=== PATIENT | female | born 1970 | race African-American/Black ===

== ENCOUNTER 2017-09-17 08:21 | Day surgery (SDC) | payer OTHER ==
[2017-09-15 09:29] LABS: HEMATOCRIT 40.9 % (36.0-47.0); HEMOGLOBIN 14.2 g/dL (12.0-15.5); MEAN CORPUSCULAR HEMOGLOBIN 31.7 pg (27.0-33.4); MEAN CORPUSCULAR HGB CONC 34.6 g/dL (32.0-36.0); MEAN CORPUSCULAR VOLUME 92 fl (80-97); PLATELET COUNT 384 10^3/uL (150-450); RED BLOOD COUNT 4.47 10^6/uL (3.72-5.28); RED CELL DISTRIBUTION WIDTH 13.3 % (11.5-14.0); WHITE BLOOD COUNT 5.7 10^3/uL (4.0-10.5)
[~2017-09-17 08:21] MED LIST: ACETAMINOPHEN 325 MG TABLET PO PRN; CEFAZOLIN 1 GM/D5W RTU 1 GM/50 ML RTUPB IV PRN; LACTATED RINGERS 1000 ML IV PRN; LIDOCAINE 0.5% INJ-PF (5 MG/ML) 50 ML SDV SUBCUT PRN
[2017-09-17] MEDS ORDERED: METOPROLOL TARTRATE 50 MG TABLET PO ONE (09:30)
[2017-09-17] MEDS ORDERED: LIDOCAINE 1%/EPINEPHRINE INJ 20 ML VIAL ONE (09:44)
[2017-09-17] MEDS ORDERED: ONDANSETRON HCL INJ/PF 4 MG/2 ML SDV ONE (10:12)
[2017-09-17] MEDS ORDERED: FENTANYL CITRATE INJ/PF 100 MCG/2 ML AMPUL ONE ×2 (10:12→11:41)
[2017-09-17] MEDS ORDERED: PROPOFOL INJ 200 MG/20 ML VIAL IV ONE (10:12)
[2017-09-17] MEDS ORDERED: LIDOCAINE 2% INJ-PF (20 MG/ML) 10 ML AMPUL ONE (10:12)
[2017-09-17] MEDS ORDERED: DEXMEDETOMIDINE INJ 80 MCG/20 ML VIAL IV ONE (10:12)
[2017-09-17] MEDS ORDERED: MIDAZOLAM 2 MG/2 ML INJ ONE (10:12)
[2017-09-17] MEDS ORDERED: ONDANSETRON HCL INJ/PF 4 MG/2 ML SDV IV PRN (10:43)
[2017-09-17] MEDS ORDERED: OXYCODONE-ACETAMINOPHEN 5-325 MG TABLET PO PRN ×3 (10:43→11:27)
[2017-09-17] MEDS ORDERED: PROMETHAZINE HCL INJ 25 MG/1 ML VIAL IV PRN ×2 (10:43)
[2017-09-17] MEDS ORDERED: FENTANYL CITRATE INJ/PF 100 MCG/2 ML AMPUL IV PRN ×3 (10:43)
[2017-09-17] MEDS ORDERED: MORPHINE SULFATE 10 MG/ML INJ IV PRN (10:43)
[2017-09-17] MEDS ORDERED: DIPHENHYDRAMINE HCL 50 MG/ML VIAL IV PRN (10:43)
[2017-09-17] MEDS ORDERED: MEPERIDINE HCL/PF INJ 25 MG/1 ML DISP.SYRIN IV PRN (10:43)
--- NOTE | 2017-09-17 11:25 | Operative Report ---
Operative Report DATE OF SURGERY: 09/17/17 PREOPERATIVE DIAGNOSIS: Metastatic triple negative left breast cancer POSTOPERATIVE DIAGNOSIS: same OPERATION: 1. Focused ultrasound of the left neck. 2. Ultrasound directed insertion venous access left internal jugular vein with subclavian portacatheter placement. 3. Interpretation of intraoperative fluoroscopy. SURGEON: KT LARRY 1ST ASSISTANT TERMINAL MANAGER: JACK MURPHY ANESTHESIA: LMAC TISSUE REMOVED OR ALTERED: See below COMPLICATIONS: None ESTIMATED BLOOD LOSS: Scant INTRAOPERATIVE FINDINGS: See below PROCEDURE: The patient was in the preop holding area then taken the main operating room where LMAC anesthesia was induced. Arms were tucked to the sides. The neck chest wall prepped and draped sterile fashion on both right and left sides. Surgical plan surgical timeout were conducted. Skin was any status with 1/4% Marcaine. Using ultrasound real-time as a guide, a micro needle and wire were threaded into the left internal jugular vein. Suitable site for placement of the port catheter was chosen. Skin was anesthetized with quarter percent Marcaine. A 3 cm incision was made several centimeters below the left clavicle. A port pocket was developed large enough to accommodate a single-chamber port using a combination of blunt and electrocautery dissection. The catheter was then trimmed the appropriate length , tunneled between the 2 incisions, attached to the port with the plastic ring and the port tucked into the subclavian pocket. The micro needle and wire were switched over to a fentanyl 0.030 guidewire using the introducer sheath. We then threaded a 9 Lithuanian introducer sheath over the guidewire, guidewire removed, as well as the dilator, then the catheter was threaded into the strip away sheath. All under fluoroscopic guidance, the strip away sheath was removed leaving the catheter in good position. There is no kinking of the catheter. Photos were taken of the final position of the catheter with the tip in the superior vena cava. Catheter aspirated and flushed satisfactorily. There was no evidence of ectopy. Closed with 3-0 Vicryl benzoin and Steri-Strip. Patient tolerated procedure well, taken recovery in stable condition.
--- NOTE | 2017-09-17 11:27 | Discharge Summary ---
Discharge Summary (SDC) - Discharge Final Diagnosis: Breast cancer Date of Surgery: 09/17/17 Discharge Date: 09/17/17 Condition: Stable Treatment or Instructions: WOUND CARE: 1) Do not get area wet for 48 hours. At that time you may wash area with warm water/soap, pat dry. Do not scurb. Leave paper band aids (steri strips) intact until follow up appointment. You may cover area with gauze and tape if it makes you more comfortable. PAIN MANAGEMENT: 1) Toradol 10 mg one pill by mouth every six hours as needed for pain. FOLLOW UP: 1) Follow up at [facility] in 7-10 days. Call clinic sooner if area becomes red, swollen, drainage occurs or difficulty breathing. Prescriptions: Ketorolac Tromethamine [Toradol 10 mg Tablet] 10 mg PO Q6HP PRN #20 tablet PRN Reason: Referrals: MANJINDER RODRIGUEZ MD [Primary Care Provider] - Discharge Diet: As Tolerated Discharge Activity: Activity As Tolerated Report the Following to Your Physician Immediately: Shortness of Breath, Fever over 101 Degrees, Unusual Bleeding, Redness, Drainage-Foul Smelling
[2017-09-17] MEDS ORDERED: OXYCODONE-ACETAMINOPHEN 5-325 MG TABLET ONE (12:28)
[2017-09-17 13:30] VITALS: BP 130/90
--- NOTE | 2017-09-17 14:19 | RADIOLOGY REPORT (SQ) ---
EXAM DESCRIPTION: FLUORO/CV PLACEMENT COMPLETED DATE/TIME: 09/17/2017 11:38 am REASON FOR STUDY: [id number] INSERTION W/FLUORO IN OR C50.411 MALIG NEOPLM OF UPPER-OUTER QUAD RANT OF RIGHT FEMALE C34.32 MALIGNANT NEOPLASM OF LOWER LOBE, LEFT BRONCHUS OR ARLYN COMPARISON: None. FLUOROSCOPY TIME: 0.2 minutes. 2 images saved to PACS. TECHNIQUE: Intra-operative images acquired during surgical procedure to evaluate progress. NUMBER OF IMAGES: 2 images. LIMITATIONS: None. FINDINGS: Images of the chest acquired during catheter placement. IMPRESSION: IMAGE(S) OBTAINED DURING PROCEDURE. COMMENT: Quality ID [id number]: Final reports for procedures using fluoroscopy that document radiation exp osure indices, or exposure time and number of fluorographic images (if radiation exposure indices are not available) Please consult full operative report of the attending physician for description of the procedure. TECHNICAL DOCUMENTATION: JOB ID: [id number] [employer]- All Rights Reserved Reading location - IP/workstation name: [email or web address]
== END 2017-09-17 13:45 | disposition home or self-care (01) ==
LOC: OROUT 08:21
PROVIDERS: ATTEND Surgery
DX: C50.411 Malignant neoplasm of upper-outer quadrant of right female breast (principal); C34.32 Malignant neoplasm of lower lobe, left bronchus or lung; G89.29 Other chronic pain; Z87.442 Personal history of urinary calculi; Z79.899 Other long term (current) drug therapy; Z79.82 Long term (current) use of aspirin
CPT/HCPCS: 36415; 85027; 77001; 36561; C1752; C1788; J2250; J0690; J3010; J3490 ×3; J2405; J2704; J1642; 532

== ENCOUNTER → 2018-02-08 | Outpatient (CLI) | payer OTHER ==
--- NOTE | 2018-02-09 09:11 | RADIOLOGY REPORT (SQ) ---
EXAM DESCRIPTION: PET CT SKULL/THIGH COMPLETED DATE/TIME: 02/08/2018 9:50 pm REASON FOR STUDY: HX OF BREAST/LUNG CANCER new right breast cancer diagnosis August 2017 COMPARISON: None. RADIONUCLIDE AND DOSE: 8.2 mCi F18 FDG The route of agent administration: Intravenous FASTING BLOOD SUGAR: 78 mg/dl CONTRAST TYPE AND DOSE: No CT contrast given. TECHNIQUE: Blood glucose level was verified. Above dose of FDG was injected intravenously. 2-D seg mented attenuation correction images were obtained from the base of the skull to the midthighs. Nonc ontrast CT images were obtained for attenuation correction and fusion with emission images. CT image s were performed without oral or intravenous contrast and are not sensitive for parenchymal lesions. A series of overlapping emission PET images were obtained. [facility] and [email or web address] by the radiologist. Images stored on PACS. LIMITATIONS: None. FINDINGS: HEAD AND NECK: No areas of abnormal metabolic activity in the soft tissues of the head and neck. CHEST: In the right upper outer quadrant of the breast, a 4 x 3 cm dominant mass is present on axial image 80 with SUV of 11. Immediately adjacent to the dominant mass, a 1.2 base 0.9 cm malignant nodule is present in the upper outer quadrant right breast on axial image 75, with SUV of 6.0. No right axillary or internal mammary region metabolic lymph nodes. No hypermetabolic sternal lesion s. ABDOMEN AND PELVIS: No areas of abnormal metabolic activity in the abdomen or pelvis. Expected physi ologic activity is present in the genitourinary system and bowel. PROXIMAL LOWER EXTREMITIES: No areas of abnormal metabolic activity in the soft tissues of the lower extremities. BONES: No abnormal metabolic activity in the visualized skeleton. ADDITIONAL CT FINDINGS: Old left lower lobectomy, left permanent central line with the tip in the sup erior vena cava. 1 cm left lower pole thyroid nodule. Small hiatal hernia. Tiny less than 3 mm tolu ateral upper pole renal stones. Colonic diverticuli. 5 x 3 cm left adnexal cyst, non metabolic OTHER: Liver background activity 2.8 SUV. Blood pool background activity 2.0 SUV. IMPRESSION: Malignant lesions in the right upper outer quadrant breast. No right axillary malignant adenopathy. No distant metastatic disease. TECHNICAL DOCUMENTATION: JOB ID: [id number] [employer]- All Rights Reserved Reading location - IP/workstation name: [email or web address]
== END ==
LOC: RAD 18:42
PROVIDERS: ATTEND Surgery
DX: C50.911 Malignant neoplasm of unspecified site of right female breast (principal); Z85.3 Personal history of malignant neoplasm of breast; Z85.118 Personal history of other malignant neoplasm of bronchus and lung
CPT/HCPCS: 78815; A9552

== ENCOUNTER 2018-12-02 15:01 | Inpatient (IN) | payer OTHER ==
[2018-12-02] MEDS ORDERED: NORMAL SALINE 1000 ML 1,000 ML IV ONE (15:17)
[2018-12-02] MEDS ORDERED: MORPHINE SULFATE 10 MG/ML INJ IV ONE (15:17)
[2018-12-02] MEDS ORDERED: ONDANSETRON HCL INJ/PF 4 MG/2 ML SDV IV ONE (15:17)
[2018-12-02] MEDS ORDERED: RINGERS SOLUTION,LACTATED 1,000 ML IV ONE (15:18)
--- NOTE | 2018-12-02 15:20 | ER Document Report ---
ED Medical Screen (RME) - General Stated Complaint: ABNORMAL LABS Time Seen by Provider: 12/02/18 15:09 Primary Care Provider: ALE PARKER MD [Primary Care Provider] - Follow up as needed Mode of Arrival: Wheelchair Information source: Patient Notes: 48-year-old female presented to ED for complaint of uncontrolled pain. She is being sent over here by Dr.Jayaram Bishop for pain control and IV fluids. She is a stage IV breast cancer with mets to lung and liver and possible brings. She states that Dr. Fischer said that she needed to get IV fluids due to her nausea dehydration severe chest pain. Patient is alert oriented respirations regular and unlabored speaking in full sentences. I have greeted and performed a rapid initial assessment of this patient. A comprehensive ED assessment and evaluation of the patient, analysis of test results and completion of medical decision making process will be conducted by an additional ED providers. TRAVEL OUTSIDE OF THE [place] IN LAST 30 DAYS: No - Related Data Allergies/Adverse Reactions: No Known Allergies Allergy (Verified 12/02/18 15:11) Past Medical History - Past Medical History Cardiac Medical History: Reports: Hx Hypertension Denies: Hx Coronary Artery Disease, Hx Heart Attack Pulmonary Medical History: Denies: Hx Asthma, Hx Bronchitis, Hx COPD, Hx Pneumonia Neurological Medical History: Denies: Hx Cerebrovascular Accident, Hx Seizures Musculoskeltal Medical History: Denies Hx Arthritis Past Surgical History: Reports: Hx Hysterectomy, Hx Urinary Tract Surgery - Immunizations Hx Diphtheria, Pertussis, Tetanus Vaccination: Yes Physical Exam - Vital signs Vitals: Temp Pulse Resp BP Pulse Ox 98.4 F 109 H 20 155/99 H 95 12/02/18 15:04 12/02/18 15:04 12/02/18 15:04 12/02/18 15:04 12/02/18 15:04 Course - Vital Signs Vital signs: Temp Pulse Resp BP Pulse Ox 98.4 F 109 H 20 155/99 H 95 12/02/18 15:04 12/02/18 15:04 12/02/18 15:04 12/02/18 15:04 12/02/18 15:04 Doctor's Discharge - Discharge Referrals: ALE PARKER MD [Primary Care Provider] - Follow up as needed
[2018-12-02 16:06] LABS: ABSOLUTE MONOCYTES (AUTO) 0.4 10^3/uL (0.1-1.4); ABSOLUTE NEUT (AUTO) 3.3 10^3/uL (1.7-8.2); BASOPHILS % (AUTO) 0.7 % (0-2); HEMATOCRIT 39.6 % (36.0-47.0); HEMOGLOBIN 13.2 g/dL (12.0-15.5); LYMPHOCYTES % (AUTO) 21.5 % (13-45); MEAN CORPUSCULAR HEMOGLOBIN 28.4 pg (27.0-33.4); MEAN CORPUSCULAR HGB CONC 33.4 g/dL (32.0-36.0); MEAN CORPUSCULAR VOLUME 85 fl (80-97); MONOCYTES % (AUTO) 8.7 % (3-13); PLATELET COUNT 378 10^3/uL (150-450); RED BLOOD COUNT 4.66 10^6/uL (3.72-5.28); SEGMENTED NEUTROPHILS % (AUTO) 69.1 % (42-78); TOTAL CELLS COUNTED % (AUTO) 100 %; WHITE BLOOD COUNT 4.8 10^3/uL (4.0-10.5)
[2018-12-02 16:25] LABS: ALBUMIN 4.4 g/dL (3.5-5.0); ALKALINE PHOSPHATASE 109 U/L (38-126); ANION GAP 12 (5-19); ASPARTATE AMINO TRANSFERASE 22 U/L (14-36); BILIRUBIN,DIRECT 0.2 mg/dL (0.0-0.4); BILIRUBIN,TOTAL 0.5 mg/dL (0.2-1.3); BLOOD UREA NITROGEN 5 mg/dL (7-20); CALCIUM 9.7 mg/dL (8.4-10.2); CARBON DIOXIDE 26 mmol/L (22-30); CHLORIDE 101 mmol/L (98-107); GLUCOSE 105 mg/dL (75-110); TOTAL PROTEIN 8.1 g/dL (6.3-8.2)
--- NOTE | 2018-12-02 16:51 | RADIOLOGY REPORT (SQ) ---
EXAM DESCRIPTION: CHEST SINGLE VIEW COMPLETED DATE/TIME: 12/02/2018 4:41 pm REASON FOR STUDY: cancer/cough COMPARISON: None. NUMBER OF VIEWS: One view. TECHNIQUE: Single frontal radiographic image of the chest acquired. LIMITATIONS: None. FINDINGS: LUNGS AND PLEURA: No acute findings in the chest. MEDIASTINUM AND HILAR STRUCTURES: No mediastinal abnormalities. There is right hilar fullness. PET- CT in January reveal no pathologic adenopathy on the right. HEART AND VASCULAR STRUCTURES: Heart size is normal. No failure. SUPPORT DEVICES: None. BONES: No acute findings. OTHER: Opacities overlying the lower chest wall are consistent with tissue expanders. IMPRESSION: No acute findings in the chest. Right hilar fullness of uncertain etiology. TECHNICAL DOCUMENTATION: JOB ID: [id number] [employer]- All Rights Reserved Reading location - IP/workstation name: [email or web address]
[2018-12-02] MEDS ORDERED: BENZONATATE 100 MG CAPSULE PO ONE (17:32)
--- NOTE | 2018-12-02 17:40 | ER Document Report ---
ED General - General Chief Complaint: Chest Pain Stated Complaint: ABNORMAL LABS Time Seen by Provider: 12/02/18 15:09 Primary Care Provider: ALE PARKER MD [NO LOCAL MD] - Follow up as needed Mode of Arrival: Wheelchair Information source: Patient TRAVEL OUTSIDE OF THE [place] IN LAST 30 DAYS: No - HPI Notes: Patient has stage IV metastatic breast cancer. She is sent over from Dr. Valencia's office. He states he would like the patient admitted for pain control and hydration. Patient states she has diffuse body pain. States it is severe. States it is worse with any movement. Better with rest. It radiates throughout her body. It is constant. She states she is also had a dry cough. Patient has no diarrhea. Some nausea but no vomiting. She has had no fevers. Some mild shortness of breath. - Related Data Allergies/Adverse Reactions: No Known Allergies Allergy (Verified 12/02/18 15:11) Past Medical History - General Information source: Patient - Social History Smoking Status: Never Smoker Frequency of alcohol use: None Drug Abuse: None Family History: Reviewed & Not Pertinent Patient has suicidal ideation: No Patient has homicidal ideation: No - Past Medical History Cardiac Medical History: Reports: Hx Hypertension Denies: Hx Coronary Artery Disease, Hx Heart Attack Pulmonary Medical History: Denies: Hx Asthma, Hx Bronchitis, Hx COPD, Hx Pneumonia Neurological Medical History: Denies: Hx Cerebrovascular Accident, Hx Seizures Musculoskeletal Medical History: Denies Hx Arthritis Past Surgical History: Reports: Hx Hysterectomy, Hx Urinary Tract Surgery - Immunizations Hx Diphtheria, Pertussis, Tetanus Vaccination: Yes Review of Systems - Review of Systems Constitutional: Malaise, Weakness. denies: Chills, Fever Cardiovascular: Chest pain. denies: Palpitations Respiratory: Cough, Short of breath Gastrointestinal: Abdominal pain, Nausea -: Yes All other systems reviewed and negative Physical Exam - Vital signs Vitals: Temp Pulse Resp BP Pulse Ox 98.4 F 109 H 20 155/99 H 95 12/02/18 15:04 12/02/18 15:04 12/02/18 15:04 12/02/18 15:04 12/02/18 15:04 Interpretation: Tachycardic - General General appearance: Alert, Anxious In distress: None - HEENT Head: Normocephalic, Atraumatic Eyes: Normal Pupils: PERRL - Respiratory Respiratory status: No respiratory distress Chest status: Nontender Breath sounds: Normal Chest palpation: Normal - Cardiovascular Rhythm: Regular Heart sounds: Normal auscultation Murmur: No - Abdominal Inspection: Normal Distension: No distension Bowel sounds: Normal Tenderness: Nontender Organomegaly: No organomegaly - Back Back: Normal, Nontender - Extremities General upper extremity: Normal inspection, Nontender, Normal color, Normal ROM, Normal temperature General lower extremity: Normal inspection, Nontender, Normal color, Normal ROM, Normal temperature, Normal weight bearing. No: Marina's sign - Neurological Neuro grossly intact: Yes Cognition: Normal Orientation: AAOx4 [place] Coma Scale Eye Opening: Spontaneous [place] Coma Scale Verbal: Oriented [place] Coma Scale Motor: Obeys Commands [place] Coma Scale Total: 15 Speech: Normal Motor strength normal: LUE, RUE, LLE, RLE Sensory: Normal - Psychological Associated symptoms: Normal affect, Normal mood - Skin Skin Temperature: Warm Skin Moisture: Dry Skin Color: Normal Course - Re-evaluation Re-evalutation: 12/02/18 17:38 Patient is sent from Dr. Valencia's office. Patient has stage IV metastatic breast c ancer. Patient has uncontrolled pain from this. Patient will require admission for control of pain as well as hydration. - Vital Signs Vital signs: Temp Pulse Resp BP Pulse Ox 98.4 F 109 H 20 155/99 H 95 12/02/18 15:04 12/02/18 15:04 12/02/18 15:04 12/02/18 15:04 12/02/18 15:04 - Laboratory Result Diagrams: 12/02/18 15:44 12/02/18 15:44 Laboratory results interpreted by me: 12/02/18 15:44 BUN 5 L Creatinine 0.47 L - Diagnostic Test Radiology reviewed: Image reviewed, Reports reviewed Discharge - Discharge Clinical Impression: Metastatic breast cancer, Uncontrolled pain Condition: Serious Disposition: ADMITTED INPATIENT Admitting Provider: Juan Luis (Hospitalist) - Jayme maldonado will do admission Unit Admitted: Medical Floor Referrals: ALE PARKER MD [NO LOCAL MD] - Follow up as needed
[2018-12-02] MEDS ORDERED: MAG HYDROX/AL HYDROX/SIMETH SUSP 30 ML UDCUP PO PRN (17:54)
[2018-12-02] MEDS ORDERED: TEMAZEPAM 15 MG CAPSULE PO PRN (17:54)
--- NOTE | 2018-12-02 18:09 | PDOC H&P ---
History of Present Illness Admission Date/PCP: 12/02/2018 SEJAL DIAZ DO Patient complains of: Intractable pain throughout her body and cough History of Present Illness: LINDSAY MELTON is a 48 year old female with known history of metastatic breast cancer stage IV who was sent over from Dr. Annie sanon's office with intractable pain and dehydration. She states a diffuse body pain states it is severe in nature and is worse with any movement. She states it radiates throughout her whole body it is constant in nature. Patient was given morphine in the ER with poor results. Patient also has had a dry cough no other associated symptoms no fevers no chills no other complaints at this time. She has had no other treatment prior to arrival all active is having factor. Past Medical History Cardiac Medical History: Reports: Hypertension Denies: Coronary Artery Disease, Myocardial Infarction Pulmonary Medical History: Denies: Asthma, Bronchitis, Chronic Obstructive Pulmonary Disease (COPD), Pneumonia Neurological Medical History: Denies: Seizures Musculoskeltal Medical History: Denies: Arthritis Hematology: Denies: Anemia Past Surgical History Past Surgical History: Reports: Hysterectomy, Other - Bilateral mastectomy Social History Information Source: Patient Lives with: Family Smoking Status: Never Smoker Frequency of Alcohol Use: None Hx Recreational Drug Use: No Drugs: None Hx Prescription Drug Abuse: No - Advance Directive Resuscitation Status: Full Code Family History Family History: Hypertension Parental Family History Reviewed: Yes Children Family History Reviewed: Yes Sibling(s) Family History Reviewed.: Yes Medication/Allergy Home Medications: Multivitamin [Multi-Day Vitamins] 1 each PO DAILY 05/24/11 Tens Unit Electrodes [Neurostimulation Electrodes] 1 each MC 05/24/11 Vitamin E [Aquavit-E] 50 unit PO 05/24/11 Aspirin [Adult Aspirin] 81 mg PO 09/12/17 Atorvastatin Calcium [Lipitor 10 mg Tablet] 09/12/17 Calcium Carb, Citrate/Vit D3 [Calcium + D3 ER Tablet] 09/12/17 Propranolol HCl [Inderal 20 mg Tablet] 09/12/17 Ketorolac Tromethamine [Toradol 10 mg Tablet] 10 mg PO Q6HP PRN #20 tablet 09/17/17 Allergies/Adverse Reactions: No Known Allergies Allergy (Verified 12/02/18 15:11) Review of Systems Constitutional: PRESENT: other - Global pain. ABSENT: chills, fever(s), headache(s), weight gain, weight loss Eyes: ABSENT: visual disturbances Ears: ABSENT: hearing changes Cardiovascular: ABSENT: chest pain, dyspnea on exertion, edema, orthropnea, palpitations Respiratory: ABSENT: cough, hemoptysis Gastrointestinal: ABSENT: abdominal pain, constipation, diarrhea, hematemesis, hematochezia, nausea, vomiting Genitourinary: ABSENT: dysuria, hematuria Musculoskeletal: ABSENT: joint swelling Integumentary: ABSENT: rash, wounds Neurological: ABSENT: abnormal gait, abnormal speech, confusion, dizziness, focal weakness, syncope Psychiatric: ABSENT: anxiety, depression, homidical ideation, suicidal ideation Endocrine: ABSENT: cold intolerance, heat intolerance, polydipsia, polyuria Hematologic/Lymphatic: ABSENT: easy bleeding, easy bruising Physical Exam Vital Signs: Temp Pulse Resp BP Pulse Ox 98.4 F 109 H 20 155/99 H 95 12/02/18 15:04 12/02/18 15:04 12/02/18 15:04 12/02/18 15:04 12/02/18 15:04 Intake & Output 12/01/18 12/02/18 12/03/18 06:59 06:59 06:59 Weight 94 kg General appearance: PRESENT: no acute distress, well-developed, well-nourished Head exam: PRESENT: atraumatic, normocephalic Eye exam: PRESENT: conjunctiva pink, EOMI, PERRLA. ABSENT: scleral icterus Ear exam: PRESENT: normal external ear exam Mouth exam: PRESENT: moist, tongue midline Neck exam: ABSENT: carotid bruit, JVD, lymphadenopathy, thyromegaly Respiratory exam: PRESENT: clear to auscultation tolu. ABSENT: rales, rhonchi, wheezes Cardiovascular exam: PRESENT: RRR. ABSENT: diastolic murmur, rubs, systolic murmur Pulses: PRESENT: normal dorsalis pedis pul Vascular exam: PRESENT: normal capillary refill GI/Abdominal exam: PRESENT: normal bowel sounds, soft. ABSENT: distended, guarding, mass, organolmegaly, rebound, tenderness Torso Front/Back Image: 1 - Bilateral mastectomy Rectal exam: PRESENT: deferred Extremities exam: PRESENT: full ROM. ABSENT: calf tenderness, clubbing, pedal edema Neurological exam: PRESENT: alert, awake, oriented to person, oriented to place, oriented to time, oriented to situation, CN II-XII grossly intact. ABSENT: motor sensory deficit Psychiatric exam: PRESENT: appropriate affect, normal mood. ABSENT: homicidal ideation, suicidal ideation Skin exam: PRESENT: dry, intact, warm. ABSENT: cyanosis, rash Results Laboratory Results: 12/02/18 15:44 12/02/18 15:44 12/02/18 12/02/18 15:44 15:44 WBC 4.8 RBC 4.66 Hgb 13.2 Hct 39.6 MCV 85 MCH 28.4 MCHC 33.4 RDW 13.0 Plt Count 378 Seg Neutrophils % 69.1 Sodium 139.2 Potassium 4.0 Chloride 101 Carbon Dioxide 26 Anion Gap 12 BUN 5 L Creatinine 0.47 L Est GFR ( Amer) > 60 Glucose 105 Calcium 9.7 Total Bilirubin 0.5 AST 22 Alkaline Phosphatase 109 Total Protein 8.1 Albumin 4.4 Impressions: Chest X-Ray 12/02/18 16:22 IMPRESSION: No acute findings in the chest. Right hilar fullness of uncertain etiology. Assessment and Plan - Plan Summary Summary: 12/02/2018- Intractable pain secondary to metastatic breast cancer-fentanyl patch 25 mcg every 72 hours topical at this time and will give Dilaudid 1 mg IV every 3 hours PRN for breakthrough pain. I did give patient a 1 time dose of 2 mg of IV Dilaudid in the ER. Dr. Annie sanon will follow up with patient in a.m. and make changes plan of care as appropriate Dehydration-hydrate with normal saline at 125 mL an hour repeat BMP in a.m. Hypertension-Norvasc 5 mg p.o. daily continue to follow and make change plan of care as appropriate Tachycardia-I suspect this will resolve with fluids and pain control will follow Idzeu-Dchovdhdct-AQ 5 mL's every 4 hours as needed - Time Time Spent with patient: 35 or more minutes
[2018-12-02] MEDS: NORMAL SALINE 1000 ML 1,000 ML IV PRN ×2 (18:48→22:07)
[2018-12-02] MEDS: HYDROMORPHONE HCL INJ/PF 2 MG/ML AMPULE IV PRN ×2 (18:49→22:02)
[2018-12-02] MEDS: AMLODIPINE BESYLATE 5 MG TABLET PO SCH (18:49)
[2018-12-02 18:51] LABS: APPEARANCE,URINE CLEAR; BILIRUBIN,URINE NEGATIVE (NEGATIVE); COLOR,URINE YELLOW; GLUCOSE, URINE NEGATIVE (NEGATIVE); KETONES,URINE TRACE mg/dL (NEGATIVE); LEUKOCYTE ESTERASE,URINE NEGATIVE (NEGATIVE); NITRITE,URINE NEGATIVE (NEGATIVE); PROTEIN,URINE 30 mg/dL (NEGATIVE); URINE SPECIFIC GRAVITY 1.009; UROBILINOGEN,URINE NEGATIVE mg/dL (<2.0)
[2018-12-02] MEDS ORDERED: FENTANYL 25 MCG/HR PATCH.TD72 TD ONE (19:00)
[2018-12-02] MEDS: GUAIFENESIN/CODEINE PHOS 100-10 MG/ 5 ML UDC PO PRN ×2 (19:19→23:36)
[2018-12-02] MEDS: ACETAMINOPHEN 325 MG TABLET PO PRN (22:01)
[2018-12-03] MEDS: LEVALBUTEROL HCL NEB 0.63 MG/3 ML AMPUL NEB PRN (00:44)
[2018-12-03] MEDS: HYDROMORPHONE HCL INJ/PF 2 MG/ML AMPULE IV PRN ×5 (02:13→22:46)
[2018-12-03] MEDS: NORMAL SALINE 1000 ML 1,000 ML IV PRN (02:59)
[2018-12-03] MEDS: ONDANSETRON HCL INJ/PF 4 MG/2 ML SDV IV PRN (05:27)
[2018-12-03] MEDS: GUAIFENESIN/CODEINE PHOS 100-10 MG/ 5 ML UDC PO PRN ×2 (05:35→21:36)
[2018-12-03 05:42] LABS: HEMATOCRIT 37.5 % (36.0-47.0); HEMOGLOBIN 12.3 g/dL (12.0-15.5); MEAN CORPUSCULAR HEMOGLOBIN 28.1 pg (27.0-33.4); MEAN CORPUSCULAR HGB CONC 32.8 g/dL (32.0-36.0); MEAN CORPUSCULAR VOLUME 86 fl (80-97); PLATELET COUNT 304 10^3/uL (150-450); RED BLOOD COUNT 4.37 10^6/uL (3.72-5.28); WHITE BLOOD COUNT 5.1 10^3/uL (4.0-10.5)
[2018-12-03 05:58] LABS: ANION GAP 9 (5-19); BLOOD UREA NITROGEN 4 mg/dL (7-20); CALCIUM 8.9 mg/dL (8.4-10.2); CARBON DIOXIDE 26 mmol/L (22-30); CHLORIDE 104 mmol/L (98-107); GLUCOSE 96 mg/dL (75-110); POTASSIUM 3.5 mmol/L (3.6-5.0)
[2018-12-03] MEDS: ACETAMINOPHEN 325 MG TABLET PO PRN (06:24)
[2018-12-03 06:37] LABS: ABSOLUTE LYMPHOCYTES# (MANUAL) 1.4 10^3/uL (0.5-4.7); ABSOLUTE MONOCYTES # (MANUAL) 0.7 10^3/uL (0.1-1.4); BASOPHILS % (MANUAL) 0 % (0-2); EOSINOPHILS % (MANUAL) 0 % (0-6); LYMPHOCYTES % (MANUAL) 28 % (13-45); MONOCYTES % (MANUAL) 14 % (3-13); SEGMENTED NEUTROPHILS % (MAN) 58 % (42-78); TOTAL CELLS COUNTED 100
[2018-12-03 06:38] LABS: HYPOCHROMASIA SLIGHT; PLATELET COMMENT ADEQUATE
[2018-12-03] MEDS ORDERED: DEXAMETHASONE SOD PHOS INJ 10 MG/1 ML VIAL IV ONE (08:15)
[2018-12-03] MEDS ORDERED: PROMETHAZINE HCL INJ 25 MG/1 ML VIAL ONE (08:16)
--- NOTE | 2018-12-03 08:32 | PDOC CONSULTATION ---
Consultation Consult Date: 12/03/18 Attending physician:: KIKR MIR Provider Consulted: TODD KELLEY Consult reason:: Severe chest pain, nausea and vomiting, weakness in the setting of stage IV breast cancer History of Present Illness Admission Date/PCP: 12/02/18 18:17 SEJAL DIAZ DO Patient complains of: Pain, weakness, nausea History of Present Illness: LINDSAY MELTON is a 48 year old female with known history of stage III breast cancer previously, unfortunately now with stage IV breast cancer. She was originally diagnosed last year with stage III breast cancer and we attempted to give her adjuvant chemotherapy unfortunately she stopped after just 1 cycle, surgery ultimately was delayed, and finally got surgery earlier this year with bilateral mastectomy and reconstructive surgery. About 1 month ago she began experiencing cough and congestion, initially was seen at [facility] and treated for pneumonia, thereafter she went back and they did a CTA of the chest which indicated multiple bilateral enlarging pulmo nary nodules and she was hypoxic at that time and ultimately she was transferred to [place], there she had full staging which indicated bilateral pulmonary nodules, liver metastasis and 2 small brain metastases. She also had a right supraclavicular node, this was biopsied and indicated triple negative breast cancer. She came to our office yesterday and she was unable to really get up from sleeping position, she was very weak nauseated and in a lot of pain. We had her come to the ED for admission for pain control and IV hydration and nausea control. Past Medical History Cardiac Medical History: Reports: Hypertension Denies: Coronary Artery Disease, Myocardial Infarction Pulmonary Medical History: Denies: Asthma, Bronchitis, Chronic Obstructive Pulmonary Disease (COPD), Pneumonia Neurological Medical History: Denies: Seizures Malignancy Medical History: Reports: Breast Cancer, Lung Cancer Musculoskeltal Medical History: Denies: Arthritis Hematology: Denies: Anemia Past Surgical History Past Surgical History: Reports: Hysterectomy, Other - Bilateral mastectomy Social History Information Source: Patient Lives with: Family Smoking Status: Never Smoker Frequency of Alcohol Use: None Hx Recreational Drug Use: No Drugs: None Hx Prescription Drug Abuse: No - Advance Directive Resuscitation Status: Full Code Family History Family History: Hypertension Parental Family History Reviewed: Yes Children Family History Reviewed: Yes Sibling(s) Family History Reviewed.: Yes Medication/Allergy Home Medications: Multivitamin [Multi-Day Vitamins] 1 each PO DAILY 05/24/11 Oxycodone HCl/Acetaminophen [Oxycodone-Acetaminophen 10-325] 10 - 325 mg PO Q6HP PRN 12/02/18 Allergies/Adverse Reactions: No Known Allergies Allergy (Verified 12/02/18 15:11) Review of Systems Constitutional: ABSENT: chills, fever(s), headache(s), weight gain, weight loss Eyes: ABSENT: visual disturbances Ears: ABSENT: hearing changes Cardiovascular: ABSENT: chest pain, dyspnea on exertion, edema, orthropnea, palpitations Respiratory: ABSENT: cough, hemoptysis Gastrointestinal: ABSENT: abdominal pain, constipation, diarrhea, hematemesis, hematochezia, nausea, vomiting Genitourinary: ABSENT: dysuria, hematuria Musculoskeletal: ABSENT: joint swelling Integumentary: ABSENT: rash, wounds Neurological: ABSENT: abnormal gait, abnormal speech, confusion, dizziness, focal weakness, syncope Psychiatric: ABSENT: anxiety, depression, homidical ideation, suicidal ideation Endocrine: ABSENT: cold intolerance, heat intolerance, polydipsia, polyuria Hematologic/Lymphatic: ABSENT: easy bleeding, easy bruising Physical Exam Vital Signs: Temp Pulse Resp BP Pulse Ox 97.8 F 72 18 127/78 H 95 12/03/18 03:26 12/03/18 07:00 12/03/18 03:26 12/03/18 03:26 12/03/18 07:38 Intake & Output 12/02/18 12/03/18 12/04/18 06:59 06:59 06:59 Intake Total 2573 Balance 2573 Weight 94.7 kg General appearance: PRESENT: no acute distress, well-developed, well-nourished Head exam: PRESENT: atraumatic, normocephalic Eye exam: PRESENT: conjunctiva pink, EOMI, PERRLA. ABSENT: scleral icterus Ear exam: PRESENT: normal external ear exam Mouth exam: PRESENT: moist, tongue midline Neck exam: ABSENT: carotid bruit, JVD, lymphadenopathy, thyromegaly Respiratory exam: PRESENT: clear to auscultation tolu. ABSENT: rales, rhonchi, wheezes Cardiovascular exam: PRESENT: RRR. ABSENT: diastolic murmur, rubs, systolic murmur Pulses: PRESENT: normal dorsalis pedis pul Vascular exam: PRESENT: normal capillary refill GI/Abdominal exam: PRESENT: normal bowel sounds, soft. ABSENT: distended, guarding, mass, organolmegaly, rebound, tenderness Rectal exam: PRESENT: deferred Extremities exam: PRESENT: full ROM. ABSENT: calf tenderness, clubbing, pedal edema Neurological exam: PRESENT: alert, awake, oriented to person, oriented to place, oriented to time, oriented to situation, CN II-XII grossly intact. ABSENT: motor sensory deficit Psychiatric exam: PRESENT: appropriate affect, normal mood. ABSENT: homicidal ideation, suicidal ideation Skin exam: PRESENT: dry, intact, warm. ABSENT: cyanosis, rash Results Laboratory Results: 12/03/18 05:25 12/03/18 05:25 12/02/18 12/02/18 12/02/18 14:30 15:44 15:44 WBC 4.8 RBC 4.66 Hgb 13.2 Hct 39.6 MCV 85 MCH 28.4 MCHC 33.4 RDW 13.0 Plt Count 378 Seg Neutrophils % 69.1 Sodium 139.2 Potassium 4.0 Chloride 101 Carbon Dioxide 26 Anion Gap 12 BUN 5 L Creatinine 0.47 L Est GFR ( Amer) > 60 Glucose 105 Calcium 9.7 Total Bilirubin 0.5 AST 22 Alkaline Phosphatase 109 Total Protein 8.1 Albumin 4.4 Urine Color YELLOW Urine Appearance CLEAR Urine pH 7.0 Ur Specific [place] 1.009 Urine Protein 30 H Urine Glucose (UA) NEGATIVE Urine Ketones TRACE H Urine Blood NEGATIVE Urine Nitrite NEGATIVE Ur Leukocyte Esterase NEGATIVE Urine WBC (Auto) 3 Urine RBC (Auto) 1 12/03/18 12/03/18 05:25 05:25 WBC 5.1 RBC 4.37 Hgb 12.3 Hct 37.5 MCV 86 MCH 28.1 MCHC 32.8 RDW 13.0 Plt Count 304 Seg Neutrophils % Not Reportable Sodium 138.8 Potassium 3.5 L Chloride 104 Carbon Dioxide 26 Anion Gap 9 BUN 4 L Creatinine 0.45 L Est GFR ( Amer) > 60 Glucose 96 Calcium 8.9 Total Bilirubin AST Alkaline Phosphatase Total Protein Albumin Urine Color Urine Appearance Urine pH Ur Specific [place] Urine Protein Urine Glucose (UA) Urine Ketones Urine Blood Urine Nitrite Ur Leukocyte Esterase Urine WBC (Auto) Urine RBC (Auto) Impressions: Chest X-Ray 12/02/18 16:22 IMPRESSION: No acute findings in the chest. Right hilar fullness of uncertain etiology. Assessment & Plan - Diagnosis (1) Uncontrolled pain Is this a current diagnosis for this admission?: Yes Plan: Related to the breast cancer, probably the pulmonary nodules, some part related to the tissue expanders, patient currently on Dilaudid IV plus fentanyl, continue with this and increase as needed. (2) Metastatic breast cancer Is this a current diagnosis for this admission?: Yes Plan: Metastatic triple negative breast cancer, I had a long discussion with the patient about this today, I do not feel like she wants treatment, she wants to be comfortable, to that extent I have consulted [facility] and Merlyn will come speak with her today 10 AM. However I believe she will need several more days for pain control to obtain the correct dosage of pain medication for her and hydrate her. Her ultimate goal is to see her sons [employer] graduation in 2 weeks. (3) Nausea & vomiting Qualifiers: Vomiting type: unspecified Vomiting Intractability: intractable Qualified Code(s): R11.2 - Nausea with vomiting, unspecified Is this a current diagnosis for this admission?: Yes Plan: Secondary to the cancer, added Phenergan today (4) Dehydration Is this a current diagnosis for this admission?: Yes Plan: Secondary to nausea and pain, continue with IV hydration - Time Time Spent: Greater than 70 Minutes - Inpatient Certification Based on my medical assessment, after consideration of the patient's comorbidities, presenting symptoms, or acuity I expect that the services needed warrant INPATIENT care.: Yes I certify that my determination is in accordance with my understanding of Medicare's requirements for reasonable and necessary INPATIENT services [42 CFR 412.3e].: Yes Medical Necessity: Need For IV Fluids, Need for Pain Control, Risk of Complication if Not Cared For in Hospital
--- NOTE | 2018-12-03 08:50 | PDOC PROGRESS REPORT ---
Subjective Progress Note for:: 12/03/18 Subjective:: 12/03/2018-improved pain but pain persists Reason For Visit: INTRACTABLE PAIN SECONDARY TO METASTATIC BREAST Physical Exam Vital Signs: Temp Pulse Resp BP Pulse Ox 97.8 F 72 18 127/78 H 95 12/03/18 03:26 12/03/18 07:00 12/03/18 03:26 12/03/18 03:26 12/03/18 07:38 Intake & Output 12/02/18 12/03/18 12/04/18 06:59 06:59 06:59 Intake Total 2573 Balance 2573 Weight 94.7 kg General appearance: PRESENT: no acute distress, well-developed, well-nourished Head exam: PRESENT: atraumatic, normocephalic Eye exam: PRESENT: conjunctiva pink, EOMI, PERRLA. ABSENT: scleral icterus Ear exam: PRESENT: normal external ear exam Mouth exam: PRESENT: moist, tongue midline Neck exam: ABSENT: carotid bruit, JVD, lymphadenopathy, thyromegaly Respiratory exam: PRESENT: clear to auscultation tolu. ABSENT: rales, rhonchi, wheezes Cardiovascular exam: PRESENT: RRR. ABSENT: diastolic murmur, rubs, systolic murmur Pulses: PRESENT: normal dorsalis pedis pul Vascular exam: PRESENT: normal capillary refill GI/Abdominal exam: PRESENT: normal bowel sounds, soft. ABSENT: distended, guarding, mass, organolmegaly, rebound, tenderness Rectal exam: PRESENT: deferred Extremities exam: PRESENT: full ROM. ABSENT: calf tenderness, clubbing, pedal edema Neurological exam: PRESENT: alert, awake, oriented to person, oriented to place, oriented to time, oriented to situation, CN II-XII grossly intact. ABSENT: motor sensory deficit Psychiatric exam: PRESENT: appropriate affect, normal mood. ABSENT: homicidal ideation, suicidal ideation Skin exam: PRESENT: dry, intact, warm. ABSENT: cyanosis, rash Adult Front & Back Image: 1 - Bilateral mastectomy Results Laboratory Results: 12/03/18 05:25 12/03/18 05:25 12/02/18 12/02/18 12/02/18 14:30 15:44 15:44 WBC 4.8 RBC 4.66 Hgb 13.2 Hct 39.6 MCV 85 MCH 28.4 MCHC 33.4 RDW 13.0 Plt Count 378 Seg Neutrophils % 69.1 Sodium 139.2 Potassium 4.0 Chloride 101 Carbon Dioxide 26 Anion Gap 12 BUN 5 L Creatinine 0.47 L Est GFR ( Amer) > 60 Glucose 105 Calcium 9.7 Total Bilirubin 0.5 AST 22 Alkaline Phosphatase 109 Total Protein 8.1 Albumin 4.4 Urine Color YELLOW Urine Appearance CLEAR Urine pH 7.0 Ur Specific [place] 1.009 Urine Protein 30 H Urine Glucose (UA) NEGATIVE Urine Ketones TRACE H Urine Blood NEGATIVE Urine Nitrite NEGATIVE Ur Leukocyte Esterase NEGATIVE Urine WBC (Auto) 3 Urine RBC (Auto) 1 12/03/18 12/03/18 05:25 05:25 WBC 5.1 RBC 4.37 Hgb 12.3 Hct 37.5 MCV 86 MCH 28.1 MCHC 32.8 RDW 13.0 Plt Count 304 Seg Neutrophils % Not Reportable Sodium 138.8 Potassium 3.5 L Chloride 104 Carbon Dioxide 26 Anion Gap 9 BUN 4 L Creatinine 0.45 L Est GFR ( Amer) > 60 Glucose 96 Calcium 8.9 Total Bilirubin AST Alkaline Phosphatase Total Protein Albumin Urine Color Urine Appearance Urine pH Ur Specific [place] Urine Protein Urine Glucose (UA) Urine Ketones Urine Blood Urine Nitrite Ur Leukocyte Esterase Urine WBC (Auto) Urine RBC (Auto) Impressions: Chest X-Ray 12/02/18 16:22 IMPRESSION: No acute findings in the chest. Right hilar fullness of uncertain etiology. Assessment and Plan - Plan Summary Summary: 12/02/2018- Intractable pain secondary to metastatic breast cancer-fentanyl patch 25 mcg every 72 hours topical at this time and will give Dilaudid 1 mg IV every 3 hours PRN for breakthrough pain. I did give patient a 1 time dose of 2 mg of IV Dilaudid in the ER. Dr. Annie sanon will follow up with patient in a.m. and make changes plan of care as appropriate Dehydration-hydrate with normal saline at 125 mL an hour repeat BMP in a.m. Hypertension-Norvasc 5 mg p.o. daily continue to follow and make change plan of care as appropriate Tachycardia-I suspect this will resolve with fluids and pain control will follow Yiqhy-Apsijbsnug-FT 5 mL's every 4 hours as needed 12/03/2018- Intractable pain. Patient continues on fentanyl patch 25 mcg every 72 hours at this time. Dilaudid 1 mg IV every 3 hours as needed. I did discuss this with Dr. Annie sanon this morning as patient is having slight headache and does have brain mets. We will give her dexamethasone 10 mg IV x1 and placed on dexamethasone 4 mg p.o. every 12 hours. We will continue to follow Dehydration. Patient able to take orals at this time I will stop the IV fluids at this time but will reinitiate as needed. Hypertension-stable continue Norvasc. Tachycardia-stable heart rate in the 70s at this time. Most likely was secondary to dehydration and pain level. Cough-continue Robitussin-AC - Time Time Spent with patient: 15-24 minutes
[2018-12-03] MEDS: PROMETHAZINE HCL INJ 25 MG/1 ML VIAL IV PRN ×3 (08:52→21:37)
[2018-12-03] MEDS ORDERED: POTASSIUM CHLORIDE 10 MEQ CAPSULE.ER PO ONE (09:00)
[2018-12-03] MEDS: DEXAMETHASONE 4 MG TABLET PO SCH ×2 (10:08→21:36)
[2018-12-03] MEDS: DOCUSATE SODIUM 100 MG CAPSULE PO SCH (10:08)
[2018-12-03] MEDS: AMLODIPINE BESYLATE 5 MG TABLET PO SCH (10:09)
--- NOTE | 2018-12-03 16:28 | RADIOLOGY REPORT (SQ) ---
EXAM DESCRIPTION: PICC INSERTION; FLUORO/CV PLACEMENT; U/S GUIDE FOR VASCULAR ACCESS COMPLETED DATE/TIME: 12/03/2018 3:07 pm REASON FOR STUDY: See Comments ; PICC COMPARISON: AP chest 12/02/2018 FLUOROSCOPY TIME: 25 seconds AP chest fluoroscopic image, left arm ultrasound image saved to PACS. TECHNIQUE: Fluoroscopic and ultrasound guided PICC placement. LIMITATIONS: None. PROCEDURE: After written consent and assessment were obtained, the patient was brought into the fluo roscopy room and placed supine on the table. Ultrasound evaluation of potential access sites were per formed. After successfully identifying a patent left basilic vein, the left arm was prepped and drape d in a sterile fashion along with the ultrasound probe. The entry site was anesthetized with 1% lidoc corby. A 21 gauge 7 cm needle was advanced through the skin and into the basilic vein under live ultra sound guidance. An ultrasound image was saved to PACS confirming access site. A .018 guide wire was then inserted through the needle and into the venous system. The needle was then removed and an 11 b lade scalpel was used to make a 1cm skin incision. A 5 fr peel-away sheath was advanced over the wir e and into the venous system. A measurement was then made using the existing wire and live fluoroscop ic guidance. The wire was then removed and trimmed. The PICC was advanced through the peel-away sheat h and into the venous system. The peel-away sheath was removed and the catheter was adhered to the pa tients arm with a stat lock. The catheter was then aspirated and flushed and a sterile bandage was pl aced over the access site. A fluoroscopic spot image was saved to PACS confirming the catheter tip w ithin the superior vena cava. IMPRESSION: SUCCESSFUL PLACEMENT OF A 5 FR DUAL LUMEN 37 CM PICC IN THE LEFT BASILIC VEIN. COMMENT: Patient medication list reviewed: Yes- Quality ID# 130:Eligible professional attests to doc umenting in the medical record they obtained, updated, or reviewed the patient's current medications. . Quality ID 145: Final reports for procedures using fluoroscopy that document radiation exposure elsy hiram, or exposure time and number of fluorographic images (if radiation exposure indices are not avail able) Quality ID #76: The patient was prepped and draped using maximum sterile barrier technique including cap, mask, sterile gown, sterile gloves, a large sterile sheet, hand hygiene, and 2% Chlorhexidine fo r cutaneous antisepsis. When ultrasound is used, sterile ultrasound techniques are followed requiring sterile gel and sterile probes. TECHNICAL DOCUMENTATION: JOB ID: [id number] [employer]- All Rights Reserved rev-07/18 Reading location - IP/workstation name: [facility]
[2018-12-03] MEDS: DIPHENHYDRAMINE HCL 50 MG/ML VIAL IV PRN (20:06)
[2018-12-04] MEDS: HYDROMORPHONE HCL INJ/PF 2 MG/ML AMPULE IV PRN ×7 (01:46→22:31)
[2018-12-04] MEDS: GUAIFENESIN/CODEINE PHOS 100-10 MG/ 5 ML UDC PO PRN ×2 (04:16→19:48)
[2018-12-04] MEDS: PROMETHAZINE HCL INJ 25 MG/1 ML VIAL IV PRN ×3 (04:16→22:31)
--- NOTE | 2018-12-04 08:41 | PDOC PROGRESS REPORT ---
Subjective Progress Note for:: 12/04/18 Subjective:: 12/03/2018-improved pain but pain persists 12/04/2018-pain continues. Patient having to take Dilaudid every 3 hours Reason For Visit: INTRACTABLE PAIN SECONDARY TO METASTATIC BREAST Physical Exam Vital Signs: Temp Pulse Resp BP Pulse Ox 97.6 F 93 16 154/93 H 99 12/04/18 07:27 12/04/18 07:27 12/04/18 07:27 12/04/18 07:27 12/04/18 07:27 Intake & Output 12/03/18 12/04/18 12/05/18 06:59 06:59 06:59 Intake Total 2573 1342 Balance 2573 1342 Weight 94.7 kg 92.2 kg General appearance: PRESENT: no acute distress, well-developed, well-nourished Head exam: PRESENT: atraumatic, normocephalic Eye exam: PRESENT: conjunctiva pink, EOMI, PERRLA. ABSENT: scleral icterus Ear exam: PRESENT: normal external ear exam Mouth exam: PRESENT: moist, tongue midline Neck exam: ABSENT: carotid bruit, JVD, lymphadenopathy, thyromegaly Respiratory exam: PRESENT: clear to auscultation tolu. ABSENT: rales, rhonchi, wheezes Cardiovascular exam: PRESENT: RRR. ABSENT: diastolic murmur, rubs, systolic murmur Pulses: PRESENT: normal dorsalis pedis pul Vascular exam: PRESENT: normal capillary refill GI/Abdominal exam: PRESENT: normal bowel sounds, soft. ABSENT: distended, guarding, mass, organolmegaly, rebound, tenderness Rectal exam: PRESENT: deferred Extremities exam: PRESENT: full ROM. ABSENT: calf tenderness, clubbing, pedal edema Neurological exam: PRESENT: alert, awake, oriented to person, oriented to place, oriented to time, oriented to situation, CN II-XII grossly intact. ABSENT: m otor sensory deficit Psychiatric exam: PRESENT: appropriate affect, normal mood. ABSENT: homicidal ideation, suicidal ideation Skin exam: PRESENT: dry, intact, warm. ABSENT: cyanosis, rash Adult Front & Back Image: 1 - Bilateral mastectomy Results Laboratory Results: 12/03/18 05:25 12/03/18 05:25 Impressions: Chest X-Ray 12/02/18 16:22 IMPRESSION: No acute findings in the chest. Right hilar fullness of uncertain etiology. Guidance Fluoroscopy 12/03/18 00:00 IMPRESSION: SUCCESSFUL PLACEMENT OF A 5 FR DUAL LUMEN 37 CM PICC IN THE LEFT BASILIC VEIN. Interventional Vascular Procedure 12/03/18 00:00 IMPRESSION: SUCCESSFUL PLACEMENT OF A 5 FR DUAL LUMEN 37 CM PICC IN THE LEFT BASILIC VEIN. PICC Line Insertion 12/03/18 00:00 IMPRESSION: SUCCESSFUL PLACEMENT OF A 5 FR DUAL LUMEN 37 CM PICC IN THE LEFT BASILIC VEIN. Assessment and Plan - Plan Summary Summary: 12/02/2018- Intractable pain secondary to metastatic breast cancer-fentanyl patch 25 mcg every 72 hours topical at this time and will give Dilaudid 1 mg IV every 3 hours PRN for breakthrough pain. I did give patient a 1 time dose of 2 mg of IV Dilaudid in the ER. Dr. Annie sanon will follow up with patient in a.m. and make changes plan of care as appropriate Dehydration-hydrate with normal saline at 125 mL an hour repeat BMP in a.m. Hypertension-Norvasc 5 mg p.o. daily continue to follow and make change plan of care as appropriate Tachycardia-I suspect this will resolve with fluids and pain control will follow Bwnfq-Fxrortnbzn-SD 5 mL's every 4 hours as needed 12/03/2018- Intractable pain. Patient continues on fentanyl patch 25 mcg every 72 hours at this time. Dilaudid 1 mg IV every 3 hours as needed. I did discuss this with Dr. Annie sanon this morning as patient is having slight headache and does have brain mets. We will give her dexamethasone 10 mg IV x1 and placed on dexamethasone 4 mg p.o. every 12 hours. We will continue to follow Dehydration. Patient able to take orals at this time I will stop the IV fluids at this time but will reinitiate as needed. Hypertension-stable continue Norvasc. Tachycardia-stable heart rate in the 70s at this time. Most likely was secondary to dehydration and pain level. Cough-continue Robitussin-AC 12/04/2018- Pain persist at this time. Patient having to take Dilaudid every 3 hours. We will increase fentanyl patch to 50 mcg every 72 hours at this time. Await further recommendations per Dr. Annie sanon. Patient continues on dexamethasone 4 mg p.o. every 12 hours. Dehydration. Stable continue to follow Hypertension-stable Tachycardia stable Cough-continue Robitussin-AC - Time Time Spent with patient: 15-24 minutes - Inpatient Certification Based on my medical assessment, after consideration of the patient's comorbidities, presenting symptoms, or acuity I expect that the services needed warrant INPATIENT care.: Yes I certify that my determination is in accordance with my understanding of Medicare's requirements for reasonable and necessary INPATIENT services [42 CFR 412.3e].: Yes Medical Necessity: Other - IV pain control
--- NOTE | 2018-12-04 08:56 | PDOC PROGRESS REPORT ---
Subjective Progress Note for:: 12/04/18 Subjective:: Had long discussion with patient, she is doing much better today in terms of pain, looking better today. She is considering treatment now, but also is amenable to speaking with hospice and I encouraged her to set up a meeting with them tomorrow. She has their phone number. I discussed treatment also at length, spent about 45 minutes in discussion. Reason For Visit: INTRACTABLE PAIN SECONDARY TO METASTATIC BREAST Physical Exam Vital Signs: Temp Pulse Resp BP Pulse Ox 97.6 F 93 16 154/93 H 99 12/04/18 07:27 12/04/18 07:27 12/04/18 07:27 12/04/18 07:27 12/04/18 07:27 Intake & Output 12/03/18 12/04/18 12/05/18 06:59 06:59 06:59 Intake Total 2573 1342 Balance 2573 1342 Weight 94.7 kg 92.2 kg General appearance: PRESENT: no acute distress, well-developed, well-nourished Head exam: PRESENT: atraumatic, normocephalic Eye exam: PRESENT: conjunctiva pink, EOMI, PERRLA. ABSENT: scleral icterus Ear exam: PRESENT: normal external ear exam Mouth exam: PRESENT: moist, tongue midline Neck exam: ABSENT: carotid bruit, JVD, lymphadenopathy, thyromegaly Respiratory exam: PRESENT: clear to auscultation tolu. ABSENT: rales, rhonchi, wheezes Cardiovascular exam: PRESENT: RRR. ABSENT: diastolic murmur, rubs, systolic murmur Pulses: PRESENT: normal dorsalis pedis pul Vascular exam: PRESENT: normal capillary refill GI/Abdominal exam: PRESENT: normal bowel sounds, soft. ABSENT: distended, guarding, mass, organolmegaly, rebound, tenderness Rectal exam: PRESENT: deferred Extremities exam: PRESENT: full ROM. ABSENT: calf tenderness, clubbing, pedal edema Neurological exam: PRESENT: alert, awake, oriented to person, oriented to place, oriented to time, oriented to situation, CN II-XII grossly intact. ABSENT: motor sensory deficit Psychiatric exam: PRESENT: appropriate affect, normal mood. ABSENT: homicidal ideation, suicidal ideation Skin exam: PRESENT: dry, intact, warm. ABSENT: cyanosis, rash Results Laboratory Results: 12/03/18 05:25 12/03/18 05:25 Impressions: Chest X-Ray 12/02/18 16:22 IMPRESSION: No acute findings in the chest. Right hilar fullness of uncertain etiology. Guidance Fluoroscopy 12/03/18 00:00 IMPRESSION: SUCCESSFUL PLACEMENT OF A 5 FR DUAL LUMEN 37 CM PICC IN THE LEFT BASILIC VEIN. Interventional Vascular Procedure 12/03/18 00:00 IMPRESSION: SUCCESSFUL PLACEMENT OF A 5 FR DUAL LUMEN 37 CM PICC IN THE LEFT BASILIC VEIN. PICC Line Insertion 12/03/18 00:00 IMPRESSION: SUCCESSFUL PLACEMENT OF A 5 FR DUAL LUMEN 37 CM PICC IN THE LEFT BASILIC VEIN. Assessment & Plan - Diagnosis (1) Uncontrolled pain Is this a current diagnosis for this admission?: Yes Plan: Improved, but will increase fentanyl to 50 (2) Metastatic breast cancer Is this a current diagnosis for this admission?: Yes Plan: Patient now considering treatment, will further discuss tomorrow with family (3) Nausea & vomiting Qualifiers: Vomiting type: unspecified Vomiting Intractability: intractable Qualified Code(s): R11.2 - Nausea with vomiting, unspecified Is this a current diagnosis for this admission?: Yes Plan: Continue with hydration and antiemetics, patient does have recurrent nausea (4) Dehydration Is this a current diagnosis for this admission?: Yes Plan: Continue with IV fluids
[2018-12-04] MEDS: DOCUSATE SODIUM 100 MG CAPSULE PO SCH (09:12)
[2018-12-04] MEDS: DEXAMETHASONE 4 MG TABLET PO SCH ×2 (09:16→22:31)
[2018-12-04] MEDS: AMLODIPINE BESYLATE 5 MG TABLET PO SCH (09:16)
[2018-12-04] MEDS ORDERED: PROMETHAZINE HCL INJ 25 MG/1 ML VIAL IV ONE (09:30)
[2018-12-04] MEDS ORDERED: FENTANYL 50 MCG/HR PATCH.TD72 TD SCH (10:00)
[2018-12-04] MEDS: LORAZEPAM INJ 2 MG/1 ML VIAL IV PRN (18:31)
[2018-12-04] MEDS: DIPHENHYDRAMINE HCL 50 MG/ML VIAL IV PRN (19:47)
[2018-12-05] MEDS: GUAIFENESIN/CODEINE PHOS 100-10 MG/ 5 ML UDC PO PRN ×3 (01:05→20:57)
[2018-12-05] MEDS: HYDROMORPHONE HCL INJ/PF 2 MG/ML AMPULE IV PRN ×6 (01:05→20:57)
[2018-12-05] MEDS: LORAZEPAM INJ 2 MG/1 ML VIAL IV PRN ×2 (01:39→21:19)
[2018-12-05] MEDS: PROMETHAZINE HCL INJ 25 MG/1 ML VIAL IV PRN ×3 (06:42→18:03)
--- NOTE | 2018-12-05 08:52 | PDOC PROGRESS REPORT ---
Subjective Progress Note for:: 12/05/18 Subjective:: 12/03/2018-improved pain but pain persists 12/04/2018-pain continues. Patient having to take Dilaudid every 3 hours 12/05/2018-improved pain control. Patient discussed with Dr. Annie sanon today about treatment for her neoplasm Reason For Visit: INTRACTABLE PAIN SECONDARY TO METASTATIC BREAST Physical Exam Vital Signs: Temp Pulse Resp BP Pulse Ox 98.4 F 76 18 117/80 98 12/05/18 07:40 12/05/18 07:40 12/05/18 07:40 12/05/18 07:40 12/05/18 07:40 Intake & Output 12/04/18 12/05/18 12/06/18 06:59 06:59 06:59 Intake Total 1342 805 Balance 1342 805 Weight 92.2 kg 94.8 kg General appearance: PRESENT: no acute distress, well-developed, well-nourished Neck exam: ABSENT: carotid bruit, JVD, lymphadenopathy, thyromegaly Respiratory exam: PRESENT: clear to auscultation tolu. ABSENT: rales, rhonchi, wheezes Cardiovascular exam: PRESENT: RRR. ABSENT: diastolic murmur, rubs, systolic murmur Pulses: PRESENT: normal dorsalis pedis pul Vascular exam: PRESENT: normal capillary refill GI/Abdominal exam: PRESENT: normal bowel sounds, soft. ABSENT: distended, guard ing, mass, organolmegaly, rebound, tenderness Extremities exam: PRESENT: full ROM. ABSENT: calf tenderness, clubbing, pedal edema Neurological exam: PRESENT: alert, awake, oriented to person, oriented to place, oriented to time, oriented to situation, CN II-XII grossly intact. ABSENT: motor sensory deficit Psychiatric exam: PRESENT: appropriate affect, normal mood. ABSENT: homicidal ideation, suicidal ideation Skin exam: PRESENT: other - Bilateral mastectomy Results Laboratory Results: 12/03/18 05:25 12/03/18 05:25 Impressions: Chest X-Ray 12/02/18 16:22 IMPRESSION: No acute findings in the chest. Right hilar fullness of uncertain etiology. Guidance Fluoroscopy 12/03/18 00:00 IMPRESSION: SUCCESSFUL PLACEMENT OF A 5 FR DUAL LUMEN 37 CM PICC IN THE LEFT BASILIC VEIN. Interventional Vascular Procedure 12/03/18 00:00 IMPRESSION: SUCCESSFUL PLACEMENT OF A 5 FR DUAL LUMEN 37 CM PICC IN THE LEFT BASILIC VEIN. PICC Line Insertion 12/03/18 00:00 IMPRESSION: SUCCESSFUL PLACEMENT OF A 5 FR DUAL LUMEN 37 CM PICC IN THE LEFT BASILIC VEIN. Assessment and Plan - Plan Summary Summary: 12/02/2018- Intractable pain secondary to metastatic breast cancer-fentanyl patch 25 mcg every 72 hours topical at this time and will give Dilaudid 1 mg IV every 3 hours PRN for breakthrough pain. I did give patient a 1 time dose of 2 mg of IV Dilaudid in the ER. Dr. Annie sanon will follow up with patient in a.m. and make changes plan of care as appropriate Dehydration-hydrate with normal saline at 125 mL an hour repeat BMP in a.m. Hypertension-Norvasc 5 mg p.o. daily continue to follow and make change plan of care as appropriate Tachycardia-I suspect this will resolve with fluids and pain control will follow Vhjrg-Arvnyfpexy-PG 5 mL's every 4 hours as needed 12/03/2018- Intractable pain. Patient continues on fentanyl patch 25 mcg every 72 hours at this time. Dilaudid 1 mg IV every 3 hours as needed. I did discuss this with Dr. Annie sanon this morning as patient is having slight headache and does have brain mets. We will give her dexamethasone 10 mg IV x1 and placed on dexamethasone 4 mg p.o. every 12 hours. We will continue to follow Dehydration. Patient able to take orals at this time I will stop the IV fluids at this time but will reinitiate as needed. Hypertension-stable continue Norvasc. Tachycardia-stable heart rate in the 70s at this time. Most likely was secondary to dehydration and pain level. Cough-continue Robitussin-AC 12/04/2018- Pain persist at this time. Patient having to take Dilaudid every 3 hours. We will increase fentanyl patch to 50 mcg every 72 hours at this time. Await further recommendations per Dr. Annie sanon. Patient continues on dexamethasone 4 mg p.o. every 12 hours. Dehydration. Stable continue to follow Hypertension-stable Tachycardia stable Cough-continue Robitussin-AC 12/05/2018- Pain improved at this time. Patient requiring Dilaudid up to every 4 hours. Fentanyl patch was increased yesterday to 50 mcg every [address] Annie sanon will see patient today and we will discuss further change plan of care as needed. Dehydration-stable Tachycardia-stable continue to follow Cough-continue Robitussin-AC as needed Anxiety-continue Ativan as needed - Time Time Spent with patient: 15-24 minutes - Inpatient Certification Based on my medical assessment, after consideration of the patient's comorbidities, presenting symptoms, or acuity I expect that the services needed warrant INPATIENT care.: Yes I certify that my determination is in accordance with my understanding of Medicare's requirements for reasonable and necessary INPATIENT services [42 CFR 412.3e].: Yes Medical Necessity: Other - IV pain control
[2018-12-05] MEDS: DOCUSATE SODIUM 100 MG CAPSULE PO SCH (11:28)
[2018-12-05] MEDS: DEXAMETHASONE 4 MG TABLET PO SCH ×2 (11:28→21:19)
[2018-12-05] MEDS: AMLODIPINE BESYLATE 5 MG TABLET PO SCH (11:28)
[2018-12-05] MEDS: NORMAL SALINE 10 ML SDV (SCHEDULED) IV SCH ×2 (11:29→22:47)
[2018-12-05] MEDS: LEVALBUTEROL HCL NEB 0.63 MG/3 ML AMPUL NEB PRN (14:08)
--- NOTE | 2018-12-05 14:15 | PDOC PROGRESS REPORT ---
Subjective Progress Note for:: 12/05/18 Subjective:: No acute events overnight, patient seems to be doing better this morning, pain is better controlled but still requiring frequent IV pain medication, eating lunch when I saw her Reason For Visit: INTRACTABLE PAIN SECONDARY TO METASTATIC BREAST Physical Exam Vital Signs: Temp Pulse Resp BP Pulse Ox 98.5 F 88 18 117/80 98 12/05/18 11:22 12/05/18 11:22 12/05/18 07:40 12/05/18 07:40 12/05/18 11:22 Intake & Output 12/04/18 12/05/18 12/06/18 06:59 06:59 06:59 Intake Total 1342 805 400 Balance 1342 805 400 Weight 92.2 kg 94.8 kg General appearance: PRESENT: no acute distress, well-developed, well-nourished Head exam: PRESENT: atraumatic, normocephalic Eye exam: PRESENT: conjunctiva pink, EOMI, PERRLA. ABSENT: scleral icterus Ear exam: PRESENT: normal external ear exam Mouth exam: PRESENT: moist, tongue midline Neck exam: ABSENT: carotid bruit, JVD, lymphadenopathy, thyromegaly Respiratory exam: PRESENT: clear to auscultation tolu. ABSENT: rales, rhonchi, wheezes Cardiovascular exam: PRESENT: RRR. ABSENT: diastolic murmur, rubs, systolic murmur Pulses: PRESENT: normal dorsalis pedis pul Vascular exam: PRESENT: normal capillary refill GI/Abdominal exam: PRESENT: normal bowel sounds, soft. ABSENT: distended, guarding, mass, organolmegaly, rebound, tenderness Rectal exam: PRESENT: deferred Extremities exam: PRESENT: full ROM. ABSENT: calf tenderness, clubbing, pedal edema Neurological exam: PRESENT: alert, awake, oriented to person, oriented to place, oriented to time, oriented to situation, CN II-XII grossly intact. ABSENT: motor sensory deficit Psychiatric exam: PRESENT: appropriate affect, normal mood. ABSENT: homicidal ideation, suicidal ideation Skin exam: PRESENT: dry, intact, warm. ABSENT: cyanosis, rash Results Laboratory Results: 12/03/18 05:25 12/03/18 05:25 Impressions: Chest X-Ray 12/02/18 16:22 IMPRESSION: No acute findings in the chest. Right hilar fullness of uncertain etiology. Guidance Fluoroscopy 12/03/18 00:00 IMPRESSION: SUCCESSFUL PLACEMENT OF A 5 FR DUAL LUMEN 37 CM PICC IN THE LEFT B ASILIC VEIN. Interventional Vascular Procedure 12/03/18 00:00 IMPRESSION: SUCCESSFUL PLACEMENT OF A 5 FR DUAL LUMEN 37 CM PICC IN THE LEFT BASILIC VEIN. PICC Line Insertion 12/03/18 00:00 IMPRESSION: SUCCESSFUL PLACEMENT OF A 5 FR DUAL LUMEN 37 CM PICC IN THE LEFT BASILIC VEIN. Assessment & Plan - Diagnosis (1) Uncontrolled pain Is this a current diagnosis for this admission?: Yes Plan: Getting better, increased fentanyl patch yesterday and we should have full effect of that by this afternoon and hopefully by tomorrow she will need less IV pain medication. Ultimately would like her get her home with oral Dilaudid plus fentanyl patch. (2) Metastatic breast cancer Is this a current diagnosis for this admission?: Yes Plan: Patient is thinking about treatment now, but still undecided. I do not believe she will be talking with hospice right now. We will just need to follow this up as an outpatient and help her make a decision (3) Nausea & vomiting Qualifiers: Vomiting type: unspecified Vomiting Intractability: intractable Qualified Code(s): R11.2 - Nausea with vomiting, unspecified Is this a current diagnosis for this admission?: Yes Plan: imProved, continue with current antiemetics (4) Dehydration Is this a current diagnosis for this admission?: Yes Plan: Continue with IV hydration, getting better - Time Time Spent with patient: 35 or more minutes Anticipated discharge: Home Within: within 48 hours - Inpatient Certification Based on my medical assessment, after consideration of the patient's comorbidities, presenting symptoms, or acuity I expect that the services needed warrant INPATIENT care.: Yes I certify that my determination is in accordance with my understanding of Medicare's requirements for reasonable and necessary INPATIENT services [42 CFR 412.3e].: Yes Medical Necessity: Need For IV Fluids, Need for Pain Control, Risk of Complication if Not Cared For in Hospital
[2018-12-05] MEDS: NORMAL SALINE 10 ML SDV (AFTER EACH USE) IV PRN (14:41)
[2018-12-05] MEDS: DIPHENHYDRAMINE HCL 50 MG/ML VIAL IV PRN (18:02)
[2018-12-06] MEDS: HYDROMORPHONE HCL INJ/PF 2 MG/ML AMPULE IV PRN ×8 (00:10→21:49)
[2018-12-06] MEDS: PROMETHAZINE HCL INJ 25 MG/1 ML VIAL IV PRN ×4 (00:11→19:52)
[2018-12-06] MEDS: GUAIFENESIN/CODEINE PHOS 100-10 MG/ 5 ML UDC PO PRN ×2 (03:13→19:52)
[2018-12-06] MEDS: LORAZEPAM INJ 2 MG/1 ML VIAL IV PRN ×2 (03:26→17:26)
[2018-12-06] MEDS ORDERED: HYDROMORPHONE HCL INJ/PF 2 MG/ML AMPULE IV PRN (08:16)
--- NOTE | 2018-12-06 08:20 | PDOC PROGRESS REPORT ---
Subjective Progress Note for:: 12/06/18 Subjective:: 12/03/2018-improved pain but pain persists 12/04/2018-pain continues. Patient having to take Dilaudid every 3 hours 12/05/2018-improved pain control. Patient discussed with Dr. Annie sanon today about treatment for her neoplasm 12/06/2018-continue pain. Requiring Dilaudid regularly. Reason For Visit: INTRACTABLE PAIN SECONDARY TO METASTATIC BREAST Physical Exam Vital Signs: Temp Pulse Resp BP Pulse Ox 97.5 F 81 16 152/94 H 99 12/06/18 03:16 12/06/18 03:16 12/06/18 03:16 12/06/18 03:16 12/06/18 03:16 Intake & Output 12/05/18 12/06/18 12/07/18 06:59 06:59 06:59 Intake Total 805 1847 Balance 805 1847 Weight 94.8 kg 96.5 kg General appearance: PRESENT: no acute distress, well-developed, well-nourished Neck exam: ABSENT: carotid bruit, JVD, lymphadenopathy, thyromegaly Respiratory exam: PRESENT: clear to auscultation tolu. ABSENT: rales, rhonchi, wheezes Cardiovascular exam: PRESENT: RRR. ABSENT: diastolic murmur, rubs, systolic murmur Pulses: PRESENT: normal dorsalis pedis pul Vascular exam: PRESENT: normal capillary refill Extremities exam: PRESENT: full ROM. ABSENT: calf tenderness, clubbing, pedal edema Neurological exam: PRESENT: alert, awake, oriented to person, oriented to place, oriented to time, oriented to situation, CN II-XII grossly intact. ABSENT: motor sensory deficit Psychiatric exam: PRESENT: appropriate affect, normal mood. ABSENT: homicidal ideation, suicidal ideation Skin exam: PRESENT: dry, intact, warm. ABSENT: cyanosis, rash Adult Front & Back Image: 1 - Bilateral mastectomy Results Laboratory Results: 12/03/18 05:25 12/03/18 05:25 Impressions: Chest X-Ray 12/02/18 16:22 IMPRESSION: No acute findings in the chest. Right hilar fullness of uncertain etiology. Guidance Fluoroscopy 12/03/18 00:00 IMPRESSION: SUCCESSFUL PLACEMENT OF A 5 FR DUAL LUMEN 37 CM PICC IN THE LEFT BASILIC VEIN. Interventional Vascular Procedure 12/03/18 00:00 IMPRESSION: SUCCESSFUL PLACEMENT OF A 5 FR DUAL LUMEN 37 CM PICC IN THE LEFT BASILIC VEIN. PICC Line Insertion 12/03/18 00:00 IMPRESSION: SUCCESSFUL PLACEMENT OF A 5 FR DUAL LUMEN 37 CM PICC IN THE LEFT BASILIC VEIN. Assessment and Plan - Plan Summary Summary: 12/02/2018- Intractable pain secondary to metastatic breast cancer-fentanyl patch 25 mcg every 72 hours topical at this time and will give Dilaudid 1 mg IV every 3 hours PRN for breakthrough pain. I did give patient a 1 time dose of 2 mg of IV Dilaudid in the ER. Dr. Annie sanon will follow up with patient in a.m. and make changes plan of care as appropriate Dehydration-hydrate with normal saline at 125 mL an hour repeat BMP in a.m. Hypertension-Norvasc 5 mg p.o. daily continue to follow and make change plan of care as appropriate Tachycardia-I suspect this will resolve with fluids and pain control will follow Ziawa-Zyqhforbrw-DW 5 mL's every 4 hours as needed 12/03/2018- Intractable pain. Patient continues on fentanyl patch 25 mcg every 72 hours at this time. Dilaudid 1 mg IV every 3 hours as needed. I did discuss this with Dr. Annie sanon this morning as patient is having slight headache and does have brain mets. We will give her dexamethasone 10 mg IV x1 and placed on dexamethasone 4 mg p.o. every 12 hours. We will continue to follow Dehydration. Patient able to take orals at this time I will stop the IV fluids at this time but will reinitiate as needed. Hypertension-stable continue Norvasc. Tachycardia-stable heart rate in the 70s at this time. Most likely was seco ndary to dehydration and pain level. Cough-continue Robitussin-AC 12/04/2018- Pain persist at this time. Patient having to take Dilaudid every 3 hours. We will increase fentanyl patch to 50 mcg every 72 hours at this time. Await further recommendations per Dr. Annie sanon. Patient continues on dexamethasone 4 mg p.o. every 12 hours. Dehydration. Stable continue to follow Hypertension-stable Tachycardia stable Cough-continue Robitussin-AC 12/05/2018- Pain improved at this time. Patient requiring Dilaudid up to every 4 hours. Fentanyl patch was increased yesterday to 50 mcg every [address] Annie sanon will see patient today and we will discuss further change plan of care as needed. Dehydration-stable Tachycardia-stable continue to follow Cough-continue Robitussin-AC as needed Anxiety-continue Ativan as needed 12/06/2018- Pain-patient requiring Dilaudid regularly still. Will increase Dilaudid to 1 mg IV every 2 hours as needed patch remains at 50 mcg every [address] Annie sanon recommendations. Dehydration-stable Tachycardia-stable Cough-continue Robitussin-AC Anxiety-continue Ativan as needed Insomnia-continue IV Benadryl at bedtime as needed - Time Time Spent with patient: 15-24 minutes - Inpatient Certification Based on my medical assessment, after consideration of the patient's comorbid ities, presenting symptoms, or acuity I expect that the services needed warrant INPATIENT care.: Yes I certify that my determination is in accordance with my understanding of Medicare's requirements for reasonable and necessary INPATIENT services [42 CFR 412.3e].: Yes Medical Necessity: Other - IV pain control
[2018-12-06] MEDS ORDERED: DIPHENHYDRAMINE HCL 50 MG/ML VIAL ONE ×2 (09:04→18:46)
[2018-12-06] MEDS ORDERED: DIPHENHYDRAMINE HCL 50 MG/ML VIAL IV ONE (09:15)
[2018-12-06] MEDS: NORMAL SALINE 10 ML SDV (SCHEDULED) IV SCH ×2 (09:27→21:54)
[2018-12-06] MEDS: AMLODIPINE BESYLATE 5 MG TABLET PO SCH (09:27)
[2018-12-06] MEDS: DOCUSATE SODIUM 100 MG CAPSULE PO SCH (09:28)
[2018-12-06] MEDS: DEXAMETHASONE 4 MG TABLET PO SCH ×2 (09:28→21:49)
[2018-12-06] MEDS ORDERED: DIPHENHYDRAMINE HCL 50 MG/ML VIAL IV SCH (10:00)
[2018-12-06] MEDS: NORMAL SALINE 10 ML SDV (AFTER EACH USE) IV PRN ×2 (13:02→17:26)
[2018-12-06] MEDS: DIPHENHYDRAMINE HCL 50 MG/ML VIAL IV SCH (21:41)
[2018-12-06] MEDS: ONDANSETRON HCL INJ/PF 4 MG/2 ML SDV IV PRN (21:49)
[2018-12-07] MEDS: HYDROMORPHONE HCL INJ/PF 2 MG/ML AMPULE IV PRN ×6 (00:57→19:01)
[2018-12-07] MEDS: GUAIFENESIN/CODEINE PHOS 100-10 MG/ 5 ML UDC PO PRN ×3 (00:57→19:07)
[2018-12-07] MEDS: PROMETHAZINE HCL INJ 25 MG/1 ML VIAL IV PRN ×4 (02:09→19:00)
[2018-12-07] MEDS: LORAZEPAM INJ 2 MG/1 ML VIAL IV PRN ×3 (06:26→13:34)
--- NOTE | 2018-12-07 08:24 | PDOC PROGRESS REPORT ---
Subjective Progress Note for:: 12/07/18 Subjective:: 12/03/2018-improved pain but pain persists 12/04/2018-pain continues. Patient having to take Dilaudid every 3 hours 12/05/2018-improved pain control. Patient discussed with Dr. Annie sanon today about treatment for her neoplasm 12/06/2018-continue pain. Requiring Dilaudid regularly. 12/07/2018-continued pain Reason For Visit: INTRACTABLE PAIN SECONDARY TO METASTATIC BREAST Physical Exam Vital Signs: Temp Pulse Resp BP Pulse Ox 97.3 F 69 20 121/86 H 95 12/07/18 03:42 12/07/18 07:00 12/07/18 03:42 12/07/18 03:42 12/07/18 03:42 Intake & Output 12/06/18 12/07/18 12/08/18 06:59 06:59 06:59 Intake Total 1847 1967 Output Total 1 Balance 1847 1966 Weight 96.5 kg 97.9 kg General appearance: PRESENT: no acute distress, well-developed, well-nourished Head exam: PRESENT: atraumatic, normocephalic Eye exam: PRESENT: conjunctiva pink, EOMI, PERRLA. ABSENT: scleral icterus Ear exam: PRESENT: normal external ear exam Mouth exam: PRESENT: moist, tongue midline Neck exam: ABSENT: carotid bruit, JVD, lymphadenopathy, thyromegaly Respiratory exam: PRESENT: clear to auscultation tolu. ABSENT: rales, rhonchi, wheezes Cardiovascular exam: PRESENT: RRR. ABSENT: diastolic murmur, rubs, systolic murmur Pulses: PRESENT: normal dorsalis pedis pul Vascular exam: PRESENT: normal capillary refill GI/Abdominal exam: PRESENT: normal bowel sounds, soft. ABSENT: distended, guarding, mass, organolmegaly, rebound, tenderness Rectal exam: PRESENT: deferred Extremities exam: PRESENT: full ROM. ABSENT: calf tenderness, clubbing, pedal edema Neurological exam: PRESENT: alert, awake, oriented to person, oriented to place, oriented to time, oriented to situation, CN II-XII grossly intact. ABSENT: motor sensory deficit Psychiatric exam: PRESENT: appropriate affect, normal mood. ABSENT: homicidal ideation, suicidal ideation Skin exam: PRESENT: dry, intact, warm. ABSENT: cyanosis, rash Adult Front & Back Image: 1 - Bilateral mastectomy Results Laboratory Results: 12/03/18 05:25 12/03/18 05:25 Impressions: Chest X-Ray 12/02/18 16:22 IMPRESSION: No acute findings in the chest. Right hilar fullness of uncertain etiology. Guidance Fluoroscopy 12/03/18 00:00 IMPRESSION: SUCCESSFUL PLACEMENT OF A 5 FR DUAL LUMEN 37 CM PICC IN THE LEFT BASILIC VEIN. Interventional Vascular Procedure 12/03/18 00:00 IMPRESSION: SUCCESSFUL PLACEMENT OF A 5 FR DUAL LUMEN 37 CM PICC IN THE LEFT BASILIC VEIN. PICC Line Insertion 12/03/18 00:00 IMPRESSION: SUCCESSFUL PLACEMENT OF A 5 FR DUAL LUMEN 37 CM PICC IN THE LEFT BASILIC VEIN. Assessment and Plan - Plan Summary Summary: 12/02/2018- Intractable pain secondary to metastatic breast cancer-fentanyl patch 25 mcg every 72 hours topical at this time and will give Dilaudid 1 mg IV every 3 hours PRN for breakthrough pain. I did give patient a 1 time dose of 2 mg of IV Dilaudid in the ER. Dr. Annie sanon will follow up with patient in a.m. and make changes plan of care as appropriate Dehydration-hydrate with normal saline at 125 mL an hour repeat BMP in a.m. Hypertension-Norvasc 5 mg p.o. daily continue to follow and make change plan of care as appropriate Tachycardia-I suspect this will resolve with fluids and pain control will follow Clvrt-Opupvduhnf-YP 5 mL's every 4 hours as needed 12/03/2018- Intractable pain. Patient continues on fentanyl patch 25 mcg every 72 hours at this time. Dilaudid 1 mg IV every 3 hours as needed. I did discuss this with Dr. Annie sanon this morning as patient is having slight headache and does have brain mets. We will give her dexamethasone 10 mg IV x1 and placed on dexamethasone 4 mg p.o. every 12 hours. We will continue to follow Dehydration. Patient able to take orals at this time I will stop the IV fluids at this time but will reinitiate as needed. Hypertension-stable continue Norvasc. Tachycardia-stable heart rate in the 70s at this time. Most likely was secondary to dehydration and pain level. Cough-continue Robitussin-AC 12/04/2018- Pain persist at this time. Patient having to take Dilaudid every 3 hours. We will increase fentanyl patch to 50 mcg every 72 hours at this time. Await furt her recommendations per Dr. Annie sanon. Patient continues on dexamethasone 4 mg p.o. every 12 hours. Dehydration. Stable continue to follow Hypertension-stable Tachycardia stable Cough-continue Robitussin-AC 12/05/2018- Pain improved at this time. Patient requiring Dilaudid up to every 4 hours. F entanyl patch was increased yesterday to 50 mcg every [address] Annie sanon will see patient today and we will discuss further change plan of care as needed. Dehydration-stable Tachycardia-stable continue to follow Cough-continue Robitussin-AC as needed Anxiety-continue Ativan as needed 12/06/2018- Pain-patient requiring Dilaudid regularly still. Will increase Dilaudid to 1 mg IV every 2 hours as needed patch remains at 50 mcg every [address] Annie sanon recommendations. Dehydration-stable Tachycardia-stable Cough-continue Robitussin-AC Anxiety-continue Ativan as needed Insomnia-continue IV Benadryl at bedtime as needed 12/07/2018- Pain-still requiring Dilaudid on a regular basis. Patient's fentanyl patches at 50 mcg every 72 hours. I will increase her fentanyl patch to 75 mics at this time continue PRN Dilaudid. Dehydration-stable repeat BMP in a.m. Tachycardia-stable Cough Robitussin-AC Anxiety continue Ativan Insomnia continue IV Benadryl at bedtime - Time Time Spent with patient: 15-24 minutes - Inpatient Certification Based on my medical assessment, after consideration of the patient's comorbidities, presenting symptoms, or acuity I expect that the services needed warrant INPATIENT care.: Yes I certify that my determination is in accordance with my understanding of Medicare's requirements for reasonable and necessary INPATIENT services [42 CFR 412.3e].: Yes Medical Necessity: Other - IV pain control
[2018-12-07] MEDS: DOCUSATE SODIUM 100 MG CAPSULE PO SCH (09:13)
[2018-12-07] MEDS: AMLODIPINE BESYLATE 5 MG TABLET PO SCH (09:13)
[2018-12-07] MEDS: OXYCODONE-ACETAMINOPHEN 5-325 MG TABLET PO PRN ×4 (09:13→22:22)
[2018-12-07] MEDS: DEXAMETHASONE 4 MG TABLET PO SCH ×2 (09:13→22:22)
[2018-12-07] MEDS: OXYCODONE HCL IR 5 MG TABLET PO PRN ×4 (09:14→22:22)
--- NOTE | 2018-12-07 09:16 | PDOC PROGRESS REPORT ---
Subjective Progress Note for:: 12/07/18 Subjective:: Patient doing better overall from a pain standpoint but feels a little bit more pain today and a little bit more nausea with a long discussion about next steps of care, I put her on oral pain regimen alternating with IV regimen based on pain scale, hospitalist team is increased fentanyl patch. Reason For Visit: INTRACTABLE PAIN SECONDARY TO METASTATIC BREAST Physical Exam Vital Signs: Temp Pulse Resp BP Pulse Ox 97.4 F 109 H 16 121/94 H 90 L 12/07/18 08:20 12/07/18 08:20 12/07/18 08:20 12/07/18 08:20 12/07/18 08:20 Intake & Output 12/06/18 12/07/18 12/08/18 06:59 06:59 06:59 Intake Total 1847 1967 Output Total 1 Balance 184 1966 Weight 96.5 kg 97.9 kg General appearance: PRESENT: no acute distress, well-developed, well-nourished Head exam: PRESENT: atraumatic, normocephalic Eye exam: PRESENT: conjunctiva pink, EOMI, PERRLA. ABSENT: scleral icterus Ear exam: PRESENT: normal external ear exam Mouth exam: PRESENT: moist, tongue midline Neck exam: ABSENT: carotid bruit, JVD, lymphadenopathy, thyromegaly Respiratory exam: PRESENT: clear to auscultation tolu. ABSENT: rales, rhonchi, wheezes Cardiovascular exam: PRESENT: RRR. ABSENT: diastolic murmur, rubs, systolic murmur Pulses: PRESENT: normal dorsalis pedis pul Vascular exam: PRESENT: normal capillary refill GI/Abdominal exam: PRESENT: normal bowel sounds, soft. ABSENT: distended, guarding, mass, organolmegaly, rebound, tenderness Rectal exam: PRESENT: deferred Extremities exam: PRESENT: full ROM. ABSENT: calf tenderness, clubbing, pedal edema Neurological exam: PRESENT: alert, awake, oriented to person, oriented to place, oriented to time, oriented to situation, CN II-XII grossly intact. ABSENT: motor sensory deficit Psychiatric exam: PRESENT: appropriate affect, normal mood. ABSENT: homicidal ideation, suicidal ideation Skin exam: PRESENT: dry, intact, warm. ABSENT: cyanosis, rash Results Laboratory Results: 12/03/18 05:25 12/03/18 05:25 Impressions: Chest X-Ray 12/02/18 16:22 IMPRESSION: No acute findings in the chest. Right hilar fullness of uncertain etiology. Guidance Fluoroscopy 12/03/18 00:00 IMPRESSION: SUCCESSFUL PLACEMENT OF A 5 FR DUAL LUMEN 37 CM PICC IN THE LEFT BASILIC VEIN. Interventional Vascular Procedure 12/03/18 00:00 IMPRESSION: SUCCESSFUL PLACEMENT OF A 5 FR DUAL LUMEN 37 CM PICC IN THE LEFT BASILIC VEIN. PICC Line Insertion 12/03/18 00:00 IMPRESSION: SUCCESSFUL PLACEMENT OF A 5 FR DUAL LUMEN 37 CM PICC IN THE LEFT BASILIC VEIN. Assessment & Plan - Diagnosis (1) Uncontrolled pain Is this a current diagnosis for this admission?: Yes Plan: Improved, secondary to malignancy, trying to transition to an oral regimen will take another 24 hours to 48 hours to do this. (2) Metastatic breast cancer Is this a current diagnosis for this admission?: Yes Plan: Hopeful plan for outpatient treatment if patient agrees (3) Nausea & vomiting Qualifiers: Vomiting type: unspecified Vomiting Intractability: intractable Qualified Code(s): R11.2 - Nausea with vomiting, unspecified Is this a current diagnosis for this admission?: Yes Plan: Continue with current IV pain regimen (4) Dehydration Is this a current diagnosis for this admission?: Yes Plan: Continue with IV fluids - Time Time Spent with patient: 35 or more minutes - Long discussion about pain control today
[2018-12-07] MEDS: NORMAL SALINE 10 ML SDV (SCHEDULED) IV SCH (09:24)
[2018-12-07] MEDS ORDERED: FENTANYL 75 MCG/HR PATCH.TD72 TD SCH (10:00)
[2018-12-07] MEDS: DIPHENHYDRAMINE HCL 50 MG/ML VIAL IV SCH ×2 (10:43→22:24)
[2018-12-07] MEDS: PROMETHAZINE HCL 25 MG TABLET PO PRN ×2 (15:02→22:23)
[2018-12-07] MEDS: LEVALBUTEROL HCL NEB 0.63 MG/3 ML AMPUL NEB PRN (16:01)
[2018-12-08] MEDS: LORAZEPAM INJ 2 MG/1 ML VIAL IV PRN ×3 (00:01→18:54)
[2018-12-08] MEDS: HYDROMORPHONE HCL INJ/PF 2 MG/ML AMPULE IV PRN ×6 (00:01→21:47)
[2018-12-08] MEDS: NORMAL SALINE 10 ML SDV (SCHEDULED) IV SCH ×3 (00:02→21:48)
[2018-12-08] MEDS: GUAIFENESIN/CODEINE PHOS 100-10 MG/ 5 ML UDC PO PRN ×3 (00:04→18:54)
[2018-12-08] MEDS: OXYCODONE-ACETAMINOPHEN 5-325 MG TABLET PO PRN ×4 (04:12→20:30)
[2018-12-08] MEDS: OXYCODONE HCL IR 5 MG TABLET PO PRN ×4 (04:12→20:30)
[2018-12-08] MEDS: LEVALBUTEROL HCL NEB 0.63 MG/3 ML AMPUL NEB PRN (04:13)
[2018-12-08] MEDS: PROMETHAZINE HCL INJ 25 MG/1 ML VIAL IV PRN ×6 (04:14→20:35)
[2018-12-08 04:55] LABS: HEMATOCRIT 38.3 % (36.0-47.0); HEMOGLOBIN 12.8 g/dL (12.0-15.5); MEAN CORPUSCULAR HEMOGLOBIN 28.7 pg (27.0-33.4); MEAN CORPUSCULAR HGB CONC 33.6 g/dL (32.0-36.0); MEAN CORPUSCULAR VOLUME 85 fl (80-97); PLATELET COUNT 313 10^3/uL (150-450); RED BLOOD COUNT 4.48 10^6/uL (3.72-5.28); RED CELL DISTRIBUTION WIDTH 12.9 % (11.5-14.0)
[2018-12-08 05:20] LABS: ANION GAP 11 (5-19); BLOOD UREA NITROGEN 12 mg/dL (7-20); CALCIUM 9.8 mg/dL (8.4-10.2); CARBON DIOXIDE 30 mmol/L (22-30); CHLORIDE 96 mmol/L (98-107); GLUCOSE 132 mg/dL (75-110); POTASSIUM 4.4 mmol/L (3.6-5.0)
--- NOTE | 2018-12-08 08:37 | PDOC PROGRESS REPORT ---
Subjective Progress Note for:: 12/08/18 Subjective:: Patient is doing a little bit better, yesterday we increased her oxycodone and she was able to extend out the time intervals between the IV Dilaudid, but still was requiring around every 4-5 hours [id number]. Yesterday the fentanyl patch was increased, today I will increase her oxycodone Reason For Visit: INTRACTABLE PAIN SECONDARY TO METASTATIC BREAST Physical Exam Vital Signs: Temp Pulse Resp BP Pulse Ox 98.5 F 90 20 148/80 H 93 12/08/18 07:12 12/08/18 07:12 12/08/18 07:12 12/08/18 07:12 12/08/18 07:12 Intake & Output 12/07/18 12/08/18 12/09/18 06:59 06:59 06:59 Intake Total 1967 578 Output Total 1 Balance 1966 578 Weight 97.9 kg 98.7 kg General appearance: PRESENT: no acute distress, well-developed, well-nourished Head exam: PRESENT: atraumatic, normocephalic Eye exam: PRESENT: conjunctiva pink, EOMI, PERRLA. ABSENT: scleral icterus Ear exam: PRESENT: normal external ear exam Mouth exam: PRESENT: moist, tongue midline Neck exam: ABSENT: carotid bruit, JVD, lymphadenopathy, thyromegaly Respiratory exam: PRESENT: clear to auscultation tolu. ABSENT: rales, rhonchi, wheezes Cardiovascular exam: PRESENT: RRR. ABSENT: diastolic murmur, rubs, systolic murmur Pulses: PRESENT: normal dorsalis pedis pul Vascular exam: PRESENT: normal capillary refill GI/Abdominal exam: PRESENT: normal bowel sounds, soft. ABSENT: distended, guar ding, mass, organolmegaly, rebound, tenderness Rectal exam: PRESENT: deferred Extremities exam: PRESENT: full ROM. ABSENT: calf tenderness, clubbing, pedal edema Neurological exam: PRESENT: alert, awake, oriented to person, oriented to place, oriented to time, oriented to situation, CN II-XII grossly intact. ABSENT: motor sensory deficit Psychiatric exam: PRESENT: appropriate affect, normal mood. ABSENT: homicidal ideation, suicidal ideation Skin exam: PRESENT: dry, intact, warm. ABSENT: cyanosis, rash Results Laboratory Results: 12/08/18 04:28 12/08/18 04:28 12/08/18 12/08/18 04:28 04:28 WBC 8.0 RBC 4.48 Hgb 12.8 Hct 38.3 MCV 85 MCH 28.7 MCHC 33.6 RDW 12.9 Plt Count 313 Sodium 136.5 L Potassium 4.4 Chloride 96 L Carbon Dioxide 30 Anion Gap 11 BUN 12 Creatinine 0.53 Est GFR ( Amer) > 60 Glucose 132 H Calcium 9.8 Impressions: Chest X-Ray 12/02/18 16:22 IMPRESSION: No acute findings in the chest. Right hilar fullness of uncertain etiology. Guidance Fluoroscopy 12/03/18 00:00 IMPRESSION: SUCCESSFUL PLACEMENT OF A 5 FR DUAL LUMEN 37 CM PICC IN THE LEFT BASILIC VEIN. Interventional Vascular Procedure 12/03/18 00:00 IMPRESSION: SUCCESSFUL PLACEMENT OF A 5 FR DUAL LUMEN 37 CM PICC IN THE LEFT BASILIC VEIN. PICC Line Insertion 12/03/18 00:00 IMPRESSION: SUCCESSFUL PLACEMENT OF A 5 FR DUAL LUMEN 37 CM PICC IN THE LEFT BASILIC VEIN. Assessment & Plan - Diagnosis (1) Uncontrolled pain Is this a current diagnosis for this admission?: Yes Plan: Continue with current pain control but I will increase the oxycodone to 20 mg. If with the 20 mg over the next 24 hours we still require Dilaudid every 4-5 hours [id number], then we will need to probably switch from oral oxycodone to oral Dilaudid. We will make that decision tomorrow, the increased dose of fentanyl should be at steady state by this evening (2) Metastatic breast cancer Is this a current diagnosis for this admission?: Yes Plan: She is considering further therapy, but wants to talk to family is good to be coming in tomorrow evening. Therefore we will hold on initiating hospice discussion, she is not ready for that yet. (3) Nausea & vomiting Qualifiers: Vomiting type: unspecified Vomiting Intractability: intractable Qualified Code(s): R11.2 - Nausea with vomiting, unspecified Is this a current diagnosis for this admission?: Yes Plan: Improved but requiring Phenergan regularly (4) Dehydration Is this a current diagnosis for this admission?: Yes Plan: Was on hydration but over the last 24 hours was doing more p.o. continue with encouraging p.o. intake - Time Time Spent with patient: 35 or more minutes
[2018-12-08] MEDS ORDERED: POLYETHYLENE GLYCOL 3350 POWDER 17 GM/1 PACKET PO PRN (08:49)
[2018-12-08] MEDS ORDERED: LEVOFLOXACIN 500 MG/D5W RTU 500 MG/100 ML RTUPB IV ONE (10:00)
[2018-12-08] MEDS: DOCUSATE SODIUM 100 MG CAPSULE PO SCH (10:22)
[2018-12-08] MEDS: DEXAMETHASONE 4 MG TABLET PO SCH ×2 (10:33→21:47)
[2018-12-08] MEDS: AMLODIPINE BESYLATE 5 MG TABLET PO SCH (10:33)
[2018-12-08] MEDS: DIPHENHYDRAMINE HCL 50 MG/ML VIAL IV SCH ×2 (11:06→21:47)
[2018-12-08] MEDS: PROMETHAZINE HCL 25 MG TABLET PO PRN (16:09)
--- NOTE | 2018-12-08 18:40 | PDOC PROGRESS REPORT ---
Subjective Progress Note for:: 12/08/18 Subjective:: 12/08/2018. Patient in no apparent distress, stating that her pain is better controlled than yesterday, nausea has also improved, Dr. Fischer oncologist has been titrating up her pain medications in the hope of controlling her pain and discharging home. Denies any fever, chills, nausea, vomiting, diarrhea, constipation or any urinary symptoms. Reason For Visit: INTRACTABLE PAIN SECONDARY TO METASTATIC BREAST Physical Exam Vital Signs: Temp Pulse Resp BP Pulse Ox 98.5 F 63 16 148/80 H 97 12/08/18 07:12 12/08/18 14:19 12/08/18 14:19 12/08/18 07:12 12/08/18 14:19 Intake & Output 12/07/18 12/08/18 12/09/18 06:59 06:59 06:59 Intake Total 1967 578 100 Output Total 1 Balance 1966 578 100 Weight 97.9 kg 98.7 kg General appearance: PRESENT: obese Head exam: PRESENT: atraumatic, normocephalic Respiratory exam: PRESENT: clear to auscultation tolu. ABSENT: rales, rhonchi, wheezes Cardiovascular exam: PRESENT: RRR. ABSENT: diastolic murmur, rubs, systolic murmur GI/Abdominal exam: PRESENT: normal bowel sounds, soft. ABSENT: distended, guarding, mass, organolmegaly, rebound, tenderness Neurological exam: PRESENT: alert, awake, oriented to person, oriented to place, oriented to time, oriented to situation, CN II-XII grossly intact. ABSENT: motor sensory deficit Psychiatric exam: PRESENT: depressed Results Laboratory Results: 12/08/18 04:28 12/08/18 04:28 12/08/18 12/08/18 04:28 04:28 WBC 8.0 RBC 4.48 Hgb 12.8 Hct 38.3 MCV 85 MCH 28.7 MCHC 33.6 RDW 12.9 Plt Count 313 Sodium 136.5 L Potassium 4.4 Chloride 96 L Carbon Dioxide 30 Anion Gap 11 BUN 12 Creatinine 0.53 Est GFR ( Amer) > 60 Glucose 132 H Calcium 9.8 Impressions: Chest X-Ray 12/02/18 16:22 IMPRESSION: No acute findings in the chest. Right hilar fullness of uncertain etiology. Guidance Fluoroscopy 12/03/18 00:00 IMPRESSION: SUCCESSFUL PLACEMENT OF A 5 FR DUAL LUMEN 37 CM PICC IN THE LEFT BASILIC VEIN. Interventional Vascular Procedure 12/03/18 00:00 IMPRESSION: SUCCESSFUL PLACEMENT OF A 5 FR DUAL LUMEN 37 CM PICC IN THE LEFT BASILIC VEIN. PICC Line Insertion 12/03/18 00:00 IMPRESSION: SUCCESSFUL PLACEMENT OF A 5 FR DUAL LUMEN 37 CM PICC IN THE LEFT BASILIC VEIN. Assessment and Plan - Diagnosis (1) Uncontrolled pain Is this a current diagnosis for this admission?: Yes Plan: Most likely due to underlying metastatic breast cancer. Oncology is on board, Dr. De Oliveira has been titrating up her opiate analgesics in the hope of discharging her home once pain is under control. (2) Metastatic breast cancer Is this a current diagnosis for this admission?: Yes Plan: Still considering her options about further therapy. Stating that she wants to have chemotherapy and had very bad experience with it. Patient also discussed with family. Oncologist on board. Recommendations noted. (3) Dehydration Is this a current diagnosis for this admission?: Yes Plan: Noted to be dehydrated on admission. Euvolemic at this point. Patient is tolerating p.o. intake. Encourage deep intake. (4) Nausea & vomiting Qualifiers: Vomiting type: unspecified Vomiting Intractability: intractable Qualified Code(s): R11.2 - Nausea with vomiting, unspecified Is this a current diagnosis for this admission?: Yes Plan: Mostly due to underlying metastatic disease. He is on multiple medications for malignancy associated nausea such as Decadron, Ativan, Zofran and Phenergan. Patient stating that Phenergan works better for her. (5) Right maxillary sinusitis, chronic Is this a current diagnosis for this admission?: Yes Plan: History of chronic sinusitis. Recently exacerbated. Right maxillary sinus tenderness. Denies any purulent discharge. Started on levofloxacin by oncology. Agree with plan. (6) Hypertension Is this a current diagnosis for this admission?: Yes Plan: Not optimized. Currently on 5 mg Norvasc p.o. daily. Switch Norvasc to lisinopril 10 mg daily. Uptitrate as tolerated. DC amlodipine as patient is on high-dose opioids and calcium channel blockers are known to cause constipation. - Plan Summary Summary: 12/02/2018- Intractable pain secondary to metastatic breast cancer-fentanyl patch 25 mcg every 72 hours topical at this time and will give Dilaudid 1 mg IV every 3 hours PRN for breakthrough pain. I did give patient a 1 time dose of 2 mg of IV Dilaudid in the ER. Dr. Annie sanon will follow up with patient in a.m. and make changes plan of care as appropriate Dehydration-hydrate with normal saline at 125 mL an hour repeat BMP in a.m. Hypertension-Norvasc 5 mg p.o. daily continue to follow and make change plan of care as appropriate Tachycardia-I suspect this will resolve with fluids and pain control will follow [id number] 5 mL's every 4 hours as needed 12/03/2018- Intractable pain. Patient continues on fentanyl patch 25 mcg every 72 hours at this time. Dilaudid 1 mg IV every 3 hours as needed. I did discuss this with Dr. Annie sanon this morning as patient is having slight headache and does have brain mets. We will give her dexamethasone 10 mg IV x1 and placed on dexamethasone 4 mg p.o. every 12 hours. We will continue to follow Dehydration. Patient able to take orals at this time I will stop the IV fluids at this time but will reinitiate as needed. Hypertension-stable continue Norvasc. Tachycardia-stable heart rate in the 70s at this time. Most likely was seco ndary to dehydration and pain level. Cough-continue Robitussin-AC 12/04/2018- Pain persist at this time. Patient having to take Dilaudid every 3 hours. We will increase fentanyl patch to 50 mcg every 72 hours at this time. Await further recommendations per Dr. Annie sanon. Patient continues on dexamethasone 4 mg p.o. every 12 hours. Dehydration. Stable continue to follow Hypertension-stable Tachycardia stable Cough-continue Robitussin-AC 12/05/2018- Pain improved at this time. Patient requiring Dilaudid up to every 4 hours. Fentanyl patch was increased yesterday to 50 mcg every [address] Annie sanon will see patient today and we will discuss further change plan of care as needed. Dehydration-stable Tachycardia-stable continue to follow Cough-continue Robitussin-AC as needed Anxiety-continue Ativan as needed 12/06/2018- Pain-patient requiring Dilaudid regularly still. Will increase Dilaudid to 1 mg IV every 2 hours as needed patch remains at 50 mcg every [address] Annie sanon recommendations. Dehydration-stable Tachycardia-stable Cough-continue Robitussin-AC Anxiety-continue Ativan as needed Insomnia-continue IV Benadryl at bedtime as needed 12/07/2018- Pain-still requiring Dilaudid on a regular basis. Patient's fentanyl patches at 50 mcg every 72 hours. I will increase her fentanyl patch to 75 mics at this time continue PRN Dilaudid. Dehydration-stable repeat BMP in a.m. Tachycardia-stable Cough Robitussin-AC Anxiety continue Ativan Insomnia continue IV Benadryl at bedtime
[2018-12-09] MEDS: OXYCODONE-ACETAMINOPHEN 5-325 MG TABLET PO PRN (00:03)
[2018-12-09] MEDS: OXYCODONE HCL IR 5 MG TABLET PO PRN (00:03)
[2018-12-09] MEDS: GUAIFENESIN/CODEINE PHOS 100-10 MG/ 5 ML UDC PO PRN ×4 (00:03→22:15)
[2018-12-09] MEDS: PROMETHAZINE HCL INJ 25 MG/1 ML VIAL IV PRN ×6 (00:04→20:52)
[2018-12-09] MEDS: NORMAL SALINE 10 ML SDV (AFTER EACH USE) IV PRN ×3 (00:05→22:16)
[2018-12-09] MEDS: HYDROMORPHONE HCL INJ/PF 2 MG/ML AMPULE IV PRN ×5 (03:31→20:51)
--- NOTE | 2018-12-09 08:04 | PDOC PROGRESS REPORT ---
Subjective Progress Note for:: 12/09/18 Subjective:: Patient still with considerable pain, still required IV Dilaudid every 4-5 hours. Today I discussed that we are going to switch from oral oxycodone to oral Dilaudid for pain scale of 1-3 and IV Dilaudid from a pain scale of 4-5, increase fentanyl patch to 100 mcg. Unfortunately patient will need another 24 to 48 hours to see if this works for her. Reason For Visit: INTRACTABLE PAIN SECONDARY TO METASTATIC BREAST Physical Exam Vital Signs: Temp Pulse Resp BP Pulse Ox 98.2 F 118 H 18 159/98 H 98 12/09/18 07:01 12/09/18 07:01 12/09/18 07:01 12/09/18 07:01 12/09/18 07:01 Intake & Output 12/08/18 12/09/18 12/10/18 06:59 06:59 06:59 Intake Total 578 580 Balance 578 580 Weight 98.7 kg 97.3 kg General appearance: PRESENT: no acute distress, well-developed, well-nourished Head exam: PRESENT: atraumatic, normocephalic Eye exam: PRESENT: conjunctiva pink, EOMI, PERRLA. ABSENT: scleral icterus Ear exam: PRESENT: normal external ear exam Mouth exam: PRESENT: moist, tongue midline Neck exam: ABSENT: carotid bruit, JVD, lymphadenopathy, thyromegaly Respiratory exam: PRESENT: clear to auscultation tolu. ABSENT: rales, rhonchi, wheezes Cardiovascular exam: PRESENT: RRR. ABSENT: diastolic murmur, rubs, systolic murmur Pulses: PRESENT: normal dorsalis pedis pul Vascular exam: PRESENT: normal capillary refill GI/Abdominal exam: PRESENT: normal bowel sounds, soft. ABSENT: distended, guarding, mass, organolmegaly, rebound, tenderness Rectal exam: PRESENT: deferred Extremities exam: PRESENT: full ROM. ABSENT: calf tenderness, clubbing, pedal edema Neurological exam: PRESENT: alert, awake, oriented to person, oriented to place, oriented to time, oriented to situation, CN II-XII grossly intact. ABSENT: motor sensory deficit Psychiatric exam: PRESENT: appropriate affect, normal mood. ABSENT: homicidal ideation, suicidal ideation Skin exam: PRESENT: dry, intact, warm. ABSENT: cyanosis, rash Results Laboratory Results: 12/08/18 04:28 12/08/18 04:28 Impressions: Chest X-Ray 12/02/18 16:22 IMPRESSION: No acute findings in the chest. Right hilar fullness of uncertain etiology. Guidance Fluoroscopy 12/03/18 00:00 IMPRESSION: SUCCESSFUL PLACEMENT OF A 5 FR DUAL LUMEN 37 CM PICC IN THE LEFT BASILIC VEIN. Interventional Vascular Procedure 12/03/18 00:00 IMPRESSION: SUCCESSFUL PLACEMENT OF A 5 FR DUAL LUMEN 37 CM PICC IN THE LEFT BASILIC VEIN. PICC Line Insertion 12/03/18 00:00 IMPRESSION: SUCCESSFUL PLACEMENT OF A 5 FR DUAL LUMEN 37 CM PICC IN THE LEFT BA SILIC VEIN. Assessment & Plan - Diagnosis (1) Uncontrolled pain Is this a current diagnosis for this admission?: Yes Plan: Improving but still requiring considerable doses of IV iron, working on transitioning her (2) Metastatic breast cancer Is this a current diagnosis for this admission?: Yes Plan: Planned for possible therapy as an outpatient but she still deciding (3) Nausea & vomiting Qualifiers: Vomiting type: unspecified Vomiting Intractability: intractable Qualified Code(s): R11.2 - Nausea with vomiting, unspecified Is this a current diagnosis for this admission?: Yes Plan: Improved but still requiring Phenergan regularly (4) Dehydration Is this a current diagnosis for this admission?: Yes Plan: Taking in more p.o. now - Time Time Spent with patient: 35 or more minutes
[2018-12-09] MEDS ORDERED: HYDROMORPHONE HCL 2 MG TABLET PO PRN (08:33)
[2018-12-09] MEDS: LORAZEPAM INJ 2 MG/1 ML VIAL IV PRN ×3 (09:37→22:16)
[2018-12-09] MEDS: DOCUSATE SODIUM 100 MG CAPSULE PO SCH (09:37)
[2018-12-09] MEDS: DEXAMETHASONE 4 MG TABLET PO SCH ×2 (09:37→20:57)
[2018-12-09] MEDS: LEVOFLOXACIN 500 MG TABLET PO SCH (09:38)
[2018-12-09] MEDS: MULTIVITAMIN TABLET PO SCH (09:38)
[2018-12-09] MEDS: FENTANYL 100 MCG/HR PATCH.TD72 TD SCH (09:38)
[2018-12-09] MEDS: NORMAL SALINE 10 ML SDV (SCHEDULED) IV SCH ×2 (09:39→21:12)
[2018-12-09] MEDS ORDERED: LISINOPRIL 10 MG TABLET PO SCH (10:00)
--- NOTE | 2018-12-09 10:44 | PDOC PROGRESS REPORT ---
Subjective Progress Note for:: 12/09/18 Subjective:: 48 year old female with known history of metastatic breast cancer stage IV who was sent over from Dr. Annie sanon's office with intractable pain and dehydration. She states a diffuse body pain states it is severe in nature and is worse with any movement. She states it radiates throughout her whole body it is constant in nature. Patient was given morphine in the ER with poor results. Patient also has had a dry cough no other associated symptoms no fevers no chills no other complaints at this time. She has had no other treatment prior to arrival all active is having factor. 12/08/18 Patient in no apparent distress, stating that her pain is better controlled than yesterday, nausea has also improved, Dr. Fischer oncologist has been titrating up her pain medications in the hope of controlling her pain and discharging home. Denies any fever, chills, nausea, vomiting, diarrhea, constipation or any urinary symptoms. 12/09/[id number]-zmhe-old female with history of metastatic breast cancer stage IV admitted for intractable pain and dehydration. Patient's main concern is the pain management. She wants to take p.o. Percocets and IV Dilaudid. She is also on fentanyl patch. No other complaints. Reason For Visit: INTRACTABLE PAIN SECONDARY TO METASTATIC BREAST Physical Exam Vital Signs: Temp Pulse Resp BP Pulse Ox 98.2 F 115 H 16 159/98 H 98 12/09/18 07:01 12/09/18 10:13 12/09/18 10:13 12/09/18 07:01 12/09/18 10:13 Intake & Output 12/08/18 12/09/18 12/10/18 06:59 06:59 06:59 Intake Total 578 580 Balance 578 580 Weight 98.7 kg 97.3 kg General appearance: PRESENT: no acute distress, obese Head exam: PRESENT: atraumatic Eye exam: PRESENT: PERRLA Ear exam: PRESENT: normal external ear exam Mouth exam: PRESENT: neck supple Teeth exam: PRESENT: poor dentation Neck exam: ABSENT: carotid bruit, JVD, lymphadenopathy, thyromegaly Respiratory exam: PRESENT: decreased breath sounds Cardiovascular exam: PRESENT: tachycardia GI/Abdominal exam: PRESENT: normal bowel sounds, soft. ABSENT: distended, guarding, mass, organolmegaly, rebound, tenderness Rectal exam: PRESENT: deferred Neurological exam: PRESENT: alert, awake, oriented to person, oriented to place, oriented to time, oriented to situation, CN II-XII grossly intact. ABSENT: motor sensory deficit Psychiatric exam: PRESENT: appropriate affect, normal mood. ABSENT: homicidal ideation, suicidal ideation Results Laboratory Results: 12/08/18 04:28 12/08/18 04:28 Impressions: Chest X-Ray 12/02/18 16:22 IMPRESSION: No acute findings in the chest. Right hilar fullness of uncertain etiology. Guidance Fluoroscopy 12/03/18 00:00 IMPRESSION: SUCCESSFUL PLACEMENT OF A 5 FR DUAL LUMEN 37 CM PICC IN THE LEFT BASILIC VEIN. Interventional Vascular Procedure 12/03/18 00:00 IMPRESSION: SUCCESSFUL PLACEMENT OF A 5 FR DUAL LUMEN 37 CM PICC IN THE LEFT BASILIC VEIN. PICC Line Insertion 12/03/18 00:00 IMPRESSION: SUCCESSFUL PLACEMENT OF A 5 FR DUAL LUMEN 37 CM PICC IN THE LEFT BASILIC VEIN. Assessment and Plan - Diagnosis (1) Dehydration Is this a current diagnosis for this admission?: Yes Plan: Noted to be dehydrated on admission. Euvolemic at this point. Patient is tolerating p.o. intake. Encourage deep intake. (2) Hypertension Is this a current diagnosis for this admission?: Yes Plan: Not optimized. Currently on 5 mg Norvasc p.o. daily. Switch Norvasc to lisinopril 10 mg daily. Uptitrate as tolerated. DC amlodipine as patient is on high-dose opioids and calcium channel blockers are known to cause constipation. 12/09/2018-patient blood pressure today is 159/98. Currently on lisinopril 10 mg p.o. daily plan is to increase the dose to 20 mg p.o. daily. (3) Metastatic breast cancer Is this a current diagnosis for this admission?: Yes Plan: Still considering her options about further therapy. Stating that she wants to have chemotherapy and had very bad experience with it. Patient also discussed with family. Oncologist on board. Recommendations noted. 12/09/2018-patient is complaining of significant pain 10 x 10 requesting to continue IV Dilaudid and wants to continue p.o. Percocets. She is also on f entanyl patch. (4) Nausea & vomiting Qualifiers: Vomiting type: unspecified Vomiting Intractability: intractable Qualified Code(s): R11.2 - Nausea with vomiting, unspecified Is this a current diagnosis for this admission?: Yes Plan: Mostly due to underlying metastatic disease. He is on multiple medications for malignancy associated nausea such as Decadron, Ativan, Zofran and Phenergan. Patient stating that Phenergan works better for her. 12/09/2018-patient has history of nausea and vomiting most likely secondary to malignancy. No complaints of nausea and vomiting this morning. Receiving Phenergan. (5) Uncontrolled pain Is this a current diagnosis for this admission?: Yes Plan: Most likely due to underlying metastatic breast cancer. Oncology is on board, Dr. De Oliveira has been titrating up her opiate analgesics in the hope of discharging her home once pain is under control. 12/09/2018-as per Dr. Fischer's plan she needs to be on oral Dilaudid and IV Dilaudid associated with fentanyl patch patient prefers to have p.o. Percocets. - Plan Summary Summary: 12/02/2018- Intractable pain secondary to metastatic breast cancer-fentanyl patch 25 mcg every 72 hours topical at this time and will give Dilaudid 1 mg IV every 3 hours PRN for breakthrough pain. I did give patient a 1 time dose of 2 mg of IV Dilaudid in the ER. Dr. Annie sanon will follow up with patient in a.m. and make changes plan of care as appropriate Dehydration-hydrate with normal saline at 125 mL an hour repeat BMP in a.m. Hypertension-Norvasc 5 mg p.o. daily continue to follow and make change plan of care as appropriate Tachycardia-I suspect this will resolve with fluids and pain control will follow [id number] 5 mL's every 4 hours as needed 12/03/2018- Intractable pain. Patient continues on fentanyl patch 25 mcg every 72 hours at this time. Dilaudid 1 mg IV every 3 hours as needed. I did discuss this with Dr. Annie sanon this morning as patient is having slight headache and does have brain mets. We will give her dexamethasone 10 mg IV x1 and placed on dexamethasone 4 mg p.o. every 12 hours. We will continue to follow Dehydration. Patient able to take orals at this time I will stop the IV fluids at this time but will reinitiate as needed. Hypertension-stable continue Norvasc. Tachycardia-stable heart rate in the 70s at this time. Most likely was secondary to dehydration and pain level. Cough-continue Robitussin-AC 12/04/2018- Pain persist at this time. Patient having to take Dilaudid every 3 hours. We will increase fentanyl patch to 50 mcg every 72 hours at this time. Await further recommendations per Dr. Annie sanon. Patient continues on dexamethasone 4 mg p.o. every 12 hours. Dehydration. Stable continue to follow Hypertension-stable Tachycardia stable Cough-continue Robitussin-AC 12/05/2018- Pain improved at this time. Patient requiring Dilaudid up to every 4 hours. Fentanyl patch was increased yesterday to 50 mcg every [address] Annie sanon will see patient today and we will discuss further change plan of care as needed. Dehydration-stable Tachycardia-stable continue to follow Cough-continue Robitussin-AC as needed Anxiety-continue Ativan as needed 12/06/2018- Pain-patient requiring Dilaudid regularly still. Will increase Dilaudid to 1 mg IV every 2 hours as needed patch remains at 50 mcg every [address] Annie sanon recommendations. Dehydration-stable Tachycardia-stable Cough-continue Robitussin-AC Anxiety-continue Ativan as needed Insomnia-continue IV Benadryl at bedtime as needed 12/07/2018- Pain-still requiring Dilaudid on a regular basis. Patient's fentanyl patches at 50 mcg every 72 hours. I will increase her fentanyl patch to 75 mics at this time continue PRN Dilaudid. Dehydration-stable repeat BMP in a.m. Tachycardia-stable Cough Robitussin-AC Anxiety continue Ativan Insomnia continue IV Benadryl at bedtime
[2018-12-09] MEDS ORDERED: OXYCODONE-ACETAMINOPHEN 5-325 MG TABLET PO PRN (10:45)
[2018-12-09] MEDS: DIPHENHYDRAMINE HCL 50 MG/ML VIAL IV SCH ×2 (12:29→21:12)
[2018-12-09] MEDS: LEVALBUTEROL HCL NEB 0.63 MG/3 ML AMPUL NEB PRN (22:25)
[2018-12-10] MEDS: HYDROMORPHONE HCL INJ/PF 2 MG/ML AMPULE IV PRN ×5 (00:36→21:27)
[2018-12-10] MEDS: NORMAL SALINE 10 ML SDV (AFTER EACH USE) IV PRN ×2 (00:37→05:01)
[2018-12-10] MEDS: PROMETHAZINE HCL INJ 25 MG/1 ML VIAL IV PRN ×6 (00:37→21:28)
[2018-12-10] MEDS: GUAIFENESIN/CODEINE PHOS 100-10 MG/ 5 ML UDC PO PRN ×5 (05:01→21:28)
[2018-12-10 06:15] LABS: ABSOLUTE LYMPHOCYTES (AUTO) 1.4 10^3/uL (0.5-4.7); ABSOLUTE MONOCYTES (AUTO) 0.6 10^3/uL (0.1-1.4); ABSOLUTE NEUT (AUTO) 8.5 10^3/uL (1.7-8.2); BASOPHILS % (AUTO) 0.1 % (0-2); HEMATOCRIT 39.5 % (36.0-47.0); HEMOGLOBIN 13.1 g/dL (12.0-15.5); LYMPHOCYTES % (AUTO) 13.1 % (13-45); MEAN CORPUSCULAR HEMOGLOBIN 28.6 pg (27.0-33.4); MEAN CORPUSCULAR HGB CONC 33.1 g/dL (32.0-36.0); MEAN CORPUSCULAR VOLUME 86 fl (80-97); MONOCYTES % (AUTO) 5.8 % (3-13); PLATELET COUNT 314 10^3/uL (150-450); RED BLOOD COUNT 4.58 10^6/uL (3.72-5.28); RED CELL DISTRIBUTION WIDTH 13.3 % (11.5-14.0); TOTAL CELLS COUNTED % (AUTO) 100 %; WHITE BLOOD COUNT 10.5 10^3/uL (4.0-10.5)
[2018-12-10 06:37] LABS: ALBUMIN 3.8 g/dL (3.5-5.0); ALKALINE PHOSPHATASE 77 U/L (38-126); ANION GAP 8 (5-19); ASPARTATE AMINO TRANSFERASE 20 U/L (14-36); BILIRUBIN,DIRECT 0.2 mg/dL (0.0-0.4); BILIRUBIN,TOTAL 0.4 mg/dL (0.2-1.3); BLOOD UREA NITROGEN 16 mg/dL (7-20); CALCIUM 9.8 mg/dL (8.4-10.2); CARBON DIOXIDE 33 mmol/L (22-30); CHLORIDE 96 mmol/L (98-107); GLUCOSE 120 mg/dL (75-110); POTASSIUM 4.5 mmol/L (3.6-5.0); TOTAL PROTEIN 6.9 g/dL (6.3-8.2)
[2018-12-10] MEDS: DOCUSATE SODIUM 100 MG CAPSULE PO SCH (09:02)
[2018-12-10] MEDS: DEXAMETHASONE 4 MG TABLET PO SCH ×2 (09:02→21:28)
[2018-12-10] MEDS: DIPHENHYDRAMINE HCL 50 MG/ML VIAL IV PRN ×3 (09:02→17:15)
[2018-12-10] MEDS: OXYCODONE-ACETAMINOPHEN 5-325 MG TABLET PO PRN ×3 (09:03→21:28)
[2018-12-10] MEDS: LEVOFLOXACIN 500 MG TABLET PO SCH (09:03)
[2018-12-10] MEDS: MULTIVITAMIN TABLET PO SCH (09:03)
[2018-12-10] MEDS: NORMAL SALINE 10 ML SDV (SCHEDULED) IV SCH ×2 (09:04→21:29)
--- NOTE | 2018-12-10 09:12 | PDOC PROGRESS REPORT ---
Subjective Progress Note for:: 12/10/18 Subjective:: 48 year old female with known history of metastatic breast cancer stage IV who was sent over from Dr. Annie sanon's office with intractable pain and dehydration. She states a diffuse body pain states it is severe in nature and is worse with any movement. She states it radiates throughout her whole body it is constant in nature. Patient was given morphine in the ER with poor results. Patient also has had a dry cough no other associated symptoms no fevers no chills no other complaints at this time. She has had no other treatment prior to arrival all active is having factor. 12/08/18 Patient in no apparent distress, stating that her pain is better controlled than yesterday, nausea has also improved, Dr. Fischer oncologist has been titrating up her pain medications in the hope of controlling her pain and discharging home. Denies any fever, chills, nausea, vomiting, diarrhea, constipation or any urinary symptoms. 12/09/[id number]-eqdj-old female with history of metastatic breast cancer stage IV admitted for intractable pain and dehydration. Patient's main concern is the pain management. She wants to take p.o. Percocets and IV Dilaudid. She is also on fentanyl patch. No other complaints. 12/10/2018-no acute events in the last 24 hours. Patient is afebrile. Denies any nausea and vomiting's. Able to tolerate the diet. Pain management as per oncology team. Reason For Visit: INTRACTABLE PAIN SECONDARY TO METASTATIC BREAST Physical Exam Vital Signs: Temp Pulse Resp BP Pulse Ox 97.9 F 96 17 140/88 H 95 12/10/18 07:03 12/10/18 07:03 12/10/18 05:51 12/10/18 07:03 12/10/18 07:03 Intake & Output 12/09/18 12/10/18 12/11/18 06:59 06:59 06:59 Intake Total 580 785 Balance 580 785 Weight 97.3 kg 95.7 kg General appearance: PRESENT: no acute distress, obese Head exam: PRESENT: atraumatic Eye exam: PRESENT: PERRLA Teeth exam: PRESENT: poor dentation Neck exam: ABSENT: carotid bruit, JVD, lymphadenopathy, thyromegaly Respiratory exam: PRESENT: decreased breath sounds Cardiovascular exam: PRESENT: tachycardia GI/Abdominal exam: PRESENT: normal bowel sounds, soft. ABSENT: distended, guarding, mass, organolmegaly, rebound, tenderness Rectal exam: PRESENT: deferred Extremities exam: PRESENT: full ROM. ABSENT: calf tenderness, clubbing, pedal edema Neurological exam: PRESENT: alert, awake, oriented to person, oriented to place, oriented to time, oriented to situation, CN II-XII grossly intact. ABSENT: motor sensory deficit Psychiatric exam: PRESENT: appropriate affect, normal mood. ABSENT: homicidal ideation, suicidal ideation Results Laboratory Results: 12/10/18 05:32 12/10/18 05:32 12/10/18 12/10/18 05:32 05:32 WBC 10.5 RBC 4.58 Hgb 13.1 Hct 39.5 MCV 86 MCH 28.6 MCHC 33.1 RDW 13.3 Plt Count 314 Seg Neutrophils % 81.0 H Sodium 136.8 L Potassium 4.5 Chloride 96 L Carbon Dioxide 33 H Anion Gap 8 BUN 16 Creatinine 0.50 L Est GFR ( Amer) > 60 Glucose 120 H Calcium 9.8 Magnesium 2.1 Total Bilirubin 0.4 AST 20 Alkaline Phosphatase 77 Total Protein 6.9 Albumin 3.8 Impressions: Chest X-Ray 12/02/18 16:22 IMPRESSION: No acute findings in the chest. Right hilar fullness of uncertain etiology. Guidance Fluoroscopy 12/03/18 00:00 IMPRESSION: SUCCESSFUL PLACEMENT OF A 5 FR DUAL LUMEN 37 CM PICC IN THE LEFT BASILIC VEIN. Interventional Vascular Procedure 12/03/18 00:00 IMPRESSION: SUCCESSFUL PLACEMENT OF A 5 FR DUAL LUMEN 37 CM PICC IN THE LEFT BASILIC VEIN. PICC Line Insertion 12/03/18 00:00 IMPRESSION: SUCCESSFUL PLACEMENT OF A 5 FR DUAL LUMEN 37 CM PICC IN THE LEFT BASILIC VEIN. Assessment and Plan - Diagnosis (1) Dehydration Is this a current diagnosis for this admission?: Yes Plan: Noted to be dehydrated on admission. Euvolemic at this point. Patient is tolerating p.o. intake. Encourage deep intake. 12/10/18-Patient serum creatinine 0.5 today. Dehydration due to prerenal causes resolved. (2) Hypertension Is this a current diagnosis for this admission?: Yes Plan: Not optimized. Currently on 5 mg Norvasc p.o. daily. Switch Norvasc to lisinopril 10 mg daily. Uptitrate as tolerated. DC amlodipine as patient is on high-dose opioids and calcium channel blockers are known to cause constipation. 12/09/2018-patient blood pressure today is 159/98. Currently on lisinopril 10 mg p.o. daily plan is to increase the dose to 20 mg p.o. daily. 12/10/2018-patient blood pressure today is 129/97. Improved compared to yesterday. Presently on lisinopril 40 mg p.o. daily. (3) Metastatic breast cancer Is this a current diagnosis for this admission?: Yes Plan: Still considering her options about further therapy. Stating that she wants to have chemotherapy and had very bad experience with it. Patient also discussed with family. Oncologist on board. Recommendations noted. 12/09/2018-patient is complaining of significant pain 10 x 10 requesting to continue IV Dilaudid and wants to continue p.o. Percocets. She is also on fentanyl patch. 12/10/2018-pain management as per oncology team. (4) Nausea & vomiting Qualifiers: Vomiting type: unspecified Vomiting Intractability: intractable Qualified Code(s): R11.2 - Nausea with vomiting, unspecified Is this a current diagnosis for this admission?: Yes Plan: Mostly due to underlying metastatic disease. He is on multiple medications for malignancy associated nausea such as Decadron, Ativan, Zofran and Phenergan. Patient stating that Phenergan works better for her. 12/09/2018-patient has history of nausea and vomiting most likely secondary to malignancy. No complaints of nausea and vomiting this morning. Receiving Phenergan. 12/10/2018-patient denies any complaints of nausea or vomiting's able to tolerat e the break fast this morning. (5) Uncontrolled pain Is this a current diagnosis for this admission?: Yes Plan: Most likely due to underlying metastatic breast cancer. Oncology is on board, Dr. De Oliveira has been titrating up her opiate analgesics in the hope of discharging her home once pain is under control. 12/09/2018-as per Dr. Fischer's plan she needs to be on oral Dilaudid and IV Dilaudid associated with fentanyl patch patient prefers to have p.o. Percocets. 12/10/2018-pain management as per Dr. garay. - Plan Summary Summary: 12/02/2018- Intractable pain secondary to metastatic breast cancer-fentanyl patch 25 mcg every 72 hours topical at this time and will give Dilaudid 1 mg IV every 3 hours PRN for breakthrough pain. I did give patient a 1 time dose of 2 mg of IV Dilaudid in the ER. Dr. Annie sanon will follow up with patient in a.m. and make changes plan of care as appropriate Dehydration-hydrate with normal saline at 125 mL an hour repeat BMP in a.m. Hypertension-Norvasc 5 mg p.o. daily continue to follow and make change plan of care as appropriate Tachycardia-I suspect this will resolve with fluids and pain control will follow [id number] 5 mL's every 4 hours as needed 12/03/2018- Intractable pain. Patient continues on fentanyl patch 25 mcg every 72 hours at this time. Dilaudid 1 mg IV every 3 hours as needed. I did discuss this with Dr. Annie sanon this morning as patient is having slight headache and does have brain mets. We will give her dexamethasone 10 mg IV x1 and placed on dexamethasone 4 mg p.o. every 12 hours. We will continue to follow Dehydration. Patient able to take orals at this time I will stop the IV fluids at this time but will reinitiate as needed. Hypertension-stable continue Norvasc. Tachycardia-stable heart rate in the 70s at this time. Most likely was secondary to dehydration and pain level. Cough-continue Robitussin-AC 12/04/2018- Pain persist at this time. Patient having to take Dilaudid every 3 hours. We w ill increase fentanyl patch to 50 mcg every 72 hours at this time. Await further recommendations per Dr. Annie sanon. Patient continues on dexamethasone 4 mg p.o. every 12 hours. Dehydration. Stable continue to follow Hypertension-stable Tachycardia stable Cough-continue Robitussin-AC 12/05/2018- Pain improved at this time. Patient requiring Dilaudid up to every 4 hours. Fentanyl patch was increased yesterday to 50 mcg every [address] Annei sanon will see patient today and we will discuss further change plan of care as needed. Dehydration-stable Tachycardia-stable continue to follow Cough-continue Robitussin-AC as needed Anxiety-continue Ativan as needed 12/06/2018- Pain-patient requiring Dilaudid regularly still. Will increase Dilaudid to 1 mg IV every 2 hours as needed patch remains at 50 mcg every [address] Annie sanon recommendations. Dehydration-stable Tachycardia-stable Cough-continue Robitussin-AC Anxiety-continue Ativan as needed Insomnia-continue IV Benadryl at bedtime as needed 12/07/2018- Pain-still requiring Dilaudid on a regular basis. Patient's fentanyl patches at 50 mcg every 72 hours. I will increase her fentanyl patch to 75 mics at this time continue PRN Dilaudid. Dehydration-stable repeat BMP in a.m. Tachycardia-stable Cough Robitussin-AC Anxiety continue Ativan Insomnia continue IV Benadryl at bedtime
[2018-12-10] MEDS: LISINOPRIL 10 MG TABLET PO SCH (09:16)
[2018-12-10] MEDS: LORAZEPAM INJ 2 MG/1 ML VIAL IV PRN ×3 (11:04→23:39)
--- NOTE | 2018-12-10 15:26 | PDOC PROGRESS REPORT ---
Subjective Progress Note for:: 12/10/18 Subjective:: She is seen on emblem fuser tender rounds. No family at bedside. Patient states that pain is improving. She has not taken any PO meds, only the IV as she states she prefers this while in the hospital, but she knows that at home, she will be fine with PO pain meds. She has used dilaudid in the past PO and does not like this. She prefers percocet. She also asks to increase her benadryl frequency. Nurses report that they have encouraged her to use PO meds but she refuses. Reason For Visit: INTRACTABLE PAIN SECONDARY TO METASTATIC BREAST Physical Exam Vital Signs: Temp Pulse Resp BP Pulse Ox 97.6 F 92 17 141/90 H 94 12/10/18 11:41 12/10/18 11:41 12/10/18 11:41 12/10/18 11:41 12/10/18 11:41 Intake & Output 12/09/18 12/10/18 12/11/18 06:59 06:59 06:59 Intake Total 580 785 220 Balance 580 785 220 Weight 97.3 kg 95.7 kg General appearance: PRESENT: well-developed, well-nourished Head exam: PRESENT: normocephalic Respiratory exam: PRESENT: clear to auscultation tolu, unlabored Cardiovascular exam: PRESENT: RRR Extremities exam: ABSENT: pedal edema Neurological exam: PRESENT: alert, awake Psychiatric exam: PRESENT: appropriate affect Skin exam: PRESENT: normal color Results Laboratory Results: 12/10/18 05:32 12/10/18 05:32 12/10/18 12/10/18 05:32 05:32 WBC 10.5 RBC 4.58 Hgb 13.1 Hct 39.5 MCV 86 MCH 28.6 MCHC 33.1 RDW 13.3 Plt Count 314 Seg Neutrophils % 81.0 H Sodium 136.8 L Potassium 4.5 Chloride 96 L Carbon Dioxide 33 H Anion Gap 8 BUN 16 Creatinine 0.50 L Est GFR ( Amer) > 60 Glucose 120 H Calcium 9.8 Magnesium 2.1 Total Bilirubin 0.4 AST 20 Alkaline Phosphatase 77 Total Protein 6.9 Albumin 3.8 Impressions: Chest X-Ray 12/02/18 16:22 IMPRESSION: No acute findings in the chest. Right hilar fullness of uncertain etiology. Guidance Fluoroscopy 12/03/18 00:00 IMPRESSION: SUCCESSFUL PLACEMENT OF A 5 FR DUAL LUMEN 37 CM PICC IN THE LEFT BASILIC VEIN. Interventional Vascular Procedure 12/03/18 00:00 IMPRESSION: SUCCESSFUL PLACEMENT OF A 5 FR DUAL LUMEN 37 CM PICC IN THE LEFT BASILIC VEIN. PICC Line Insertion 12/03/18 00:00 IMPRESSION: SUCCESSFUL PLACEMENT OF A 5 FR DUAL LUMEN 37 CM PICC IN THE LEFT BASILIC VEIN. Assessment & Plan - Diagnosis (1) Metastatic breast cancer Is this a current diagnosis for this admission?: Yes Plan: No active treatment during this hospitalization. (2) Uncontrolled pain Is this a current diagnosis for this admission?: Yes Plan: I discussed goals of care with patient. I am not comfortable discharging her if she has ONLY been using IV meds. I have explained that she will need to change to PO meds for at least a few hours without IVs prior to discharge. Goal Discharge is in 1-2 days. Also discussed with nurses. They will offer PO percocet FIRST and only use IV dilaudid if breakthrough pain after percocet. If this happens, then again, I will be reluctant to OK her discharge. Continue Duragesic 100 mcg. - Time Time Spent with patient: 15-24 minutes
[2018-12-10] MEDS: DIPHENHYDRAMINE HCL 50 MG/ML VIAL IV SCH (21:27)
[2018-12-11] MEDS: HYDROMORPHONE HCL INJ/PF 2 MG/ML AMPULE IV PRN ×6 (01:33→21:40)
[2018-12-11] MEDS: DIPHENHYDRAMINE HCL 50 MG/ML VIAL IV PRN ×5 (01:33→17:40)
[2018-12-11] MEDS: GUAIFENESIN/CODEINE PHOS 100-10 MG/ 5 ML UDC PO PRN ×6 (01:33→23:28)
[2018-12-11] MEDS: PROMETHAZINE HCL INJ 25 MG/1 ML VIAL IV PRN ×6 (01:34→21:42)
[2018-12-11] MEDS: OXYCODONE-ACETAMINOPHEN 5-325 MG TABLET PO PRN ×4 (03:37→23:27)
[2018-12-11] MEDS: LORAZEPAM INJ 2 MG/1 ML VIAL IV PRN ×3 (05:45→19:36)
--- NOTE | 2018-12-11 08:57 | PDOC PROGRESS REPORT ---
Subjective Progress Note for:: 12/11/18 Subjective:: Patient states pain is improving but she would like to stay in hospital one more day. She wants to be out by next week as her son is graduating boot camp. No new complaints. ROS: No chest pain. No nausea. Reason For Visit: INTRACTABLE PAIN SECONDARY TO METASTATIC BREAST Physical Exam Vital Signs: Temp Pulse Resp BP Pulse Ox 98.1 F 74 18 137/86 H 96 12/10/18 22:41 12/11/18 07:00 12/10/18 22:41 12/10/18 22:41 12/10/18 22:41 Intake & Output 12/10/18 12/11/18 12/12/18 06:59 06:59 06:59 Intake Total 785 840 Balance 785 840 Weight 95.7 kg General appearance: PRESENT: well-developed, well-nourished Exam: 48 year old female sitting up in bed eating breakfast. Head exam: PRESENT: normocephalic Respiratory exam: PRESENT: clear to auscultation tolu, unlabored Cardiovascular exam: PRESENT: RRR Extremities exam: ABSENT: pedal edema Neurological exam: PRESENT: alert, awake Psychiatric exam: PRESENT: appropriate affect Skin exam: PRESENT: normal color Results Laboratory Results: 12/10/18 05:32 12/10/18 05:32 Impressions: Chest X-Ray 12/02/18 16:22 IMPRESSION: No acute findings in the chest. Right hilar fullness of uncertain etiology. Guidance Fluoroscopy 12/03/18 00:00 IMPRESSION: SUCCESSFUL PLACEMENT OF A 5 FR DUAL LUMEN 37 CM PICC IN THE LEFT BASILIC VEIN. Interventional Vascular Procedure 12/03/18 00:00 IMPRESSION: SUCCESSFUL PLACEMENT OF A 5 FR DUAL LUMEN 37 CM PICC IN THE LEFT BASILIC VEIN. PICC Line Insertion 12/03/18 00:00 IMPRESSION: SUCCESSFUL PLACEMENT OF A 5 FR DUAL LUMEN 37 CM PICC IN THE LEFT BASILIC VEIN. Assessment & Plan - Diagnosis (1) Metastatic breast cancer Is this a current diagnosis for this admission?: Yes Plan: Will discuss further treatment as outpatient. (2) Uncontrolled pain Is this a current diagnosis for this admission?: Yes Plan: Continue current regimen without any changes today. We again discuss the fact that I would like to see her without IV dilaudid prior to discharge. However, she insists that she will be fine at home with percocet and will continue IV dilaudid as long as she is here. - Time Time Spent with patient: 15-24 minutes - Plan Summary Plan Summary: No further changes planned. Will go home with duragesic 100 mcg and percocet 10 mg q 4 hours PRN MAX dose. Please call me if needed. She will follow-up in the office as scheduled.
--- NOTE | 2018-12-11 09:06 | PDOC PROGRESS REPORT ---
Subjective Progress Note for:: 12/11/18 Subjective:: 48 year old female with known history of metastatic breast cancer stage IV who was sent over from Dr. Annie sanon's office with intractable pain and dehydration. She states a diffuse body pain states it is severe in nature and is worse with any movement. She states it radiates throughout her whole body it is constant in nature. Patient was given morphine in the ER with poor results. Patient also has had a dry cough no other associated symptoms no fevers no chills no other complaints at this time. She has had no other treatment prior to arrival all active is having factor. 12/08/18 Patient in no apparent distress, stating that her pain is better controlled than yesterday, nausea has also improved, Dr. Fischer oncologist has been titrating up her pain medications in the hope of controlling her pain and discharging home. Denies any fever, chills, nausea, vomiting, diarrhea, constipation or any urinary symptoms. 12/09/[id number]-oawd-old female with history of metastatic breast cancer stage IV admitted for intractable pain and dehydration. Patient's main concern is the pain management. She wants to take p.o. Percocets and IV Dilaudid. She is also on fentanyl patch. No other complaints. 12/10/2018-no acute events in the last 24 hours. Patient is afebrile. Denies any nausea and vomiting's. Able to tolerate the diet. Pain management as per oncology team. 12/11/2018-no acute events in the last 24 hours. Afebrile. Patient is still complaining of pain,, she says she is not ready to go home yet. Reason For Visit: INTRACTABLE PAIN SECONDARY TO METASTATIC BREAST Physical Exam Vital Signs: Temp Pulse Resp BP Pulse Ox 98.1 F 74 18 137/86 H 96 12/10/18 22:41 12/11/18 07:00 12/10/18 22:41 12/10/18 22:41 12/10/18 22:41 Intake & Output 12/10/18 12/11/18 12/12/18 06:59 06:59 06:59 Intake Total 785 840 Balance 785 840 Weight 95.7 kg General appearance: PRESENT: no acute distress, obese Head exam: PRESENT: atraumatic Eye exam: PRESENT: PERRLA Mouth exam: PRESENT: moist, tongue midline Teeth exam: PRESENT: poor dentation Neck exam: PRESENT: lymphadenopathy Respiratory exam: PRESENT: decreased breath sounds Cardiovascular exam: PRESENT: RRR. ABSENT: diastolic murmur, rubs, systolic murmur GI/Abdominal exam: PRESENT: normal bowel sounds, soft. ABSENT: distended, guarding, mass, organolmegaly, rebound, tenderness Rectal exam: PRESENT: deferred Extremities exam: PRESENT: full ROM. ABSENT: calf tenderness, clubbing, pedal edema Neurological exam: PRESENT: alert, awake, oriented to person, oriented to place, oriented to time, oriented to situation, CN II-XII grossly intact. ABSENT: motor sensory deficit Psychiatric exam: PRESENT: appropriate affect, normal mood. ABSENT: homicidal ideation, suicidal ideation Results Laboratory Results: 12/10/18 05:32 12/10/18 05:32 Impressions: Chest X-Ray 12/02/18 16:22 IMPRESSION: No acute findings in the chest. Right hilar fullness of uncertain etiology. Guidance Fluoroscopy 12/03/18 00:00 IMPRESSION: SUCCESSFUL PLACEMENT OF A 5 FR DUAL LUMEN 37 CM PICC IN THE LEFT BASILIC VEIN. Interventional Vascular Procedure 12/03/18 00:00 IMPRESSION: SUCCESSFUL PLACEMENT OF A 5 FR DUAL LUMEN 37 CM PICC IN THE LEFT BASILIC VEIN. PICC Line Insertion 12/03/18 00:00 IMPRESSION: SUCCESSFUL PLACEMENT OF A 5 FR DUAL LUMEN 37 CM PICC IN THE LEFT BASILIC VEIN. Assessment and Plan - Diagnosis (1) Metastatic breast cancer Is this a current diagnosis for this admission?: Yes Plan: Still considering her options about further therapy. Stating that she wants to have chemotherapy and had very bad experience with it. Patient also discussed with family. Oncologist on board. Recommendations noted. 12/09/2018-patient is complaining of significant pain 10 x 10 requesting to continue IV Dilaudid and wants to continue p.o. Percocets. She is also on fentanyl patch. 12/10/2018-pain management as per oncology team. 12/11/2018-patient has history of metastatic breast cancer plan is to discharge her home on Duragesic patch 100 mcg and Percocet every 4 hours as needed. pt says she is not ready to go home yet. (2) Dehydration Is this a current diagnosis for this admission?: Yes Plan: Noted to be dehydrated on admission. Euvolemic at this point. Patient is tolerating p.o. intake. Encourage deep intake. 12/10/18-Patient serum creatinine 0.5 today. Dehydration due to prerenal causes resolved. 12/11/2018-patient came in with a dehydration which was resolved. (3) Hypertension Is this a current diagnosis for this admission?: Yes Plan: Not optimized. Currently on 5 mg Norvasc p.o. daily. Switch Norvasc to lisinopril 10 mg daily. Uptitrate as tolerated. DC amlodipine as patient is on high-dose opioids and calcium channel blockers are known to cause constipation. 12/09/2018-patient blood pressure today is 159/98. Currently on lisinopril 10 mg p.o. daily plan is to increase the dose to 20 mg p.o. daily. 12/10/2018-patient blood pressure today is 129/97. Improved compared to yesterday. Presently on lisinopril 40 mg p.o. daily. 12/11/2018-blood pressure today is 137/86. Stable. (4) Nausea & vomiting Qualifiers: Vomiting type: unspecified Vomiting Intractability: intractable Qualified Code(s): R11.2 - Nausea with vomiting, unspecified Is this a current diagnosis for this admission?: Yes Plan: Mostly due to underlying metastatic disease. He is on multiple medications for malignancy associated nausea such as Decadron, Ativan, Zofran and Phenergan. Patient stating that Phenergan works better for her. 12/09/2018-patient has history of nausea and vomiting most likely secondary to malignancy. No complaints of nausea and vomiting this morning. Receiving Phenergan. 12/10/2018-patient denies any complaints of nausea or vomiting's able to tolera te the break fast this morning. 12/11/2018-patient able to tolerate the feeds with no complaints of nausea and vomitings for the last 72 hours. (5) Uncontrolled pain Is this a current diagnosis for this admission?: Yes Plan: Most likely due to underlying metastatic breast cancer. Oncology is on board, Dr. De Oliveira has been titrating up her opiate analgesics in the hope of discharging her home once pain is under control. 12/09/2018-as per Dr. Fischer's plan she needs to be on oral Dilaudid and IV Dilaudid associated with fentanyl patch patient prefers to have p.o. Percocets. 12/10/2018-pain management as per Dr. garay. 12/11/2018-patient admitted with uncontrollable pain pain is managed by the oncology team the plan is to discharge her home when ready with the duragecic patch 100 mcg and Percocet 12/03/2024 every 4 as needed for pain. - Plan Summary Summary: 12/02/2018- Intractable pain secondary to metastatic breast cancer-fentanyl patch 25 mcg every 72 hours topical at this time and will give Dilaudid 1 mg IV every 3 hours PRN for breakthrough pain. I did give patient a 1 time dose of 2 mg of IV Dilaudid in the ER. Dr. Annie sanon will follow up with patient in a.m. and make changes plan of care as appropriate Dehydration-hydrate with normal saline at 125 mL an hour repeat BMP in a.m. Hypertension-Norvasc 5 mg p.o. daily continue to follow and make change plan of care as appropriate Tachycardia-I suspect this will resolve with fluids and pain control will follow [id number] 5 mL's every 4 hours as needed 12/03/2018- Intractable pain. Patient continues on fentanyl patch 25 mcg every 72 hours at this time. Dilaudid 1 mg IV every 3 hours as needed. I did discuss this with Dr. Annie sanon this morning as patient is having slight headache and does have brain mets. We will give her dexamethasone 10 mg IV x1 and placed on dexamethasone 4 mg p.o. every 12 hours. We will continue to follow Dehydration. Patient able to take orals at this time I will stop the IV fluids at this time but will reinitiate as needed. Hypertension-stable continue Norvasc. Tachycardia-stable heart rate in the 70s at this time. Most likely was secondary to dehydration and pain level. Cough-continue Robitussin-AC 12/04/2018- Pain persist at this time. Patient having to take Dilaudid every 3 hours. We will increase fentanyl patch to 50 mcg every 72 hours at this time. Await further recommendations per Dr. Annie sanon. Patient continues on dexamethasone 4 mg p.o. every 12 hours. Dehydration. Stable continue to follow Hypertension-stable Tachycardia stable Cough-continue Robitussin-AC 12/05/2018- Pain improved at this time. Patient requiring Dilaudid up to every 4 hours. Fentanyl patch was increased yesterday to 50 mcg every [address] Annie sanon will see patient today and we will discuss further change plan of care as needed. Dehydration-stable Tachycardia-stable continue to follow Cough-continue Robitussin-AC as needed Anxiety-continue Ativan as needed 12/06/2018- Pain-patient requiring Dilaudid regularly still. Will increase Dilaudid to 1 mg IV every 2 hours as needed patch remains at 50 mcg every [address] Annie sanon recommendations. Dehydration-stable Tachycardia-stable Cough-continue Robitussin-AC Anxiety-continue Ativan as needed Insomnia-continue IV Benadryl at bedtime as needed 12/07/2018- Pain-still requiring Dilaudid on a regular basis. Patient's fentanyl patches at 50 mcg every 72 hours. I will increase her fentanyl patch to 75 mics at this time continue PRN Dilaudid. Dehydration-stable repeat BMP in a.m. Tachycardia-stable Cough Robitussin-AC Anxiety continue Ativan Insomnia continue IV Benadryl at bedtime
[2018-12-11] MEDS: MULTIVITAMIN TABLET PO SCH (10:43)
[2018-12-11] MEDS: DEXAMETHASONE 4 MG TABLET PO SCH ×2 (10:43→21:33)
[2018-12-11] MEDS: LEVOFLOXACIN 500 MG TABLET PO SCH (10:43)
[2018-12-11] MEDS: DOCUSATE SODIUM 100 MG CAPSULE PO SCH (10:43)
[2018-12-11] MEDS: NORMAL SALINE 10 ML SDV (SCHEDULED) IV SCH ×2 (10:44→21:34)
[2018-12-11] MEDS: LISINOPRIL 10 MG TABLET PO SCH (10:51)
[2018-12-11] MEDS: DIPHENHYDRAMINE HCL 50 MG/ML VIAL IV SCH (21:34)
[2018-12-12] MEDS: DIPHENHYDRAMINE HCL 50 MG/ML VIAL IV PRN ×6 (02:00→23:48)
[2018-12-12] MEDS: HYDROMORPHONE HCL INJ/PF 2 MG/ML AMPULE IV PRN ×6 (02:00→23:48)
[2018-12-12] MEDS: PROMETHAZINE HCL INJ 25 MG/1 ML VIAL IV PRN ×6 (02:01→23:47)
[2018-12-12] MEDS: GUAIFENESIN/CODEINE PHOS 100-10 MG/ 5 ML UDC PO PRN ×3 (04:07→23:49)
[2018-12-12] MEDS: LORAZEPAM INJ 2 MG/1 ML VIAL IV PRN ×3 (04:12→21:38)
[2018-12-12] MEDS: OXYCODONE-ACETAMINOPHEN 5-325 MG TABLET PO PRN ×2 (08:26→17:44)
--- NOTE | 2018-12-12 08:52 | PDOC PROGRESS REPORT ---
Subjective Progress Note for:: 12/12/18 Subjective:: 48 year old female with known history of metastatic breast cancer stage IV who was sent over from Dr. Annie sanon's office with intractable pain and dehydration. She states a diffuse body pain states it is severe in nature and is worse with any movement. She states it radiates throughout her whole body it is constant in nature. Patient was given morphine in the ER with poor results. Patient also has had a dry cough no other associated symptoms no fevers no chills no other complaints at this time. She has had no other treatment prior to arrival all active is having factor. 12/08/18 Patient in no apparent distress, stating that her pain is better controlled than yesterday, nausea has also improved, Dr. Fischer oncologist has been titrating up her pain medications in the hope of controlling her pain and discharging home. Denies any fever, chills, nausea, vomiting, diarrhea, constipation or any urinary symptoms. 12/09/[id number]-cedu-old female with history of metastatic breast cancer stage IV admitted for intractable pain and dehydration. Patient's main concern is the pain management. She wants to take p.o. Percocets and IV Dilaudid. She is also on fentanyl patch. No other complaints. 12/10/2018-no acute events in the last 24 hours. Patient is afebrile. Denies any nausea and vomiting's. Able to tolerate the diet. Pain management as per oncology team. 12/11/2018-no acute events in the last 24 hours. Afebrile. Patient is still complaining of pain,, she says she is not ready to go home yet. 12/12/2018-no acute events in the last 24 hours. Patient afebrile. Still complaining of pains despite getting IV Dilaudid and p.o. Percocets pain management as per Dr. garay Reason For Visit: INTRACTABLE PAIN SECONDARY TO METASTATIC BREAST Physical Exam Vital Signs: Temp Pulse Resp BP Pulse Ox 98.4 F 100 16 159/99 H 97 12/12/18 08:14 12/12/18 08:14 12/12/18 08:14 12/12/18 08:14 12/12/18 08:14 Intake & Output 12/11/18 12/12/18 12/13/18 06:59 06:59 06:59 Intake Total 840 560 Balance 840 560 Weight 96.8 kg General appearance: PRESENT: no acute distress, obese Head exam: PRESENT: atraumatic Eye exam: PRESENT: PERRLA Mouth exam: PRESENT: moist, tongue midline Teeth exam: PRESENT: poor dentation Respiratory exam: PRESENT: clear to auscultation tolu. ABSENT: rales, rhonchi, wheezes GI/Abdominal exam: PRESENT: normal bowel sounds, soft. ABSENT: distended, guarding, mass, organolmegaly, rebound, tenderness Rectal exam: PRESENT: deferred Extremities exam: PRESENT: full ROM. ABSENT: calf tenderness, clubbing, pedal edema Neurological exam: PRESENT: alert, awake, oriented to person, oriented to place, oriented to time, oriented to situation, CN II-XII grossly intact. ABSENT: motor sensory deficit Psychiatric exam: PRESENT: appropriate affect, normal mood. ABSENT: homicidal ideation, suicidal ideation Results Laboratory Results: 12/10/18 05:32 12/10/18 05:32 Impressions: Chest X-Ray 12/02/18 16:22 IMPRESSION: No acute findings in the chest. Right hilar fullness of uncertain etiology. Guidance Fluoroscopy 12/03/18 00:00 IMPRESSION: SUCCESSFUL PLACEMENT OF A 5 FR DUAL LUMEN 37 CM PICC IN THE LEFT BASILIC VEIN. Interventional Vascular Procedure 12/03/18 00:00 IMPRESSION: SUCCESSFUL PLACEMENT OF A 5 FR DUAL LUMEN 37 CM PICC IN THE LEFT BASILIC VEIN. PICC Line Insertion 12/03/18 00:00 IMPRESSION: SUCCESSFUL PLACEMENT OF A 5 FR DUAL LUMEN 37 CM PICC IN THE LEFT BASILIC VEIN. Assessment and Plan - Diagnosis (1) Metastatic breast cancer Is this a current diagnosis for this admission?: Yes Plan: Still considering her options about further therapy. Stating that she wants to have chemotherapy and had very bad experience with it. Patient also discussed with family. Oncologist on board. Recommendations noted. 12/09/2018-patient is complaining of significant pain 10 x 10 requesting to continue IV Dilaudid and wants to continue p.o. Percocets. She is also on fentanyl patch. 12/10/2018-pain management as per oncology team. 12/11/2018-patient has history of metastatic breast cancer plan is to discharge her home on Duragesic patch 100 mcg and Percocet every 4 hours as needed. pt says she is not ready to go home yet. 12/12/[id number]-cbji-old female admitted with intractable nausea and vomiting's and intractable pains secondary to metastatic breast cancer. Pain management as per oncology team. (2) Dehydration Is this a current diagnosis for this admission?: Yes (3) Hypertension Is this a current diagnosis for this admission?: Yes Plan: Not optimized. Currently on 5 mg Norvasc p.o. daily. Switch Norvasc to lisinopril 10 mg daily. Uptitrate as tolerated. DC amlodipine as patient is on high-dose opioids and calcium channel blockers are known to cause constipation. 12/09/2018-patient blood pressure today is 159/98. Currently on lisinopril 10 mg p.o. daily plan is to increase the dose to 20 mg p.o. daily. 12/10/2018-patient blood pressure today is 129/97. Improved compared to yesterday. Presently on lisinopril 40 mg p.o. daily. 12/11/2018-blood pressure today is 137/86. Stable. (4) Nausea & vomiting Qualifiers: Vomiting type: unspecified Vomiting Intractability: intractable Qualified Code(s): R11.2 - Nausea with vomiting, unspecified Is this a current diagnosis for this admission?: Yes (5) Uncontrolled pain Is this a current diagnosis for this admission?: Yes Plan: Most likely due to underlying metastatic breast cancer. Oncology is on board, Dr. De Oliveira has been titrating up her opiate analgesics in the hope of discharging her home once pain is under control. 12/09/2018-as per Dr. Fischer's plan she needs to be on oral Dilaudid and IV Dilaudid associated with fentanyl patch patient prefers to have p.o. Percocets. 12/10/2018-pain management as per Dr. garay. 12/11/2018-patient admitted with uncontrollable pain pain is managed by the oncology team the plan is to discharge her home when ready with the duragecic patch 100 mcg and Percocet 12/03/2024 every 4 as needed for pain. 12/12/2018-patient is still complaining of pain 10/10. Pain management as per oncology team. - Plan Summary Summary: 12/02/2018- Intractable pain secondary to metastatic breast cancer-fentanyl patch 25 mcg every 72 hours topical at this time and will give Dilaudid 1 mg IV every 3 hours PRN for breakthrough pain. I did give patient a 1 time dose of 2 mg of IV Dilau did in the ER. Dr. Annie sanon will follow up with patient in a.m. and make changes plan of care as appropriate Dehydration-hydrate with normal saline at 125 mL an hour repeat BMP in a.m. Hypertension-Norvasc 5 mg p.o. daily continue to follow and make change plan of care as appropriate Tachycardia-I suspect this will resolve with fluids and pain control will follow Nuwnz-Qwwxanrbif-ZZ 5 mL's every 4 hours as needed 12/03/2018- Intractable pain. Patient continues on fentanyl patch 25 mcg every 72 hours at this time. Dilaudid 1 mg IV every 3 hours as needed. I did discuss this with Dr. Annie sanon this morning as patient is having slight headache and does have brain mets. We will give her dexamethasone 10 mg IV x1 and placed on dexamethasone 4 mg p.o. every 12 hours. We will continue to follow Dehydration. Patient able to take orals at this time I will stop the IV fluids at this time but will reinitiate as needed. Hypertension-stable continue Norvasc. Tachycardia-stable heart rate in the 70s at this time. Most likely was secondary to dehydration and pain level. Cough-continue Robitussin-AC 12/04/2018- Pain persist at this time. Patient having to take Dilaudid every 3 hours. We will increase fentanyl patch to 50 mcg every 72 hours at this time. Await further recommendations per Dr. Annie sanon. Patient continues on dexamethasone 4 mg p.o. every 12 hours. Dehydration. Stable continue to follow Hypertension-stable Tachycardia stable Cough-continue Robitussin-AC 12/05/2018- Pain improved at this time. Patient requiring Dilaudid up to every 4 hours. Fentanyl patch was increased yesterday to 50 mcg every [address] Annie sanon will see patient today and we will discuss further change plan of care as needed. Dehydration-stable Tachycardia-stable continue to follow Cough-continue Robitussin-AC as needed Anxiety-continue Ativan as needed 12/06/2018- Pain-patient requiring Dilaudid regularly still. Will increase Dilaudid to 1 mg IV every 2 hours as needed patch remains at 50 mcg every [address] Annie sanon recommendations. Dehydration-stable Tachycardia-stable Cough-continue Robitussin-AC Anxiety-continue Ativan as needed Insomnia-continue IV Benadryl at bedtime as needed 12/07/2018- Pain-still requiring Dilaudid on a regular basis. Patient's fentanyl patches at 50 mcg every 72 hours. I will increase her fentanyl patch to 75 mics at this time continue PRN Dilaudid. Dehydration-stable repeat BMP in a.m. Tachycardia-stable Cough Robitussin-AC Anxiety continue Ativan Insomnia continue IV Benadryl at bedtime
[2018-12-12] MEDS ORDERED: AMLODIPINE BESYLATE 5 MG TABLET PO SCH (10:00)
[2018-12-12] MEDS: LEVOFLOXACIN 500 MG TABLET PO SCH (10:28)
[2018-12-12] MEDS: DEXAMETHASONE 4 MG TABLET PO SCH ×2 (10:28→21:38)
[2018-12-12] MEDS: DOCUSATE SODIUM 100 MG CAPSULE PO SCH (10:28)
[2018-12-12] MEDS: MULTIVITAMIN TABLET PO SCH (10:28)
[2018-12-12] MEDS: FENTANYL 100 MCG/HR PATCH.TD72 TD SCH (10:28)
[2018-12-12] MEDS: NORMAL SALINE 10 ML SDV (SCHEDULED) IV SCH ×2 (10:30→21:39)
[2018-12-12] MEDS: BENZONATATE 100 MG CAPSULE PO SCH ×2 (13:13→21:38)
[2018-12-12] MEDS: DIPHENHYDRAMINE HCL 50 MG/ML VIAL IV SCH (21:38)
[2018-12-13] MEDS: OXYCODONE-ACETAMINOPHEN 5-325 MG TABLET PO PRN ×4 (01:02→23:51)
[2018-12-13] MEDS: PROMETHAZINE HCL INJ 25 MG/1 ML VIAL IV PRN ×5 (03:48→20:47)
[2018-12-13] MEDS: HYDROMORPHONE HCL INJ/PF 2 MG/ML AMPULE IV PRN ×5 (03:48→20:47)
[2018-12-13] MEDS: DIPHENHYDRAMINE HCL 50 MG/ML VIAL IV PRN ×5 (03:48→20:48)
[2018-12-13] MEDS: LORAZEPAM INJ 2 MG/1 ML VIAL IV PRN ×2 (04:58→13:51)
[2018-12-13] MEDS: BENZONATATE 100 MG CAPSULE PO SCH ×3 (05:02→22:00)
[2018-12-13] MEDS: GUAIFENESIN/CODEINE PHOS 100-10 MG/ 5 ML UDC PO PRN ×3 (07:38→22:06)
--- NOTE | 2018-12-13 08:00 | PDOC PROGRESS REPORT ---
Subjective Progress Note for:: 12/13/18 Subjective:: 48 year old female with known history of metastatic breast cancer stage IV who was sent over from Dr. Annie sanon's office with intractable pain and dehydration. She states a diffuse body pain states it is severe in nature and is worse with any movement. She states it radiates throughout her whole body it is constant in nature. Patient was given morphine in the ER with poor results. Patient also has had a dry cough no other associated symptoms no fevers no chills no other complaints at this time. She has had no other treatment prior to arrival all active is having factor. 12/08/18 Patient in no apparent distress, stating that her pain is better controlled than yesterday, nausea has also improved, Dr. Fischer oncologist has been titrating up her pain medications in the hope of controlling her pain and discharging home. Denies any fever, chills, nausea, vomiting, diarrhea, constipation or any urinary symptoms. 12/09/[id number]-ayqp-old female with history of metastatic breast cancer stage IV admitted for intractable pain and dehydration. Patient's main concern is the pain management. She wants to take p.o. Percocets and IV Dilaudid. She is also on fentanyl patch. No other complaints. 12/10/2018-no acute events in the last 24 hours. Patient is afebrile. Denies any nausea and vomiting's. Able to tolerate the diet. Pain management as per oncology team. 12/11/2018-no acute events in the last 24 hours. Afebrile. Patient is still complaining of pain,, she says she is not ready to go home yet. 12/12/2018-no acute events in the last 24 hours. Patient afebrile. Still complaining of pains despite getting IV Dilaudid and p.o. Percocets pain management as per Dr. garay 12/13/2018-no acute events in the last 24 hours. Afebrile. Patient is continued to have hacking cough. Lisinopril was discontinued 3 days ago started on Robitussin and started on Tessalon Perles yesterday. Nothing is helping her cough. Most likely secondary to metastatic breast cancer with mets Reason For Visit: INTRACTABLE PAIN SECONDARY TO METASTATIC BREAST Physical Exam Vital Signs: Temp Pulse Resp BP Pulse Ox 97.9 F 86 20 155/108 H 96 12/13/18 03:57 12/13/18 03:57 12/13/18 03:57 12/13/18 03:57 12/13/18 03:57 Intake & Output 12/12/18 12/13/18 12/14/18 06:59 06:59 06:59 Intake Total 560 1254 Balance 560 1254 Weight 96.8 kg 95.8 kg General appearance: PRESENT: no acute distress, obese Head exam: PRESENT: atraumatic Eye exam: PRESENT: PERRLA Mouth exam: PRESENT: neck supple Teeth exam: PRESENT: poor dentation Neck exam: ABSENT: carotid bruit, JVD, lymphadenopathy, thyromegaly Respiratory exam: PRESENT: decreased breath sounds Cardiovascular exam: PRESENT: tachycardia GI/Abdominal exam: PRESENT: normal bowel sounds, soft. ABSENT: distended, guarding, mass, organolmegaly, rebound, tenderness Rectal exam: PRESENT: deferred Neurological exam: PRESENT: alert Psychiatric exam: PRESENT: appropriate affect, normal mood. ABSENT: homicidal ideation, suicidal ideation Results Laboratory Results: 12/10/18 05:32 12/10/18 05:32 Impressions: Chest X-Ray 12/02/18 16:22 IMPRESSION: No acute findings in the chest. Right hilar fullness of uncertain etiology. Guidance Fluoroscopy 12/03/18 00:00 IMPRESSION: SUCCESSFUL PLACEMENT OF A 5 FR DUAL LUMEN 37 CM PICC IN THE LEFT BASILIC VEIN. Interventional Vascular Procedure 12/03/18 00:00 IMPRESSION: SUCCESSFUL PLACEMENT OF A 5 FR DUAL LUMEN 37 CM PICC IN THE LEFT BASILIC VEIN. PICC Line Insertion 12/03/18 00:00 IMPRESSION: SUCCESSFUL PLACEMENT OF A 5 FR DUAL LUMEN 37 CM PICC IN THE LEFT BASILIC VEIN. Assessment and Plan - Diagnosis (1) Metastatic breast cancer Is this a current diagnosis for this admission?: Yes Plan: Still considering her options about further therapy. Stating that she wants to have chemotherapy and had very bad experience with it. Patient also discussed with family. Oncologist on board. Recommendations noted. 12/09/2018-patient is complaining of significant pain 10 x 10 requesting to continue IV Dilaudid and wants to continue p.o. Percocets. She is also on fentanyl patch. 12/10/2018-pain management as per oncology team. 12/11/2018-patient has history of metastatic breast cancer plan is to discharge her home on Duragesic patch 100 mcg and Percocet every 4 hours as needed. pt says she is not ready to go home yet. 12/12/[id number]-gabi-old female admitted with intractable nausea and vomiting's and intractable pains secondary to metastatic breast cancer. Pain management as per oncology team. 12/13/2018-patient has history of metastatic breast cancer admitted with intractable nausea and vomitings though symptoms are resolved. (2) Dehydration Is this a current diagnosis for this admission?: Yes (3) Hypertension Is this a current diagnosis for this admission?: Yes Plan: Not optimized. Currently on 5 mg Norvasc p.o. daily. Switch Norvasc to lisinopril 10 mg daily. Uptitrate as tolerated. DC amlodipine as patient is on high-dose opioids and calcium channel blockers are known to cause constipation. 12/09/2018-patient blood pressure today is 159/98. Currently on lisinopril 10 mg p.o. daily plan is to increase the dose to 20 mg p.o. daily. 12/10/2018-patient blood pressure today is 129/97. Improved compared to yesterday. Presently on lisinopril 40 mg p.o. daily. 12/11/2018-blood pressure today is 137/86. Stable. 12/13/2018-patient blood pressure today's 155/108. On amlodipine 5 mg p.o. daily plan to increase the dose to 10 mg daily. Weighted blood pressure may be secondary to chronic pain. (4) Nausea & vomiting Qualifiers: Vomiting type: unspecified Vomiting Intractability: intractable Qualified Code(s): R11.2 - Nausea with vomiting, unspecified Is this a current diagnosis for this admission?: Yes Plan: Mostly due to underlying metastatic disease. He is on multiple medications for malignancy associated nausea such as Decadron, Ativan, Zofran and Phenergan. Patient stating that Phenergan works better for her. 12/09/2018-patient has history of nausea and vomiting most likely secondary to malignancy. No complaints of nausea and vomiting this morning. Receiving Phenergan. 12/10/2018-patient denies any complaints of nausea or vomiting's able to tolera te the break fast this morning. 12/11/2018-patient able to tolerate the feeds with no complaints of nausea and vomitings for the last 72 hours. 12/13/2018-no complaints of nausea and vomitings. Able to tolerate regular diet well. (5) Uncontrolled pain Is this a current diagnosis for this admission?: Yes Plan: Most likely due to underlying metastatic breast cancer. Oncology is on board, Dr. De Oliveira has been titrating up her opiate analgesics in the hope of discharging her home once pain is under control. 12/09/2018-as per Dr. Fischer's plan she needs to be on oral Dilaudid and IV Dilaudid associated with fentanyl patch patient prefers to have p.o. Percocets. 12/10/2018-pain management as per Dr. garay. 12/11/2018-patient admitted with uncontrollable pain pain is managed by the oncology team the plan is to discharge her home when ready with the duragecic patch 100 mcg and Percocet 12/03/2024 every 4 as needed for pain. 12/12/2018-patient is still complaining of pain 10/10. Pain management as per oncology team. 12/13/2018-patient is receiving IV Dilaudid and p.o. Percocet as per oncology recommendations. Plan is to continue the present management. - Plan Summary Summary: 12/02/2018- Intractable pain secondary to metastatic breast cancer-fentanyl patch 25 mcg every 72 hours topical at this time and will give Dilaudid 1 mg IV every 3 hours PRN for breakthrough pain. I did give patient a 1 time dose of 2 mg of IV Dilaudid in the ER. Dr. Annie sanon will follow up with patient in a.m. and make changes plan of care as appropriate Dehydration-hydrate with normal saline at 125 mL an hour repeat BMP in a.m. Hypertension-Norvasc 5 mg p.o. daily continue to follow and make change plan of care as appropriate Tachycardia-I suspect this will resolve with fluids and pain control will follow Gixbo-Vzxswibicr-QD 5 mL's every 4 hours as needed 12/03/2018- Intractable pain. Patient continues on fentanyl patch 25 mcg every 72 hours at this time. Dilaudid 1 mg IV every 3 hours as needed. I did discuss this with Dr. Annie sanon this morning as patient is having slight headache and does have brain mets. We will give her dexamethasone 10 mg IV x1 and placed on dexamethasone 4 mg p.o. every 12 hours. We will continue to follow Dehydration. Patient able to take orals at this time I will stop the IV fluids at this time but will reinitiate as needed. Hypertension-stable continue Norvasc. Tachycardia-stable heart rate in the 70s at this time. Most likely was secon king to dehydration and pain level. Cough-continue Robitussin-AC 12/04/2018- Pain persist at this time. Patient having to take Dilaudid every 3 hours. We will increase fentanyl patch to 50 mcg every 72 hours at this time. Await further recommendations per Dr. Annie sanon. Patient continues on dexamethasone 4 mg p.o. every 12 hours. Dehydration. Stable continue to follow Hypertension-stable Tachycardia stable Cough-continue Robitussin-AC 12/05/2018- Pain improved at this time. Patient requiring Dilaudid up to every 4 hours. Fentanyl patch was increased yesterday to 50 mcg every [address] Annie sanon will see patient today and we will discuss further change plan of care as needed. Dehydration-stable Tachycardia-stable continue to follow Cough-continue Robitussin-AC as needed Anxiety-continue Ativan as needed 12/06/2018- Pain-patient requiring Dilaudid regularly still. Will increase Dilaudid to 1 mg IV every 2 hours as needed patch remains at 50 mcg every [address] Annie sanon recommendations. Dehydration-stable Tachycardia-stable Cough-continue Robitussin-AC Anxiety-continue Ativan as needed Insomnia-continue IV Benadryl at bedtime as needed 12/07/2018- Pain-still requiring Dilaudid on a regular basis. Patient's fentanyl patches at 50 mcg every 72 hours. I will increase her fentanyl patch to 75 mics at this time continue PRN Dilaudid. Dehydration-stable repeat BMP in a.m. Tachycardia-stable Cough Robitussin-AC Anxiety continue Ativan Insomnia continue IV Benadryl at bedtime
[2018-12-13] MEDS: DOCUSATE SODIUM 100 MG CAPSULE PO SCH (09:25)
[2018-12-13] MEDS: DEXAMETHASONE 4 MG TABLET PO SCH ×2 (09:25→22:00)
[2018-12-13] MEDS: LEVOFLOXACIN 500 MG TABLET PO SCH (09:25)
[2018-12-13] MEDS: NORMAL SALINE 10 ML SDV (SCHEDULED) IV SCH ×2 (09:26→22:01)
[2018-12-13] MEDS: MULTIVITAMIN TABLET PO SCH (09:26)
[2018-12-13] MEDS ORDERED: AMLODIPINE BESYLATE 5 MG TABLET PO SCH (10:00)
--- NOTE | 2018-12-13 13:48 | PDOC PROGRESS REPORT ---
Subjective Progress Note for:: 12/13/18 Subjective:: Patient states that everything is about the same. No change to pain. She is pleased with current pain regimen. She is not willing to change anything today. She is still not willing to wean off the Dilaudid and be discharged. Nurses state that she is still planning to go home before Fri. She is still not willing to discuss Hospice with them. ROS: Cough, no constipation. Decreased appetite. Reason For Visit: INTRACTABLE PAIN SECONDARY TO METASTATIC BREAST Physical Exam Vital Signs: Temp Pulse Resp BP Pulse Ox 98.4 F 118 H 16 175/118 H 96 12/13/18 11:54 12/13/18 11:54 12/13/18 11:54 12/13/18 11:54 12/13/18 11:54 Intake & Output 12/12/18 12/13/18 12/14/18 06:59 06:59 06:59 Intake Total 560 1254 518 Balance 560 1254 518 Weight 96.8 kg 95.8 kg General appearance: PRESENT: well-developed, well-nourished Head exam: PRESENT: normocephalic Respiratory exam: PRESENT: clear to auscultation tolu, unlabored Cardiovascular exam: PRESENT: RRR Extremities exam: ABSENT: pedal edema Neurological exam: PRESENT: alert, awake Psychiatric exam: PRESENT: appropriate affect Skin exam: PRESENT: normal color Results Laboratory Results: 12/10/18 05:32 12/10/18 05:32 Impressions: Chest X-Ray 12/02/18 16:22 IMPRESSION: No acute findings in the chest. Right hilar fullness of uncertain etiology. Guidance Fluoroscopy 12/03/18 00:00 IMPRESSION: SUCCESSFUL PLACEMENT OF A 5 FR DUAL LUMEN 37 CM PICC IN THE LEFT BASILIC VEIN. Interventional Vascular Procedure 12/03/18 00:00 IMPRESSION: SUCCESSFUL PLACEMENT OF A 5 FR DUAL LUMEN 37 CM PICC IN THE LEFT BASILIC VEIN. PICC Line Insertion 12/03/18 00:00 IMPRESSION: SUCCESSFUL PLACEMENT OF A 5 FR DUAL LUMEN 37 CM PICC IN THE LEFT BASILIC VEIN. Assessment & Plan - Diagnosis (1) Metastatic breast cancer Is this a current diagnosis for this admission?: Yes Plan: Further treatment to be discussed as outpatient. She is a good candidate for Hospice, but is not willing to accept these services yet. (2) Uncontrolled pain Is this a current diagnosis for this admission?: Yes Plan: Now controlled with current regimen. Anticipate discharge within 24-48 hours. - Time Time Spent with patient: 15-24 minutes - Plan Summary Plan Summary: I will continue to follow with you. Please call with any concerns.
[2018-12-13] MEDS: ALBUTEROL SULFATE HFA (90 MCG/PUFF) 200 PUFF/8.5 GM MDI IH PRN ×2 (17:37→22:00)
[2018-12-13] MEDS: DIPHENHYDRAMINE HCL 50 MG/ML VIAL IV SCH (22:01)
[2018-12-14] MEDS: PROMETHAZINE HCL INJ 25 MG/1 ML VIAL IV PRN ×3 (00:49→08:29)
[2018-12-14] MEDS: DIPHENHYDRAMINE HCL 50 MG/ML VIAL IV PRN ×3 (00:49→08:27)
[2018-12-14] MEDS: HYDROMORPHONE HCL INJ/PF 2 MG/ML AMPULE IV PRN ×3 (00:50→08:28)
[2018-12-14] MEDS: BENZONATATE 100 MG CAPSULE PO SCH (05:00)
--- NOTE | 2018-12-14 08:08 | PDOC PROGRESS REPORT ---
Subjective Progress Note for:: 12/14/18 Subjective:: 48 year old female with known history of metastatic breast cancer stage IV who was sent over from Dr. Annie sanon's office with intractable pain and dehydration. She states a diffuse body pain states it is severe in nature and is worse with any movement. She states it radiates throughout her whole body it is constant in nature. Patient was given morphine in the ER with poor results. Patient also has had a dry cough no other associated symptoms no fevers no chills no other complaints at this time. She has had no other treatment prior to arrival all active is having factor. 12/08/18 Patient in no apparent distress, stating that her pain is better controlled than yesterday, nausea has also improved, Dr. Fischer oncologist has been titrating up her pain medications in the hope of controlling her pain and discharging home. Denies any fever, chills, nausea, vomiting, diarrhea, constipation or any urinary symptoms. 12/09/[id number]-old female with history of metastatic breast cancer stage IV admitted for intractable pain and dehydration. Patient's main concern is the pain management. She wants to take p.o. Percocets and IV Dilaudid. She is also on fentanyl patch. No other complaints. 12/10/2018-no acute events in the last 24 hours. Patient is afebrile. Denies any nausea and vomiting's. Able to tolerate the diet. Pain management as per oncology team. 12/11/2018-no acute events in the last 24 hours. Afebrile. Patient is still complaining of pain,, she says she is not ready to go home yet. 12/12/2018-no acute events in the last 24 hours. Patient afebrile. Still complaining of pains despite getting IV Dilaudid and p.o. Percocets pain management as per Dr. garay 12/13/2018-no acute events in the last 24 hours. Afebrile. Patient is continued to have hacking cough. Lisinopril was discontinued 3 days ago started on Robitussin and started on Tessalon Perles yesterday. Nothing is helping her cough. Most likely secondary to metastatic breast cancer with mets 12/14/2018-no acute events in the last 24 hours. Afebrile. Pain is well controlled now. Nausea and vomiting is resolved. If it is okay with oncology team patient can go home tomorrow. Reason For Visit: INTRACTABLE PAIN SECONDARY TO METASTATIC BREAST Physical Exam Vital Signs: Temp Pulse Resp BP Pulse Ox 98.1 F 102 H 14 148/95 H 94 12/14/18 03:35 12/14/18 03:35 12/14/18 03:35 12/14/18 03:35 12/14/18 03:35 Intake & Output 12/13/18 12/14/18 12/15/18 06:59 06:59 06:59 Intake Total 1254 1350 Balance 1254 1350 Weight 95.8 kg 96 kg General appearance: PRESENT: no acute distress Head exam: PRESENT: atraumatic Eye exam: PRESENT: PERRLA Mouth exam: PRESENT: moist, tongue midline Teeth exam: PRESENT: poor dentation Neck exam: ABSENT: carotid bruit, JVD, lymphadenopathy, thyromegaly Respiratory exam: PRESENT: decreased breath sounds Cardiovascular exam: PRESENT: RRR. ABSENT: diastolic murmur, rubs, systolic murmur GI/Abdominal exam: PRESENT: normal bowel sounds, soft. ABSENT: distended, guarding, mass, organolmegaly, rebound, tenderness Rectal exam: PRESENT: deferred Extremities exam: PRESENT: full ROM. ABSENT: calf tenderness, clubbing, pedal edema Neurological exam: PRESENT: alert, awake, oriented to person, oriented to place, oriented to time, oriented to situation, CN II-XII grossly intact. ABSENT: motor sensory deficit Psychiatric exam: PRESENT: appropriate affect, normal mood. ABSENT: homicidal ideation, suicidal ideation Results Laboratory Results: 12/10/18 05:32 12/10/18 05:32 Impressions: Chest X-Ray 12/02/18 16:22 IMPRESSION: No acute findings in the chest. Right hilar fullness of uncertain etiology. Guidance Fluoroscopy 12/03/18 00:00 IMPRESSION: SUCCESSFUL PLACEMENT OF A 5 FR DUAL LUMEN 37 CM PICC IN THE LEFT BASILIC VEIN. Interventional Vascular Procedure 12/03/18 00:00 IMPRESSION: SUCCESSFUL PLACEMENT OF A 5 FR DUAL LUMEN 37 CM PICC IN THE LEFT BASILIC VEIN. PICC Line Insertion 12/03/18 00:00 IMPRESSION: SUCCESSFUL PLACEMENT OF A 5 FR DUAL LUMEN 37 CM PICC IN THE LEFT BASILIC VEIN. Assessment and Plan - Diagnosis (1) Metastatic breast cancer Is this a current diagnosis for this admission?: Yes Plan: Still considering her options about further therapy. Stating that she wants to have chemotherapy and had very bad experience with it. Patient also discussed with family. Oncologist on board. Recommendations noted. 12/09/2018-patient is complaining of significant pain 10 x 10 requesting to continue IV Dilaudid and wants to continue p.o. Percocets. She is also on fentanyl patch. 12/10/2018-pain management as per oncology team. 12/11/2018-patient has history of metastatic breast cancer plan is to discharge her home on Duragesic patch 100 mcg and Percocet every 4 hours as needed. pt says she is not ready to go home yet. 12/12/[id number]-uzus-old female admitted with intractable nausea and vomiting's and intractable pains secondary to metastatic breast cancer. Pain management as per oncology team. 12/13/2018-patient has history of metastatic breast cancer admitted with in tractable nausea and vomitings though symptoms are resolved. 12/14/2018-patient admitted with intractable nausea and vomitings symptoms are resolved patient able to take the regular diet without any problems. (2) Dehydration Is this a current diagnosis for this admission?: Yes (3) Hypertension Is this a current diagnosis for this admission?: Yes Plan: Not optimized. Currently on 5 mg Norvasc p.o. daily. Switch Norvasc to lisinopril 10 mg daily. Uptitrate as tolerated. DC amlodipine as patient is on high-dose opioids and calcium channel blockers are known to cause constipation. 12/09/2018-patient blood pressure today is 159/98. Currently on lisinopril 10 mg p.o. daily plan is to increase the dose to 20 mg p.o. daily. 12/10/2018-patient blood pressure today is 129/97. Improved compared to yesterday. Presently on lisinopril 40 mg p.o. daily. 12/11/2018-blood pressure today is 137/86. Stable. 12/13/2018-patient blood pressure today's 155/108. On amlodipine 5 mg p.o. daily plan to increase the dose to 10 mg daily. Weighted blood pressure may be secondary to chronic pain. 12/14/2018-blood pressure is significantly improved compared to yesterday. BP is 148/95 this morning presently on amlodipine 10 mg p.o. daily. (4) Nausea & vomiting Qualifiers: Vomiting type: unspecified Vomiting Intractability: intractable Qualified Code(s): R11.2 - Nausea with vomiting, unspecified Is this a current diagnosis for this admission?: Yes Plan: Mostly due to underlying metastatic disease. He is on multiple medications for malignancy associated nausea such as Decadron, Ativan, Zofran and Phenergan. Patient stating that Phenergan works better for her. 12/09/2018-patient has history of nausea and vomiting most likely secondary to malignancy. No complaints of nausea and vomiting this morning. Receiving Phenergan. 12/10/2018-patient denies any complaints of nausea or vomiting's able to tolerate the break fast this morning. 12/11/2018-patient able to tolerate the feeds with no complaints of nausea and vomitings for the last 72 hours. 12/13/2018-no complaints of nausea and vomitings. Able to tolerate regular diet well. 12/14/2018-nausea and vomiting's are resolved. (5) Uncontrolled pain Is this a current diagnosis for this admission?: Yes Plan: Most likely due to underlying metastatic breast cancer. Oncology is on board, Dr. De Oliveira has been titrating up her opiate analgesics in the hope of discharging her home once pain is under control. 12/09/2018-as per Dr. Fischer's plan she needs to be on oral Dilaudid and IV Dilaudid associated with fentanyl patch patient prefers to have p.o. Percocets. 12/10/2018-pain management as per Dr. garay. 12/11/2018-patient admitted with uncontrollable pain pain is managed by the oncology team the plan is to discharge her home when ready with the duragecic patch 100 mcg and Percocet 12/03/2024 every 4 as needed for pain. 12/12/2018-patient is still complaining of pain 10/10. Pain management as per oncology team. 12/13/2018-patient is receiving IV Dilaudid and p.o. Percocet as per oncology recommendations. Plan is to continue the present management. 12/14/2018-patient denies any complaints of pains this morning presently on fentanyl patch, IV Dilaudid, p.o. Percocets. - Plan Summary Summary: 12/02/2018- Intractable pain secondary to metastatic breast cancer-fentanyl patch 25 mcg every 72 hours topical at this time and will give Dilaudid 1 mg IV every 3 hours PRN for breakthrough pain. I did give patient a 1 time dose of 2 mg of IV Dilaudid in the ER. Dr. Annie sanon will follow up with patient in a.m. and make changes plan of care as appropriate Dehydration-hydrate with normal saline at 125 mL an hour repeat BMP in a.m. Hypertension-Norvasc 5 mg p.o. daily continue to follow and make change plan of care as appropriate Tachycardia-I suspect this will resolve with fluids and pain control will follow Ceyvl-Vrauhunlen-LI 5 mL's every 4 hours as needed 12/03/2018- Intractable pain. Patient continues on fentanyl patch 25 mcg every 72 hours at this time. Dilaudid 1 mg IV every 3 hours as needed. I did discuss this with Dr. Annie sanon this morning as patient is having slight headache and does have brain mets. We will give her dexamethasone 10 mg IV x1 and placed on dexamethasone 4 mg p.o. every 12 hours. We will continue to follow Dehydration. Patient able to take orals at this time I will stop the IV fluids at this time but will reinitiate as needed. Hypertension-stable continue Norvasc. Tachycardia-stable heart rate in the 70s at this time. Most likely was secondary to dehydration and pain level. Cough-continue Robitussin-AC 12/04/2018- Pain persist at this time. Patient having to take Dilaudid every 3 hours. We will increase fentanyl patch to 50 mcg every 72 hours at this time. Await further recommendations per Dr. Annie sanon. Patient continues on dexamethasone 4 mg p.o. every 12 hours. Dehydration. Stable continue to follow Hypertension-stable Tachycardia stable Cough-continue Robitussin-AC 12/05/2018- Pain improved at this time. Patient requiring Dilaudid up to every 4 hours. Fentanyl patch was increased yesterday to 50 mcg every [address] Annie sanon will see patient today and we will discuss further change plan of care as needed. Dehydration-stable Tachycardia-stable continue to follow Cough-continue Robitussin-AC as needed Anxiety-continue Ativan as needed 12/06/2018- Pain-patient requiring Dilaudid regularly still. Will increase Dilaudid to 1 mg IV every 2 hours as needed patch remains at 50 mcg every [address] Annie sanon recommendations. Dehydration-stable Tachycardia-stable Cough-continue Robitussin-AC Anxiety-continue Ativan as needed Insomnia-continue IV Benadryl at bedtime as needed 12/07/2018- Pain-still requiring Dilaudid on a regular basis. Patient's fentanyl patches at 50 mcg every 72 hours. I will increase her fentanyl patch to 75 mics at this time continue PRN Dilaudid. Dehydration-stable repeat BMP in a.m. Tachycardia-stable Cough Robitussin-AC Anxiety continue Ativan Insomnia continue IV Benadryl at bedtime - Time Time Spent with patient: 25-34 minutes Medications reviewed and adjusted accordingly: Yes Anticipated discharge: Home
--- NOTE | 2018-12-14 08:15 | PDOC PROGRESS REPORT ---
Subjective Progress Note for:: 12/14/18 Subjective:: Patient is without complaints today. Her cough remains. No change in pain. She is again requesting to stay one more day. Reason For Visit: INTRACTABLE PAIN SECONDARY TO METASTATIC BREAST Physical Exam Vital Signs: Temp Pulse Resp BP Pulse Ox 98.1 F 102 H 14 148/95 H 94 12/14/18 03:35 12/14/18 03:35 12/14/18 03:35 12/14/18 03:35 12/14/18 03:35 Intake & Output 12/13/18 12/14/18 12/15/18 06:59 06:59 06:59 Intake Total 1254 1350 Balance 1254 1350 Weight 95.8 kg 96 kg General appearance: PRESENT: well-developed, well-nourished Head exam: PRESENT: normocephalic Respiratory exam: PRESENT: clear to auscultation tolu Cardiovascular exam: PRESENT: RRR Extremities exam: ABSENT: pedal edema Neurological exam: PRESENT: alert, awake, oriented to person, oriented to place, oriented to time Psychiatric exam: PRESENT: appropriate affect Skin exam: PRESENT: normal color Results Laboratory Results: 12/10/18 05:32 12/10/18 05:32 Impressions: Chest X-Ray 12/02/18 16:22 IMPRESSION: No acute findings in the chest. Right hilar fullness of uncertain etiology. Guidance Fluoroscopy 12/03/18 00:00 IMPRESSION: SUCCESSFUL PLACEMENT OF A 5 FR DUAL LUMEN 37 CM PICC IN THE LEFT BASILIC VEIN. Interventional Vascular Procedure 12/03/18 00:00 IMPRESSION: SUCCESSFUL PLACEMENT OF A 5 FR DUAL LUMEN 37 CM PICC IN THE LEFT BASILIC VEIN. PICC Line Insertion 12/03/18 00:00 IMPRESSION: SUCCESSFUL PLACEMENT OF A 5 FR DUAL LUMEN 37 CM PICC IN THE LEFT BASILIC VEIN. Assessment & Plan - Diagnosis (1) Metastatic breast cancer Is this a current diagnosis for this admission?: Yes Plan: Further treatment as outpatient. Patient has been offered Hospice services, but has declined. I will make sure she has follow-up appointment in our office. (2) Uncontrolled pain Is this a current diagnosis for this admission?: Yes Plan: Now controlled with current regimen. She will continue Duragesic 100 mcg at home as well as Percocet 10/325 q 4 hours PRN for breakthrough pain. - Time Time Spent with patient: 15-24 minutes - Plan Summary Plan Summary: OK for discharge today. I discussed with Dr. Acosta.
--- NOTE | 2018-12-14 08:44 | PDOC DISCHARGE SUMMARY ---
Impression - Admit/DC Date/PCP Admission Date/Primary Care Provider: 12/02/18 18:17 SEJAL DIAZ, Discharge Date: 12/14/18 - Discharge Diagnosis (1) Metastatic breast cancer Is this a current diagnosis for this admission?: Yes (2) Dehydration Is this a current diagnosis for this admission?: Yes (3) Hypertension Is this a current diagnosis for this admission?: Yes (4) Nausea & vomiting Is this a current diagnosis for this admission?: Yes (5) Uncontrolled pain Is this a current diagnosis for this admission?: Yes - Assessment Summary: 12/02/2018- Intractable pain secondary to metastatic breast cancer-fentanyl patch 25 mcg every 72 hours topical at this time and will give Dilaudid 1 mg IV every 3 hours PRN for breakthrough pain. I did give patient a 1 time dose of 2 mg of IV Dilaudid in the ER. Dr. Annie sanon will follow up with patient in a.m. and make changes plan of care as appropriate Dehydration-hydrate with normal saline at 125 mL an hour repeat BMP in a.m. Hypertension-Norvasc 5 mg p.o. daily continue to follow and make change plan of care as appropriate Tachycardia-I suspect this will resolve with fluids and pain control will follow Hdyjy-Pjwrasrjbe-TK 5 mL's every 4 hours as needed 12/03/2018- Intractable pain. Patient continues on fentanyl patch 25 mcg every 72 hours at this time. Dilaudid 1 mg IV every 3 hours as needed. I did discuss this with Dr. Annie sanon this morning as patient is having slight headache and does have brain mets. We will give her dexamethasone 10 mg IV x1 and placed on dexamethasone 4 mg p.o. every 12 hours. We will continue to follow Dehydration. Patient able to take orals at this time I will stop the IV fluids at this time but will reinitiate as needed. Hypertension-stable continue Norvasc. Tachycardia-stable heart rate in the 70s at this time. Most likely was secondary to dehydration and pain level. Cough-continue Robitussin-AC 12/04/2018- Pain persist at this time. Patient having to take Dilaudid every 3 hours. We will increase fentanyl patch to 50 mcg every 72 hours at this time. Await further recommendations per Dr. Annie sanon. Patient continues on dexamethasone 4 mg p.o. every 12 hours. Dehydration. Stable continue to follow Hypertension-stable Tachycardia stable Cough-continue Robitussin-AC 12/05/2018- Pain improved at this time. Patient requiring Dilaudid up to every 4 hours. Fentanyl patch was increased yesterday to 50 mcg every [address] Annie sanon will see patient today and we will discuss further change plan of care as needed. Dehydration-stable Tachycardia-stable continue to follow Cough-continue Robitussin-AC as needed Anxiety-continue Ativan as needed 12/06/2018- Pain-patient requiring Dilaudid regularly still. Will increase Dilaudid to 1 mg IV every 2 hours as needed patch remains at 50 mcg every [address] Annie sanon recommendations. Dehydration-stable Tachycardia-stable Cough-continue Robitussin-AC Anxiety-continue Ativan as needed Insomnia-continue IV Benadryl at bedtime as needed 12/07/2018- Pain-still requiring Dilaudid on a regular basis. Patient's fentanyl patches at 50 mcg every 72 hours. I will increase her fentanyl patch to 75 mics at this time continue PRN Dilaudid. Dehydration-stable repeat BMP in a.m. Tachycardia-stable Cough Robitussin-AC Anxiety continue Ativan Insomnia continue IV Benadryl at bedtime - Additional Information Resuscitation Status: Full Code Discharge Activity: Activity As Tolerated Referrals: TODD FISCHER MD [ACTIVE STAFF] - 12/29/18 2:30 pm () ALE PARKER MD [NO LOCAL MD] - Follow up as needed Prescriptions: Fentanyl [Duragesic 100 Mcg/Hr Transdermal Patch] 1 each TD Q3DAYS #3 patch.td72 Amlodipine Besylate [Norvasc 5 mg Tablet] 10 mg PO DAILY #30 tablet Oxycodone HCl/Acetaminophen [Percocet 5-325 mg Tablet] 1 tab PO Q4 #10 tablet Promethazine HCl [Phenergan 25 mg Tablet] 25 mg PO Q4HP PRN #20 tablet PRN Reason: Home Medications: Multivitamin [Multi-Day Vitamins] 1 each PO DAILY 05/24/11 Amlodipine Besylate [Norvasc 5 mg Tablet] 10 mg PO DAILY #30 tablet 12/14/18 Fentanyl [Duragesic 100 Mcg/Hr Transdermal Patch] 1 each TD Q3DAYS #3 patch.td72 12/14/18 Oxycodone HCl/Acetaminophen [Percocet 5-325 mg Tablet] 1 tab PO Q4 #10 tablet 12/14/18 Promethazine HCl [Phenergan 25 mg Tablet] 25 mg PO Q4HP PRN #20 tablet 12/14/18 History of Present Illiness History of Present Illness: LINDSAY MELTON is a 48 year old female 48 year old female with known history of metastatic breast cancer stage IV who was sent over from Dr. Annie sanon's office with intractable pain and dehydration. She states a diffuse body pain states it is severe in nature and is worse with any movement. She states it radiates throughout her whole body it is constant in nature. Patient was given morphine in the ER with poor results. Patient also has had a dry cough no other associated symptoms no fevers no chills no other complaints at this time. She has had no other treatment prior to arrival all active is having factor. Hospital Course Hospital Course: 48 year old female with known history of metastatic breast cancer stage IV who was sent over from Dr. Annie sanon's office with intractable pain and dehydration. She states a diffuse body pain states it is severe in nature and is worse with any movement. She states it radiates throughout her whole body it is constant in nature. Patient was given morphine in the ER with poor results. Patient also has had a dry cough no other associated symptoms no fevers no chills no other complaints at this time. She has had no other treatment prior to arrival all active is having factor. 12/08/18 Patient in no apparent distress, stating that her pain is better controlled than yesterday, nausea has also improved, Dr. Fischer oncologist has been titrating up her pain medications in the hope of controlling her pain and discharging home. Denies any fever, chills, nausea, vomiting, diarrhea, constipation or any urinary symptoms. 12/09/[id number]-phla-old female with history of metastatic breast cancer stage IV admitted for intractable pain and dehydration. Patient's main concern is the pain management. She wants to take p.o. Percocets and IV Dilaudid. She is also on fentanyl patch. No other complaints. 12/10/2018-no acute events in the last 24 hours. Patient is afebrile. Denies any nausea and vomiting's. Able to tolerate the diet. Pain management as per oncology team. 12/11/2018-no acute events in the last 24 hours. Afebrile. Patient is still complaining of pain,, she says she is not ready to go home yet. 12/12/2018-no acute events in the last 24 hours. Patient afebrile. Still complaining of pains despite getting IV Dilaudid and p.o. Percocets pain management as per Dr. garay 12/13/2018-no acute events in the last 24 hours. Afebrile. Patient is continued to have hacking cough. Lisinopril was discontinued 3 days ago started on Robitussin and started on Tessalon Perles yesterday. Nothing is helping her cough. Most likely secondary to metastatic breast cancer with mets 12/14/2018-no acute events in the last 24 hours. Afebrile. Pain is well controlled now. Nausea and vomiting is resolved. If it is okay with oncology team patient can go home tomorrow. Patient is going home today on p.o. Percocet, p.o. Phenergan and thoracic patch as per oncology recommendations. Physical Exam Vital Signs: Temp Pulse Resp BP Pulse Ox 98.1 F 99 14 148/95 H 94 12/14/18 03:35 12/14/18 07:00 12/14/18 03:35 12/14/18 03:35 12/14/18 03:35 Intake & Output 12/13/18 12/14/18 12/15/18 06:59 06:59 06:59 Intake Total 1254 1350 Balance 1254 1350 Weight 95.8 kg 96 kg General appearance: PRESENT: no acute distress, obese Head exam: PRESENT: atraumatic Eye exam: PRESENT: PERRLA Mouth exam: PRESENT: moist, tongue midline Teeth exam: PRESENT: poor dentation Neck exam: ABSENT: carotid bruit, JVD, lymphadenopathy, thyromegaly Respiratory exam: PRESENT: decreased breath sounds Cardiovascular exam: PRESENT: RRR. ABSENT: diastolic murmur, rubs, systolic murmur GI/Abdominal exam: PRESENT: normal bowel sounds, soft. ABSENT: distended, guarding, mass, organolmegaly, rebound, tenderness Rectal exam: PRESENT: deferred Extremities exam: PRESENT: full ROM. ABSENT: calf tenderness, clubbing, pedal edema Neurological exam: PRESENT: alert, awake, oriented to person, oriented to place, oriented to time, oriented to situation, CN II-XII grossly intact. ABSENT: motor sensory deficit Psychiatric exam: PRESENT: appropriate affect, normal mood. ABSENT: homicidal ideation, suicidal ideation Results Laboratory Results: WBC 10.5 10^3/uL (4.0-10.5) 12/10/18 05:32 RBC 4.58 10^6/uL (3.72-5.28) 12/10/18 05:32 Hgb 13.1 g/dL (12.0-15.5) 12/10/18 05:32 Hct 39.5 % (36.0-47.0) 12/10/18 05:32 MCV 86 fl (80-97) 12/10/18 05:32 MCH 28.6 pg (27.0-33.4) 12/10/18 05:32 MCHC 33.1 g/dL (32.0-36.0) 12/10/18 05:32 RDW 13.3 % (11.5-14.0) 12/10/18 05:32 Plt Count 314 10^3/uL (150-450) 12/10/18 05:32 Lymph % (Auto) 13.1 % (13-45) 12/10/18 05:32 Bryan % (Auto) 5.8 % (3-13) 12/10/18 05:32 Eos % (Auto) 0.0 % (0-6) 12/10/18 05:32 Baso % (Auto) 0.1 % (0-2) 12/10/18 05:32 Absolute Neuts (auto) 8.5 10^3/uL (1.7-8.2) H 12/10/18 05:32 Absolute Lymphs (auto) 1.4 10^3/uL (0.5-4.7) 12/10/18 05:32 Absolute Monos (auto) 0.6 10^3/uL (0.1-1.4) 12/10/18 05:32 Absolute Eos (auto) 0.0 10^3/uL (0.0-0.6) 12/10/18 05:32 Absolute Basos (auto) 0.0 10^3/uL (0.0-0.2) 12/10/18 05:32 Total Counted 100 12/03/18 05:25 Seg Neutrophils % 81.0 % (42-78) H 12/10/18 05:32 Seg Neuts % (Manual) 58 % (42-78) 12/03/18 05:25 Lymphocytes % (Manual) 28 % (13-45) 12/03/18 05:25 Monocytes % (Manual) 14 % (3-13) H 12/03/18 05:25 Eosinophils % (Manual) 0 % (0-6) 12/03/18 05:25 Basophils % (Manual) 0 % (0-2) 12/03/18 05:25 Abs Neuts (Manual) 3.0 10^3/uL (1.7-8.2) 12/03/18 05:25 Abs Lymphs (Manual) 1.4 10^3/uL (0.5-4.7) 12/03/18 05:25 Abs Monocytes (Manual) 0.7 10^3/uL (0.1-1.4) 12/03/18 05:25 Absolute Eos (Manual) 0.0 10^3/uL (0.0-0.6) 12/03/18 05:25 Abs Basophils (Manual) 0.0 10^3/uL (0.0-0.2) 12/03/18 05:25 Platelet Comment ADEQUATE 12/03/18 05:25 Hypochromasia SLIGHT 12/03/18 05:25 Sodium 136.8 mmol/L (137-145) L 12/10/18 05:32 Potassium 4.5 mmol/L (3.6-5.0) 12/10/18 05:32 Chloride 96 mmol/L (98-107) L 12/10/18 05:32 Carbon Dioxide 33 mmol/L (22-30) H 12/10/18 05:32 Anion Gap 8 (5-19) 12/10/18 05:32 BUN 16 mg/dL (7-20) 12/10/18 05:32 Creatinine 0.50 mg/dL (0.52-1.25) L 12/10/18 05:32 Est GFR ( Amer) > 60 (>60) 12/10/18 05:32 Est GFR (MDRD) Non-Af > 60 (>60) 12/10/18 05:32 Glucose 120 mg/dL (75-110) H 12/10/18 05:32 Calcium 9.8 mg/dL (8.4-10.2) 12/10/18 05:32 Magnesium 2.1 mg/dL (1.6-2.3) 12/10/18 05:32 Total Bilirubin 0.4 mg/dL (0.2-1.3) 12/10/18 05:32 Direct Bilirubin 0.2 mg/dL (0.0-0.4) 12/10/18 05:32 Neonat Total Bilirubin Not Reportable 12/10/18 05:32 Neonat Direct Bilirubin Not Reportable 12/10/18 05:32 Neonat Indirect Bili Not Reportable 12/10/18 05:32 AST 20 U/L (14-36) 12/10/18 05:32 ALT 20 U/L (<35) 12/10/18 05:32 Alkaline Phosphatase 77 U/L (38-126) 12/10/18 05:32 Total Protein 6.9 g/dL (6.3-8.2) 12/10/18 05:32 Albumin 3.8 g/dL (3.5-5.0) 12/10/18 05:32 Urine Color YELLOW 12/02/18 14:30 Urine Appearance CLEAR 12/02/18 14:30 Urine pH 7.0 (5.0-9.0) 12/02/18 14:30 Ur Specific [place] 1.009 12/02/18 14:30 Urine Protein 30 mg/dL (NEGATIVE) H 12/02/18 14:30 Urine Glucose (UA) NEGATIVE mg/dL (NEGATIVE) 12/02/18 14:30 Urine Ketones TRACE mg/dL (NEGATIVE) H 12/02/18 14:30 Urine Blood NEGATIVE (NEGATIVE) 12/02/18 14:30 Urine Nitrite NEGATIVE (NEGATIVE) 12/02/18 14:30 Urine Bilirubin NEGATIVE (NEGATIVE) 12/02/18 14:30 Urine Urobilinogen NEGATIVE mg/dL (<2.0) 12/02/18 14:30 Ur Leukocyte Esterase NEGATIVE (NEGATIVE) 12/02/18 14:30 Urine WBC (Auto) 3 /HPF 12/02/18 14:30 Urine RBC (Auto) 1 /HPF 12/02/18 14:30 Urine Bacteria (Auto) 3+ /HPF 12/02/18 14:30 Squamous Epi Cells Auto 5 /HPF 12/02/18 14:30 Urine Mucus (Auto) RARE /LPF 12/02/18 14:30 Urine Ascorbic Acid NEGATIVE (NEGATIVE) 12/02/18 14:30 Impressions: Chest X-Ray 12/02/18 16:22 IMPRESSION: No acute findings in the chest. Right hilar fullness of uncertain etiology. Guidance Fluoroscopy 12/03/18 00:00 IMPRESSION: SUCCESSFUL PLACEMENT OF A 5 FR DUAL LUMEN 37 CM PICC IN THE LEFT BASILIC VEIN. Interventional Vascular Procedure 12/03/18 00:00 IMPRESSION: SUCCESSFUL PLACEMENT OF A 5 FR DUAL LUMEN 37 CM PICC IN THE LEFT BASILIC VEIN. PICC Line Insertion 12/03/18 00:00 IMPRESSION: SUCCESSFUL PLACEMENT OF A 5 FR DUAL LUMEN 37 CM PICC IN THE LEFT BASILIC VEIN. Plan Time Spent: Greater than 30 Minutes Stroke Is this a Stroke Patient?: No Acute Heart Failure - Is this a Heart Failure Patient?: No
[2018-12-14] MEDS: LORAZEPAM INJ 2 MG/1 ML VIAL IV PRN (09:13)
[2018-12-14 09:16] VITALS: BP 173/125
[2018-12-14] MEDS ORDERED: NORMAL SALINE 10 ML SDV (AFTER EACH USE) IV PRN (09:30)
[2018-12-14] MEDS: OXYCODONE-ACETAMINOPHEN 5-325 MG TABLET PO PRN (09:55)
[2018-12-14] MEDS ORDERED: NORMAL SALINE 10 ML SDV (SCHEDULED) IV SCH (10:00)
[2018-12-14] MEDS ORDERED: DEXAMETHASONE 4 MG TABLET PO SCH (10:00)
[2018-12-14] MEDS ORDERED: ONDANSETRON HCL INJ/PF 4 MG/2 ML SDV IV PRN (10:00)
[2018-12-14] MEDS ORDERED: AMLODIPINE BESYLATE 10 MG TABLET PO SCH (10:00)
== END 2018-12-14 10:36 | disposition home or self-care (01) | DRG 948 ==
LOC: ER 15:01 → OBSVTOIN 18:17 → INTOOBSV 18:17 → EH 18:17 → 3W 20:10
PROVIDERS: ADMIT Hospitalist; ATTEND Hospitalist
PROC: 02HV33Z Insertion of Infusion Device into Superior Vena Cava, Percutaneous Approach (ICD-10-PCS; principal; 2018-12-03)
PROC: B518ZZA Fluoroscopy of Superior Vena Cava, Guidance (ICD-10-PCS; 2018-12-03)
PROC: B548ZZA Ultrasonography of Superior Vena Cava, Guidance (ICD-10-PCS; 2018-12-03)
DX: G89.3 Neoplasm related pain (acute) (chronic) (principal); C79.31 Secondary malignant neoplasm of brain; C78.7 Secondary malignant neoplasm of liver and intrahepatic bile duct; C78.00 Secondary malignant neoplasm of unspecified lung; C50.919 Malignant neoplasm of unspecified site of unspecified female breast; I10 Essential (primary) hypertension; E86.0 Dehydration; E66.9 Obesity, unspecified; Z79.899 Other long term (current) drug therapy; Z92.21 Personal history of antineoplastic chemotherapy; Z90.13 Acquired absence of bilateral breasts and nipples
CPT/HCPCS: 36415; 36569; 71045; 76937; 77001; 80048; 80053; 81001; 83735; 85025; 85027; 94640; 96361; 96374; 96375; 99284; A9270-GY; J1100; J1170; J1200; J1642; J1956; J2060; J2270; J2405; J2550; J3490; J7030; J7614

== ENCOUNTER 2018-12-19 08:09 | Inpatient (IN) | payer OTHER ==
[2018-12-19 09:14] LABS: ABSOLUTE EOSINOPHILS # (AUTO) 0.1 10^3/uL (0.0-0.6); ABSOLUTE LYMPHOCYTES (AUTO) 0.6 10^3/uL (0.5-4.7); ABSOLUTE MONOCYTES (AUTO) 0.9 10^3/uL (0.1-1.4); ABSOLUTE NEUT (AUTO) 4.5 10^3/uL (1.7-8.2); BASOPHILS % (AUTO) 0.4 % (0-2); EOSINOPHILS % (AUTO) 1.4 % (0-6); HEMATOCRIT 40.6 % (36.0-47.0); HEMOGLOBIN 13.4 g/dL (12.0-15.5); LYMPHOCYTES % (AUTO) 10.2 % (13-45); MEAN CORPUSCULAR HEMOGLOBIN 28.5 pg (27.0-33.4); MEAN CORPUSCULAR HGB CONC 33.1 g/dL (32.0-36.0); MEAN CORPUSCULAR VOLUME 86 fl (80-97); MONOCYTES % (AUTO) 15.2 % (3-13); PLATELET COUNT 303 10^3/uL (150-450); RED BLOOD COUNT 4.72 10^6/uL (3.72-5.28); RED CELL DISTRIBUTION WIDTH 14.1 % (11.5-14.0); SEGMENTED NEUTROPHILS % (AUTO) 72.8 % (42-78); TOTAL CELLS COUNTED % (AUTO) 100 %; WHITE BLOOD COUNT 6.1 10^3/uL (4.0-10.5)
[2018-12-19 09:33] LABS: ALBUMIN 3.7 g/dL (3.5-5.0); ALKALINE PHOSPHATASE 88 U/L (38-126); ANION GAP 10 (5-19); ASPARTATE AMINO TRANSFERASE 39 U/L (14-36); BILIRUBIN,DIRECT 0.1 mg/dL (0.0-0.4); BILIRUBIN,TOTAL 0.5 mg/dL (0.2-1.3); BLOOD UREA NITROGEN 7 mg/dL (7-20); CALCIUM 9.1 mg/dL (8.4-10.2); CARBON DIOXIDE 25 mmol/L (22-30); CHLORIDE 102 mmol/L (98-107); GLUCOSE 112 mg/dL (75-110); POTASSIUM 4.2 mmol/L (3.6-5.0); TOTAL PROTEIN 6.8 g/dL (6.3-8.2)
[2018-12-19] MEDS ORDERED: NORMAL SALINE 1000 ML 1,000 ML IV ONE (09:39)
[2018-12-19] MEDS ORDERED: BENZONATATE 100 MG CAPSULE PO ONE (09:40)
[2018-12-19] MEDS ORDERED: ONDANSETRON HCL INJ/PF 4 MG/2 ML SDV IV ONE (09:40)
[2018-12-19] MEDS ORDERED: HYDROMORPHONE HCL INJ/PF 2 MG/ML AMPULE IV ONE ×2 (09:40→11:50)
--- NOTE | 2018-12-19 09:53 | ER Document Report ---
ED Respiratory Problem - General Chief Complaint: Shortness Of Breath Stated Complaint: DIFFICULTY BREATHING Time Seen by Provider: 12/19/18 09:26 Notes: Patient is a 48-year-old female with a history of HTN and stage IV breast cancer with metastasis who presents to the emergency department with a chief complaint of chest tightness and pain. Patient was recently discharged from the hospital for intractable pain. Patient reports that on she developed chest tightness and worsening of her chronic dry cough. Patient reports the cough has become more persistent. Patient reports she feels like she is dehydrated. Patient reports nausea without vomiting or diarrhea. Patient states she was diagnosed with pneumonia 2 months ago. Patient reports chills without fever. Patient reports generalized weakness. Patient reports yesterday developing a rapid heartbeat. Patient denies a history of an irregular heart rate. Patient was sent over by Dr. Fischer who is her oncologist. TRAVEL OUTSIDE OF THE [place] IN LAST 30 DAYS: No - Related Data Allergies/Adverse Reactions: No Known Allergies Allergy (Verified 12/02/18 15:11) Past Medical History - General Information source: Patient - Social History Smoking Status: Unknown if Ever Smoked Frequency of alcohol use: None Drug Abuse: None Lives with: Family Family History: Hypertension Patient has suicidal ideation: No Patient has homicidal ideation: No - Past Medical History Cardiac Medical History: Reports: Hx Hypertension Denies: Hx Coronary Artery Disease, Hx Heart Attack Pulmonary Medical History: Reports: None Denies: Hx Asthma, Hx Bronchitis, Hx COPD, Hx Pneumonia EENT Medical History: Reports: None Neurological Medical History: Reports: None. Denies: Hx Cerebrovascular Accident, Hx Seizures Endocrine Medical History: Reports: None Renal/ Medical History: Reports: None Malignancy Medical History: Reports: Hx Breast Cancer, Hx Lung Cancer GI Medical History: Reports: None Musculoskeletal Medical History: Reports None, Denies Hx Arthritis Skin Medical History: Reports None Psychiatric Medical History: Reports: None Traumatic Medical History: Reports: None Infectious Medical History: Reports: None Past Surgical History: Reports: Hx Hysterectomy, Hx Urinary Tract Surgery, Other - Bilateral mastectomy - Immunizations Hx Diphtheria, Pertussis, Tetanus Vaccination: Yes Review of Systems - Review of Systems Constitutional: See HPI EENT: No symptoms reported Cardiovascular: See HPI Respiratory: See HPI Gastrointestinal: No symptoms reported Genitourinary: No symptoms reported Female Genitourinary: No symptoms reported Musculoskeletal: No symptoms reported Skin: No symptoms reported Hematologic/Lymphatic: No symptoms reported Neurological/Psychological: No symptoms reported Physical Exam - Vital signs Vitals: Temp Pulse Resp BP Pulse Ox 98.8 F 120 H 16 154/122 H 97 12/19/18 08:13 12/19/18 08:13 12/19/18 08:13 12/19/18 08:13 12/19/18 08:13 Interpretation: Hypertensive, Tachycardic - Notes Notes: GENERAL: Appears dehydrated, persistent dry cough, somewhat flushed. HEAD: Atraumatic, normocephalic. EYES: Pupils equal round and reactive to light, extraocular movements intact, sclera anicteric, conjunctiva are normal. ENT: Nares patent, oropharynx clear without exudates. Moist mucous membranes. NECK: Normal range of motion, supple without lymphadenopathy or JVD. LUNGS: Persistent dry cough, scattered rhonchi without wheeze. HEART: Tachycardiac rate and irregular rhythm without murmurs, rubs or gallops. ABDOMEN: Soft, nontender, normoactive bowel sounds. No guarding, no rebound. No masses appreciated. BACK: No cervical, thoracic, lumbar midline tenderness. No saddle anesthesia, normal distal neurovascular exam. GENITOURINARY: Deferred. EXTREMITIES: Normal range of motion, no pitting or edema. No clubbing or cyanosis. NEUROLOGICAL: Cranial nerves II through XII grossly intact. Normal speech, normal gait. PSYCH: Normal mood, normal affect. SKIN: Warm, Dry, normal turgor, no rashes or lesions noted. Course - Re-evaluation Re-evalutation: 12/19/18 09:58 Laboratory studies have been ordered as well as a CTA of the chest and Cardizem bolus with drip. Patient's EKG shows a rate of 151 and A. fib. Patient reports she does not have a history of irregular heartbeat. We will place the patient on playground monitor. Patient is agreement with this plan. 12/19/18 11:08 Patient back from CAT scan. Patient does have the Cardizem drip infusing. Patient does appear to be in a sinus tachycardia with heart rate of 118. 12/19/18 11:51 Hospitalist team has agreed to admit. I did speak with Dr. Fischer who is aware that the patient is here in the emergency department and aware of the findings. 12/19/18 12:08 Patient is instructed to monitor at heart rate 113, sinus tachycardia. Patient remains on Cardizem drip. Patient's blood pressure stable at 142/97. Patient no acute distress. Patient verbalizes understanding of admission and denies questions at this time. Patient does report she feels like her chest tightness around her expanders that are implanted. - Vital Signs Vital signs: Temp Pulse Resp BP Pulse Ox 98.8 F 120 H 22 H 111/80 93 12/19/18 08:13 12/19/18 08:13 12/19/18 13:23 12/19/18 13:23 12/19/18 13:23 - Laboratory Result Diagrams: 12/19/18 08:50 12/19/18 08:50 Laboratory results interpreted by me: 12/19/18 12/19/18 08:50 08:50 RDW 14.1 H Lymph % (Auto) 10.2 L [place] % (Auto) 15.2 H Sodium 136.6 L Glucose 112 H AST 39 H - Diagnostic Test Radiology reviewed: Reports reviewed Radiology results interpreted by me: 12/19/18 11:42 Chest X-Ray 12/19/18 09:39 IMPRESSION: 16 mm nodule versus superimposed shadows left mid lung Clips right axilla post breast surgery. Metallic breast implant tissue expanders Chest/Abdomen CTA 12/19/18 09:48 IMPRESSION: Lung parenchyma and mediastinal metastatic disease No CT angio evidence of thoracic aortic dissection or acute pulmonary emboli Mild mass effect on the superior vena cava by mediastinal adenopathy - EKG Interpretation by Me Additional EKG results interpreted by me: 12/19/18 09:58 Patient's EKG shows a atrial fibrillation with a ventricular rate between 99 and 150. Patient's rate on EKG is 151, QT is 316 and QTc is 502. Patient has a normal axis deviation. There is no EKG for comparison. There is no ST elevation. No ectopy. Discharge - Discharge Clinical Impression: Metastatic breast cancer Atrial fibrillation Qualifiers: Atrial fibrillation type: unspecified Qualified Code(s): I48.91 - Unspecified atrial fibrillation Hypertension Qualifiers: Hypertension type: unspecified Qualified Code(s): I10 - Essential (primary) hypertension Condition: Stable Disposition: ADMITTED INPATIENT Admitting Provider: Sacha (Hospitalist) Unit Admitted: Telemetry
[2018-12-19] MEDS ORDERED: DILTIAZEM HCL/D5W 125 MG/125 ML RTUINJ IV PRN ×3 (09:55→17:49)
[2018-12-19] MEDS ORDERED: DILTIAZEM HCL INJ 25 MG/5 ML VIAL IV ONE (09:55)
--- NOTE | 2018-12-19 10:13 | RADIOLOGY REPORT (SQ) ---
EXAM DESCRIPTION: CHEST 2 VIEWS COMPLETED DATE/TIME: 12/19/2018 9:55 am REASON FOR STUDY: shortness of breath COMPARISON: PET-CT 02/08/2018 Chest film 12/02/2018 EXAM PARAMETERS: NUMBER OF VIEWS: two views TECHNIQUE: Digital Frontal and Lateral radiographic views of the chest acquired. RADIATION DOSE: NA LIMITATIONS: none FINDINGS: LUNGS AND PLEURA: Ill-defined nodule in the left midlung 16 mm in size. There is bandlike scarring in the right upper lobe. No pleural effusions. No pneumothorax. MEDIASTINUM AND HILAR STRUCTURES: Prominent central pulmonary arteries HEART AND VASCULAR STRUCTURES: Mild cardiomegaly BONES: No acute findings. HARDWARE: Magnetic tissue expanders are present in bilateral breast implants. Clips right axilla OTHER: No other significant finding. IMPRESSION: 16 mm nodule versus superimposed shadows left mid lung Clips right axilla post breast surgery. Metallic breast implant tissue expanders TECHNICAL DOCUMENTATION: JOB ID: [id number] [employer]- All Rights Reserved Reading location - IP/workstation name: [email or web address]
[2018-12-19 10:29] LABS: APPEARANCE,URINE CLEAR; BILIRUBIN,URINE NEGATIVE (NEGATIVE); COLOR,URINE STRAW; GLUCOSE, URINE NEGATIVE (NEGATIVE); KETONES,URINE NEGATIVE (NEGATIVE); LEUKOCYTE ESTERASE,URINE NEGATIVE (NEGATIVE); NITRITE,URINE NEGATIVE (NEGATIVE); PROTEIN,URINE NEGATIVE (NEGATIVE); URINE SPECIFIC GRAVITY 1.004; UROBILINOGEN,URINE NEGATIVE mg/dL (<2.0)
--- NOTE | 2018-12-19 11:37 | RADIOLOGY REPORT (SQ) ---
EXAM DESCRIPTION: CTA CHEST COMPLETED DATE/TIME: 12/19/2018 11:13 am REASON FOR STUDY: Shortness of breath, Breast CA with METS COMPARISON: PET-CT 02/08/2018 TECHNIQUE: CT scan of the chest performed using helical scanning technique with dynamic intravenous contrast injection. Images reviewed with lung, soft tissue and bone windows. Reconstructed coronal and sagittal MPR images reviewed. Additional 3 dimensional post-processing performed to develop Maximal Intensity Projection images (IL P). All images stored on PACS. All CT scanners at this facility use dose modulation, iterative reconstruction, and/or weight based d osing when appropriate to reduce radiation dose to as low as reasonably achievable (ALARA). [facility]: Dose Right [facility]: CareDose [facility]: Dose Right [facility]: Teradose 4D [facility]: Algonomics CONTRAST TYPE AND DOSE: contrast/concentration: Isovue 350.00 mg/ml; Total Contrast Delivered: 67.0 ml; Total Saline Delivered: 80.0 ml Contrast bolus optimized for the pulmonary arteries and aorta. RENAL FUNCTION: Creatinine 0.5 RADIATION DOSE: CT Rad equipment meets quality standard of care and radiation dose reduction techniq ues were employed. CTDIvol: 5.0 - 15.2 mGy. DLP: 476 mGy-cm. . LIMITATIONS: None. FINDINGS: LUNGS AND PLEURA: Too numerous to count lung metastatic lesions are present. Largest lesi ons are as follows: 2 cm right apical nodule axial image 21 4.2 x 3.6 cm right lower lobe axial image 9 1 cm superior segment left lower lobe axial image 37 1.6 cm in the lingula axial image 65 Trace left pleural effusion. No pneumothorax. AORTA AND GREAT VESSELS: No thoracic aortic aneurysm or dissection HEART: No pericardial effusion. No significant coronary artery calcifications. PULMONARY ARTERIES: No emboli visualized in the main pulmonary arteries or the segmental branches. HILAR AND MEDIASTINAL STRUCTURES: Massive adenopathy is present in the mediastinum as follows: Prevascular adenopathy 4.7 x 3.2 cm axial image 48 Pretracheal adenopathy 3.5 x 3 cm axial image 35, mild narrowing of the superior vena cava and right upper lobe pulmonary artery. Sub- carinal 4.5 x 3.3 cm mass axial image 51 Right hilar adenopathy 3 x 3 cm axial image 44 Left hilar adenopathy 2.6 x 2 cm axial image 48 HARDWARE: Bilateral breast implants with metallic magnetic valves. UPPER ABDOMEN: Bilateral adrenal enlargement worrisome for metastatic involvement THYROID AND OTHER SOFT TISSUES: No masses. No adenopathy. BONES: No acute or significant finding. 3D MIPS: Confirm above findings. OTHER: No other significant finding. IMPRESSION: Lung parenchyma and mediastinal metastatic disease No CT angio evidence of thoracic aortic dissection or acute pulmonary emboli Mild mass effect on the superior vena cava by mediastinal adenopathy COMMENT: Quality ID # [id number]: Final reports with documentation of one or more dose reduction techniques (e.g., Automated exposure control, adjustment of the mA and/or kV according to patient size, use of iterative reconstruction technique) TECHNICAL DOCUMENTATION: JOB ID: [id number] [employer]- All Rights Reserved Reading location - IP/workstation name: [email or web address]
[2018-12-19] MEDS ORDERED: OXYCODONE-ACETAMINOPHEN 5-325 MG TABLET PO PRN (13:59)
[2018-12-19] MEDS ORDERED: ACETAMINOPHEN 325 MG TABLET PO PRN ×2 (13:59→14:30)
[2018-12-19] MEDS ORDERED: ZOLPIDEM TARTRATE 5 MG TABLET PO PRN (13:59)
--- NOTE | 2018-12-19 14:30 | PDOC H&P ---
History of Present Illness Admission Date/PCP: 12/19/18 11:54 SEJAL DIAZ DO History of Present Illness: LINDSAY MELTON is a 48 year old female who unfortunately has metastatic breast cancer stage IV, mets to the lung as well as the brain. Was just in the hospital here about a week ago for chest wall pain. While in the hospital patient did have several episodes of tachycardia but it was felt that this was due to dehydration. He was discharged home to attend her son's graduation in [place]. Patient states that on 2 days ago she started getting short of breath and having palpitations and chest pain. When she woke up at 0500 he was once again having pain mostly pressure well as palpitations and lightheadedness. Patient also states that last night she had chills. States that about 2 months ago she had pneumonia. Patient states that this feels somewhat similar. Also started getting laryngitis on . When patient presents to the ER she appears to be in atrial fib with RVR rate of up to 150. Patient was placed on a Cardizem drip and we were consulted to admit the patient. Past Medical History Cardiac Medical History: Reports: Hypertension Denies: Coronary Artery Disease, Myocardial Infarction Pulmonary Medical History: Reports: None Denies: Asthma, Bronchitis, Chronic Obstructive Pulmonary Disease (COPD), Pneumonia EENT Medical History: Reports: None Neurological Medical History: Reports: None Denies: Seizures Endocrine Medical History: Reports: None Renal/ Medical History: Reports: None Malignancy Medical History: Reports: Breast Cancer, Lung Cancer GI Medical History: Reports: None Musculoskeltal Medical History: Reports: None Denies: Arthritis Skin Medical History: Reports: None Psychiatric Medical History: Reports: None Traumatic Medical History: Reports: None Hematology: Denies: Anemia Infectious Medical History: Reports: None Past Surgical History Past Surgical History: Reports: Hysterectomy, Other - Bilateral mastectomy Social History Lives with: Family Smoking Status: Unknown if Ever Smoked Frequency of Alcohol Use: None Hx Recreational Drug Use: No Drugs: None Hx Prescription Drug Abuse: No - Advance Directive Resuscitation Status: Full Code Family History Family History: Hypertension Parental Family History Reviewed: No Children Family History Reviewed: No Sibling(s) Family History Reviewed.: No Medication/Allergy Allergies/Adverse Reactions: No Known Allergies Allergy (Verified 12/02/18 15:11) Review of Systems Constitutional: PRESENT: chills, weakness, other - Chronic pain. ABSENT: fever(s), headache(s), weight gain, weight loss Nose, Mouth, and Throat: PRESENT: other - Laryngitis Cardiovascular: PRESENT: dyspnea on exertion, palpitations Respiratory: PRESENT: cough, dyspnea Neurological: ABSENT: abnormal gait, abnormal speech, confusion, dizziness, focal weakness, syncope Psychiatric: ABSENT: anxiety, depression, homidical ideation, suicidal ideation Physical Exam Vital Signs: Temp Pulse Resp BP Pulse Ox 98.8 F 120 H 22 H 111/80 93 12/19/18 08:13 12/19/18 08:13 12/19/18 13:23 12/19/18 13:23 12/19/18 13:23 Intake & Output 12/18/18 12/19/18 12/20/18 06:59 06:59 06:59 Intake Total 1031 Balance 1031 Weight 95 kg General appearance: PRESENT: mild distress Respiratory exam: PRESENT: clear to auscultation tolu. ABSENT: rales, rhonchi, wheezes Cardiovascular exam: PRESENT: irregular rhythm Neurological exam: PRESENT: alert, awake, oriented to person, oriented to place, oriented to time, oriented to situation, CN II-XII grossly intact. ABSENT: motor sensory deficit Psychiatric exam: PRESENT: appropriate affect, normal mood. ABSENT: homicidal ideation, suicidal ideation Results Laboratory Results: 12/19/18 08:50 12/19/18 08:50 12/19/18 12/19/18 12/19/18 08:50 08:50 10:02 WBC 6.1 RBC 4.72 Hgb 13.4 Hct 40.6 MCV 86 MCH 28.5 MCHC 33.1 RDW 14.1 H Plt Count 303 Seg Neutrophils % 72.8 Sodium 136.6 L Potassium 4.2 Chloride 102 Carbon Dioxide 25 Anion Gap 10 BUN 7 Creatinine 0.53 Est GFR ( Amer) > 60 Glucose 112 H Calcium 9.1 Total Bilirubin 0.5 AST 39 H Alkaline Phosphatase 88 Total Protein 6.8 Albumin 3.7 Urine Color STRAW Urine Appearance CLEAR Urine pH 8.0 Ur Specific [place] 1.004 Urine Protein NEGATIVE Urine Glucose (UA) NEGATIVE Urine Ketones NEGATIVE Urine Blood NEGATIVE Urine Nitrite NEGATIVE Ur Leukocyte Esterase NEGATIVE Urine WBC (Auto) 0 12/19/18 08:50 Troponin I < 0.012 Impressions: Chest X-Ray 12/19/18 09:39 IMPRESSION: 16 mm nodule versus superimposed shadows left mid lung Clips right axilla post breast surgery. Metallic breast implant tissue expanders Chest/Abdomen CTA 12/19/18 09:48 IMPRESSION: Lung parenchyma and mediastinal metastatic disease No CT angio evidence of thoracic aortic dissection or acute pulmonary emboli Mild mass effect on the superior vena cava by mediastinal adenopathy Assessment and Plan - Diagnosis (1) Atrial fibrillation Qualifiers: Atrial fibrillation type: unspecified Qualified Code(s): I48.91 - Unspecified atrial fibrillation Is this a current diagnosis for this admission?: Yes (2) Hypertension Qualifiers: Hypertension type: unspecified Qualified Code(s): I10 - Essential (primary) hypertension Is this a current diagnosis for this admission?: Yes (3) Metastatic breast cancer Is this a current diagnosis for this admission?: Yes (4) Uncontrolled pain Is this a current diagnosis for this admission?: Yes - Plan Summary Summary: 12/19/2018 She is white count 6.1 platelets 303,000, troponin is normal electrolytes are normal BUN 7 creatinine 0.53 GFR greater than 60, urinalysis grossly normal. CT angiogram of the chest shows too numerous to count lung metastases there is mass-effect on the superior vena cava by mediastinal adenopathy. Patient will be maintained on a Cardizem drip as well as started on Cardizem 30 mg p.o. every 6 hours. Patient will be maintained on Dilaudid IV pain management, as well as her fentanyl patch. Patient has been on both these medications now are to admission. Patient's oncologist will be consulted for pain management. Will be admitted to telemetry for further monitoring. - Time Time Spent with patient: 35 or more minutes
[2018-12-19] MEDS: DILTIAZEM HCL 30 MG TABLET PO SCH ×3 (15:04→23:16)
[2018-12-19] MEDS: ENOXAPARIN SODIUM INJ 40 MG/0.4 ML DISP.SYRIN SUBCUT SCH (15:22)
[2018-12-19 15:25] LABS: ANION GAP 11 (5-19); BLOOD UREA NITROGEN 4 mg/dL (7-20); CALCIUM 8.7 mg/dL (8.4-10.2); CARBON DIOXIDE 23 mmol/L (22-30); CHLORIDE 103 mmol/L (98-107); GLUCOSE 118 mg/dL (75-110); POTASSIUM 3.9 mmol/L (3.6-5.0)
[2018-12-19] MEDS: FENTANYL 100 MCG/HR PATCH.TD72 TD SCH (15:48)
[2018-12-19] MEDS: PROMETHAZINE HCL 25 MG TABLET PO PRN (15:48)
[2018-12-19] MEDS: HYDROMORPHONE HCL INJ/PF 2 MG/ML AMPULE IV PRN ×3 (15:48→22:33)
[2018-12-19] MEDS: NORMAL SALINE 1000 ML 1,000 ML IV PRN (18:26)
[2018-12-19] MEDS: DOCUSATE SODIUM 100 MG CAPSULE PO SCH (18:52)
[2018-12-19] MEDS: OXYCODONE HCL IR 5 MG TABLET PO PRN (21:51)
[2018-12-19] MEDS: FAMOTIDINE 20 MG TABLET PO SCH (21:52)
[2018-12-19] MEDS: OXYCODONE-ACETAMINOPHEN 5-325 MG TABLET PO PRN (21:52)
[2018-12-19] MEDS: DIPHENHYDRAMINE HCL 50 MG/ML VIAL IV PRN (21:52)
--- NOTE | 2018-12-20 00:27 | EKG REPORT ---
SEVERITY:- BORDERLINE ECG - SINUS TACHYCARDIA PROBABLE LEFT ATRIAL ABNORMALITY : Confirmed by: Savita Grimm 20-Dec-2018 00:27:09
--- NOTE | 2018-12-20 00:27 | EKG REPORT ---
SEVERITY:- ABNORMAL ECG - SINUS RHYTHM SUPRAVENTRICULAR BIGEMINY : Confirmed by: Savita Grimm 20-Dec-2018 00:27:04
--- NOTE | 2018-12-20 00:28 | EKG REPORT ---
SEVERITY:- ABNORMAL ECG - ATRIAL FIBRILLATION, V-RATE 99-150 VENTRICULAR PREMATURE COMPLEX CONSIDER POSTERIOR INFARCT : Confirmed by: Savita Grimm 20-Dec-2018 00:27:16
[2018-12-20] MEDS: HYDROMORPHONE HCL INJ/PF 2 MG/ML AMPULE IV PRN ×6 (00:35→21:23)
[2018-12-20] MEDS: PROMETHAZINE HCL 25 MG TABLET PO PRN ×2 (00:54→21:22)
[2018-12-20] MEDS: OXYCODONE-ACETAMINOPHEN 5-325 MG TABLET PO PRN ×5 (00:54→23:35)
[2018-12-20] MEDS: OXYCODONE HCL IR 5 MG TABLET PO PRN ×6 (00:55→23:34)
[2018-12-20] MEDS: PROMETHAZINE HCL INJ 25 MG/1 ML VIAL IV PRN ×5 (03:27→23:38)
[2018-12-20] MEDS: DILTIAZEM HCL 60 MG TABLET PO SCH ×4 (05:10→23:34)
[2018-12-20 09:00] LABS: HEMATOCRIT 37.9 % (36.0-47.0); HEMOGLOBIN 12.6 g/dL (12.0-15.5); MEAN CORPUSCULAR HEMOGLOBIN 28.6 pg (27.0-33.4); MEAN CORPUSCULAR HGB CONC 33.1 g/dL (32.0-36.0); MEAN CORPUSCULAR VOLUME 86 fl (80-97); PLATELET COUNT 289 10^3/uL (150-450); RED CELL DISTRIBUTION WIDTH 14.1 % (11.5-14.0); WHITE BLOOD COUNT 4.1 10^3/uL (4.0-10.5)
[2018-12-20 09:24] LABS: ABSOLUTE LYMPHOCYTES# (MANUAL) 1.2 10^3/uL (0.5-4.7); ABSOLUTE MONOCYTES # (MANUAL) 0.8 10^3/uL (0.1-1.4); BASOPHILS % (MANUAL) 1 % (0-2); EOSINOPHILS % (MANUAL) 1 % (0-6); LYMPHOCYTES % (MANUAL) 30 % (13-45); MONOCYTES % (MANUAL) 19 % (3-13); SEGMENTED NEUTROPHILS % (MAN) 49 % (42-78); TOTAL CELLS COUNTED 100
[2018-12-20 09:25] LABS: ANISOCYTOSIS SLIGHT; PLATELET COMMENT ADEQUATE
--- NOTE | 2018-12-20 10:25 | EKG REPORT ---
SEVERITY:- NORMAL ECG - SINUS RHYTHM : Confirmed by: Savita Grimm 20-Dec-2018 10:24:44
[2018-12-20] MEDS: DEXAMETHASONE 4 MG TABLET PO SCH ×2 (10:34→13:14)
[2018-12-20] MEDS: FAMOTIDINE 20 MG TABLET PO SCH ×2 (10:34→21:23)
[2018-12-20] MEDS: DOCUSATE SODIUM 100 MG CAPSULE PO SCH ×2 (10:34→17:32)
[2018-12-20] MEDS: ENOXAPARIN SODIUM INJ 40 MG/0.4 ML DISP.SYRIN SUBCUT SCH (10:36)
--- NOTE | 2018-12-20 11:43 | PDOC PROGRESS REPORT ---
Subjective Progress Note for:: 12/20/18 Subjective:: Patient was admitted yesterday afternoon for new onset atrial fib, metastatic breast cancer, pain management, use of breath, hypertension Reason For Visit: AFIB WTH RVR,LUNG CANCER,BREAST CANCER WITH Physical Exam Vital Signs: Temp Pulse Resp BP Pulse Ox 97.5 F 85 16 128/83 H 91 L 12/20/18 07:53 12/20/18 07:53 12/20/18 07:53 12/20/18 07:53 12/20/18 07:53 Intake & Output 12/19/18 12/20/18 12/21/18 06:59 06:59 06:59 Intake Total 1834 Balance 1834 Weight 89.3 kg General appearance: PRESENT: mild distress, other - Patient feels much better today less shortness of breath no chest pain. Respiratory exam: PRESENT: clear to auscultation tolu. ABSENT: rales, rhonchi, wheezes Cardiovascular exam: PRESENT: RRR. ABSENT: diastolic murmur, rubs, systolic m urmur Neurological exam: PRESENT: alert, awake, oriented to person, oriented to place, oriented to time, oriented to situation, CN II-XII grossly intact. ABSENT: motor sensory deficit Psychiatric exam: PRESENT: appropriate affect, normal mood. ABSENT: homicidal ideation, suicidal ideation Results Laboratory Results: 12/20/18 08:19 12/19/18 14:49 12/19/18 12/19/18 12/20/18 14:49 14:49 08:19 WBC 4.1 RBC 4.40 Hgb 12.6 Hct 37.9 MCV 86 MCH 28.6 MCHC 33.1 RDW 14.1 H Plt Count 289 Seg Neutrophils % Not Reportable Sodium 136.9 L Potassium 3.9 Chloride 103 Carbon Dioxide 23 Anion Gap 11 BUN 4 L Creatinine 0.52 Est GFR ( Amer) > 60 Glucose 118 H Calcium 8.7 Magnesium TSH 0.47 12/20/18 08:19 WBC RBC Hgb Hct MCV MCH MCHC RDW Plt Count Seg Neutrophils % Sodium Potassium Chloride Carbon Dioxide Anion Gap BUN Creatinine Est GFR ( Amer) Glucose Calcium Magnesium Cancelled TSH 12/19/18 08:50 Troponin I < 0.012 Impressions: Chest X-Ray 12/19/18 09:39 IMPRESSION: 16 mm nodule versus superimposed shadows left mid lung Clips right axilla post breast surgery. Metallic breast implant tissue expanders Chest/Abdomen CTA 12/19/18 09:48 IMPRESSION: Lung parenchyma and mediastinal metastatic disease No CT angio evidence of thoracic aortic dissection or acute pulmonary emboli Mild mass effect on the superior vena cava by mediastinal adenopathy Assessment and Plan - Diagnosis (1) Atrial fibrillation Qualifiers: Atrial fibrillation type: unspecified Qualified Code(s): I48.91 - Unspecified atrial fibrillation Is this a current diagnosis for this admission?: Yes (2) Hypertension Qualifiers: Hypertension type: unspecified Qualified Code(s): I10 - Essential (primary) hypertension Is this a current diagnosis for this admission?: Yes (3) Metastatic breast cancer Is this a current diagnosis for this admission?: Yes (4) Uncontrolled pain Is this a current diagnosis for this admission?: Yes - Plan Summary Summary: 12/19/2018 She is white count 6.1 platelets 303,000, troponin is normal electrolytes are normal BUN 7 creatinine 0.53 GFR greater than 60, urinalysis grossly normal. CT angiogram of the chest shows too numerous to count lung metastases there is mass-effect on the superior vena cava by mediastinal adenopathy. Patient will be maintained on a Cardizem drip as well as started on Cardizem 30 mg p.o. every 6 hours. Patient will be maintained on Dilaudid IV pain management, as well as her fentanyl patch. Patient has been on both these medications now are to admission. Patient's oncologist will be consulted for pain management. Will be admitted to telemetry for further monitoring. 12/20/2018 She is converted to normal sinus rhythm is now on p.o. Cardizem. Patient's pain seems to be well managed with meds. Patient is going to get a PICC line tomorrow Patient's vital signs are stable temp 97. 5, blood pressure 128/83 ,pulse averages to be about 75 and regular. ABC and Chem-7 are normal TSH slightly low at 0.47 We will continue treatment as above. Patient does not appear to have acute infection at this time - Time Time Spent with patient: 15-24 minutes
--- NOTE | 2018-12-20 11:49 | PDOC CONSULTATION ---
Consultation Consult Date: 12/20/18 Attending physician:: KIRK MIR Provider Consulted: TODD KELLEY Consult reason:: Patient with known stage IV breast cancer, here with A. fib with RVR as well as uncontrolled pain History of Present Illness Admission Date/PCP: 12/19/18 11:54 SEJAL DIAZ DO Patient complains of: Shortness of breath, tachycardia, severe pain History of Present Illness: LINDSAY MELTON is a 48 year old female with known history of stage IV breast cancer, with widely metastatic disease in the lungs, also with brain metastasis, just recently diagnosed over the last few weeks. Was admitted for a prolonged admission about 2 weeks ago, for pain crisis. We have placed her on fentanyl patch as well as oral oxycodone. She was able to make it to her son's graduation from [employer], but soon after coming back to this area she began experiencing severe shortness of breath, tachycardia and pain. Of note, she n ever placed the fentanyl patch at home, she was supposed to be on fentanyl 100 mcg patch every 3 days but she did not use that as instructed as she was very concerned that she may go into respiratory failure. We had a long discussion about that today. We discussed how that probably prompted some sort of withdrawal. 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 fib. She was on the Cardizem drip and yesterday the drip was DC'd and she was placed on oral Cardizem now. We had a long discussion this morning, and patient has decided to pursue treatment. We will discuss that further as time goes on. Past Medical History Cardiac Medical History: Reports: Hypertension Denies: Coronary Artery Disease, Myocardial Infarction Pulmonary Medical History: Reports: None Denies: Asthma, Bronchitis, Chronic Obstructive Pulmonary Disease (COPD), Pneumonia EENT Medical History: Reports: None Neurological Medical History: Reports: None Denies: Seizures Endocrine Medical History: Reports: None Renal/ Medical History: Reports: None Malignancy Medical History: Reports: Breast Cancer, Lung Cancer GI Medical History: Reports: None Musculoskeltal Medical History: Reports: None Denies: Arthritis Skin Medical History: Reports: None Psychiatric Medical History: Reports: None Traumatic Medical History: Reports: None Hematology: Denies: Anemia Infectious Medical History: Reports: None Past Surgical History Past Surgical History: Reports: Hysterectomy, Other - Bilateral mastectomy Social History Information Source: Patient Lives with: Family Smoking Status: Unknown if Ever Smoked Frequency of Alcohol Use: None Hx Recreational Drug Use: No Drugs: None Hx Prescription Drug Abuse: No - Advance Directive Resuscitation Status: Full Code Family History Family History: Hypertension Parental Family History Reviewed: Yes Children Family History Reviewed: Yes Sibling(s) Family History Reviewed.: Yes Medication/Allergy Home Medications: Amlodipine Besylate [Norvasc 5 mg Tablet] 5 mg PO DAILY 12/19/18 Fentanyl [Duragesic 100 Mcg/Hr Transdermal Patch] 1 patch TOP Q3D 12/19/18 Oxycodone HCl/Acetaminophen [Percocet 10-325 mg Tablet] 1 tab PO Q6HP PRN 12/19/18 Allergies/Adverse Reactions: No Known Allergies Allergy (Verified 12/02/18 15:11) Review of Systems Constitutional: ABSENT: chills, fever(s), headache(s), weight gain, weight loss Eyes: ABSENT: visual disturbances Ears: ABSENT: hearing changes Cardiovascular: ABSENT: chest pain, dyspnea on exertion, edema, orthropnea, palpitations Respiratory: ABSENT: cough, hemoptysis Gastrointestinal: ABSENT: abdominal pain, constipation, diarrhea, hematemesis, hematochezia, nausea, vomiting Genitourinary: ABSENT: dysuria, hematuria Musculoskeletal: ABSENT: joint swelling Integumentary: ABSENT: rash, wounds Neurological: ABSENT: abnormal gait, abnormal speech, confusion, dizziness, fo dorothea weakness, syncope Psychiatric: ABSENT: anxiety, depression, homidical ideation, suicidal ideation Endocrine: ABSENT: cold intolerance, heat intolerance, polydipsia, polyuria Hematologic/Lymphatic: ABSENT: easy bleeding, easy bruising Physical Exam Vital Signs: Temp Pulse Resp BP Pulse Ox 97.5 F 85 16 128/83 H 91 L 12/20/18 07:53 12/20/18 07:53 12/20/18 07:53 12/20/18 07:53 12/20/18 07:53 Intake & Output 12/19/18 12/20/18 12/21/18 06:59 06:59 06:59 Intake Total 1834 Balance 1834 Weight 89.3 kg General appearance: PRESENT: no acute distress, well-developed, well-nourished Head exam: PRESENT: atraumatic, normocephalic Eye exam: PRESENT: conjunctiva pink, EOMI, PERRLA. ABSENT: scleral icterus Ear exam: PRESENT: normal external ear exam Mouth exam: PRESENT: moist, tongue midline Neck exam: ABSENT: carotid bruit, JVD, lymphadenopathy, thyromegaly Respiratory exam: PRESENT: clear to auscultation tolu. ABSENT: rales, rhonchi, w heezes Cardiovascular exam: PRESENT: RRR. ABSENT: diastolic murmur, rubs, systolic murmur Pulses: PRESENT: normal dorsalis pedis pul Vascular exam: PRESENT: normal capillary refill GI/Abdominal exam: PRESENT: normal bowel sounds, soft. ABSENT: distended, guarding, mass, organolmegaly, rebound, tenderness Rectal exam: PRESENT: deferred Extremities exam: PRESENT: full ROM. ABSENT: calf tenderness, clubbing, pedal edema Neurological exam: PRESENT: alert, awake, oriented to person, oriented to place, oriented to time, oriented to situation, CN II-XII grossly intact. ABSENT: motor sensory deficit Psychiatric exam: PRESENT: appropriate affect, normal mood. ABSENT: homicidal ideation, suicidal ideation Skin exam: PRESENT: dry, intact, warm. ABSENT: cyanosis, rash Results Laboratory Results: 12/20/18 08:19 12/19/18 14:49 12/19/18 12/19/18 12/20/18 14:49 14:49 08:19 WBC 4.1 RBC 4.40 Hgb 12.6 Hct 37.9 MCV 86 MCH 28.6 MCHC 33.1 RDW 14.1 H Plt Count 289 Seg Neutrophils % Not Reportable Sodium 136.9 L Potassium 3.9 Chloride 103 Carbon Dioxide 23 Anion Gap 11 BUN 4 L Creatinine 0.52 Est GFR ( Amer) > 60 Glucose 118 H Calcium 8.7 Magnesium TSH 0.47 12/20/18 08:19 WBC RBC Hgb Hct MCV MCH MCHC RDW Plt Count Seg Neutrophils % Sodium Potassium Chloride Carbon Dioxide Anion Gap BUN Creatinine Est GFR ( Amer) Glucose Calcium Magnesium Cancelled TSH 12/19/18 08:50 Troponin I < 0.012 Impressions: Chest X-Ray 12/19/18 09:39 IMPRESSION: 16 mm nodule versus superimposed shadows left mid lung Clips right axilla post breast surgery. Metallic breast implant tissue expanders Chest/Abdomen CTA 12/19/18 09:48 IMPRESSION: Lung parenchyma and mediastinal metastatic disease No CT angio evidence of thoracic aortic dissection or acute pulmonary emboli Mild mass effect on the superior vena cava by mediastinal adenopathy Status: Image reviewed by me Assessment & Plan - Diagnosis (1) Metastatic breast cancer Is this a current diagnosis for this admission?: Yes Plan: Had long discussion with patient, we will place PICC line and I believe we should give first cycle of chemotherapy while patient is admitted. I had sent molecular testing on her previous tumor specimen to see what therapy would be the best for her, I will check on that and Friday and make a decision on treatment, but I believe she needs treatment as soon as possible because of the impending SVC syndrome and we need to get a response as quickly as possible. (2) Atrial fibrillation Qualifiers: Atrial fibrillation type: paroxysmal Qualified Code(s): I48.0 - Paroxysmal atrial fibrillation Is this a current diagnosis for this admission?: Yes Plan: A. fib with RVR, probably caused by the irritation from tumor in close relation to the SVC and irritation to the heart from that. She is on oral Cardizem now. (3) Nausea & vomiting Qualifiers: Vomiting type: unspecified Vomiting Intractability: intractable Qualified Code(s): R11.2 - Nausea with vomiting, unspecified Is this a current diagnosis for this admission?: Yes Plan: Related to severe pain as well as probable withdrawal from not having the fentanyl patch, better now, continue with antiemetics (4) Uncontrolled pain Is this a current diagnosis for this admission?: Yes Plan: Related to the cancer, fentanyl patch replaced, patient on oral pain medication for pain scale of 1-3 and IV for pain scale of 4-5, she is requiring IV pain medication, will need to optimize pain regimen over the next few days (5) Dehydration Is this a current diagnosis for this admission?: Yes Plan: Nearly no p.o. intake for the last few days prior to admission, dehydrated because of the nausea and vomiting as well as the pain, continue with IV hydration, IV access a major issue so we will get PICC line tomorrow - Time Time Spent: Greater than 70 Minutes - Inpatient Certification Based on my medical assessment, after consideration of the patient's comorbidities, presenting symptoms, or acuity I expect that the services needed warrant INPATIENT care.: Yes I certify that my determination is in accordance with my understanding of Medicare's requirements for reasonable and necessary INPATIENT services [42 CFR 412.3e].: Yes Medical Necessity: Need For IV Fluids, Need For Continuous Telemetry Monitoring, Need for Pain Control, Risk of Complication if Not Cared For in Hospital
[2018-12-20] MEDS: NORMAL SALINE 1000 ML 1,000 ML IV PRN ×2 (16:20→21:25)
[2018-12-20] MEDS: LORAZEPAM 0.5 MG TABLET PO SCH (17:33)
[2018-12-20] MEDS: DIPHENHYDRAMINE HCL 50 MG/ML VIAL IV PRN (21:23)
[2018-12-21] MEDS: HYDROMORPHONE HCL INJ/PF 2 MG/ML AMPULE IV PRN ×9 (02:11→23:52)
[2018-12-21] MEDS: PROMETHAZINE HCL 25 MG TABLET PO PRN ×3 (02:13→16:12)
[2018-12-21] MEDS: OXYCODONE HCL IR 5 MG TABLET PO PRN ×4 (03:29→20:19)
[2018-12-21] MEDS: OXYCODONE-ACETAMINOPHEN 5-325 MG TABLET PO PRN ×4 (03:29→20:19)
[2018-12-21] MEDS: PROMETHAZINE HCL INJ 25 MG/1 ML VIAL IV PRN ×5 (04:10→22:25)
[2018-12-21] MEDS: DILTIAZEM HCL 60 MG TABLET PO SCH ×4 (06:30→23:52)
[2018-12-21] MEDS: DEXAMETHASONE 4 MG TABLET PO SCH ×2 (08:20→11:05)
--- NOTE | 2018-12-21 08:50 | PDOC PROGRESS REPORT ---
Subjective Progress Note for:: 12/21/18 Subjective:: Patient seems to be doing better today, PICC line pending Reason For Visit: AFIB WTH RVR,LUNG CANCER,BREAST CANCER WITH Physical Exam Vital Signs: Temp Pulse Resp BP Pulse Ox 98.4 F 94 18 170/97 H 93 12/21/18 08:02 12/21/18 08:02 12/21/18 08:02 12/21/18 08:02 12/21/18 08:02 Intake & Output 12/20/18 12/21/18 12/22/18 06:59 06:59 06:59 Intake Total 1834 2132 Balance 1834 2132 Weight 89.3 kg 98 kg General appearance: PRESENT: no acute distress, well-developed, well-nourished Head exam: PRESENT: atraumatic, normocephalic Eye exam: PRESENT: conjunctiva pink, EOMI, PERRLA. ABSENT: scleral icterus Ear exam: PRESENT: normal external ear exam Mouth exam: PRESENT: moist, tongue midline Neck exam: ABSENT: carotid bruit, JVD, lymphadenopathy, thyromegaly Respiratory exam: PRESENT: clear to auscultation tolu. ABSENT: rales, rhonchi, wheezes Cardiovascular exam: PRESENT: RRR. ABSENT: diastolic murmur, rubs, systolic murmur Pulses: PRESENT: normal dorsalis pedis pul Vascular exam: PRESENT: normal capillary refill GI/Abdominal exam: PRESENT: normal bowel sounds, soft. ABSENT: distended, guarding, mass, organolmegaly, rebound, tenderness Rectal exam: PRESENT: deferred Extremities exam: PRESENT: full ROM. ABSENT: calf tenderness, clubbing, pedal edema Neurological exam: PRESENT: alert, awake, oriented to person, oriented to place, oriented to time, oriented to situation, CN II-XII grossly intact. ABSENT: motor sensory deficit Psychiatric exam: PRESENT: appropriate affect, normal mood. ABSENT: homicidal ideation, suicidal ideation Skin exam: PRESENT: dry, intact, warm. ABSENT: cyanosis, rash Results Laboratory Results: 12/20/18 08:19 12/19/18 14:49 12/20/18 12/20/18 08:19 08:19 WBC 4.1 RBC 4.40 Hgb 12.6 Hct 37.9 MCV 86 MCH 28.6 MCHC 33.1 RDW 14.1 H Plt Count 289 Seg Neutrophils % Not Reportable Magnesium Cancelled 12/19/18 08:50 Troponin I < 0.012 Impressions: Chest X-Ray 12/19/18 09:39 IMPRESSION: 16 mm nodule versus superimposed shadows left mid lung Clips right axilla post breast surgery. Metallic breast implant tissue expanders Chest/Abdomen CTA 12/19/18 09:48 IMPRESSION: Lung parenchyma and mediastinal metastatic disease No CT angio evidence of thoracic aortic dissection or acute pulmonary emboli Mild mass effect on the superior vena cava by mediastinal adenopathy Assessment & Plan - Diagnosis (1) Metastatic breast cancer Is this a current diagnosis for this admission?: Yes Plan: Plan for chemotherapy initiation after PICC line placement, we will discuss this further in the next 24 hours with patient (2) Atrial fibrillation Qualifiers: Atrial fibrillation type: paroxysmal Qualified Code(s): I48.0 - Paroxysmal atrial fibrillation Is this a current diagnosis for this admission?: Yes Plan: Improved, continue with oral Cardizem (3) Nausea & vomiting Qualifiers: Vomiting type: unspecified Vomiting Intractability: intractable Qualified Code(s): R11.2 - Nausea with vomiting, unspecified Is this a current diagnosis for this admission?: Yes Plan: Proved, continue with hydration and IV antiemetics (4) Uncontrolled pain Is this a current diagnosis for this admission?: Yes Plan: Improved, still requiring IV pain medication (5) Dehydration Is this a current diagnosis for this admission?: Yes Plan: Continue with IV hydration - Time Time Spent with patient: 35 or more minutes - Inpatient Certification Based on my medical assessment, after consideration of the patient's comorbidities, presenting symptoms, or acuity I expect that the services needed warrant INPATIENT care.: Yes I certify that my determination is in accordance with my understanding of Medicare's requirements for reasonable and necessary INPATIENT services [42 CFR 412.3e].: Yes Medical Necessity: Need For IV Fluids, Need for Pain Control, Need for Surgery
[2018-12-21] MEDS: DOCUSATE SODIUM 100 MG CAPSULE PO SCH ×2 (09:15→17:33)
[2018-12-21] MEDS: FAMOTIDINE 20 MG TABLET PO SCH ×2 (09:15→21:37)
[2018-12-21] MEDS: LORAZEPAM 0.5 MG TABLET PO SCH ×2 (09:16→23:51)
--- NOTE | 2018-12-21 10:25 | PDOC PROGRESS REPORT ---
Subjective Progress Note for:: 12/21/18 Subjective:: Patient was admitted yesterday afternoon for new onset atrial fib, metastatic breast cancer, pain management, shortness of breath, hypertension 12/21/2018 Patient states she feels better today, going downstairs for a PICC line with radiology Reason For Visit: AFIB WTH RVR,LUNG CANCER,BREAST CANCER WITH Physical Exam Vital Signs: Temp Pulse Resp BP Pulse Ox 98.4 F 94 18 170/97 H 93 12/21/18 08:02 12/21/18 08:02 12/21/18 08:02 12/21/18 08:02 12/21/18 08:02 Intake & Output 12/20/18 12/21/18 12/22/18 06:59 06:59 06:59 Intake Total 1834 2132 Balance 1834 2132 Weight 89.3 kg 98 kg General appearance: PRESENT: no acute distress Respiratory exam: PRESENT: clear to auscultation tolu. ABSENT: rales, rhonchi, wheezes Cardiovascular exam: PRESENT: RRR, other - Seems to be in normal sinus rhythm with heart rate anywhere from 66-90, probably based on activity and pain. ABSENT: diastolic murmur, rubs, systolic murmur Neurological exam: PRESENT: alert, awake, oriented to person, oriented to place, oriented to time, oriented to situation, CN II-XII grossly intact. ABSENT: motor sensory deficit Psychiatric exam: PRESENT: appropriate affect, normal mood. ABSENT: homicidal ideation, suicidal ideation Results Laboratory Results: 12/20/18 08:19 12/19/18 14:49 12/19/18 08:50 Troponin I < 0.012 Impressions: Chest X-Ray 12/19/18 09:39 IMPRESSION: 16 mm nodule versus superimposed shadows left mid lung Clips right axilla post breast surgery. Metallic breast implant tissue expanders Chest/Abdomen CTA 12/19/18 09:48 IMPRESSION: Lung parenchyma and mediastinal metastatic disease No CT angio evidence of thoracic aortic dissection or acute pulmonary emboli Mild mass effect on the superior vena cava by mediastinal adenopathy Assessment and Plan - Diagnosis (1) Atrial fibrillation Qualifiers: Atrial fibrillation type: paroxysmal Qualified Code(s): I48.0 - Paroxysmal atrial fibrillation Is this a current diagnosis for this admission?: Yes (2) Hypertension Qualifiers: Hypertension type: unspecified Qualified Code(s): I10 - Essential (primary) hypertension Is this a current diagnosis for this admission?: Yes (3) Metastatic breast cancer Is this a current diagnosis for this admission?: Yes (4) Uncontrolled pain Is this a current diagnosis for this admission?: Yes - Plan Summary Summary: 12/19/2018 She is white count 6.1 platelets 303,000, troponin is normal electrolytes are normal BUN 7 creatinine 0.53 GFR greater than 60, urinalysis grossly normal. CT angiogram of the chest shows too numerous to count lung metastases there is mass-effect on the superior vena cava by mediastinal adenopathy. Patient will be maintained on a Cardizem drip as well as started on Cardizem 30 mg p.o. every 6 hours. Patient will be maintained on Dilaudid IV pain management, as well as her fentanyl patch. Patient has been on both these medications now are to admission. Patient's oncologist will be consulted for pain management. Will be admitted to telemetry for further monitoring. 12/20/2018 She is converted to normal sinus rhythm is now on p.o. Cardizem. Patient's pain seems to be well managed with meds. Patient is going to get a PICC line tomorrow Patient's vital signs are stable temp 97. 5, blood pressure 128/83 ,pulse averages to be about 75 and regular. ABC and Chem-7 are normal TSH slightly low at 0.47 We will continue treatment as above. Patient does not appear to have acute infection at this time 12/21/2018 Vital signs are extremely stable she is no longer in atrial fib.. Blood pressure this morning was 157/95. Is currently on Cardizem 60 mg every 6 hours. I hesitate to add another medication for her hypertension this time since we are dealing with a pain crisis, as well as new onset atrial fib. May be as an outpatient if she continues to run elevated blood pressures it would be indicate d. CBC and electrolytes are normal today. His BUN and creatinine are stable and normal, is receiving normal saline at 50 mL's per hour - Time Time Spent with patient: 15-24 minutes
[2018-12-21] MEDS: ENOXAPARIN SODIUM INJ 40 MG/0.4 ML DISP.SYRIN SUBCUT SCH (10:59)
[2018-12-21] MEDS ORDERED: LEVALBUTEROL HCL NEB 1.25 MG/3 ML AMPUL NEB PRN (11:14)
--- NOTE | 2018-12-21 11:17 | Progress Note ---
Provider Note Provider Note: Today I started her on Xopenex nebulizer treatments every 4 hours as needed, IV Zithromax. Sounds to have a upper respiratory illness, bronchitis. I think she will feel better quicker with this treatment, based on her underlying primary medical condition
[2018-12-21 11:19] LABS: ABSOLUTE LYMPHOCYTES (AUTO) 0.7 10^3/uL (0.5-4.7); ABSOLUTE MONOCYTES (AUTO) 0.6 10^3/uL (0.1-1.4); ABSOLUTE NEUT (AUTO) 4.6 10^3/uL (1.7-8.2); BASOPHILS % (AUTO) 0.4 % (0-2); HEMATOCRIT 36.5 % (36.0-47.0); LYMPHOCYTES % (AUTO) 12.2 % (13-45); MEAN CORPUSCULAR HEMOGLOBIN 28.4 pg (27.0-33.4); MEAN CORPUSCULAR HGB CONC 32.9 g/dL (32.0-36.0); MEAN CORPUSCULAR VOLUME 86 fl (80-97); MONOCYTES % (AUTO) 9.6 % (3-13); PLATELET COUNT 342 10^3/uL (150-450); RED BLOOD COUNT 4.23 10^6/uL (3.72-5.28); SEGMENTED NEUTROPHILS % (AUTO) 77.8 % (42-78); TOTAL CELLS COUNTED % (AUTO) 100 %
[2018-12-21 11:40] LABS: ANION GAP 11 (5-19); BLOOD UREA NITROGEN 6 mg/dL (7-20); CALCIUM 7.5 mg/dL (8.4-10.2); CARBON DIOXIDE 20 mmol/L (22-30); CHLORIDE 108 mmol/L (98-107); GLUCOSE 92 mg/dL (75-110); POTASSIUM 3.8 mmol/L (3.6-5.0)
[2018-12-21] MEDS: AZITHROMYCIN 500 MG in DEXTROSE 5%-WATER 250 ML IV SCH (13:07)
--- NOTE | 2018-12-21 13:25 | RADIOLOGY REPORT (SQ) ---
EXAM DESCRIPTION: PICC INSERTION; FLUORO/CV PLACEMENT; U/S GUIDE FOR VASCULAR ACCESS COMPLETED DATE/TIME: 12/21/2018 10:09 am REASON FOR STUDY: unable to obtain labs ; IV ACCESS COMPARISON: None. FLUOROSCOPY TIME: 3.16 minutes. 1 images saved to PACS. TECHNIQUE: Fluoroscopic and ultrasound guided PICC placement. LIMITATIONS: None. PROCEDURE: After written consent and assessment were obtained, the patient was brought into the fluo roscopy room and placed supine on the table. Ultrasound evaluation of potential access sites were per formed. After successfully identifying a patent left basilic vein, the left arm was prepped and drape d in a sterile fashion along with the ultrasound probe. The entry site was anesthetized with 1% lidoc corby. A 21 gauge 7 cm needle was advanced through the skin and into the basilic vein under live ultra sound guidance. An ultrasound image was saved to PACS confirming access site. A .018 guide wire was then inserted through the needle and into the venous system. The needle was then removed and an 11 b lade scalpel was used to make a 1cm skin incision. A 5 fr peel-away sheath was advanced over the wir e and into the venous system. A measurement was then made using the existing wire and live fluoroscop ic guidance. The wire was then removed and trimmed. The PICC was advanced through the peel-away sheat h and into the venous system. The peel-away sheath was removed and the catheter was adhered to the pa tients arm with a stat lock. The catheter was then aspirated and flushed and a sterile bandage was pl aced over the access site. A fluoroscopic spot image was saved to PACS confirming the catheter tip w ithin the superior vena cava. IMPRESSION: SUCCESSFUL PLACEMENT OF A 5 FR DUAL LUMEN 41 CM PICC IN THE LEFT BASILIC VEIN. COMMENT: Patient medication list reviewed: Yes- Quality ID# 130:Eligible professional attests to doc umenting in the medical record they obtained, updated, or reviewed the patient's current medications. . Quality ID 145: Final reports for procedures using fluoroscopy that document radiation exposure elsy hiram, or exposure time and number of fluorographic images (if radiation exposure indices are not avail able) Quality ID #76: The patient was prepped and draped using maximum sterile barrier technique including cap, mask, sterile gown, sterile gloves, a large sterile sheet, hand hygiene, and 2% Chlorhexidine fo r cutaneous antisepsis. When ultrasound is used, sterile ultrasound techniques are followed requiring sterile gel and sterile probes. TECHNICAL DOCUMENTATION: JOB ID: [id number] [employer]- All Rights Reserved rev-07/18 Reading location - IP/workstation name: [email or web address]
[2018-12-21] MEDS: NORMAL SALINE 1000 ML 1,000 ML IV PRN (18:20)
[2018-12-21] MEDS: DIPHENHYDRAMINE HCL 50 MG/ML VIAL IV PRN (20:19)
[2018-12-21] MEDS: NORMAL SALINE 10 ML SDV (SCHEDULED) IV SCH (21:38)
[2018-12-22] MEDS: OXYCODONE HCL IR 5 MG TABLET PO PRN ×4 (00:49→22:02)
[2018-12-22] MEDS: OXYCODONE-ACETAMINOPHEN 5-325 MG TABLET PO PRN ×4 (00:49→22:03)
[2018-12-22] MEDS: HYDROMORPHONE HCL INJ/PF 2 MG/ML AMPULE IV PRN ×8 (01:55→23:50)
[2018-12-22] MEDS: PROMETHAZINE HCL INJ 25 MG/1 ML VIAL IV PRN ×6 (02:33→23:49)
[2018-12-22] MEDS: DILTIAZEM HCL 60 MG TABLET PO SCH ×4 (05:24→23:50)
[2018-12-22] MEDS: NORMAL SALINE 1000 ML 1,000 ML IV PRN (05:26)
[2018-12-22 07:00] LABS: ABSOLUTE LYMPHOCYTES (AUTO) 0.8 10^3/uL (0.5-4.7); ABSOLUTE MONOCYTES (AUTO) 0.4 10^3/uL (0.1-1.4); ABSOLUTE NEUT (AUTO) 7.7 10^3/uL (1.7-8.2); BASOPHILS % (AUTO) 0.2 % (0-2); HEMATOCRIT 38.4 % (36.0-47.0); HEMOGLOBIN 12.5 g/dL (12.0-15.5); LYMPHOCYTES % (AUTO) 9.4 % (13-45); MEAN CORPUSCULAR HEMOGLOBIN 28.5 pg (27.0-33.4); MEAN CORPUSCULAR HGB CONC 32.5 g/dL (32.0-36.0); MEAN CORPUSCULAR VOLUME 88 fl (80-97); MONOCYTES % (AUTO) 4.6 % (3-13); PLATELET COUNT 366 10^3/uL (150-450); RED BLOOD COUNT 4.38 10^6/uL (3.72-5.28); RED CELL DISTRIBUTION WIDTH 13.9 % (11.5-14.0); SEGMENTED NEUTROPHILS % (AUTO) 85.8 % (42-78); TOTAL CELLS COUNTED % (AUTO) 100 %
[2018-12-22] MEDS: DEXAMETHASONE 4 MG TABLET PO SCH ×2 (08:41→12:30)
[2018-12-22] MEDS: FENTANYL 100 MCG/HR PATCH.TD72 TD SCH (09:56)
[2018-12-22] MEDS: LORAZEPAM 0.5 MG TABLET PO SCH ×2 (09:58→17:52)
[2018-12-22] MEDS: FAMOTIDINE 20 MG TABLET PO SCH ×2 (09:58→22:02)
[2018-12-22] MEDS: DOCUSATE SODIUM 100 MG CAPSULE PO SCH ×2 (09:58→17:52)
[2018-12-22] MEDS: ENOXAPARIN SODIUM INJ 40 MG/0.4 ML DISP.SYRIN SUBCUT SCH (09:58)
[2018-12-22] MEDS: NORMAL SALINE 10 ML SDV (SCHEDULED) IV SCH ×2 (10:00→23:51)
[2018-12-22] MEDS ORDERED: AMLODIPINE BESYLATE 5 MG TABLET PO SCH (10:00)
[2018-12-22] MEDS: FENTANYL 50 MCG/HR PATCH.TD72 TD SCH (12:30)
[2018-12-22] MEDS: AZITHROMYCIN 500 MG in DEXTROSE 5%-WATER 250 ML IV SCH (12:31)
--- NOTE | 2018-12-22 14:14 | PDOC PROGRESS REPORT ---
Subjective Progress Note for:: 12/22/18 Subjective:: Patient is very happy that she was able to attend her son's graduation last week. However, she states that she just feels much safer here in the hospital. She has no new complaints. We discussed further treatment for her cancer. She is not yet ready to make any decisions. She states that a few days is just not enough time. (Initially discussed over 2 weeks ago). We also discussed [facility]. However, she states that she is not yet ready for H ospice. Reason For Visit: AFIB WTH RVR,LUNG CANCER,BREAST CANCER WITH Physical Exam Vital Signs: Temp Pulse Resp BP Pulse Ox 98.5 F 85 16 169/107 H 96 12/22/18 11:14 12/22/18 11:14 12/22/18 11:14 12/22/18 11:14 12/22/18 11:14 Intake & Output 12/21/18 12/22/18 12/23/18 06:59 06:59 06:59 Intake Total 2132 2774 Balance 2132 2774 Weight 98 kg 90.4 kg General appearance: PRESENT: well-developed, well-nourished Head exam: PRESENT: normocephalic Neck exam: ABSENT: lymphadenopathy, tenderness Respiratory exam: PRESENT: clear to auscultation tolu, unlabored Cardiovascular exam: PRESENT: RRR GI/Abdominal exam: PRESENT: soft. ABSENT: tenderness Extremities exam: ABSENT: pedal edema Musculoskeletal exam: PRESENT: ambulatory Neurological exam: PRESENT: alert, awake Psychiatric exam: PRESENT: appropriate affect Skin exam: PRESENT: normal color Results Laboratory Results: 12/22/18 06:10 12/21/18 11:00 12/22/18 06:10 WBC 9.0 RBC 4.38 Hgb 12.5 Hct 38.4 MCV 88 MCH 28.5 MCHC 32.5 RDW 13.9 Plt Count 366 Seg Neutrophils % 85.8 H 12/19/18 08:50 Troponin I < 0.012 Impressions: Chest X-Ray 12/19/18 09:39 IMPRESSION: 16 mm nodule versus superimposed shadows left mid lung Clips right axilla post breast surgery. Metallic breast implant tissue expanders Chest/Abdomen CTA 12/19/18 09:48 IMPRESSION: Lung parenchyma and mediastinal metastatic disease No CT angio evidence of thoracic aortic dissection or acute pulmonary emboli Mild mass effect on the superior vena cava by mediastinal adenopathy Guidance Fluoroscopy 12/21/18 00:00 IMPRESSION: SUCCESSFUL PLACEMENT OF A 5 FR DUAL LUMEN 41 CM PICC IN THE LEFT BASILIC VEIN. Interventional Vascular Procedure 12/21/18 00:00 IMPRESSION: SUCCESSFUL PLACEMENT OF A 5 FR DUAL LUMEN 41 CM PICC IN THE LEFT BASILIC VEIN. PICC Line Insertion 12/21/18 00:00 IMPRESSION: SUCCESSFUL PLACEMENT OF A 5 FR DUAL LUMEN 41 CM PICC IN THE LEFT BASILIC VEIN. Assessment & Plan - Time Time Spent with patient: 15-24 minutes - Plan Summary Plan Summary: Patient remains dependent on pain medications, but has done well with oral regimen at home in the past. Dr. Fischer to return tomorrow for further discussion as to plans for her cancer.
[2018-12-22] MEDS ORDERED: DIPHENHYDRAMINE HCL 25 MG CAPSULE PO PRN (19:29)
[2018-12-22] MEDS ORDERED: PHENOL/SODIUM PHENOLATE 100 SPRAY/177 ML BOTTLE PO PRN (19:36)
--- NOTE | 2018-12-22 19:41 | PDOC PROGRESS REPORT ---
Subjective Progress Note for:: 12/22/18 Subjective:: The patient is a 48-year-old female with a past medical history significant for stage IV breast cancer with lung and brain metastasis, hypertension, and obesity who was admitted 12/19/2018 for atrial fibrillation. The patient was seen on afternoon rounds. She was found ambulating in her room, cleaning of her bedside table and organizing her vomiting, comfortably on room air. She reports that she is also been ambulatory in the hallways without discomfort. She reports that she continues to have intermittent nausea and itching, but overall her pain is improved. However, she does continue to require significant amounts of IV Dilaudid. Patient tells me that she is not ready for discharge to home due to concern regarding recurrent atrial fibrillation RVR. Long discussion had regarding her continued risk for development of A. fib RVR related to her breast cancer with lung metastasis. Discussed that most patients in similar circumstances(Although without intractable pain) are discharged home within 1 to 2 days. Advised patient that current goal is to titrate her pain medications to allow her to better control her pain from home; anticipated another 2 to 3 days required to do so. Expressed my hope that that additional time on telemetry would allow the patient to feel more comfortable/safe regarding her heart rhythm. Encourage the patient to discuss goals of care/discharge planning with family members; patient states that she "just needs time to think." She denies fever, chills, chest pain, palpitations, dyspnea, orthopnea, abdominal pain, emesis, diarrhea. She does continue to have chest wall/musculoskeletal discomfort and nausea. She had no other questions or concerns at this time. No concerns per nursing. Reason For Visit: AFIB WTH RVR,LUNG CANCER,BREAST CANCER WITH Physical Exam Vital Signs: Temp Pulse Resp BP Pulse Ox 98.6 F 96 18 150/96 H 93 12/22/18 14:46 12/22/18 14:46 12/22/18 14:46 12/22/18 14:46 12/22/18 14:46 Intake & Output 12/21/18 12/22/18 12/23/18 06:59 06:59 06:59 Intake Total 2132 2774 720 Balance 2132 2774 720 Weight 98 kg 90.4 kg General appearance: PRESENT: no acute distress, obese, well-developed, well- nourished Head exam: PRESENT: atraumatic, normocephalic Eye exam: PRESENT: conjunctiva pink, EOMI, PERRLA. ABSENT: scleral icterus Ear exam: PRESENT: normal external ear exam Mouth exam: PRESENT: moist, tongue midline Respiratory exam: PRESENT: clear to auscultation tolu, symmetrical, unlabored. ABSENT: rales, rhonchi, wheezes Cardiovascular exam: PRESENT: RRR, +S1, +S2. ABSENT: diastolic murmur, rubs, systolic murmur Pulses: PRESENT: normal dorsalis pedis pul Vascular exam: PRESENT: normal capillary refill Rectal exam: PRESENT: deferred Extremities exam: PRESENT: full ROM. ABSENT: calf tenderness, clubbing, pedal edema Musculoskeletal exam: PRESENT: ambulatory Neurological exam: PRESENT: alert, awake, oriented to person, oriented to place, oriented to time, oriented to situation, CN II-XII grossly intact, other - Stutter: No focal deficits. ABSENT: motor sensory deficit Psychiatric exam: PRESENT: anxious, depressed. ABSENT: homicidal ideation, suicidal ideation Skin exam: PRESENT: dry, intact, warm. ABSENT: cyanosis, rash Results Laboratory Results: 12/22/18 06:10 12/21/18 11:00 12/22/18 06:10 WBC 9.0 RBC 4.38 Hgb 12.5 Hct 38.4 MCV 88 MCH 28.5 MCHC 32.5 RDW 13.9 Plt Count 366 Seg Neutrophils % 85.8 H 12/19/18 08:50 Troponin I < 0.012 Impressions: Chest X-Ray 12/19/18 09:39 IMPRESSION: 16 mm nodule versus superimposed shadows left mid lung Clips right axilla post breast surgery. Metallic breast implant tissue expanders Chest/Abdomen CTA 12/19/18 09:48 IMPRESSION: Lung parenchyma and mediastinal metastatic disease No CT angio evidence of thoracic aortic dissection or acute pulmonary emboli Mild mass effect on the superior vena cava by mediastinal adenopathy Guidance Fluoroscopy 12/21/18 00:00 IMPRESSION: SUCCESSFUL PLACEMENT OF A 5 FR DUAL LUMEN 41 CM PICC IN THE LEFT BASILIC VEIN. Interventional Vascular Procedure 12/21/18 00:00 IMPRESSION: SUCCESSFUL PLACEMENT OF A 5 FR DUAL LUMEN 41 CM PICC IN THE LEFT BASILIC VEIN. PICC Line Insertion 12/21/18 00:00 IMPRESSION: SUCCESSFUL PLACEMENT OF A 5 FR DUAL LUMEN 41 CM PICC IN THE LEFT BASILIC VEIN. Assessment and Plan - Diagnosis (1) Uncontrolled pain Is this a current diagnosis for this admission?: Yes Plan: Have increase Duragesic patch to 150 mcg daily. Continue oxycodone 10/325 every 3 hours as needed. Have decrease Dilaudid to 2 mg every 3 hours as needed. Continue Tylenol as needed. Antiemetics and Benadryl as needed. Encourage nonpharmacological interventions. (2) Atrial fibrillation Qualifiers: Atrial fibrillation type: paroxysmal Qualified Code(s): I48.0 - Paroxysmal atrial fibrillation Is this a current diagnosis for this admission?: Yes Plan: Resolved; now converted to normal sinus rhythm on p.o. diltiazem. Not a candidate for chronic anticoagulation secondary to breast cancer with brain metastasis. (3) Upper respiratory infection Qualifiers: URI type: unspecified URI Qualified Code(s): J06.9 - Acute upper respiratory infection, unspecified Is this a current diagnosis for this admission?: Yes Plan: Blood cultures are negative at 72 hours. Continue IV azithromycin; day #2. Nebulizer treatments as needed. Robitussin as needed. Chloraseptic Boron as needed. (4) Hypertension Qualifiers: Hypertension type: unspecified Qualified Code(s): I10 - Essential (primary) hypertension Is this a current diagnosis for this admission?: Yes Plan: Blood pressures remain elevated, although overall improved. 150/96 today. Continue p.o. diltiazem. We will continue to address intractable pain; consider addition of losartan/H CTZ. Cardiac diet. (5) Metastatic breast cancer Is this a current diagnosis for this admission?: Yes Plan: Hematology/oncology are consulted; primary management per their expertise. Discharge planning is consulted. - Plan Summary Summary: 12/19/2018 She is white count 6.1 platelets 303,000, troponin is normal electrolytes are normal BUN 7 creatinine 0.53 GFR greater than 60, urinalysis grossly normal. CT angiogram of the chest shows too numerous to count lung metastases there is mass-effect on the superior vena cava by mediastinal adenopathy. Patient will be maintained on a Cardizem drip as well as started on Cardizem 30 mg p.o. every 6 hours. Patient will be maintained on Dilaudid IV pain management, as well as her fentanyl patch. Patient has been on both these medications now are to admission. Patient's oncologist will be consulted for pain management. Will be admitted to telemetry for further monitoring. 12/20/2018 She is converted to normal sinus rhythm is now on p.o. Cardizem. Patient's pain seems to be well managed with meds. Patient is going to get a PICC line tomorrow Patient's vital signs are stable temp 97. 5, blood pressure 128/83 ,pulse averages to be about 75 and regular. ABC and Chem-7 are normal TSH slightly low at 0.47 We will continue treatment as above. Patient does not appear to have acute infection at this time 12/21/2018 Vital signs are extremely stable she is no longer in atrial fib.. Blood pressure this morning was 157/95. Is currently on Cardizem 60 mg every 6 hours. I hesitate to add another medication for her hypertension this time since we are dealing with a pain crisis, as well as new onset atrial fib. May be as an outpatient if she continues to run elevated blood pressures it would be indicated. CBC and electrolytes are normal today. His BUN and creatinine are stable and normal, is receiving normal saline at 50 mL's per hour - Time Time Spent with patient: 25-34 minutes Medications reviewed and adjusted accordingly: Yes Anticipated discharge: Home Within: within 48 hours
[2018-12-22] MEDS: DIPHENHYDRAMINE HCL 50 MG/ML VIAL IV PRN (19:52)
[2018-12-23] MEDS: NORMAL SALINE 1000 ML 1,000 ML IV PRN ×2 (01:28→22:01)
[2018-12-23] MEDS: OXYCODONE HCL IR 5 MG TABLET PO PRN ×2 (01:31→06:49)
[2018-12-23] MEDS: OXYCODONE-ACETAMINOPHEN 5-325 MG TABLET PO PRN ×2 (01:32→06:49)
[2018-12-23] MEDS: HYDROMORPHONE HCL INJ/PF 2 MG/ML AMPULE IV PRN ×5 (03:49→21:31)
[2018-12-23] MEDS: PROMETHAZINE HCL INJ 25 MG/1 ML VIAL IV PRN ×5 (03:49→21:32)
[2018-12-23] MEDS: DILTIAZEM HCL 60 MG TABLET PO SCH ×3 (06:46→17:12)
[2018-12-23] MEDS: DEXAMETHASONE 4 MG TABLET PO SCH ×2 (08:25→12:46)
--- NOTE | 2018-12-23 08:57 | PDOC PROGRESS REPORT ---
Subjective Progress Note for:: 12/23/18 Subjective:: Today had long discussion w/ pt about pain control, goals of therapy and treatment recommendations. Spent 45 min in discussion. She is not ready to make a treatment decision yet, so discussed optimizing pain control: Change percocet to oral dilaudid to see if we can get her off IV pain meds over next 24 hours. Reason For Visit: AFIB WTH RVR,LUNG CANCER,BREAST CANCER WITH Physical Exam Vital Signs: Temp Pulse Resp BP Pulse Ox 97.9 F 77 17 152/94 H 92 12/23/18 07:23 12/23/18 07:23 12/23/18 07:23 12/23/18 07:23 12/23/18 07:23 Intake & Output 12/22/18 12/23/18 12/24/18 06:59 06:59 06:59 Intake Total 2774 1720 Balance 2774 1720 Weight 90.4 kg 91.4 kg General appearance: PRESENT: no acute distress, well-developed, well-nourished Head exam: PRESENT: atraumatic, normocephalic Eye exam: PRESENT: conjunctiva pink, EOMI, PERRLA. ABSENT: scleral icterus Ear exam: PRESENT: normal external ear exam Mouth exam: PRESENT: moist, tongue midline Neck exam: ABSENT: carotid bruit, JVD, lymphadenopathy, thyromegaly Respiratory exam: PRESENT: clear to auscultation tolu. ABSENT: rales, rhonchi, wheezes Cardiovascular exam: PRESENT: RRR. ABSENT: diastolic murmur, rubs, systolic murmur Pulses: PRESENT: normal dorsalis pedis pul Vascular exam: PRESENT: normal capillary refill GI/Abdominal exam: PRESENT: normal bowel sounds, soft. ABSENT: distended, guarding, mass, organolmegaly, rebound, tenderness Rectal exam: PRESENT: deferred Extremities exam: PRESENT: full ROM. ABSENT: calf tenderness, clubbing, pedal edema Neurological exam: PRESENT: alert, awake, oriented to person, oriented to place, oriented to time, oriented to situation, CN II-XII grossly intact. ABSENT: motor sensory deficit Psychiatric exam: PRESENT: appropriate affect, normal mood. ABSENT: homicidal ideation, suicidal ideation Skin exam: PRESENT: dry, intact, warm. ABSENT: cyanosis, rash Results Laboratory Results: 12/22/18 06:10 12/21/18 11:00 12/19/18 08:50 Troponin I < 0.012 Impressions: Chest X-Ray 12/19/18 09:39 IMPRESSION: 16 mm nodule versus superimposed shadows left mid lung Clips right axilla post breast surgery. Metallic breast implant tissue expanders Chest/Abdomen CTA 12/19/18 09:48 IMPRESSION: Lung parenchyma and mediastinal metastatic disease No CT angio evidence of thoracic aortic dissection or acute pulmonary emboli Mild mass effect on the superior vena cava by mediastinal adenopathy Guidance Fluoroscopy 12/21/18 00:00 IMPRESSION: SUCCESSFUL PLACEMENT OF A 5 FR DUAL LUMEN 41 CM PICC IN THE LEFT BASILIC VEIN. Interventional Vascular Procedure 12/21/18 00:00 IMPRESSION: SUCCESSFUL PLACEMENT OF A 5 FR DUAL LUMEN 41 CM PICC IN THE LEFT BASILIC VEIN. PICC Line Insertion 12/21/18 00:00 IMPRESSION: SUCCESSFUL PLACEMENT OF A 5 FR DUAL LUMEN 41 CM PICC IN THE LEFT BASILIC VEIN. Assessment & Plan - Diagnosis (1) Metastatic breast cancer Is this a current diagnosis for this admission?: Yes Plan: Would like for pt to initiate chemo/Rx while inpt but pt not ready, so will be optimizing pain control over next 24-48 hrs to see if we can stop IV pain meds and get her home and then discuss further in office. (2) Atrial fibrillation Qualifiers: Atrial fibrillation type: paroxysmal Qualified Code(s): I48.0 - Paroxysmal atrial fibrillation Is this a current diagnosis for this admission?: Yes Plan: Cont current regimen per hospitalist team (3) Nausea & vomiting Qualifiers: Vomiting type: unspecified Vomiting Intractability: intractable Qualified Code(s): R11.2 - Nausea with vomiting, unspecified Is this a current diagnosis for this admission?: Yes Plan: Cont current antiemetic regimen (4) Uncontrolled pain Is this a current diagnosis for this admission?: Yes Plan: Pain changes as above. (5) Dehydration Is this a current diagnosis for this admission?: Yes Plan: Cont hydration for now - Time Time Spent with patient: 35 or more minutes
[2018-12-23] MEDS: ENOXAPARIN SODIUM INJ 40 MG/0.4 ML DISP.SYRIN SUBCUT SCH (10:26)
[2018-12-23] MEDS: DOCUSATE SODIUM 100 MG CAPSULE PO SCH ×2 (10:28→17:12)
[2018-12-23] MEDS: LORAZEPAM 0.5 MG TABLET PO SCH ×2 (10:28→21:33)
[2018-12-23] MEDS: DIPHENHYDRAMINE HCL 50 MG/ML VIAL IV PRN ×2 (10:28→21:32)
[2018-12-23] MEDS: FAMOTIDINE 20 MG TABLET PO SCH ×2 (10:28→21:31)
[2018-12-23] MEDS: NORMAL SALINE 10 ML SDV (SCHEDULED) IV SCH ×2 (10:29→21:33)
[2018-12-23] MEDS: HYDROMORPHONE HCL 2 MG TABLET PO PRN ×2 (10:33→16:14)
[2018-12-23] MEDS: AZITHROMYCIN 500 MG in DEXTROSE 5%-WATER 250 ML IV SCH (12:44)
[2018-12-23] MEDS: GUAIFENESIN SYRP 200 MG/10 ML UDC PO PRN (16:15)
--- NOTE | 2018-12-23 17:52 | PDOC PROGRESS REPORT ---
Subjective Progress Note for:: 12/23/18 Subjective:: The patient is a 48-year-old female with a past medical history significant for stage IV breast cancer with lung and brain metastasis, hypertension, and obesity who was admitted 12/19/2018 for atrial fibrillation. The patient was seen on afternoon rounds. She was found resting in bed comfortably on room air. She reports that her symptoms are overall improved today with decreased nausea and pain. Her primary complaint today is a nonproductive cough. She denies fever, chills, chest pain, palpitations, dyspnea, orthopnea, abdominal pain, emesis, diarrhea. She does continue to have chest wall/musculoskeletal discomfort and nausea. She had no other questions or concerns at this time. No concerns per nursing. Reason For Visit: AFIB WTH RVR,LUNG CANCER,BREAST CANCER WITH Physical Exam Vital Signs: Temp Pulse Resp BP Pulse Ox 98.9 F 75 17 153/90 H 96 12/23/18 15:27 12/23/18 15:27 12/23/18 15:27 12/23/18 15:27 12/23/18 15:27 Intake & Output 12/22/18 12/23/18 12/24/18 06:59 06:59 06:59 Intake Total 2774 1720 420 Balance 2774 1720 420 Weight 90.4 kg 91.4 kg General appearance: PRESENT: no acute distress, cooperative, obese, well- developed, well-nourished Head exam: PRESENT: atraumatic, normocephalic Eye exam: PRESENT: conjunctiva pink, EOMI, PERRLA. ABSENT: scleral icterus Mouth exam: PRESENT: moist, tongue midline Neck exam: ABSENT: carotid bruit, JVD, lymphadenopathy, thyromegaly Respiratory exam: PRESENT: clear to auscultation tolu, symmetrical, unlabored. ABSENT: rales, rhonchi, wheezes Cardiovascular exam: PRESENT: RRR, +S1, +S2. ABSENT: diastolic murmur, rubs, systolic murmur Pulses: PRESENT: normal dorsalis pedis pul Vascular exam: PRESENT: normal capillary refill GI/Abdominal exam: PRESENT: normal bowel sounds, soft. ABSENT: distended, guarding, mass, organolmegaly, rebound, tenderness Rectal exam: PRESENT: deferred Extremities exam: PRESENT: full ROM. ABSENT: calf tenderness, clubbing, pedal edema Musculoskeletal exam: PRESENT: ambulatory Neurological exam: PRESENT: alert, awake, oriented to person, oriented to place, oriented to time, oriented to situation, CN II-XII grossly intact, other - Stutter; slightly increased today as compared to yesterday.. ABSENT: motor sensory deficit Psychiatric exam: PRESENT: appropriate affect, normal mood. ABSENT: homicidal ideation, suicidal ideation Skin exam: PRESENT: dry, intact, warm. ABSENT: cyanosis, rash Results Laboratory Results: 12/22/18 06:10 12/21/18 11:00 12/19/18 08:50 Troponin I < 0.012 Impressions: Chest X-Ray 12/19/18 09:39 IMPRESSION: 16 mm nodule versus superimposed shadows left mid lung Clips right axilla post breast surgery. Metallic breast implant tissue expanders Chest/Abdomen CTA 12/19/18 09:48 IMPRESSION: Lung parenchyma and mediastinal metastatic disease No CT angio evidence of thoracic aortic dissection or acute pulmonary emboli Mild mass effect on the superior vena cava by mediastinal adenopathy Guidance Fluoroscopy 12/21/18 00:00 IMPRESSION: SUCCESSFUL PLACEMENT OF A 5 FR DUAL LUMEN 41 CM PICC IN THE LEFT BASILIC VEIN. Interventional Vascular Procedure 12/21/18 00:00 IMPRESSION: SUCCESSFUL PLACEMENT OF A 5 FR DUAL LUMEN 41 CM PICC IN THE LEFT BASILIC VEIN. PICC Line Insertion 12/21/18 00:00 IMPRESSION: SUCCESSFUL PLACEMENT OF A 5 FR DUAL LUMEN 41 CM PICC IN THE LEFT BASILIC VEIN. Assessment and Plan - Diagnosis (1) Uncontrolled pain Is this a current diagnosis for this admission?: Yes Plan: Pain medications per Oncologist. Currently on Duragesic patch to 150 mcg daily, p.o. Dilaudid 4 mg every 3 hours as needed, IV Dilaudid to 2 mg every 3 hours as needed. Continue Tylenol as needed. Antiemetics and Benadryl as needed. Encourage nonpharmacological interventions. (2) Atrial fibrillation Qualifiers: Atrial fibrillation type: paroxysmal Qualified Code(s): I48.0 - Paroxysmal atrial fibrillation Is this a current diagnosis for this admission?: Yes Plan: Resolved; remains in normal sinus rhythm on p.o. diltiazem. Not a candidate for chronic anticoagulation secondary to breast cancer with brain metastasis. (3) Upper respiratory infection Qualifiers: URI type: unspecified URI Qualified Code(s): J06.9 - Acute upper respiratory infection, unspecified Is this a current diagnosis for this admission?: Yes Plan: Blood cultures are negative at 4 days Continue IV azithromycin; day #3. Nebulizer treatments as needed. Robitussin as needed. Chloraseptic [place] as needed Tessalon Perles as needed. (4) Hypertension Qualifiers: Hypertension type: unspecified Qualified Code(s): I10 - Essential (primary) hypertension Is this a current diagnosis for this admission?: Yes Plan: Blood pressures remain elevated, although overall improved. 153/90 today. Continue p.o. diltiazem. Will start losartan/HCTZ. Cardiac diet. (5) Metastatic breast cancer Is this a current diagnosis for this admission?: Yes Plan: Hematology/oncology are consulted; primary management per their expertise. Discharge planning is consulted. - Plan Summary Summary: 12/19/2018 She is white count 6.1 platelets 303,000, troponin is normal electrolytes are normal BUN 7 creatinine 0.53 GFR greater than 60, urinalysis grossly normal. CT angiogram of the chest shows too numerous to count lung metastases there is mass-effect on the superior vena cava by mediastinal adenopathy. Patient will be maintained on a Cardizem drip as well as started on Cardizem 30 mg p.o. every 6 hours. Patient will be maintained on Dilaudid IV pain management, as well as her fentanyl patch. Patient has been on both these medications now are to admission. Patient's oncologist will be consulted for pain management. Will be admitted to telemetry for further monitoring. 12/20/2018 She is converted to normal sinus rhythm is now on p.o. Cardizem. Patient's pain seems to be well managed with meds. Patient is going to get a PICC line tomorrow Patient's vital signs are stable temp 97. 5, blood pressure 128/83 ,pulse averages to be about 75 and regular. ABC and Chem-7 are normal TSH slightly low at 0.47 We will continue treatment as above. Patient does not appear to have acute infection at this time 12/21/2018 Vital signs are extremely stable she is no longer in atrial fib.. Blood pressure this morning was 157/95. Is currently on Cardizem 60 mg every 6 hours. I hesitate to add another medication for her hypertension this time since we are dealing with a pain crisis, as well as new onset atrial fib. May be as an ou tpatient if she continues to run elevated blood pressures it would be indicated. CBC and electrolytes are normal today. His BUN and creatinine are stable and normal, is receiving normal saline at 50 mL's per hour - Time Time Spent with patient: 25-34 minutes Medications reviewed and adjusted accordingly: Yes Anticipated discharge: Home Within: within 24 hours
[2018-12-24] MEDS: DILTIAZEM HCL 60 MG TABLET PO SCH ×3 (01:05→05:44)
[2018-12-24] MEDS: PROMETHAZINE HCL INJ 25 MG/1 ML VIAL IV PRN ×3 (01:30→10:03)
[2018-12-24] MEDS: HYDROMORPHONE HCL INJ/PF 2 MG/ML AMPULE IV PRN ×4 (01:30→20:48)
[2018-12-24] MEDS ORDERED: HYDROMORPHONE HCL INJ/PF 2 MG/ML AMPULE IV PRN (07:59)
[2018-12-24] MEDS ORDERED: HYDROMORPHONE HCL 2 MG TABLET PO PRN (07:59)
--- NOTE | 2018-12-24 09:05 | PDOC PROGRESS REPORT ---
Subjective Progress Note for:: 12/24/18 Subjective:: Had a long discussion with patient, she only used 1 dose or 2 doses of IV pain medication yesterday and did use some oral pain medication, but was using IV Phenergan regularly, we had a long discussion about goals of therapy as well as what to expect at home, she still does not feel ready to go home, I will have hospitalist team talk with her as well. I was trying to get her to come up with a goal-directed plan but still have made headweight with that goal. Reason For Visit: AFIB WTH RVR,LUNG CANCER,BREAST CANCER WITH Physical Exam Vital Signs: Temp Pulse Resp BP Pulse Ox 97.8 F 62 16 171/94 H 99 12/24/18 08:17 12/24/18 08:17 12/24/18 08:17 12/24/18 08:17 12/24/18 08:17 Intake & Output 12/23/18 12/24/18 12/25/18 06:59 06:59 06:59 Intake Total 1720 2970 Balance 1720 2970 Weight 91.4 kg Results Laboratory Results: 12/22/18 06:10 12/21/18 11:00 12/19/18 08:50 Troponin I < 0.012 Impressions: Chest X-Ray 12/19/18 09:39 IMPRESSION: 16 mm nodule versus superimposed shadows left mid lung Clips right axilla post breast surgery. Metallic breast implant tissue expanders Chest/Abdomen CTA 12/19/18 09:48 IMPRESSION: Lung parenchyma and mediastinal metastatic disease No CT angio evidence of thoracic aortic dissection or acute pulmonary emboli Mild mass effect on the superior vena cava by mediastinal adenopathy Guidance Fluoroscopy 12/21/18 00:00 IMPRESSION: SUCCESSFUL PLACEMENT OF A 5 FR DUAL LUMEN 41 CM PICC IN THE LEFT BASILIC VEIN. Interventional Vascular Procedure 12/21/18 00:00 IMPRESSION: SUCCESSFUL PLACEMENT OF A 5 FR DUAL LUMEN 41 CM PICC IN THE LEFT BASILIC VEIN. PICC Line Insertion 12/21/18 00:00 IMPRESSION: SUCCESSFUL PLACEMENT OF A 5 FR DUAL LUMEN 41 CM PICC IN THE LEFT BASILIC VEIN. Status: Image reviewed by me Assessment & Plan - Diagnosis (1) Metastatic breast cancer Is this a current diagnosis for this admission?: Yes Plan: Recommend further chemotherapy as an outpatient, patient is still deciding on this (2) Atrial fibrillation Qualifiers: Atrial fibrillation type: paroxysmal Qualified Code(s): I48.0 - Paroxysmal atrial fibrillation Is this a current diagnosis for this admission?: Yes Plan: Controlled on oral medication (3) Nausea & vomiting Qualifiers: Vomiting type: unspecified Vomiting Intractability: intractable Qualified Code(s): R11.2 - Nausea with vomiting, unspecified Is this a current diagnosis for this admission?: Yes Plan: Continued and severe still needs IV pain medication (4) Uncontrolled pain Is this a current diagnosis for this admission?: Yes Plan: cont current regimen (5) Dehydration Is this a current diagnosis for this admission?: Yes Plan: cont - Time Time Spent with patient: 15-24 minutes
[2018-12-24] MEDS: DOCUSATE SODIUM 100 MG CAPSULE PO SCH ×2 (09:23→17:32)
[2018-12-24] MEDS: DEXAMETHASONE 4 MG TABLET PO SCH ×2 (09:23→12:32)
[2018-12-24] MEDS: HYDROCHLOROTHIAZIDE 12.5 MG TABLET PO SCH (09:23)
[2018-12-24] MEDS: LORAZEPAM 0.5 MG TABLET PO SCH ×2 (09:23→17:31)
[2018-12-24] MEDS: FAMOTIDINE 20 MG TABLET PO SCH ×2 (09:23→21:28)
[2018-12-24] MEDS: NORMAL SALINE 10 ML SDV (SCHEDULED) IV SCH ×2 (09:24→21:30)
[2018-12-24] MEDS: ENOXAPARIN SODIUM INJ 40 MG/0.4 ML DISP.SYRIN SUBCUT SCH (09:24)
[2018-12-24] MEDS: LOSARTAN POTASSIUM 25 MG TABLET PO SCH (09:33)
[2018-12-24] MEDS: DIPHENHYDRAMINE HCL 50 MG/ML VIAL IV PRN (10:02)
[2018-12-24] MEDS: AZITHROMYCIN 250 MG TABLET PO SCH (12:32)
[2018-12-24] MEDS: PROMETHAZINE HCL 25 MG TABLET PO PRN ×2 (12:42→21:28)
[2018-12-24] MEDS ORDERED: ONDANSETRON 4 MG TAB.RAPDIS PO PRN (14:40)
[2018-12-24] MEDS ORDERED: ONDANSETRON HCL INJ/PF 4 MG/2 ML SDV IV ONE (15:00)
--- NOTE | 2018-12-24 18:37 | PDOC DISCHARGE SUMMARY ---
Impression - Admit/DC Date/PCP Admission Date/Primary Care Provider: 12/19/18 11:54 SEJAL DIAZ DO Discharge Date: 12/25/18 - Discharge Diagnosis (1) Uncontrolled pain Is this a current diagnosis for this admission?: Yes (2) Atrial fibrillation Is this a current diagnosis for this admission?: Yes (3) Upper respiratory infection Is this a current diagnosis for this admission?: Yes (4) Hypertension Is this a current diagnosis for this admission?: Yes (5) Metastatic breast cancer Is this a current diagnosis for this admission?: Yes - Additional Information Resuscitation Status: Full Code Discharge Diet: Regular Discharge Activity: Activity As Tolerated, Balance Activity w/Rest Referrals: SEJAL DIAZ DO [Primary Care Provider] - Follow up as needed TODD FISCHER MD [ACTIVE STAFF] - Prescriptions: Lorazepam [Ativan 0.5 mg Tablet] 0.5 mg PO BID #8 tablet Diltiazem HCl [Cardizem Cd 120 mg Capsule] 120 mg PO Q12 #60 cap.sr.24h Losartan Potassium [Cozaar 25 mg Tablet] 25 mg PO DAILY #30 tablet Dexamethasone [Decadron 4 mg Tablet] 4 mg PO BIDBL #10 tablet Hydromorphone HCl [Dilaudid 2 mg Tablet] 4 mg PO Q3HP PRN #30 tablet PRN Reason: Fentanyl [Duragesic 50 Mcg/Hr Transdermal Patch] 1 each TD Q3DAYS #2 patch.td72 Hydrochlorothiazide [Hydrodiuril 12.5 mg Tablet] 12.5 mg PO QAM #30 tablet Promethazine HCl [Phenergan 25 mg Tablet] 25 mg PO Q4HP PRN #30 tablet PRN Reason: Benzonatate [Tessalon Perles 100 mg Capsule] 100 mg PO Q8HP PRN #12 capsule PRN Reason: Azithromycin [Zithromax 250 mg Tablet] 250 mg PO NOON #2 tablet Ondansetron [Zofran Odt 4 mg Tablet] 8 mg PO Q6HP PRN #20 tab.rapdis PRN Reason: Home Medications: Fentanyl [Duragesic 100 Mcg/Hr Transdermal Patch] 1 patch TOP Q3D 12/19/18 Acetaminophen [Tylenol 325 mg Tablet] 650 mg PO Q4HP PRN tablet 12/24/18 Azithromycin [Zithromax 250 mg Tablet] 250 mg PO NOON #2 tablet 12/24/18 Benzonatate [Tessalon Perles 100 mg Capsule] 100 mg PO Q8HP PRN #12 capsule 12/24/18 Dexamethasone [Decadron 4 mg Tablet] 4 mg PO BIDBL #10 tablet 12/24/18 Diltiazem HCl [Cardizem Cd 120 mg Capsule] 120 mg PO Q12 #60 cap.sr.24h 12/24/18 Diphenhydramine HCl [Benadryl 25 mg Capsule] 25 mg PO Q6HP PRN capsule 12/24/18 Docusate Sodium [Colace 100 mg Capsule] 100 mg PO BID capsule 12/24/18 Fentanyl [Duragesic 100 Mcg/Hr Transdermal Patch] 1 each TD Q3DAYS patch.td72 12/24/18 Fentanyl [Duragesic 50 Mcg/Hr Transdermal Patch] 1 each TD Q3DAYS #2 patch.td72 12/24/18 Guaifenesin [Robitussin Syrup 200 mg/10 ml Ud Cup] 200 mg PO Q4HP PRN udc 12/24/18 Hydrochlorothiazide [Hydrodiuril 12.5 mg Tablet] 12.5 mg PO QAM #30 tablet 12/24/18 Hydromorphone HCl [Dilaudid 2 mg Tablet] 4 mg PO Q3HP PRN #30 tablet 12/24/18 Lorazepam [Ativan 0.5 mg Tablet] 0.5 mg PO BID #8 tablet 12/24/18 Losartan Potassium [Cozaar 25 mg Tablet] 25 mg PO DAILY #30 tablet 12/24/18 Ondansetron [Zofran Odt 4 mg Tablet] 8 mg PO Q6HP PRN #20 tab.rapdis 12/24/18 Phenol/Sodium Phenolate [Chloraseptic Sore Throat [place] 177 ml] 2 spray PO PRN PRN bottle 12/24/18 Promethazine HCl [Phenergan 25 mg Tablet] 25 mg PO Q4HP PRN #30 tablet 12/24/18 History of Present Illiness History of Present Illness: Per H&P by Bhaskar brunson PA-C: LINDSAY MELTON is a 48 year old female who unfortunately has metastatic breast cancer stage IV, mets to the lung as well as the brain. Was just in the hospital here about a week ago for chest wall pain. While in the hospital patient did have several episodes of tachycardia but it was felt that this was due to dehydration. He was discharged home to attend her son's graduation in [place]. Patient states that on 2 days ago she started getting short of breath and having palpitations and chest pain. When she woke up at 0500 he was once again having pain mostly pressure well as palpitations and lightheadedness. Patient also states that last night she had chills. States that about 2 months ago she had pneumonia. Patient states that this feels somewhat similar. Also started getting laryngitis on . When patient presents to the ER she appears to be in atrial fib with RVR rate of up to 150. Patient was placed on a Cardizem drip and we were consulted to admit the patient. Hospital Course Hospital Course: The patient was admitted to [facility] on continuous cardiac telemetry. She was initially placed on a diltiazem drip and p.o. Cardizem with conversion to normal sinus rhythm. She has been transitioned to oral diltiazem only; has maintained a normal sinus rhythm throughout the remainder of her admission. She is not a candidate for chronic anticoagulation due to her metastatic breast cancer. The patient's oncologist was consulted; appreciate Dr. Fischer and Dr. Short's assistance. She remained inpatient for pain medication adjustments. Ultimately , adequate pain control was achieved through increasing her Duragesic patch to 150 mcg daily and transitioning from Percocet to oral Dilaudid. She does continue to have significant nausea; moderately well controlled with a combination of oral Phenergan and Zofran. She adamantly declines trial of Reglan. Despite her symptoms, she has consumed more than 50% of each meal on average. Long discussion had today regarding her stability for discharge to home. The patient has significant anxiety regarding plan to discharge; states that she feels " safer in the hospital" where she can be observed. She does confirm that her pain and nausea symptoms are controlled enough that they are no longer prohibitive to discharge. Strongly recommended that the patient recruit a close friend or family member to stay with her and to attend her medical appointments. Also offered palliative or hospice care referrals; patient declined. At time of discharge, patient is in stable condition, with adequately controlled symptoms utilizing oral and transdermal medications. She is ambulatory on room air and at her baseline mental and functional status. She is discharged home with self-care having declined palliative care and home health nursing services. She is provided prescriptions for diltiazem, losartan, HCTZ, p.o. dexamethasone, p.o. Ativan, p.o. Phenergan, p.o. Zofran, and p.o. Dilaudid. She has been instructed that she must follow-up with her oncologist no later than 12/28/2018 to ensure that she does not run out of her narcotic medications. She is advised to take her medications as prescribed. She is instructed to follow-up with her primary care provider within [address] Fischer no later than Friday as previously mentioned. She is encouraged to return to the emergency department as needed for concerning symptoms. Physical Exam Vital Signs: Temp Pulse Resp BP Pulse Ox 98.1 F 87 12 169/133 H 99 12/24/18 11:38 12/24/18 14:00 12/24/18 11:38 12/24/18 11:38 12/24/18 11:38 Intake & Output 12/23/18 12/24/18 12/25/18 06:59 06:59 06:59 Intake Total 1720 2970 720 Balance 1720 2970 720 Weight 91.4 kg General appearance: PRESENT: no acute distress, well-developed, well-nourished Head exam: PRESENT: atraumatic, normocephalic Eye exam: PRESENT: conjunctiva pink, EOMI, PERRLA. ABSENT: scleral icterus Ear exam: PRESENT: normal external ear exam Mouth exam: PRESENT: moist, tongue midline Respiratory exam: PRESENT: clear to auscultation tolu, symmetrical, unlabored. ABSENT: rales, rhonchi, wheezes Cardiovascular exam: PRESENT: RRR, +S1, +S2. ABSENT: diastolic murmur, rubs, systolic murmur Pulses: PRESENT: normal dorsalis pedis pul Vascular exam: PRESENT: normal capillary refill Rectal exam: PRESENT: deferred Extremities exam: PRESENT: full ROM. ABSENT: calf tenderness, clubbing, pedal e zuleima Musculoskeletal exam: PRESENT: ambulatory Neurological exam: PRESENT: alert, awake, oriented to person, oriented to place, oriented to time, oriented to situation, CN II-XII grossly intact, other - stutter. ABSENT: motor sensory deficit Psychiatric exam: PRESENT: anxious, appropriate affect. ABSENT: homicidal ideation, suicidal ideation Skin exam: PRESENT: dry, intact, warm. ABSENT: cyanosis, rash Results Laboratory Results: WBC 9.0 10^3/uL (4.0-10.5) 12/22/18 06:10 RBC 4.38 10^6/uL (3.72-5.28) 12/22/18 06:10 Hgb 12.5 g/dL (12.0-15.5) 12/22/18 06:10 Hct 38.4 % (36.0-47.0) 12/22/18 06:10 MCV 88 fl (80-97) 12/22/18 06:10 MCH 28.5 pg (27.0-33.4) 12/22/18 06:10 MCHC 32.5 g/dL (32.0-36.0) 12/22/18 06:10 RDW 13.9 % (11.5-14.0) 12/22/18 06:10 Plt Count 366 10^3/uL (150-450) 12/22/18 06:10 Lymph % (Auto) 9.4 % (13-45) L 12/22/18 06:10 [place] % (Auto) 4.6 % (3-13) 12/22/18 06:10 Eos % (Auto) 0.0 % (0-6) 12/22/18 06:10 Baso % (Auto) 0.2 % (0-2) 12/22/18 06:10 Absolute Neuts (auto) 7.7 10^3/uL (1.7-8.2) 12/22/18 06:10 Absolute Lymphs (auto) 0.8 10^3/uL (0.5-4.7) 12/22/18 06:10 Absolute Monos (auto) 0.4 10^3/uL (0.1-1.4) 12/22/18 06:10 Absolute Eos (auto) 0.0 10^3/uL (0.0-0.6) 12/22/18 06:10 Absolute Basos (auto) 0.0 10^3/uL (0.0-0.2) 12/22/18 06:10 Total Counted 100 12/20/18 08:19 Seg Neutrophils % 85.8 % (42-78) H 12/22/18 06:10 Seg Neuts % (Manual) 49 % (42-78) 12/20/18 08:19 Lymphocytes % (Manual) 30 % (13-45) 12/20/18 08:19 Monocytes % (Manual) 19 % (3-13) H 12/20/18 08:19 Eosinophils % (Manual) 1 % (0-6) 12/20/18 08:19 Basophils % (Manual) 1 % (0-2) 12/20/18 08:19 Abs Neuts (Manual) 2.0 10^3/uL (1.7-8.2) 12/20/18 08: Abs Lymphs (Manual) 1.2 10^3/uL (0.5-4.7) 12/20/18 08:19 Abs Monocytes (Manual) 0.8 10^3/uL (0.1-1.4) 12/20/18 08:19 Absolute Eos (Manual) 0.0 10^3/uL (0.0-0.6) 12/20/18 08:19 Abs Basophils (Manual) 0.0 10^3/uL (0.0-0.2) 12/20/18 08:19 Platelet Comment ADEQUATE 12/20/18 08:19 Anisocytosis SLIGHT 12/20/18 08:19 Sodium 139.3 mmol/L (137-145) 12/21/18 11:00 Potassium 3.8 mmol/L (3.6-5.0) 12/21/18 11:00 Chloride 108 mmol/L (98-107) H 12/21/18 11:00 Carbon Dioxide 20 mmol/L (22-30) L 12/21/18 11:00 Anion Gap 11 (5-19) 12/21/18 11:00 BUN 6 mg/dL (7-20) L 12/21/18 11:00 Creatinine 0.40 mg/dL (0.52-1.25) L 12/21/18 11:00 Est GFR ( Amer) > 60 (>60) 12/21/18 11:00 Est GFR (MDRD) Non-Af > 60 (>60) 12/21/18 11:00 Glucose 92 mg/dL (75-110) 12/21/18 11:00 Calcium 7.5 mg/dL (8.4-10.2) L 12/21/18 11:00 Magnesium 1.6 mg/dL (1.6-2.3) 12/21/18 11:00 Total Bilirubin 0.5 mg/dL (0.2-1.3) 12/19/18 08:50 Direct Bilirubin 0.1 mg/dL (0.0-0.4) 12/19/18 08:50 Neonat Total Bilirubin Not Reportable 12/19/18 08:50 Neonat Direct Bilirubin Not Reportable 12/19/18 08:50 Neonat Indirect Bili Not Reportable 12/19/18 08:50 AST 39 U/L (14-36) H 12/19/18 08:50 ALT 23 U/L (<35) 12/19/18 08:50 Alkaline Phosphatase 88 U/L (38-126) 12/19/18 08:50 Troponin I < 0.012 ng/mL 12/19/18 08:50 Total Protein 6.8 g/dL (6.3-8.2) 12/19/18 08:50 Albumin 3.7 g/dL (3.5-5.0) 12/19/18 08:50 TSH 0.47 uIU/mL (0.47-4.68) 12/19/18 14:49 Urine Color STRAW 12/19/18 10:02 Urine Appearance CLEAR 12/19/18 10:02 Urine pH 8.0 (5.0-9.0) 12/19/18 10:02 Ur Specific [place] 1.004 12/19/18 10:02 Urine Protein NEGATIVE mg/dL (NEGATIVE) 12/19/18 10:02 Urine Glucose (UA) NEGATIVE mg/dL (NEGATIVE) 12/19/18 10:02 Urine Ketones NEGATIVE mg/dL (NEGATIVE) 12/19/18 10:02 Urine Blood NEGATIVE (NEGATIVE) 12/19/18 10:02 Urine Nitrite NEGATIVE (NEGATIVE) 12/19/18 10:02 Urine Bilirubin NEGATIVE (NEGATIVE) 12/19/18 10:02 Urine Urobilinogen NEGATIVE mg/dL (<2.0) 12/19/18 10:02 Ur Leukocyte Esterase NEGATIVE (NEGATIVE) 12/19/18 10:02 Urine WBC (Auto) 0 /HPF 12/19/18 10:02 Urine Bacteria (Auto) 3+ /HPF 12/19/18 10:02 Squamous Epi Cells Auto 3 /HPF 12/19/18 10:02 Urine Mucus (Auto) RARE /LPF 12/19/18 10:02 Urine Ascorbic Acid NEGATIVE (NEGATIVE) 12/19/18 10:02 12/19/18 08:50 Troponin I < 0.012 Impressions: Chest X-Ray 12/19/18 09:39 IMPRESSION: 16 mm nodule versus superimposed shadows left mid lung Clips right axilla post breast surgery. Metallic breast implant tissue expanders Chest/Abdomen CTA 12/19/18 09:48 IMPRESSION: Lung parenchyma and mediastinal metastatic disease No CT angio evidence of thoracic aortic dissection or acute pulmonary emboli Mild mass effect on the superior vena cava by mediastinal adenopathy Guidance Fluoroscopy 12/21/18 00:00 IMPRESSION: SUCCESSFUL PLACEMENT OF A 5 FR DUAL LUMEN 41 CM PICC IN THE LEFT BASILIC VEIN. Interventional Vascular Procedure 12/21/18 00:00 IMPRESSION: SUCCESSFUL PLACEMENT OF A 5 FR DUAL LUMEN 41 CM PICC IN THE LEFT BASILIC VEIN. PICC Line Insertion 12/21/18 00:00 IMPRESSION: SUCCESSFUL PLACEMENT OF A 5 FR DUAL LUMEN 41 CM PICC IN THE LEFT BASILIC VEIN. Plan Plan of Treatment: Follow-up with your primary care provider within 1 week. Follow-up with Dr. Fischer no later than 12/28/2018. Take medications as prescribed. Return to the emergency department as needed for concerning symptoms. Time Spent: Greater than 30 Minutes Stroke Is this a Stroke Patient?: No Acute Heart Failure - Is this a Heart Failure Patient?: No
[2018-12-24] MEDS: DILTIAZEM HCL 120 MG CAP.SR.24H PO SCH (21:29)
[2018-12-25] MEDS: HYDROMORPHONE HCL INJ/PF 2 MG/ML AMPULE IV PRN ×4 (05:34→21:22)
--- NOTE | 2018-12-25 09:01 | PDOC PROGRESS REPORT ---
Subjective Progress Note for:: 12/25/18 Subjective:: 12/25/2018-increased pain this morning Reason For Visit: AFIB WTH RVR,LUNG CANCER,BREAST CANCER WITH Physical Exam Vital Signs: Temp Pulse Resp BP Pulse Ox 97.6 F 91 15 161/91 H 100 12/25/18 07:25 12/25/18 07:25 12/25/18 07:25 12/25/18 07:25 12/25/18 07:25 Intake & Output 12/24/18 12/25/18 12/26/18 06:59 06:59 06:59 Intake Total 2970 870 Balance 2970 870 Weight 91 kg 91 kg General appearance: PRESENT: no acute distress, well-developed, well-nourished Neck exam: ABSENT: carotid bruit, JVD, lymphadenopathy, thyromegaly Respiratory exam: PRESENT: clear to auscultation tolu. ABSENT: rales, rhonchi, wheezes Cardiovascular exam: PRESENT: RRR. ABSENT: diastolic murmur, rubs, systolic murmur Pulses: PRESENT: normal dorsalis pedis pul Vascular exam: PRESENT: normal capillary refill GI/Abdominal exam: PRESENT: normal bowel sounds, soft. ABSENT: distended, guarding, mass, organolmegaly, rebound, tenderness Extremities exam: PRESENT: full ROM. ABSENT: calf tenderness, clubbing, pedal edema Neurological exam: PRESENT: alert, awake, oriented to person, oriented to place, oriented to time, oriented to situation, CN II-XII grossly intact. ABSENT: motor sensory deficit Psychiatric exam: PRESENT: appropriate affect, normal mood. ABSENT: homicidal ideation, suicidal ideation Skin exam: PRESENT: dry, intact, warm, other - Bilateral mastectomy. ABSENT: cyanosis, rash Adult Front & Back Image: 1 - PICC line 2 - Bilateral mastectomy Results Laboratory Results: 12/22/18 06:10 12/21/18 11:00 12/19/18 12:20 Blood Blood Culture - Final NO GROWTH IN 5 DAYS 12/19/18 10:30 Blood Blood Culture - Final NO GROWTH IN 5 DAYS 12/19/18 08:50 Troponin I < 0.012 Impressions: Chest X-Ray 12/19/18 09:39 IMPRESSION: 16 mm nodule versus superimposed shadows left mid lung Clips right axilla post breast surgery. Metallic breast implant tissue expanders Chest/Abdomen CTA 12/19/18 09:48 IMPRESSION: Lung parenchyma and mediastinal metastatic disease No CT angio evidence of thoracic aortic dissection or acute pulmonary emboli Mild mass effect on the superior vena cava by mediastinal adenopathy Guidance Fluoroscopy 12/21/18 00:00 IMPRESSION: SUCCESSFUL PLACEMENT OF A 5 FR DUAL LUMEN 41 CM PICC IN THE LEFT BASILIC VEIN. Interventional Vascular Procedure 12/21/18 00:00 IMPRESSION: SUCCESSFUL PLACEMENT OF A 5 FR DUAL LUMEN 41 CM PICC IN THE LEFT BASILIC VEIN. PICC Line Insertion 12/21/18 00:00 IMPRESSION: SUCCESSFUL PLACEMENT OF A 5 FR DUAL LUMEN 41 CM PICC IN THE LEFT BASILIC VEIN. Assessment and Plan - Diagnosis (1) Uncontrolled pain Is this a current diagnosis for this admission?: Yes Plan: Pain medications per Oncologist. Currently on Duragesic patch to 150 mcg daily, p.o. Dilaudid 4 mg every 3 hours as needed, IV Dilaudid to 2 mg every 3 hours as needed. Continue Tylenol as needed. Antiemetics and Benadryl as needed. Encourage nonpharmacological interventions. 12/25/2018-been followed by Dr. Annie sanon. Plan is to help patient over the weekend placed Port-A-Cath on Friday. Patient is willing to take chemotherapy at this time. Pain medication per Dr. Annie sanon. Continue to follow (2) Atrial fibrillation Qualifiers: Atrial fibrillation type: paroxysmal Qualified Code(s): I48.0 - Paroxysmal atrial fibrillation Is this a current diagnosis for this admission?: Yes Plan: Resolved; remains in normal sinus rhythm on p.o. diltiazem. Not a candidate for chronic anticoagulation secondary to breast cancer with brain metastasis. 12/25/2018-stable continue to follow sinus rhythm at this time (3) Upper respiratory infection Qualifiers: URI type: unspecified URI Qualified Code(s): J06.9 - Acute upper respiratory infection, unspecified Is this a current diagnosis for this admission?: Yes Plan: Blood cultures are negative at 4 days Continue IV azithromycin; day #3. Nebulizer treatments as needed. Robitussin as needed. Chloraseptic [place] as needed Tessalon Perles as needed. 12/25/2018-patient remains on azithromycin. Supportive measures as needed. (4) Hypertension Qualifiers: Hypertension type: unspecified Qualified Code(s): I10 - Essential (primary) hypertension Is this a current diagnosis for this admission?: Yes Plan: Blood pressures remain elevated, although overall improved. 153/90 today. Continue p.o. diltiazem. Will start losartan/HCTZ. Cardiac diet. 12/25/2018-remains elevated 160s over 90s. Have added Norvasc 5 mill grams p.o. daily we will continue to follow titrate as needed (5) Metastatic breast cancer Is this a current diagnosis for this admission?: Yes Plan: Hematology/oncology are consulted; primary management per their expertise. Discharge planning is consulted. 12/25/2018-being followed by Annie sanon. Pain management per kilogram. Continue to follow - Time Time Spent with patient: 15-24 minutes - Inpatient Certification Based on my medical assessment, after consideration of the patient's comorbidities, presenting symptoms, or acuity I expect that the services needed warrant INPATIENT care.: Yes I certify that my determination is in accordance with my understanding of Medicare's requirements for reasonable and necessary INPATIENT services [42 CFR 412.3e].: Yes Medical Necessity: Need for Pain Control, Need for IV Antibiotics
[2018-12-25] MEDS ORDERED: CALCIUM GLUCONATE 1000 MG/10 ML INJ IV ONE (09:30)
--- NOTE | 2018-12-25 09:39 | PDOC PROGRESS REPORT ---
Subjective Progress Note for:: 12/25/18 Subjective:: Had long discussion today about next steps of care, pt still in severe pain this am, coughing, gagging, needs to be put back on IV dilaudid. I discussed goals of therapy and expectations at length, talked about treatment options. Ultimately, she has decided on going ahead w/ chemo, port placement on friday, and planned for chemo/rx on friday, I changed her pain meds to get IV pain dilaudid and IV phenergan/benedryl, spent 1 hour in discussion this am Reason For Visit: AFIB WTH RVR,LUNG CANCER,BREAST CANCER WITH Physical Exam Vital Signs: Temp Pulse Resp BP Pulse Ox 97.6 F 91 15 161/91 H 100 12/25/18 07:25 12/25/18 07:25 12/25/18 07:25 12/25/18 07:25 12/25/18 07:25 Intake & Output 12/24/18 12/25/18 12/26/18 06:59 06:59 06:59 Intake Total 2970 870 Balance 2970 870 Weight 91 kg 91 kg General appearance: PRESENT: no acute distress, well-developed, well-nourished Head exam: PRESENT: atraumatic, normocephalic Eye exam: PRESENT: conjunctiva pink, EOMI, PERRLA. ABSENT: scleral icterus Ear exam: PRESENT: normal external ear exam Mouth exam: PRESENT: moist, tongue midline Neck exam: ABSENT: carotid bruit, JVD, lymphadenopathy, thyromegaly Respiratory exam: PRESENT: clear to auscultation tolu. ABSENT: rales, rhonchi, wheezes Cardiovascular exam: PRESENT: RRR. ABSENT: diastolic murmur, rubs, systolic murmur Pulses: PRESENT: normal dorsalis pedis pul Vascular exam: PRESENT: normal capillary refill GI/Abdominal exam: PRESENT: normal bowel sounds, soft. ABSENT: distended, guarding, mass, organolmegaly, rebound, tenderness Rectal exam: PRESENT: deferred Extremities exam: PRESENT: full ROM. ABSENT: calf tenderness, clubbing, pedal edema Neurological exam: PRESENT: alert, awake, oriented to person, oriented to place, oriented to time, oriented to situation, CN II-XII grossly intact. ABSENT: motor sensory deficit Psychiatric exam: PRESENT: appropriate affect, normal mood. ABSENT: homicidal ideation, suicidal ideation Skin exam: PRESENT: dry, intact, warm. ABSENT: cyanosis, rash Results Laboratory Results: 12/22/18 06:10 12/21/18 11:00 12/19/18 12:20 Blood Blood Culture - Final NO GROWTH IN 5 DAYS 12/19/18 10:30 Blood Blood Culture - Final NO GROWTH IN 5 DAYS 12/19/18 08:50 Troponin I < 0.012 Impressions: Chest X-Ray 12/19/18 09:39 IMPRESSION: 16 mm nodule versus superimposed shadows left mid lung Clips right axilla post breast surgery. Metallic breast implant tissue expanders Chest/Abdomen CTA 12/19/18 09:48 IMPRESSION: Lung parenchyma and mediastinal metastatic disease No CT angio evidence of thoracic aortic dissection or acute pulmonary emboli Mild mass effect on the superior vena cava by mediastinal adenopathy Guidance Fluoroscopy 12/21/18 00:00 IMPRESSION: SUCCESSFUL PLACEMENT OF A 5 FR DUAL LUMEN 41 CM PICC IN THE LEFT BASILIC VEIN. Interventional Vascular Procedure 12/21/18 00:00 IMPRESSION: SUCCESSFUL PLACEMENT OF A 5 FR DUAL LUMEN 41 CM PICC IN THE LEFT BASILIC VEIN. PICC Line Insertion 12/21/18 00:00 IMPRESSION: SUCCESSFUL PLACEMENT OF A 5 FR DUAL LUMEN 41 CM PICC IN THE LEFT BASILIC VEIN. Assessment & Plan - Diagnosis (1) Metastatic breast cancer Is this a current diagnosis for this admission?: Yes Plan: Pt agrees w/ tx, start chemo w/ carbo AUC 5 + Gemzar 750mg/m2, port placement friday, Dr. salcedo seeing pt now (2) Atrial fibrillation Qualifiers: Atrial fibrillation type: paroxysmal Qualified Code(s): I48.0 - Paroxysmal atrial fibrillation Is this a current diagnosis for this admission?: Yes Plan: control on PO cardizem (3) Nausea & vomiting Qualifiers: Vomiting type: unspecified Vomiting Intractability: intractable Qualified Code(s): R11.2 - Nausea with vomiting, unspecified Is this a current diagnosis for this admission?: Yes Plan: Severe still, readd IV phenergan (4) Uncontrolled pain Is this a current diagnosis for this admission?: Yes Plan: Restart IV dilaudid alternative w/ oral diluaudid (5) Dehydration Is this a current diagnosis for this admission?: Yes Plan: cont hydrtation - Time Time Spent with patient: 35 or more minutes - Inpatient Certification Based on my medical assessment, after consideration of the patient's comorbidities, presenting symptoms, or acuity I expect that the services needed warrant INPATIENT care.: Yes I certify that my determination is in accordance with my understanding of Medicare's requirements for reasonable and necessary INPATIENT services [42 CFR 412.3e].: Yes Medical Necessity: Need For IV Fluids, Need for Pain Control, Risk of Complication if Not Cared For in Hospital
[2018-12-25] MEDS ORDERED: AMLODIPINE BESYLATE 5 MG TABLET PO SCH (10:00)
[2018-12-25] MEDS: FENTANYL 100 MCG/HR PATCH.TD72 TD SCH (10:03)
[2018-12-25] MEDS: ENOXAPARIN SODIUM INJ 40 MG/0.4 ML DISP.SYRIN SUBCUT SCH (10:04)
[2018-12-25] MEDS: FENTANYL 50 MCG/HR PATCH.TD72 TD SCH (10:04)
[2018-12-25] MEDS: DOCUSATE SODIUM 100 MG CAPSULE PO SCH ×2 (10:05→17:53)
[2018-12-25] MEDS: HYDROCHLOROTHIAZIDE 12.5 MG TABLET PO SCH (10:05)
[2018-12-25] MEDS: DILTIAZEM HCL 120 MG CAP.SR.24H PO SCH ×2 (10:05→21:20)
[2018-12-25] MEDS: LOSARTAN POTASSIUM 25 MG TABLET PO SCH (10:05)
[2018-12-25] MEDS: FAMOTIDINE 20 MG TABLET PO SCH ×2 (10:05→21:21)
[2018-12-25] MEDS: HYDROMORPHONE HCL 2 MG TABLET PO PRN ×2 (10:06→14:43)
[2018-12-25] MEDS: NORMAL SALINE 10 ML SDV (SCHEDULED) IV SCH ×2 (10:07→21:21)
[2018-12-25] MEDS: PROMETHAZINE HCL INJ 25 MG/1 ML VIAL IV PRN ×4 (10:07→21:22)
[2018-12-25] MEDS: DEXAMETHASONE 4 MG TABLET PO SCH ×2 (10:29→13:09)
[2018-12-25] MEDS: GUAIFENESIN SYRP 200 MG/10 ML UDC PO PRN (10:29)
[2018-12-25] MEDS: BENZONATATE 100 MG CAPSULE PO PRN (10:29)
[2018-12-25] MEDS: DIPHENHYDRAMINE HCL 50 MG/ML VIAL IV PRN ×2 (11:22→17:57)
[2018-12-25] MEDS: AZITHROMYCIN 250 MG TABLET PO SCH (11:22)
[2018-12-25] MEDS: LORAZEPAM 0.5 MG TABLET PO SCH ×2 (11:26→17:53)
--- NOTE | 2018-12-25 17:41 | PDOC CONSULTATION ---
Consultation Consult Date: 12/25/18 Provider Consulted: CHANELLE MELARA Consult reason:: Placement of MediPort for chemotherapy History of Present Illness Admission Date/PCP: 12/19/18 11:54 SEJAL DIAZ DO History of Present Illness: LINDSAY MELTON is a 48 year old female with stage IV breast cancer with mets to the brain and to the lungs. We were asked by oncology to place Mediport Friday for chemotherapy. Patient on atrial fibrillation and on p.o. Cardizem right now. Past Medical History Cardiac Medical History: Reports: Hypertension Denies: Coronary Artery Disease, Myocardial Infarction Pulmonary Medical History: Reports: None Denies: Asthma, Bronchitis, Chronic Obstructive Pulmonary Disease (COPD), Pneumonia EENT Medical History: Reports: None Neurological Medical History: Reports: None Denies: Seizures Endocrine Medical History: Reports: None Renal/ Medical History: Reports: None Malignancy Medical History: Reports: Breast Cancer, Lung Cancer GI Medical History: Reports: None Musculoskeltal Medical History: Reports: None Denies: Arthritis Skin Medical History: Reports: None Psychiatric Medical History: Reports: None Traumatic Medical History: Reports: None Hematology: Denies: Anemia Infectious Medical History: Reports: None Past Surgical History Past Surgical History: Reports: Hysterectomy, Other - Bilateral mastectomy Social History Lives with: Family Smoking Status: Unknown if Ever Smoked Frequency of Alcohol Use: None Hx Recreational Drug Use: No Drugs: None Hx Prescription Drug Abuse: No - Advance Directive Resuscitation Status: Full Code Family History Family History: Hypertension Parental Family History Reviewed: Yes Children Family History Reviewed: No Sibling(s) Family History Reviewed.: No Medication/Allergy Home Medications: Fentanyl [Duragesic 100 Mcg/Hr Transdermal Patch] 1 patch TOP Q3D 12/19/18 Acetaminophen [Tylenol 325 mg Tablet] 650 mg PO Q4HP PRN tablet 12/24/18 Azithromycin [Zithromax 250 mg Tablet] 250 mg PO NOON #2 tablet 12/24/18 Benzonatate [Tessalon Perles 100 mg Capsule] 100 mg PO Q8HP PRN #12 capsule 12/24/18 Dexamethasone [Decadron 4 mg Tablet] 4 mg PO BIDBL #10 tablet 12/24/18 Diltiazem HCl [Cardizem Cd 120 mg Capsule] 120 mg PO Q12 #60 cap.sr.24h 12/24/18 Diphenhydramine HCl [Benadryl 25 mg Capsule] 25 mg PO Q6HP PRN capsule 12/24/18 Docusate Sodium [Colace 100 mg Capsule] 100 mg PO BID capsule 12/24/18 Fentanyl [Duragesic 100 Mcg/Hr Transdermal Patch] 1 each TD Q3DAYS patch.td72 12/24/18 Fentanyl [Duragesic 50 Mcg/Hr Transdermal Patch] 1 each TD Q3DAYS #2 patch.td72 12/24/18 Guaifenesin [Robitussin Syrup 200 mg/10 ml Ud Cup] 200 mg PO Q4HP PRN udc 12/24/18 Hydrochlorothiazide [Hydrodiuril 12.5 mg Tablet] 12.5 mg PO QAM #30 tablet 12/24/18 Hydromorphone HCl [Dilaudid 2 mg Tablet] 4 mg PO Q3HP PRN #30 tablet 12/24/18 Lorazepam [Ativan 0.5 mg Tablet] 0.5 mg PO BID #8 tablet 12/24/18 Losartan Potassium [Cozaar 25 mg Tablet] 25 mg PO DAILY #30 tablet 12/24/18 Ondansetron [Zofran Odt 4 mg Tablet] 8 mg PO Q6HP PRN #20 tab.rapdis 12/24/18 Phenol/Sodium Phenolate [Chloraseptic Sore Throat [place] 177 ml] 2 spray PO PRN PRN bottle 12/24/18 Promethazine HCl [Phenergan 25 mg Tablet] 25 mg PO Q4HP PRN #30 tablet 12/24/18 Allergies/Adverse Reactions: No Known Allergies Allergy (Verified 12/02/18 15:11) Review of Systems Constitutional: PRESENT: as per HPI Physical Exam Vital Signs: Temp Pulse Resp BP Pulse Ox 97.7 F 76 17 147/113 H 97 12/25/18 11:58 12/25/18 11:58 12/25/18 11:58 12/25/18 11:58 12/25/18 11:58 Intake & Output 12/24/18 12/25/18 12/26/18 06:59 06:59 06:59 Intake Total 2970 870 350 Balance 2970 870 350 Weight 91 kg 91 kg 91 kg General appearance: PRESENT: no acute distress Respiratory exam: PRESENT: clear to auscultation tolu Cardiovascular exam: PRESENT: irregular rhythm Pulses: PRESENT: normal radial pulses Vascular exam: PRESENT: normal capillary refill GI/Abdominal exam: PRESENT: soft Extremities exam: PRESENT: full ROM Musculoskeletal exam: PRESENT: ambulatory Neurological exam: PRESENT: alert, oriented to person, oriented to place, oriented to time, oriented to situation Psychiatric exam: PRESENT: appropriate affect Skin exam: PRESENT: normal color, warm Results Laboratory Results: 12/22/18 06:10 12/21/18 11:00 12/19/18 08:50 Troponin I < 0.012 Impressions: Chest X-Ray 12/19/18 09:39 IMPRESSION: 16 mm nodule versus superimposed shadows left mid lung Clips right axilla post breast surgery. Metallic breast implant tissue expanders Chest/Abdomen CTA 12/19/18 09:48 IMPRESSION: Lung parenchyma and mediastinal metastatic disease No CT angio evidence of thoracic aortic dissection or acute pulmonary emboli Mild mass effect on the superior vena cava by mediastinal adenopathy Guidance Fluoroscopy 12/21/18 00:00 IMPRESSION: SUCCESSFUL PLACEMENT OF A 5 FR DUAL LUMEN 41 CM PICC IN THE LEFT BASILIC VEIN. Interventional Vascular Procedure 12/21/18 00:00 IMPRESSION: SUCCESSFUL PLACEMENT OF A 5 FR DUAL LUMEN 41 CM PICC IN THE LEFT BASILIC VEIN. PICC Line Insertion 12/21/18 00:00 IMPRESSION: SUCCESSFUL PLACEMENT OF A 5 FR DUAL LUMEN 41 CM PICC IN THE LEFT BASILIC VEIN. Assessment & Plan - Diagnosis (1) Atrial fibrillation Qualifiers: Atrial fibrillation type: paroxysmal Qualified Code(s): I48.0 - Paroxysmal atrial fibrillation Is this a current diagnosis for this admission?: Yes (2) Metastatic breast cancer Is this a current diagnosis for this admission?: Yes - Time Time Spent: 30 to 50 Minutes - Plan Summary Plan Summary: We will place Chemo-Port on Friday per her oncologist and patient's request. We will check coag studies
[2018-12-25] MEDS ORDERED: DEXTROSE 40% GEL 15 GM TUBE PO PRN ×2 (17:43)
[2018-12-25] MEDS ORDERED: GLUCAGON,HUMAN RECOMB 1 MG INJ SUBCUT PRN (17:43)
[2018-12-25] MEDS ORDERED: DEXTROSE 50%-WATER 25 GM/50 ML DISP.SYRIN IV PRN ×2 (17:43)
[2018-12-26] MEDS: DIPHENHYDRAMINE HCL 50 MG/ML VIAL IV PRN ×5 (01:02→22:07)
[2018-12-26] MEDS: PROMETHAZINE HCL INJ 25 MG/1 ML VIAL IV PRN ×6 (01:02→22:07)
[2018-12-26] MEDS: HYDROMORPHONE HCL INJ/PF 2 MG/ML AMPULE IV PRN ×6 (01:03→22:07)
[2018-12-26] MEDS: NORMAL SALINE 10 ML SDV (AFTER EACH USE) IV PRN ×3 (01:04→06:40)
[2018-12-26] MEDS: HYDROCHLOROTHIAZIDE 12.5 MG TABLET PO SCH (08:42)
[2018-12-26] MEDS: DEXAMETHASONE 4 MG TABLET PO SCH ×2 (08:42→12:46)
--- NOTE | 2018-12-26 09:33 | PDOC PROGRESS REPORT ---
Subjective Progress Note for:: 12/26/18 Subjective:: 12/25/2018-increased pain this morning 12/26/2018-no complaints this morning other than itching Reason For Visit: PICC/ PAC? GEMZAR/CARBOPLATIN- 332 Physical Exam Vital Signs: Temp Pulse Resp BP Pulse Ox 98.6 F 82 12 163/104 H 98 12/26/18 07:38 12/26/18 07:38 12/26/18 04:00 12/26/18 07:38 12/26/18 07:38 Intake & Output 12/25/18 12/26/18 12/27/18 06:59 06:59 06:59 Intake Total 870 990 Balance 870 990 Weight 91 kg 94.9 kg General appearance: PRESENT: no acute distress, well-developed, well-nourished Neck exam: ABSENT: carotid bruit, JVD, lymphadenopathy, thyromegaly Respiratory exam: PRESENT: clear to auscultation tolu. ABSENT: rales, rhonchi, wheezes Cardiovascular exam: PRESENT: RRR. ABSENT: diastolic murmur, rubs, systolic murmur Pulses: PRESENT: normal dorsalis pedis pul Vascular exam: PRESENT: normal capillary refill GI/Abdominal exam: PRESENT: normal bowel sounds, soft. ABSENT: distended, guarding, mass, organolmegaly, rebound, tenderness Extremities exam: PRESENT: full ROM. ABSENT: calf tenderness, clubbing, pedal edema Neurological exam: PRESENT: alert, awake, oriented to person, oriented to place, oriented to time, oriented to situation, CN II-XII grossly intact. ABSENT: mot or sensory deficit Psychiatric exam: PRESENT: appropriate affect, normal mood. ABSENT: homicidal ideation, suicidal ideation Skin exam: PRESENT: dry, intact, warm, other - Bilateral mastectomy. ABSENT: cyanosis, rash Results Laboratory Results: 12/22/18 06:10 12/21/18 11:00 12/19/18 08:50 Troponin I < 0.012 Impressions: Chest X-Ray 12/19/18 09:39 IMPRESSION: 16 mm nodule versus superimposed shadows left mid lung Clips right axilla post breast surgery. Metallic breast implant tissue expanders Chest/Abdomen CTA 12/19/18 09:48 IMPRESSION: Lung parenchyma and mediastinal metastatic disease No CT angio evidence of thoracic aortic dissection or acute pulmonary emboli Mild mass effect on the superior vena cava by mediastinal adenopathy Guidance Fluoroscopy 12/21/18 00:00 IMPRESSION: SUCCESSFUL PLACEMENT OF A 5 FR DUAL LUMEN 41 CM PICC IN THE LEFT BASILIC VEIN. Interventional Vascular Procedure 12/21/18 00:00 IMPRESSION: SUCCESSFUL PLACEMENT OF A 5 FR DUAL LUMEN 41 CM PICC IN THE LEFT BASILIC VEIN. PICC Line Insertion 12/21/18 00:00 IMPRESSION: SUCCESSFUL PLACEMENT OF A 5 FR DUAL LUMEN 41 CM PICC IN THE LEFT BASILIC VEIN. Assessment and Plan - Diagnosis (1) Uncontrolled pain Is this a current diagnosis for this admission?: Yes Plan: Pain medications per Oncologist. Currently on Duragesic patch to 150 mcg daily, p.o. Dilaudid 4 mg every 3 hours as needed, IV Dilaudid to 2 mg every 3 hours as needed. Continue Tylenol as needed. Antiemetics and Benadryl as needed. Encourage nonpharmacological interventions. 12/25/2018-been followed by Dr. Annie sanon. Plan is to help patient over the weekend placed Port-A-Cath on Friday. Patient is willing to take chemotherapy at this time. Pain medication per Dr. Annie sanon. Continue to follow 12/26/2018-pain management per Dr. Annie sanon (2) Atrial fibrillation Qualifiers: Atrial fibrillation type: paroxysmal Qualified Code(s): I48.0 - Paroxysmal atrial fibrillation Is this a current diagnosis for this admission?: Yes Plan: Resolved; remains in normal sinus rhythm on p.o. diltiazem. Not a candidate for chronic anticoagulation secondary to breast cancer with brain metastasis. 12/25/2018-stable continue to follow sinus rhythm at this time Ten -stable at this time (3) Upper respiratory infection Qualifiers: URI type: unspecified URI Qualified Code(s): J06.9 - Acute upper r espiratory infection, unspecified Is this a current diagnosis for this admission?: Yes Plan: Blood cultures are negative at 4 days Continue IV azithromycin; day #3. Nebulizer treatments as needed. Robitussin as needed. Chloraseptic [place] as needed Tessalon Perles as needed. 12/25/2018-patient remains on azithromycin. Supportive measures as needed. 12/26/2018-remains on azithromycin continue supportive measures (4) Hypertension Qualifiers: Hypertension type: unspecified Qualified Code(s): I10 - Essential (primary) hypertension Is this a current diagnosis for this admission?: Yes Plan: Blood pressures remain elevated, although overall improved. 153/90 today. Continue p.o. diltiazem. Will start losartan/HCTZ. Cardiac diet. 12/25/2018-remains elevated 160s over 90s. Have added Norvasc 5 mill grams p.o. daily we will continue to follow titrate as needed 12/26/2018-remains elevated in 160 systolic. I have increased her Norvasc 10 mg p.o. daily continue to follow (5) Metastatic breast cancer Is this a current diagnosis for this admission?: Yes Plan: Hematology/oncology are consulted; primary management per their expertise. Discharge planning is consulted. 12/25/2018-being followed by Annie sanon. Pain management per Annie sanon. Continue to follow 12/26/2018-followed by oncology - Time Time Spent with patient: 15-24 minutes - Inpatient Certification Based on my medical assessment, after consideration of the patient's comorbidities, presenting symptoms, or acuity I expect that the services needed warrant INPATIENT care.: Yes I certify that my determination is in accordance with my understanding of Medicare's requirements for reasonable and necessary INPATIENT services [42 CFR 412.3e].: Yes Medical Necessity: Need for Pain Control, Other - Possible Port-A-Cath placed on Friday
[2018-12-26] MEDS: HYDROMORPHONE HCL 2 MG TABLET PO PRN (11:03)
[2018-12-26] MEDS: LORAZEPAM 0.5 MG TABLET PO SCH ×2 (11:03→17:22)
[2018-12-26] MEDS: DILTIAZEM HCL 120 MG CAP.SR.24H PO SCH ×2 (11:03→22:07)
[2018-12-26] MEDS: FAMOTIDINE 20 MG TABLET PO SCH ×2 (11:03→22:08)
[2018-12-26] MEDS: DOCUSATE SODIUM 100 MG CAPSULE PO SCH ×2 (11:03→17:22)
[2018-12-26] MEDS: NORMAL SALINE 10 ML SDV (SCHEDULED) IV SCH ×2 (11:04→22:08)
[2018-12-26] MEDS: LOSARTAN POTASSIUM 25 MG TABLET PO SCH (11:04)
[2018-12-26] MEDS: ENOXAPARIN SODIUM INJ 40 MG/0.4 ML DISP.SYRIN SUBCUT SCH (11:04)
[2018-12-26] MEDS: AMLODIPINE BESYLATE 10 MG TABLET PO SCH (11:04)
[2018-12-26 11:30] LABS: HEMATOCRIT 40.3 % (36.0-47.0); HEMOGLOBIN 13.4 g/dL (12.0-15.5); MEAN CORPUSCULAR HEMOGLOBIN 28.6 pg (27.0-33.4); MEAN CORPUSCULAR HGB CONC 33.3 g/dL (32.0-36.0); MEAN CORPUSCULAR VOLUME 86 fl (80-97); PLATELET COUNT 345 10^3/uL (150-450); RED BLOOD COUNT 4.69 10^6/uL (3.72-5.28); RED CELL DISTRIBUTION WIDTH 13.8 % (11.5-14.0); WHITE BLOOD COUNT 8.6 10^3/uL (4.0-10.5)
[2018-12-26 11:40] LABS: INTERNATIONAL RATION (INR) 0.96; PROTHROMBIN TIME 12.8 SEC (11.4-15.4)
[2018-12-26 11:47] LABS: ANION GAP 10 (5-19); BLOOD UREA NITROGEN 19 mg/dL (7-20); CALCIUM 9.7 mg/dL (8.4-10.2); CARBON DIOXIDE 31 mmol/L (22-30); CHLORIDE 95 mmol/L (98-107); GLUCOSE 121 mg/dL (75-110)
--- NOTE | 2018-12-26 11:53 | PDOC PROGRESS REPORT ---
Subjective Progress Note for:: 12/26/18 Subjective:: No new complaints. She states that the plan is to continue inpatient until Friday, and then discuss further with Dr. Fischer. She is not willing to discuss discharge at all right now, or tell me what more we need to accomplish during her hospitalization. Reason For Visit: PICC/ PAC? GEMZAR/CARBOPLATIN- 332 Physical Exam Vital Signs: Temp Pulse Resp BP Pulse Ox 98.6 F 82 12 163/104 H 98 12/26/18 07:38 12/26/18 07:38 12/26/18 04:00 12/26/18 07:38 12/26/18 07:38 Intake & Output 12/25/18 12/26/18 12/27/18 06:59 06:59 06:59 Intake Total 870 990 Balance 870 990 Weight 91 kg 94.9 kg Results Laboratory Results: 12/26/18 11:00 12/26/18 11:00 WBC 8.6 RBC 4.69 Hgb 13.4 Hct 40.3 MCV 86 MCH 28.6 MCHC 33.3 RDW 13.8 Plt Count 345 12/19/18 08:50 Troponin I < 0.012 Impressions: Chest X-Ray 12/19/18 09:39 IMPRESSION: 16 mm nodule versus superimposed shadows left mid lung Clips right axilla post breast surgery. Metallic breast implant tissue expanders Chest/Abdomen CTA 12/19/18 09:48 IMPRESSION: Lung parenchyma and mediastinal metastatic disease No CT angio evidence of thoracic aortic dissection or acute pulmonary emboli Mild mass effect on the superior vena cava by mediastinal adenopathy Guidance Fluoroscopy 12/21/18 00:00 IMPRESSION: SUCCESSFUL PLACEMENT OF A 5 FR DUAL LUMEN 41 CM PICC IN THE LEFT BASILIC VEIN. Interventional Vascular Procedure 12/21/18 00:00 IMPRESSION: SUCCESSFUL PLACEMENT OF A 5 FR DUAL LUMEN 41 CM PICC IN THE LEFT BASILIC VEIN. PICC Line Insertion 12/21/18 00:00 IMPRESSION: SUCCESSFUL PLACEMENT OF A 5 FR DUAL LUMEN 41 CM PICC IN THE LEFT BASILIC VEIN. Assessment & Plan - Time Time Spent with patient: Less than 15 minutes - Plan Summary Plan Summary: Metastatic breast cancer with pain and anxiety. She needs to start Chemo ANURADHA. She will discuss further with Dr. Fischer on Friday. Please call if needed.
[2018-12-26] MEDS: AZITHROMYCIN 250 MG TABLET PO SCH (12:46)
[2018-12-26] MEDS: BENZONATATE 100 MG CAPSULE PO PRN (17:22)
[2018-12-27] MEDS: HYDROMORPHONE HCL INJ/PF 2 MG/ML AMPULE IV PRN ×6 (02:23→22:00)
[2018-12-27] MEDS: PROMETHAZINE HCL INJ 25 MG/1 ML VIAL IV PRN ×6 (02:23→22:00)
[2018-12-27] MEDS: DIPHENHYDRAMINE HCL 50 MG/ML VIAL IV PRN ×5 (02:24→20:03)
[2018-12-27] MEDS: HYDROMORPHONE HCL 2 MG TABLET PO PRN (03:51)
[2018-12-27] MEDS: NORMAL SALINE 10 ML SDV (AFTER EACH USE) IV PRN ×2 (06:24→18:22)
[2018-12-27] MEDS: HYDROCHLOROTHIAZIDE 12.5 MG TABLET PO SCH (08:49)
[2018-12-27] MEDS: DEXAMETHASONE 4 MG TABLET PO SCH ×2 (08:50→12:15)
[2018-12-27] MEDS: DOCUSATE SODIUM 100 MG CAPSULE PO SCH ×2 (10:44→18:20)
[2018-12-27] MEDS: AMLODIPINE BESYLATE 10 MG TABLET PO SCH (10:44)
[2018-12-27] MEDS: LOSARTAN POTASSIUM 25 MG TABLET PO SCH (10:44)
[2018-12-27] MEDS: FAMOTIDINE 20 MG TABLET PO SCH ×2 (10:45→23:02)
[2018-12-27] MEDS: BENZONATATE 100 MG CAPSULE PO PRN (10:45)
[2018-12-27] MEDS: DILTIAZEM HCL 120 MG CAP.SR.24H PO SCH (10:45)
[2018-12-27] MEDS: ENOXAPARIN SODIUM INJ 40 MG/0.4 ML DISP.SYRIN SUBCUT SCH (10:47)
[2018-12-27] MEDS: NORMAL SALINE 10 ML SDV (SCHEDULED) IV SCH ×2 (10:48→23:02)
--- NOTE | 2018-12-27 12:53 | Progress Note ---
Provider Note Provider Note: Patient seen and examined this morning. Discussed Port-A-Cath placement with the patient. Patient has had a previous port placed on the left side and which was removed a few months ago secondary to non use. Plan is for Port-A-Cath placement tomorrow. I discussed the risks and benefits with the patient we discussed pneumothorax bleeding malfunctioning port need for additional surgery catheter breakage, injury to adjacent organs including the subclavian vein and artery nerve injury numbness in the arm and pain. She understands those risks and benefits and agrees to proceed. PT and INR been checked and are within normal limits.
[2018-12-27] MEDS: LORAZEPAM 0.5 MG TABLET PO SCH (13:14)
--- NOTE | 2018-12-27 14:16 | PDOC PROGRESS REPORT ---
Subjective Progress Note for:: 12/27/18 Subjective:: The patient is a 48-year-old female with a past medical history significant for stage IV breast cancer with lung and brain metastasis, hypertension, and obesity who was admitted 12/19/2018 for atrial fibrillation remains inpatient for pain management and Port-A-Cath placement tomorrow.. The patient was seen on morning rounds with her sister present. She was found resting in bed comfortably on room air. She reports that her symptoms are overall improved today with decreased nausea and pain. She denies fever, chills, chest pain, palpitations, dyspnea, orthopnea, abdominal pain, emesis, diarrhea. She had no other questions or concerns at this time. No concerns per nursing. Physical Exam Vital Signs: Temp Pulse Resp BP Pulse Ox 98.9 F 114 H 17 151/112 H 95 12/27/18 10:58 12/27/18 10:58 12/27/18 10:58 12/27/18 10:58 12/27/18 10:58 Intake & Output 12/26/18 12/27/18 12/28/18 06:59 06:59 06:59 Intake Total 990 922 220 Balance 990 922 220 Weight 94.9 kg 95.3 kg General appearance: PRESENT: no acute distress, obese, well-developed, well- nourished Head exam: PRESENT: atraumatic, normocephalic Eye exam: PRESENT: conjunctiva pink, EOMI, PERRLA. ABSENT: scleral icterus Mouth exam: PRESENT: moist, tongue midline Respiratory exam: PRESENT: clear to auscultation tolu, symmetrical, unlabored. ABSENT: rales, rhonchi, wheezes Cardiovascular exam: PRESENT: RRR. ABSENT: diastolic murmur, rubs, systolic murmur Vascular exam: PRESENT: normal capillary refill Extremities exam: PRESENT: full ROM. ABSENT: calf tenderness, clubbing, pedal edema Musculoskeletal exam: PRESENT: ambulatory Neurological exam: PRESENT: alert, awake, oriented to person, oriented to place, oriented to time, oriented to situation, CN II-XII grossly intact, other - Slight stutter; stable. ABSENT: motor sensory deficit Psychiatric exam: PRESENT: appropriate affect, normal mood. ABSENT: homicidal ideation, suicidal ideation Skin exam: PRESENT: dry, intact, warm. ABSENT: cyanosis, rash Results Laboratory Results: 12/26/18 11:00 12/26/18 11:00 12/19/18 08:50 Troponin I < 0.012 Impressions: Chest X-Ray 12/19/18 09:39 IMPRESSION: 16 mm nodule versus superimposed shadows left mid lung Clips right axilla post breast surgery. Metallic breast implant tissue expanders Chest/Abdomen CTA 12/19/18 09:48 IMPRESSION: Lung parenchyma and mediastinal metastatic disease No CT angio evidence of thoracic aortic dissection or acute pulmonary emboli Mild mass effect on the superior vena cava by mediastinal adenopathy Guidance Fluoroscopy 12/21/18 00:00 IMPRESSION: SUCCESSFUL PLACEMENT OF A 5 FR DUAL LUMEN 41 CM PICC IN THE LEFT BASILIC VEIN. Interventional Vascular Procedure 12/21/18 00:00 IMPRESSION: SUCCESSFUL PLACEMENT OF A 5 FR DUAL LUMEN 41 CM PICC IN THE LEFT BASILIC VEIN. PICC Line Insertion 12/21/18 00:00 IMPRESSION: SUCCESSFUL PLACEMENT OF A 5 FR DUAL LUMEN 41 CM PICC IN THE LEFT BASILIC VEIN. Assessment and Plan - Diagnosis (1) Uncontrolled pain Is this a current diagnosis for this admission?: Yes Plan: Pain medications per Oncologist. (2) Atrial fibrillation Qualifiers: Atrial fibrillation type: paroxysmal Qualified Code(s): I48.0 - Paroxysmal atrial fibrillation Is this a current diagnosis for this admission?: Yes Plan: Resolved; remains in normal sinus rhythm On p.o. diltiazem; increased today secondary to HTN Not a candidate for chronic anticoagulation secondary to breast cancer with brain metastasis. (3) Upper respiratory infection Qualifiers: URI type: unspecified URI Qualified Code(s): J06.9 - Acute upper respiratory infection, unspecified Is this a current diagnosis for this admission?: Yes Plan: Improved; Decreased cough, afebrile, nml WBC he is Blood cultures are negative Completed full course of azithromycin. Nebulizer treatments as needed. Robitussin as needed. Chloraseptic [place] as needed Tessalon Perles as needed. Improved; (4) Hypertension Qualifiers: Hypertension type: unspecified Qualified Code(s): I10 - Essential (primary) hypertension Is this a current diagnosis for this admission?: Yes Plan: Blood pressures remain elevated, although overall improved. 155/112 today. Continue p.o. diltiazem; will increase dose today secondary to persistent HTN and mild tachycardia w/ activity (HR 110). Will start losartan/HCTZ. Cardiac diet. (5) Metastatic breast cancer Is this a current diagnosis for this admission?: Yes Plan: Hematology/oncology are consulted; primary management per their expertise. To have Port-A-Cath placed by surgery tomorrow. Discharge planning is consulted. - Time Time Spent with patient: 15-24 minutes Medications reviewed and adjusted accordingly: Yes Anticipated discharge: Home Within: within 48 hours
[2018-12-27] MEDS ORDERED: DILTIAZEM HCL 60 MG TABLET PO ONE (14:30)
[2018-12-27] MEDS: DILTIAZEM HCL 180 MG CAPSULE.CR PO SCH (23:02)
[2018-12-28] MEDS: DIPHENHYDRAMINE HCL 50 MG/ML VIAL IV PRN ×3 (01:37→11:10)
[2018-12-28] MEDS: PROMETHAZINE HCL INJ 25 MG/1 ML VIAL IV PRN ×4 (01:38→11:11)
[2018-12-28] MEDS: HYDROMORPHONE HCL INJ/PF 2 MG/ML AMPULE IV PRN ×4 (01:38→11:11)
[2018-12-28] MEDS: HYDROCHLOROTHIAZIDE 12.5 MG TABLET PO SCH (07:52)
[2018-12-28] MEDS: DEXAMETHASONE 4 MG TABLET PO SCH (07:52)
--- NOTE | 2018-12-28 08:36 | PDOC PROGRESS REPORT ---
Subjective Progress Note for:: 12/28/18 Subjective:: Patient is planned for port placement this morning Reason For Visit: PICC/ PAC? GEMZAR/CARBOPLATIN- 332 Physical Exam Vital Signs: Temp Pulse Resp BP Pulse Ox 98.9 F 98 18 128/109 H 96 12/28/18 06:58 12/28/18 06:58 12/28/18 06:58 12/28/18 06:58 12/28/18 06:58 Intake & Output 12/27/18 12/28/18 12/29/18 06:59 06:59 06:59 Intake Total 922 561 Balance 922 561 Weight 95.3 kg 95.4 kg General appearance: PRESENT: no acute distress, well-developed, well-nourished Head exam: PRESENT: atraumatic, normocephalic Eye exam: PRESENT: conjunctiva pink, EOMI, PERRLA. ABSENT: scleral icterus Ear exam: PRESENT: normal external ear exam Mouth exam: PRESENT: moist, tongue midline Neck exam: ABSENT: carotid bruit, JVD, lymphadenopathy, thyromegaly Respiratory exam: PRESENT: clear to auscultation tolu. ABSENT: rales, rhonchi, wheezes Cardiovascular exam: PRESENT: RRR. ABSENT: diastolic murmur, rubs, systolic murmur Pulses: PRESENT: normal dorsalis pedis pul Vascular exam: PRESENT: normal capillary refill GI/Abdominal exam: PRESENT: normal bowel sounds, soft. ABSENT: distended, guarding, mass, organolmegaly, rebound, tenderness Rectal exam: PRESENT: deferred Extremities exam: PRESENT: full ROM. ABSENT: calf tenderness, clubbing, pedal edema Neurological exam: PRESENT: alert, awake, oriented to person, oriented to place, oriented to time, oriented to situation, CN II-XII grossly intact. ABSENT: motor sensory deficit Psychiatric exam: PRESENT: appropriate affect, normal mood. ABSENT: homicidal ideation, suicidal ideation Skin exam: PRESENT: dry, intact, warm. ABSENT: cyanosis, rash Results Laboratory Results: 12/26/18 11:00 12/26/18 11:00 12/19/18 08:50 Troponin I < 0.012 Impressions: Chest X-Ray 12/19/18 09:39 IMPRESSION: 16 mm nodule versus superimposed shadows left mid lung Clips right axilla post breast surgery. Metallic breast implant tissue expanders Chest/Abdomen CTA 12/19/18 09:48 IMPRESSION: Lung parenchyma and mediastinal metastatic disease No CT angio evidence of thoracic aortic dissection or acute pulmonary emboli Mild mass effect on the superior vena cava by mediastinal adenopathy Guidance Fluoroscopy 12/21/18 00:00 IMPRESSION: SUCCESSFUL PLACEMENT OF A 5 FR DUAL LUMEN 41 CM PICC IN THE LEFT BASILIC VEIN. Interventional Vascular Procedure 12/21/18 00:00 IMPRESSION: SUCCESSFUL PLACEMENT OF A 5 FR DUAL LUMEN 41 CM PICC IN THE LEFT BASILIC VEIN. PICC Line Insertion 12/21/18 00:00 IMPRESSION: SUCCESSFUL PLACEMENT OF A 5 FR DUAL LUMEN 41 CM PICC IN THE LEFT BASILIC VEIN. Assessment & Plan - Diagnosis (1) Metastatic breast cancer Is this a current diagnosis for this admission?: Yes Plan: Port placement and hopeful chemotherapy initiation tomorrow (2) Atrial fibrillation Qualifiers: Atrial fibrillation type: paroxysmal Qualified Code(s): I48.0 - Paroxysmal atrial fibrillation Is this a current diagnosis for this admission?: Yes Plan: Continue with oral therapy (3) Nausea & vomiting Qualifiers: Vomiting type: unspecified Vomiting Intractability: intractable Qualified Code(s): R11.2 - Nausea with vomiting, unspecified Is this a current diagnosis for this admission?: Yes Plan: Continue with IV antiemetics (4) Uncontrolled pain Is this a current diagnosis for this admission?: Yes Plan: Current pain control (5) Dehydration Is this a current diagnosis for this admission?: Yes Plan: Continue with hydration - Time Time Spent with patient: 25-34 minutes - Inpatient Certification Based on my medical assessment, after consideration of the patient's comorbidities, presenting symptoms, or acuity I expect that the services needed warrant INPATIENT care.: Yes I certify that my determination is in accordance with my understanding of Medicare's requirements for reasonable and necessary INPATIENT services [42 CFR 412.3e].: Yes Medical Necessity: Need for Pain Control, Need for Surgery, Risk of Complication if Not Cared For in Hospital
[2018-12-28] MEDS: DILTIAZEM HCL 180 MG CAPSULE.CR PO SCH (09:26)
[2018-12-28] MEDS: DOCUSATE SODIUM 100 MG CAPSULE PO SCH (09:26)
[2018-12-28] MEDS: AMLODIPINE BESYLATE 10 MG TABLET PO SCH (09:27)
[2018-12-28] MEDS: ENOXAPARIN SODIUM INJ 40 MG/0.4 ML DISP.SYRIN SUBCUT SCH (09:27)
[2018-12-28] MEDS: LOSARTAN POTASSIUM 25 MG TABLET PO SCH (09:27)
[2018-12-28] MEDS: FAMOTIDINE 20 MG TABLET PO SCH (09:28)
--- NOTE | 2018-12-28 09:39 | PDOC PROGRESS REPORT ---
Subjective Progress Note for:: 12/28/18 Subjective:: Patient anxious; had dinah lita and nabs this morning. She is agreeing to proceed with port placement. Patient has a chronic lymphedema of the right upper extremity status post complete axillary dissection for breast cancer. Reason For Visit: PICC/ PAC? GEMZAR/CARBOPLATIN- 332 Physical Exam Vital Signs: Temp Pulse Resp BP Pulse Ox 98.9 F 84 18 128/109 H 96 12/28/18 06:58 12/28/18 07:00 12/28/18 06:58 12/28/18 06:58 12/28/18 06:58 Intake & Output 12/27/18 12/28/18 12/29/18 06:59 06:59 06:59 Intake Total 922 561 Balance 922 561 Weight 95.3 kg 95.4 kg General appearance: PRESENT: other - Anxious Respiratory exam: PRESENT: other - Left chest wall scar consistent with previous port; left thoracotomy scar; bilateral wall scars anteriorly with tissue expanders Musculoskeletal exam: PRESENT: other - Marked lymphedema of the right hand right forearm. Results Laboratory Results: 12/26/18 11:00 12/26/18 11:00 12/19/18 08:50 Troponin I < 0.012 Impressions: Chest X-Ray 12/19/18 09:39 IMPRESSION: 16 mm nodule versus superimposed shadows left mid lung Clips right axilla post breast surgery. Metallic breast implant tissue expanders Chest/Abdomen CTA 12/19/18 09:48 IMPRESSION: Lung parenchyma and mediastinal metastatic disease No CT angio evidence of thoracic aortic dissection or acute pulmonary emboli Mild mass effect on the superior vena cava by mediastinal adenopathy Guidance Fluoroscopy 12/21/18 00:00 IMPRESSION: SUCCESSFUL PLACEMENT OF A 5 FR DUAL LUMEN 41 CM PICC IN THE LEFT BASILIC VEIN. Interventional Vascular Procedure 12/21/18 00:00 IMPRESSION: SUCCESSFUL PLACEMENT OF A 5 FR DUAL LUMEN 41 CM PICC IN THE LEFT BASILIC VEIN. PICC Line Insertion 12/21/18 00:00 IMPRESSION: SUCCESSFUL PLACEMENT OF A 5 FR DUAL LUMEN 41 CM PICC IN THE LEFT BASILIC VEIN. Assessment & Plan - Diagnosis (1) Metastatic breast cancer Is this a current diagnosis for this admission?: Yes Plan: Recommendations: 1. We will set patient up for port placement on the left side later today. I reviewed the mechanics of the operation, as well as risk benefits alternatives including bleeding, infection, pneumothorax, DVT. 2. We will hold Lovenox today. (2) Lymphedema of right upper extremity Is this a current diagnosis for this admission?: Yes (3) Uncontrolled pain Is this a current diagnosis for this admission?: Yes - Time Time Spent with patient: 15-24 minutes
[2018-12-28] MEDS: FENTANYL 100 MCG/HR PATCH.TD72 TD SCH (11:16)
[2018-12-28] MEDS: FENTANYL 50 MCG/HR PATCH.TD72 TD SCH (11:17)
[2018-12-28] MEDS: NORMAL SALINE 10 ML SDV (SCHEDULED) IV SCH (11:18)
[2018-12-28 11:47] VITALS: BP 150/97
[2018-12-29] MEDS ORDERED: NORMAL SALINE 250 ML IV PRN (05:00)
[2018-12-29] MEDS ORDERED: PALONOSETRON 0.25 MG/5 ML SDV IV PRN (05:00)
[2018-12-29] MEDS ORDERED: NORMAL SALINE IV PRN ×2 (05:00)
[2018-12-29] MEDS ORDERED: GEMCITABINE HCL IV PRN (05:00)
[2018-12-29] MEDS ORDERED: DEXAMETHASONE SOD PHOSPHATE 10 MG in NORMAL SALINE 50 ML IV PRN (05:00)
[2018-12-29] MEDS ORDERED: CARBOPLATIN IV PRN (05:00)
== END 2018-12-28 12:11 | disposition home or self-care (01) | DRG 309 ==
LOC: ER 08:09 → EH 11:54 → 3W 14:13 → 3S 12-24 04:35
PROVIDERS: ADMIT Internal Medicine; ATTEND Internal Medicine
PROC: 02HV33Z Insertion of Infusion Device into Superior Vena Cava, Percutaneous Approach (ICD-10-PCS; principal; 2018-12-21)
DX: I48.0 Paroxysmal atrial fibrillation (principal); C78.00 Secondary malignant neoplasm of unspecified lung; C79.31 Secondary malignant neoplasm of brain; C50.919 Malignant neoplasm of unspecified site of unspecified female breast; E86.0 Dehydration; I10 Essential (primary) hypertension; J04.0 Acute laryngitis; R11.2 Nausea with vomiting, unspecified; J40 Bronchitis, not specified as acute or chronic; J06.9 Acute upper respiratory infection, unspecified; G89.3 Neoplasm related pain (acute) (chronic); F41.9 Anxiety disorder, unspecified; E66.9 Obesity, unspecified; Z90.13 Acquired absence of bilateral breasts and nipples; Z82.49 Family history of ischemic heart disease and other diseases of the circulatory system
CPT/HCPCS: 36415; 36569; 71046; 71275; 76937; 77001; 80048; 80053; 81001; 83735; 84443; 84484; 85025; 85027; 85610; 87040; 93005; 93010; 96361; 96374; 96375; 99285; J0456; J0610; J1170; J1200; J1642; J1650; J2405; J2550; J3490; J7030; J7060; J8540

== ENCOUNTER 2019-01-06 11:56 | Day surgery (SDC) | payer OTHER ==
--- NOTE | 2019-01-06 12:21 | ER Document Report ---
ED Medical Screen (RME) - General Chief Complaint: Chest Pain Stated Complaint: CHEST PAIN/SHORTNESS OF BREATH Time Seen by Provider: 01/06/19 12:15 Primary Care Provider: SEJAL DIAZ DO [Primary Care Provider] - Follow up as needed Mode of Arrival: Ambulatory Information source: Patient Notes: 48 year-old female presents to ED for complaint of chest pain shortness of breath since this morning. She states she was recently diagnosed with stage IV breast cancer with mets to lung and liver she states she has had a bilateral mastectomy in March she has not had any chemo or radiation therapy. She states her oncologist is is in the process of changing her oncologist. She states to pain management she has a Duragesic 100 mcg patch and she is also on Percocet for breakthrough pain. States her pain management doctor is Micki Asencio. She states she was recently admitted for A. fib on December 19, 2018 he states she is not on any blood thinners. I have greeted and performed a rapid initial assessment of this patient. A comprehensive ED assessment and evaluation of the patient, analysis of test results and completion of medical decision making process will be conducted by an additional ED providers. TRAVEL OUTSIDE OF THE [place] IN LAST 30 DAYS: No - Related Data Allergies/Adverse Reactions: No Known Allergies Allergy (Verified 01/06/19 12:15) Past Medical History - Past Medical History Cardiac Medical History: Reports: Hx Hypertension Denies: Hx Coronary Artery Disease, Hx Heart Attack Pulmonary Medical History: Denies: Hx Asthma, Hx Bronchitis, Hx COPD, Hx Pneumonia Neurological Medical History: Denies: Hx Cerebrovascular Accident, Hx Seizures Malignancy Medical History: Reports: Hx Breast Cancer, Hx Lung Cancer Musculoskeltal Medical History: Denies Hx Arthritis Past Surgical History: Reports: Hx Hysterectomy, Hx Urinary Tract Surgery, Other - Bilateral mastectomy - Immunizations Hx Diphtheria, Pertussis, Tetanus Vaccination: Yes Physical Exam - Vital signs Vitals: Temp Pulse Resp BP Pulse Ox 98.9 F 106 H 24 H 153/103 H 93 01/06/19 12:11 01/06/19 12:11 01/06/19 12:11 01/06/19 12:11 01/06/19 12:11 Course - Vital Signs Vital signs: Temp Pulse Resp BP Pulse Ox 98.9 F 106 H 24 H 153/103 H 93 01/06/19 12:11 01/06/19 12:11 01/06/19 12:11 01/06/19 12:11 01/06/19 12:11 Doctor's Discharge - Discharge Referrals: SEJAL DIAZ, [Primary Care Provider] - Follow up as needed
[2019-01-06] MEDS ORDERED: ASPIRIN 81 MG TABLET, CHEWABLE PO ONE (12:22)
[2019-01-06 13:54] LABS: ABSOLUTE BASOPHILS # (AUTO) 0.1 10^3/uL (0.0-0.2); ABSOLUTE LYMPHOCYTES (AUTO) 0.9 10^3/uL (0.5-4.7); ABSOLUTE MONOCYTES (AUTO) 0.7 10^3/uL (0.1-1.4); ABSOLUTE NEUT (AUTO) 3.4 10^3/uL (1.7-8.2); BASOPHILS % (AUTO) 1.6 % (0-2); EOSINOPHILS % (AUTO) 0.3 % (0-6); HEMATOCRIT 39.6 % (36.0-47.0); HEMOGLOBIN 13.4 g/dL (12.0-15.5); MEAN CORPUSCULAR HEMOGLOBIN 29.4 pg (27.0-33.4); MEAN CORPUSCULAR HGB CONC 33.9 g/dL (32.0-36.0); MEAN CORPUSCULAR VOLUME 87 fl (80-97); MONOCYTES % (AUTO) 13.1 % (3-13); PLATELET COUNT 345 10^3/uL (150-450); RED BLOOD COUNT 4.56 10^6/uL (3.72-5.28); RED CELL DISTRIBUTION WIDTH 14.8 % (11.5-14.0); TOTAL CELLS COUNTED % (AUTO) 100 %; WHITE BLOOD COUNT 5.1 10^3/uL (4.0-10.5)
[2019-01-06 14:01] LABS: INTERNATIONAL RATION (INR) 1.03; PROTHROMBIN TIME 13.6 SEC (11.4-15.4)
[2019-01-06 14:02] LABS: PARTIAL THROMBOPLASTIN TIME 30.2 SEC (23.5-35.8)
[2019-01-06 14:04] LABS: APPEARANCE,URINE CLEAR; BILIRUBIN,URINE NEGATIVE (NEGATIVE); COLOR,URINE YELLOW; GLUCOSE, URINE NEGATIVE (NEGATIVE); KETONES,URINE TRACE mg/dL (NEGATIVE); PROTEIN,URINE 30 mg/dL (NEGATIVE); URINE SPECIFIC GRAVITY 1.024; UROBILINOGEN,URINE NEGATIVE mg/dL (<2.0)
[2019-01-06 14:14] LABS: ALBUMIN 3.5 g/dL (3.5-5.0); ALKALINE PHOSPHATASE 105 U/L (38-126); ANION GAP 12 (5-19); ASPARTATE AMINO TRANSFERASE 26 U/L (14-36); BILIRUBIN,DIRECT 0.2 mg/dL (0.0-0.4); BILIRUBIN,TOTAL 0.3 mg/dL (0.2-1.3); BLOOD UREA NITROGEN 8 mg/dL (7-20); CARBON DIOXIDE 25 mmol/L (22-30); CHLORIDE 104 mmol/L (98-107); GLUCOSE 78 mg/dL (75-110); POTASSIUM 4.1 mmol/L (3.6-5.0); TOTAL PROTEIN 6.5 g/dL (6.3-8.2)
--- NOTE | 2019-01-06 14:24 | RADIOLOGY REPORT (SQ) ---
EXAM DESCRIPTION: CTA CHEST COMPLETED DATE/TIME: 01/06/2019 2:08 pm REASON FOR STUDY: Chest pain, A. fib, recent surgery, cancer COMPARISON: 12/19/2018 TECHNIQUE: CT scan of the chest performed using helical scanning technique with dynamic intravenous contrast injection. Images reviewed with lung, soft tissue and bone windows. Reconstructed coronal and sagittal MPR images reviewed. Additional 3 dimensional post-processing performed to develop Maximal Intensity Projection images (SD P). All images stored on PACS. All CT scanners at this facility use dose modulation, iterative reconstruction, and/or weight based d osing when appropriate to reduce radiation dose to as low as reasonably achievable (ALARA). [facility]: Dose Right [facility]: CareDose [facility]: Dose Right [facility]: Teradose 4D [facility]: EverCharge CONTRAST TYPE AND DOSE: contrast/concentration: Isovue 350.00 mg/ml; Total Contrast Delivered: 65.0 ml; Total Saline Delivered: 57.0 ml Contrast bolus optimized for the pulmonary arteries. Not diagnostic for the aorta. RENAL FUNCTION: BUN 19, creatinine 0.78 RADIATION DOSE: CT Rad equipment meets quality standard of care and radiation dose reduction techniq ues were employed. CTDIvol: 16.1 - 19.8 mGy. DLP: 535 mGy-cm. . LIMITATIONS: None. FINDINGS: LUNGS AND PLEURA: There is extensive bilateral metastatic disease not significantly change d from prior study. Left pleural effusion remains and is slightly larger when compared to previous e xam. AORTA AND GREAT VESSELS: No aneurysm. Contrast bolus not optimized for the aorta. HEART: No pericardial effusion. No significant coronary artery calcifications. PULMONARY ARTERIES: No emboli visualized in the main pulmonary arteries or the segmental branches. T here is narrowing of the left pulmonary artery and its branches secondary to the extensive mediastina l and hilar adenopathy. HILAR AND MEDIASTINAL STRUCTURES: Extensive mediastinal and hilar adenopathy. HARDWARE: None in the chest. UPPER ABDOMEN: Left adrenal lesion consistent with metastatic disease. THYROID AND OTHER SOFT TISSUES: There is a small nodule in the left lobe of the thyroid gland. This is measured at 1.3 cm. BONES: No acute or significant finding. 3D MIPS: Confirm above findings. OTHER: No other significant finding. IMPRESSION: 1. Widespread metastatic disease throughout both lung figueroa, mediastinum and hilar reg ions. Small left effusion. These findings are grossly stable from 12/19/2018. 2. No pulmonary emboli. COMMENT: Quality ID # [id number]: Final reports with documentation of one or more dose reduction techniques (e.g., Automated exposure control, adjustment of the mA and/or kV according to patient size, use of iterative reconstruction technique) TECHNICAL DOCUMENTATION: JOB ID: [id number] [employer]- All Rights Reserved Reading location - IP/workstation name: [email or web address]
--- NOTE | 2019-01-06 14:56 | ER Document Report ---
ED General - General Chief Complaint: Shortness Of Breath Stated Complaint: CHEST PAIN/SHORTNESS OF BREATH Time Seen by Provider: 01/06/19 12:15 Primary Care Provider: SEJAL DIAZ DO [NO LOCAL MD] - Follow up as needed Mode of Arrival: Ambulatory TRAVEL OUTSIDE OF THE [place] IN LAST 30 DAYS: No - HPI Notes: 48-year-old female with a history of breast cancer metastatic to lungs presenting with chief complaint of chest pain, increasing shortness of breath. Denies any known history of thromboembolic disease. Patient has been followed locally by oncology but has not yet started chemotherapy. She has been in a state of indecision regarding how she wants to proceed since her diagnosis. Up until about 3 days ago she was on Dilaudid by pump infusion being overseen by hospice. She discontinued use of the pump and is now presented to the emergency department requesting readmission to the hospital and placement of a port for initiation of chemotherapy and continued pain management. This was discussed with oncology service and they are agre eable recommend admission of the patient for pain management at this time. - Related Data Allergies/Adverse Reactions: No Known Allergies Allergy (Verified 01/06/19 12:15) Past Medical History - General Information source: Patient - Social History Smoking Status: Never Smoker Chew tobacco use (# tins/day): No Frequency of alcohol use: None Drug Abuse: None Family History: Hypertension Patient has suicidal ideation: No Patient has homicidal ideation: No - Past Medical History Cardiac Medical History: Reports: Hx Hypertension Denies: Hx Coronary Artery Disease, Hx Heart Attack Pulmonary Medical History: Denies: Hx Asthma, Hx Bronchitis, Hx COPD, Hx Pneumonia Neurological Medical History: Denies: Hx Cerebrovascular Accident, Hx Seizures Malignancy Medical History: Reports: Hx Breast Cancer, Hx Lung Cancer Musculoskeletal Medical History: Denies Hx Arthritis Past Surgical History: Reports: Hx Hysterectomy, Hx Urinary Tract Surgery, Other - Bilateral mastectomy - Immunizations Hx Diphtheria, Pertussis, Tetanus Vaccination: Yes Review of Systems - Review of Systems Notes: Constitutional: Negative for fever. HENT: Negative for sore throat. Eyes: Negative for visual changes. Cardiovascular: As per HPI Respiratory: As per HPI. Gastrointestinal: Negative for abdominal pain, vomiting or diarrhea. Genitourinary: Negative for dysuria. Musculoskeletal: Negative for back pain. Skin: Negative for rash. Neurological: Negative for headaches, weakness or numbness. 10 point ROS negative except as marked above and in HPI. Physical Exam - Vital signs Vitals: Temp Pulse Resp BP Pulse Ox 98.9 F 106 H 24 H 153/103 H 93 01/06/19 12:11 01/06/19 12:11 01/06/19 12:11 01/06/19 12:11 01/06/19 12:11 Notes: GENERAL: Well-developed well-nourished appearing anxious and in pain. Deep rattling cough. SKIN: Good turgor no rashes. HEAD: Normocephalic atraumatic. EYES: PERRLA. Conjunctivae and sclerae clear. EARS: CANALS AND TMS CLEAR. NOSE: CLEAR. MOUTH: Moist mucosa. Good dentition. No stridor or edema. No drooling. NECK: Supple. No masses or thyromegaly. No adenopathy. Carotids 2+ without bruits. No JVD. BACK: Symmetrical without tenderness. CHEST: Respirations unlabored. Rattling cough with scattered rhonchi bilaterally.. HEART: Tachycardic. Regular rhythm. No murmur gallop or rub. ABDOMEN: Soft nontender without masses, organomegaly or rebound. Bowel sounds normally active. No bruits. GENITALIA: Deferred. EXTREMITIES: No edema. No calf tenderness. Cap refill less than 1.5 seconds. Dorsalis pedis and posterior tibial pulses 3+ and symmetrical. NEUROLOGICAL: GCS 15. Alert and oriented x3. Normal gait. Fluent speech. Cranial nerves II through XII intact. Sensorimotor and cerebellar normal. Normal tone. PSYCHIATRIC: Very anxious and tearful. Course - Re-evaluation Re-evalutation: 01/06/19 15:06 Findings were reviewed with oncology. Patient is decided now she wants to pursue aggressive chemotherapy. It is agreed that she will be admitted by the hospitalist service for placement of a port and continued pain management. I given her some fentanyl here initially. Case has been discussed with Dr. Fowler the hospitalist at this time and he will see the patient for admission. - Vital Signs Vital signs: Temp Pulse Resp BP Pulse Ox 98.9 F 106 H 22 H 153/103 H 95 01/06/19 12:11 01/06/19 12:11 01/06/19 13:00 01/06/19 12:11 01/06/19 13:00 - Laboratory Result Diagrams: 01/06/19 13:40 01/06/19 13:40 Laboratory results interpreted by me: 01/06/19 01/06/19 12:40 13:40 RDW 14.8 H [place] % (Auto) 13.1 H Urine Protein 30 H Urine Ketones TRACE H Discharge - Discharge Clinical Impression: Metastatic breast cancer Condition: Serious Disposition: ADMITTED INPATIENT Admitting Provider: Malcolm (Hospitalist) Unit Admitted: Medical Floor Referrals: SEJAL DIAZ DO [NO LOCAL MD] - Follow up as needed
--- NOTE | 2019-01-06 15:53 | PDOC H&P ---
History of Present Illness Admission Date/PCP: 01/06/19 15:25 MANJINDER RODRIGUEZ MD History of Present Illness: LINDSAY MELTON is a 48 year old female with a history of metastatic breast ca ncer who had gone home on hospice and was on a [employer] pump. She discontinued the pump and decided she did not want to be on hospice anymore. She called her oncologist Dr. Fischer and said that she wished to pursue full aggressive treatment. He had her come to the hospital to be admitted to get a port placed. She currently has no acute unstable medical issues. She was sitting on the edge of the bed in the ER and appeared comfortable. Past Medical History Cardiac Medical History: Reports: Hypertension Denies: Coronary Artery Disease, Myocardial Infarction Pulmonary Medical History: Denies: Asthma, Bronchitis, Chronic Obstructive Pulmonary Disease (COPD), Pneumonia Neurological Medical History: Denies: Seizures Malignancy Medical History: Reports: Breast Cancer, Lung Cancer Musculoskeltal Medical History: Denies: Arthritis Hematology: Denies: Anemia Past Surgical History Past Surgical History: Reports: Hysterectomy, Other - Bilateral mastectomy Social History Smoking Status: Never Smoker Electronic Cigarette use?: No Frequency of Alcohol Use: None Hx Recreational Drug Use: No Drugs: None Hx Prescription Drug Abuse: No Family History Family History: Hypertension Parental Family History Reviewed: Yes Children Family History Reviewed: Yes Sibling(s) Family History Reviewed.: Yes Medication/Allergy Home Medications: Diphenhydramine HCl [Benadryl 25 mg Capsule] 25 mg PO Q6HP PRN capsule 12/24/18 Docusate Sodium [Colace 100 mg Capsule] 100 mg PO BID capsule 12/24/18 Fentanyl [Duragesic 100 Mcg/Hr Transdermal Patch] 1 each TD Q3DAYS patch.[id number] 12/24/18 Hydrochlorothiazide [Hydrodiuril 12.5 mg Tablet] 12.5 mg PO QAM #30 tablet 12/24/18 Losartan Potassium [Cozaar 25 mg Tablet] 25 mg PO DAILY #30 tablet 12/24/18 Diltiazem HCl [Cardizem Cd 180 mg Capsule] 180 mg PO Q12 #60 capsule.cr 12/28/18 Allergies/Adverse Reactions: No Known Allergies Allergy (Verified 01/06/19 12:15) Review of Systems All systems: reviewed and no additional remarkable complaints except as stated - All systems were reviewed and were negative except as noted in the HPI Physical Exam Vital Signs: Temp Pulse Resp BP Pulse Ox 98.9 F 106 H 22 H 153/103 H 95 01/06/19 12:11 01/06/19 12:11 01/06/19 13:00 01/06/19 12:11 01/06/19 13:00 Intake & Output 01/05/19 01/06/19 01/07/19 06:59 06:59 06:59 Weight 90.3 kg General appearance: PRESENT: no acute distress, cooperative, disheveled, obese Head exam: PRESENT: atraumatic, normocephalic Eye exam: PRESENT: EOMI, PERRLA. ABSENT: conjunctival injection, nystagmus, scleral icterus Ear exam: PRESENT: normal external ear exam Mouth exam: PRESENT: moist, neck supple Throat exam: ABSENT: post pharyngeal erythema Neck exam: PRESENT: full ROM. ABSENT: carotid bruit, JVD, lymphadenopathy, meningismus, tenderness, thyromegaly Respiratory exam: PRESENT: clear to auscultation tolu, symmetrical, unlabored. ABSENT: accessory muscle use, chest wall tenderness, crackles, prolonged expiratory phas, rhonchi, tachypnea, wheezes Cardiovascular exam: PRESENT: tachycardia Pulses: PRESENT: normal carotid pulses Vascular exam: PRESENT: normal capillary refill GI/Abdominal exam: PRESENT: normal bowel sounds, soft. ABSENT: distended, guarding, rebound, tenderness Extremities exam: ABSENT: clubbing, pedal edema Musculoskeletal exam: PRESENT: normal inspection. ABSENT: deformity Neurological exam: PRESENT: alert, awake, oriented to person, oriented to place, oriented to situation, CN II-XII grossly intact, other. ABSENT: motor sensory deficit Psychiatric exam: PRESENT: flat affect Skin exam: PRESENT: dry, warm Results Laboratory Results: 01/06/19 13:40 01/06/19 13:40 01/06/19 01/06/19 01/06/19 12:40 13:40 13:40 WBC 5.1 RBC 4.56 Hgb 13.4 Hct 39.6 MCV 87 MCH 29.4 MCHC 33.9 RDW 14.8 H Plt Count 345 Seg Neutrophils % 67.0 Sodium 140.9 Potassium 4.1 Chloride 104 Carbon Dioxide 25 Anion Gap 12 BUN 8 Creatinine 0.63 Est GFR ( Amer) > 60 Glucose 78 Calcium 9.0 Total Bilirubin 0.3 AST 26 Alkaline Phosphatase 105 Total Protein 6.5 Albumin 3.5 Urine Color YELLOW Urine Appearance CLEAR Urine pH 7.0 Ur Specific [place] 1.024 Urine Protein 30 H Urine Glucose (UA) NEGATIVE Urine Ketones TRACE H Urine Blood NEGATIVE Urine RBC (Auto) 2 01/06/19 13:40 Troponin I < 0.012 Impressions: Chest/Abdomen CTA 01/06/19 12:22 IMPRESSION: 1. Widespread metastatic disease throughout both lung figueroa, mediastinum and hilar regions. Small left effusion. These findings are grossly stable from 12/19/2018. 2. No pulmonary emboli. Assessment and Plan - Diagnosis (1) Metastatic breast cancer Is this a current diagnosis for this admission?: Yes Plan: Surgeries been consulted for port placement. Her oncologist has been consulted for her pain management. She verbalized her understanding to me that she could eat tonight but she has not had to have anything to eat after midnight until after she has her port placed tomorrow. I told her if she ate something tomorrow morning before the surgery we would discharge her home and then set her up to get the port placed as an outpatient. (2) Atrial fibrillation Qualifiers: Atrial fibrillation type: paroxysmal Qualified Code(s): I48.0 - Paroxysmal atrial fibrillation Is this a current diagnosis for this admission?: Yes Plan: We will continue her Cardizem, she is not chronically anticoagulated (3) Hypertension Qualifiers: Hypertension type: unspecified Qualified Code(s): I10 - Essential (primary) hypertension Is this a current diagnosis for this admission?: Yes Plan: Continue her home medications - Time Time Spent with patient: 35 or more minutes - Inpatient Certification Based on my medical assessment, after consideration of the patient's com orbidities, presenting symptoms, or acuity I expect that the services needed warrant INPATIENT care.: Yes I certify that my determination is in accordance with my understanding of Medicare's requirements for reasonable and necessary INPATIENT services [42 CFR 412.3e].: Yes Medical Necessity: Need for Surgery
[2019-01-06] MEDS: FENTANYL CITRATE INJ/PF 100 MCG/2 ML AMPUL IV PRN ×2 (15:58→18:55)
[2019-01-06] MEDS ORDERED: GLUCAGON,HUMAN RECOMB 1 MG INJ SUBCUT PRN (19:54)
[2019-01-06] MEDS ORDERED: DEXTROSE 40% GEL 15 GM TUBE PO PRN ×2 (19:54)
[2019-01-06] MEDS ORDERED: DEXTROSE 50%-WATER 25 GM/50 ML DISP.SYRIN IV PRN ×2 (19:54)
--- NOTE | 2019-01-06 20:00 | PDOC CONSULTATION ---
Consultation Consult Date: 01/06/19 Provider Consulted: CHANELLE MELARA Consult reason:: Placement of MediPort History of Present Illness Admission Date/PCP: 01/06/19 15:25 AMNJINDER RODRIGUEZ MD History of Present Illness: LINDSAY MELTON is a 48 year old female who was diagnosed with metastatic breast CA. She was placed on hospice unknown [facility] [place] but patient decided to take off the [facility] [place] pump and requested aggressive management of her cancer. She will need a Mediport for chemotherapy. She has atrial fibrillation but not anticoagulated. Past Medical History Cardiac Medical History: Reports: Hypertension Denies: Coronary Artery Disease, Myocardial Infarction Pulmonary Medical History: Denies: Asthma, Bronchitis, Chronic Obstructive Pulmonary Disease (COPD), Pneumonia Neurological Medical History: Denies: Seizures Malignancy Medical History: Reports: Breast Cancer, Lung Cancer Musculoskeltal Medical History: Denies: Arthritis Hematology: Denies: Anemia Past Surgical History Past Surgical History: Reports: Hysterectomy, Other - Bilateral mastectomy Social History Smoking Status: Never Smoker Electronic Cigarette use?: No Frequency of Alcohol Use: None Hx Recreational Drug Use: No Drugs: None Hx Prescription Drug Abuse: No - Advance Directive Resuscitation Status: Full Code Family History Family History: Hypertension Parental Family History Reviewed: Yes Children Family History Reviewed: No Sibling(s) Family History Reviewed.: No Medication/Allergy Home Medications: Diltiazem HCl [Diltiazem 24Hr ER (Cd)] 180 mg PO Q12 01/06/19 Diphenhydramine HCl [Benadryl 25 mg Capsule] 25 mg PO Q6HP PRN 01/06/19 Docusate Sodium [Colace 100 mg Capsule] 100 mg PO BID 01/06/19 Fentanyl [Duragesic 100 Mcg/Hr Transdermal Patch] 100 mcg TOP Q3D 01/06/19 Hydrochlorothiazide [Hydrodiuril 12.5 mg Tablet] 12.5 mg PO QAM 01/06/19 Losartan Potassium [Cozaar 25 mg Tablet] 25 mg PO DAILY 01/06/19 Oxycodone HCl/Acetaminophen [Percocet 10-325 mg Tablet] 1 tab PO 5XDP PRN 01/06/19 Allergies/Adverse Reactions: No Known Allergies Allergy (Verified 01/06/19 12:15) Review of Systems Constitutional: PRESENT: other - No fever chills Cardiovascular: PRESENT: other - No chest pains nor cough Gastrointestinal: PRESENT: other - No abdominal pain Physical Exam Vital Signs: Temp Pulse Resp BP Pulse Ox 99.0 F 121 H 17 146/95 H 96 01/06/19 17:06 01/06/19 17:06 01/06/19 17:06 01/06/19 17:06 01/06/19 17:06 Intake & Output 01/05/19 01/06/19 01/07/19 06:59 06:59 06:59 Intake Total 225 Balance 225 Weight 91.4 kg General appearance: PRESENT: no acute distress Head exam: PRESENT: atraumatic Eye exam: PRESENT: conjunctiva pink Mouth exam: PRESENT: moist Neck exam: PRESENT: full ROM Respiratory exam: PRESENT: clear to auscultation tolu Cardiovascular exam: PRESENT: RRR Pulses: PRESENT: normal radial pulses Vascular exam: PRESENT: normal capillary refill GI/Abdominal exam: PRESENT: soft Rectal exam: PRESENT: deferred Extremities exam: PRESENT: full ROM Musculoskeletal exam: PRESENT: ambulatory Neurological exam: PRESENT: alert, oriented to person, oriented to place, oriented to time, oriented to situation Psychiatric exam: PRESENT: appropriate affect Skin exam: PRESENT: normal color, warm Results Laboratory Results: 01/06/19 13:40 01/06/19 13:40 01/06/19 01/06/19 01/06/19 12:40 13:40 13:40 WBC 5.1 RBC 4.56 Hgb 13.4 Hct 39.6 MCV 87 MCH 29.4 MCHC 33.9 RDW 14.8 H Plt Count 345 Seg Neutrophils % 67.0 Sodium 140.9 Potassium 4.1 Chloride 104 Carbon Dioxide 25 Anion Gap 12 BUN 8 Creatinine 0.63 Est GFR ( Amer) > 60 Glucose 78 Calcium 9.0 Total Bilirubin 0.3 AST 26 Alkaline Phosphatase 105 Total Protein 6.5 Albumin 3.5 Urine Color YELLOW Urine Appearance CLEAR Urine pH 7.0 Ur Specific [place] 1.024 Urine Protein 30 H Urine Glucose (UA) NEGATIVE Urine Ketones TRACE H Urine Blood NEGATIVE Urine RBC (Auto) 2 01/06/19 13:40 Troponin I < 0.012 Impressions: Chest/Abdomen CTA 01/06/19 12:22 IMPRESSION: 1. Widespread metastatic disease throughout both lung figueroa, mediastinum and hilar regions. Small left effusion. These findings are grossly stable from 12/19/2018. 2. No pulmonary emboli. Assessment & Plan - Diagnosis (1) Metastatic breast cancer Is this a current diagnosis for this admission?: Yes (2) Atrial fibrillation Qualifiers: Atrial fibrillation type: paroxysmal Qualified Code(s): I48.0 - Paroxysmal atrial fibrillation Is this a current diagnosis for this admission?: Yes - Time Time Spent: 30 to 50 Minutes - Inpatient Certification Medical Necessity: Need for Surgery - Plan Summary Plan Summary: This is a 48-year-old female woman with metastatic breast CA. Surgery is being requested to place a Mediport for chemotherapy. Patient with history of atrial fibrillation but not anticoagulated. Plans: We will keep her n.p.o. from midnight and place MediPort tomorrow. We will ask the incoming surgeon Dr. Becker tomorrow to place the port.
[2019-01-06] MEDS: DOCUSATE SODIUM 100 MG CAPSULE PO SCH (20:30)
[2019-01-06] MEDS ORDERED: DIAZEPAM 5 MG TABLET PO ONE (20:45)
[2019-01-06] MEDS: DILTIAZEM HCL 180 MG CAPSULE.CR PO SCH (22:23)
[2019-01-06] MEDS: PROMETHAZINE HCL INJ 25 MG/1 ML VIAL IV PRN (23:36)
[2019-01-06] MEDS: HYDROMORPHONE HCL INJ/PF 2 MG/ML AMPULE IV PRN (23:36)
--- NOTE | 2019-01-07 00:01 | EKG REPORT ---
SEVERITY:- BORDERLINE ECG - SINUS TACHYCARDIA PROBABLE LEFT ATRIAL ABNORMALITY BORDERLINE T ABNORMALITIES, ANT-LAT LEADS : Confirmed by: Savita Grimm 07-Jan-2019 00:00:58
[2019-01-07] MEDS: IPRATROPIUM/ALBUTEROL 0.5-2.5 MG/3 ML AMPUL NEB PRN ×3 (02:16→14:39)
[2019-01-07] MEDS: HYDROMORPHONE HCL INJ/PF 2 MG/ML AMPULE IV PRN (05:05)
[2019-01-07] MEDS: PROMETHAZINE HCL INJ 25 MG/1 ML VIAL IV PRN (05:05)
[2019-01-07] MEDS: HYDROMORPHONE HCL 2 MG TABLET PO PRN ×3 (06:01→16:30)
[2019-01-07] MEDS: PROMETHAZINE HCL 25 MG TABLET PO PRN ×2 (06:01→12:41)
[2019-01-07] MEDS ORDERED: HYDROCHLOROTHIAZIDE 12.5 MG TABLET PO SCH (08:00)
[2019-01-07] MEDS ORDERED: ONDANSETRON HCL INJ/PF 4 MG/2 ML SDV ONE (09:06)
[2019-01-07] MEDS ORDERED: MIDAZOLAM 2 MG/2 ML INJ ONE (09:06)
[2019-01-07] MEDS ORDERED: LIDOCAINE 2% INJ-PF (20 MG/ML) 10 ML AMPUL ONE (09:06)
[2019-01-07] MEDS ORDERED: FENTANYL CITRATE INJ/PF 100 MCG/2 ML AMPUL ONE (09:06)
[2019-01-07] MEDS ORDERED: PROPOFOL INJ 200 MG/20 ML VIAL IV ONE (09:06)
[2019-01-07] MEDS ORDERED: IPRATROPIUM/ALBUTEROL 0.5-2.5 MG/3 ML AMPUL NEB ONE (09:25)
[2019-01-07] MEDS ORDERED: LIDOCAINE 1%/EPINEPHRINE INJ 20 ML VIAL ONE ×3 (09:28→10:49)
[2019-01-07] MEDS ORDERED: LOSARTAN POTASSIUM 25 MG TABLET PO SCH (10:00)
[2019-01-07] MEDS ORDERED: PROMETHAZINE HCL INJ 25 MG/1 ML VIAL IV PRN ×2 (10:20)
[2019-01-07] MEDS ORDERED: ONDANSETRON HCL INJ/PF 4 MG/2 ML SDV IV PRN (10:20)
[2019-01-07] MEDS ORDERED: DIPHENHYDRAMINE HCL 50 MG/ML VIAL IV PRN (10:20)
[2019-01-07] MEDS ORDERED: FENTANYL CITRATE INJ/PF 100 MCG/2 ML AMPUL IV PRN ×3 (10:20)
[2019-01-07] MEDS ORDERED: CEFAZOLIN INJ 1 GM VIAL ONE (10:23)
--- NOTE | 2019-01-07 10:53 | PDOC CONSULTATION ---
Consultation Consult Date: 01/07/19 Provider Consulted: TODD FISCHER Consult reason:: Hematology/Oncology consultation was requested for patient with known metastatic breast cancer. History of Present Illness Admission Date/PCP: 01/06/19 15:25 MANJINDER RODRIGUEZ MD History of Present Illness: LINDSAY MELTON is a 48 year old female who was recently discharged from the hospital to Hospice services for pain control after several prolonged hospital stays for pain control. Although aggressive treatment for her cancer has been discussed and offered multiple times, patient has declined. Today, she states that she no longer wishes to have Hospice services and would like to have a port placed and aggressive treatment for her terminal cancer started. She has been evaluated by surgery and port is scheduled for later today. Currently, she denies any pain or nausea. She is concerned about her breathing. It sounds quite raspy, but is unlabored. She continues to have a chronic cough. Nurses report that they have not been able to obtain IV access, so have not been able to give IV pain meds recently. She is taking PO without difficulty. Past Medical History Cardiac Medical History: Reports: Hypertension Denies: Coronary Artery Disease, Myocardial Infarction Pulmonary Medical History: Denies: Asthma, Bronchitis, Chronic Obstructive Pulmonary Disease (COPD), Pneumonia Neurological Medical History: Denies: Seizures Malignancy Medical History: Reports: Breast Cancer, Lung Cancer Musculoskeltal Medical History: Denies: Arthritis Hematology: Denies: Anemia Past Surgical History Past Surgical History: Reports: Hysterectomy, Other - Bilateral mastectomy Social History Smoking Status: Never Smoker Electronic Cigarette use?: No Frequency of Alcohol Use: None Hx Recreational Drug Use: No Drugs: None Hx Prescription Drug Abuse: No - Advance Directive Resuscitation Status: Full Code Family History Family History: Hypertension Parental Family History Reviewed: No Children Family History Reviewed: No Sibling(s) Family History Reviewed.: No Medication/Allergy Home Medications: Diltiazem HCl [Diltiazem 24Hr ER (Cd)] 180 mg PO Q12 01/06/19 Diphenhydramine HCl [Benadryl 25 mg Capsule] 25 mg PO Q6HP PRN 01/06/19 Docusate Sodium [Colace 100 mg Capsule] 100 mg PO BID 01/06/19 Fentanyl [Duragesic 100 Mcg/Hr Transdermal Patch] 100 mcg TOP Q3D 01/06/19 Hydrochlorothiazide [Hydrodiuril 12.5 mg Tablet] 12.5 mg PO QAM 01/06/19 Losartan Potassium [Cozaar 25 mg Tablet] 25 mg PO DAILY 01/06/19 Oxycodone HCl/Acetaminophen [Percocet 10-325 mg Tablet] 1 tab PO 5XDP PRN 01/06/19 Allergies/Adverse Reactions: No Known Allergies Allergy (Verified 01/06/19 12:15) Review of Systems Constitutional: PRESENT: headache(s). ABSENT: fever(s) Eyes: ABSENT: visual disturbances Ears: ABSENT: hearing changes Nose, Mouth, and Throat: ABSENT: sore throat Respiratory: PRESENT: cough, sputum, other - horse voice Gastrointestinal: ABSENT: constipation, nausea Genitourinary: ABSENT: dysuria Integumentary: ABSENT: rash Neurological: PRESENT: weakness Hematologic/Lymphatic: ABSENT: easy bruising Physical Exam Vital Signs: Temp Pulse Resp BP Pulse Ox 98.3 F 94 22 H 133/82 H 94 01/07/19 08:59 01/07/19 08:59 01/07/19 08:59 01/07/19 08:59 01/07/19 08:59 Intake & Output 01/06/19 01/07/19 01/08/19 06:59 06:59 06:59 Intake Total 225 Balance 225 Weight 92 kg General appearance: PRESENT: no acute distress, well-developed Exam: Overweight, 48 year old female. Head exam: PRESENT: normocephalic Eye exam: PRESENT: EOMI Mouth exam: PRESENT: tongue midline Neck exam: ABSENT: lymphadenopathy, tenderness Respiratory exam: PRESENT: other - Upper airway noise. Not quite stridor, but otherwise, lungs are clear. Cardiovascular exam: PRESENT: other - Heart sounds obscured. GI/Abdominal exam: PRESENT: soft. ABSENT: tenderness Extremities exam: ABSENT: pedal edema Musculoskeletal exam: PRESENT: normal inspection Neurological exam: PRESENT: alert, awake, oriented to person, oriented to place, oriented to time, oriented to situation Psychiatric exam: PRESENT: appropriate affect Skin exam: PRESENT: normal color Results Laboratory Results: 01/06/19 13:40 01/06/19 13:40 01/06/19 01/06/19 01/06/19 12:40 13:40 13:40 WBC 5.1 RBC 4.56 Hgb 13.4 Hct 39.6 MCV 87 MCH 29.4 MCHC 33.9 RDW 14.8 H Plt Count 345 Seg Neutrophils % 67.0 Sodium 140.9 Potassium 4.1 Chloride 104 Carbon Dioxide 25 Anion Gap 12 BUN 8 Creatinine 0.63 Est GFR ( Amer) > 60 Glucose 78 Calcium 9.0 Total Bilirubin 0.3 AST 26 Alkaline Phosphatase 105 Total Protein 6.5 Albumin 3.5 Urine Color YELLOW Urine Appearance CLEAR Urine pH 7.0 Ur Specific [place] 1.024 Urine Protein 30 H Urine Glucose (UA) NEGATIVE Urine Ketones TRACE H Urine Blood NEGATIVE Urine RBC (Auto) 2 01/06/19 13:40 Troponin I < 0.012 Impressions: Chest/Abdomen CTA 01/06/19 12:22 IMPRESSION: 1. Widespread metastatic disease throughout both lung figueroa, mediastinum and hilar regions. Small left effusion. These findings are grossly stable from 12/19/2018. 2. No pulmonary emboli. Assessment & Plan - Diagnosis (1) Metastatic breast cancer Is this a current diagnosis for this admission?: Yes Plan: Although patient was on Hospice, she states that she now would like aggressive therapy. She understands that this will not be able to cure her cancer. She remains a full code. She has told me in the past that she does not feel safe at home and would like to remain in the hospital as long as possible. She currently has no complaints of pain or nausea. However, no IV access. She is scheduled for port placement later today. Will keep all meds PO if possible. Dr. Fischer will return tomorrow to discuss further treatment plans with the patient.
--- NOTE | 2019-01-07 11:40 | Operative Report ---
Nonrecallable Operative Report DATE OF SURGERY: 01/07/19 PREOPERATIVE DIAGNOSIS: Metastatic breast cancer, need of IV access for chemotherapy POSTOPERATIVE DIAGNOSIS: Same OPERATION: Right chest single-lumen Port-A-Cath placement SURGEON: DEVIN WILLARD ANESTHESIA: Local - 30 mL's 1% lidocaine with epinephrine TISSUE REMOVED OR ALTERED: None COMPLICATIONS: None ESTIMATED BLOOD LOSS: Negligible less than 5 mL's INTRAOPERATIVE FINDINGS: As above PROCEDURE: See dictation
--- NOTE | 2019-01-07 12:02 | Operative Report ---
Operative Report DATE OF SURGERY: 01/07/19 PREOPERATIVE DIAGNOSIS: Metastatic breast cancer, need of IV access for chemoth erapy POSTOPERATIVE DIAGNOSIS: Same OPERATION: Placement of single-lumen right upper chest IJ Port-A-Cath SURGEON: DEVIN WILLARD ANESTHESIA: Local - 30 mL's of 1% lidocaine with epinephrine TISSUE REMOVED OR ALTERED: Not applicable COMPLICATIONS: None ESTIMATED BLOOD LOSS: 5 mL INTRAOPERATIVE FINDINGS: As above PROCEDURE: The procedure was done in the operating room, the patient was placed in supine position, both sides of the chest and neck were prepped and draped in usual fashion. The right side of the neck were approached, the topics over the anterior sternocleidomastoid muscle triangle was infiltrated with local anesthetic, a 21-gauge needle was used to easily cannulated the internal jugular vein, this was removed and replaced by an 16-gauge needle which cannulated the internal jugular vein without difficulty with good blood return. A guidewire was inserted through the needle into the internal jugular vein after superior vena cava. Fluoroscopy was obtained to confirm good position of the guidewire. After this, the right upper chest was appropriate marked just 2 fingerbreadths below the mid-clavicle, the area was infiltrated with lidocaine and infiltration was continued upward along the planned subcutaneous tunnel of the catheter after the guidewire insertion point. An incision was made in the chosen placement area of the Port-A-Cath, a subcutaneous pocket down to fascia was developed with blunt finger dissection the Port-A-Cath was secured to the catheter and secured to the pectoralis major muscle fascia with 2 simple 2-0 Prolene sutures which were then tied down to fascia to secure the port against it. The catheter was then tunneled subcutaneously from the Port-A-Cath insertion point, making a gentle curve, and extracted at the insertion point of the guidewire. Under fluoroscopy the catheter was laid on the patient's chest and divided at the level of the junction superior vena cava with right atrium. A tissue dilator with sheath were inserted over the guidewire into the internal jugular vein this was done without difficulty, the guidewire and the tunneler were removed and the catheter was inserted through the sheath without difficulty. The sheath was peeled out, good position of the catheter was confirmed by fluoroscopy and no kinking of the catheter were noted. The Port-A-Cath was accessed with a Meng needle good blood return was obtained without difficulty and flushed with heparinized solution. The insertion point to the guidewire was closed with a simple pursestring 4-0 Maxon subcuticular suture with Dermabond; the Port-A-Cath pocket skin incision was closed with interrupted inverted simple 3-0 Vicryl sutures and 4-0 Vicryl running subcuticular suture with Dermabond. The patient tolerated the procedure well, transferred to the recovery room in satisfactory conditions, and a chest x-ray was obtained to confirm position of the line and rule out pneumothorax.
--- NOTE | 2019-01-07 12:02 | RADIOLOGY REPORT (SQ) ---
EXAM DESCRIPTION: CHEST SINGLE VIEW COMPLETED DATE/TIME: 01/07/2019 11:50 am REASON FOR STUDY: s/p right portacath placement; r/o pneumo; COMPARISON: 12/19/2018 NUMBER OF VIEWS: One view. TECHNIQUE: Single frontal radiographic image of the chest acquired. LIMITATIONS: Overlying support apparatus. FINDINGS: LUNGS AND PLEURA: Stable appearance. No pneumothorax. MEDIASTINUM AND HEART: Stable heart size and mediastinal structures. SUPPORT DEVICES: Right-sided port tip overlying SVC. BONY STRUCTURES: No acute findings. HARDWARE: None. OTHER: No other significant finding. IMPRESSION: Good position of port. No pneumothorax. Reading location - IP/workstation name: [email or web address]
--- NOTE | 2019-01-07 12:12 | RADIOLOGY REPORT (SQ) ---
EXAM DESCRIPTION: FLUORO/CV PLACEMENT COMPLETED DATE/TIME: 01/07/2019 11:31 am REASON FOR STUDY: RIGHT SIDE PORTACATH COMPARISON: None. FLUOROSCOPY TIME: 0.2 minutes 4 images saved to PACS. TECHNIQUE: Intra-operative images acquired during surgical procedure to evaluate progress. NUMBER OF IMAGES: 4 LIMITATIONS: None. FINDINGS: Fluoroscopic images taken during right side port placement. Tip overlies SVC. IMPRESSION: IMAGE(S) OBTAINED DURING PROCEDURE. COMMENT: Quality ID [id number]: Final reports for procedures using fluoroscopy that document radiation exp osure indices, or exposure time and number of fluorographic images (if radiation exposure indices are not available) Please consult full operative report of the attending physician for description of the procedure. TECHNICAL DOCUMENTATION: JOB ID: [id number] [employer]- All Rights Reserved Reading location - IP/workstation name: [email or web address]
[2019-01-07] MEDS: DOCUSATE SODIUM 100 MG CAPSULE PO SCH (12:37)
[2019-01-07] MEDS: DILTIAZEM HCL 180 MG CAPSULE.CR PO SCH (12:38)
--- NOTE | 2019-01-07 15:57 | PDOC DISCHARGE SUMMARY ---
Impression - Admit/DC Date/PCP Admission Date/Primary Care Provider: 01/06/19 15:25 MANJINDER RODRIGUEZ MD Discharge Date: 01/07/19 - Discharge Diagnosis (1) Metastatic breast cancer Is this a current diagnosis for this admission?: Yes (2) Atrial fibrillation Is this a current diagnosis for this admission?: Yes (3) Hypertension Is this a current diagnosis for this admission?: Yes - Additional Information Resuscitation Status: Full Code Discharge Diet: Cardiac Discharge Activity: No Lifting Over 10 Pounds, No Lifting/Push/Pulling, No tub bath Referrals: [facility] [Provider Group] - 01/14/19 1:15 pm TODD FISCHER MD [ACTIVE STAFF] - 01/08/19 9:30 am (1 week) Home Medications: Diltiazem HCl [Diltiazem 24Hr ER (Cd)] 180 mg PO Q12 01/06/19 Diphenhydramine HCl [Benadryl 25 mg Capsule] 25 mg PO Q6HP PRN 01/06/19 Docusate Sodium [Colace 100 mg Capsule] 100 mg PO BID 01/06/19 Fentanyl [Duragesic 100 Mcg/Hr Transdermal Patch] 100 mcg TOP Q3D 01/06/19 Hydrochlorothiazide [Hydrodiuril 12.5 mg Tablet] 12.5 mg PO QAM 01/06/19 Losartan Potassium [Cozaar 25 mg Tablet] 25 mg PO DAILY 01/06/19 Oxycodone HCl/Acetaminophen [Percocet 10-325 mg Tablet] 1 tab PO 5XDP PRN 01/06/19 History of Present Illiness History of Present Illness: LINDSAY MELTON is a 48 year old female with a history of metastatic breast cancer who had gone home on hospice and was on a TANK WORKER pump. She discontinued the pump and decided she did not want to be on hospice anymore. She called her oncologist Dr. Fischer and said that she wished to pursue full aggressive treatment. He had her come to the hospital to be admitted to get a port placed. She currently has no acute unstable medical issues. She was sitting on the edge of the bed in the ER and appeared comfortable. Hospital Course Hospital Course: Her complaints were numerous and varied. She complained of chest pain or shortness of breath in the ER but her troponins were negative, her EKG was unremarkable, CTA of her chest was negative for PE, infection, and aneurysm, and only showed a widely metastatic disease that was unchanged from the previous scan about 2-1/2 weeks ago. She then began to tell her nurse that she was here for pain control, but she had been getting pain medication from her oncologist and as noted in the HPI had been on a TANK WORKER pump at home. When I saw her in the ER she was complaining of no pain at all. She got her port placed today without incident. She is not to use the port until she sees her oncologist. When we went to discharge her home she said that none of her issues have been addressed, but as noted above no cardiac, pulmonary, vascular, or infectious cause for her chest pain could be identified, only that she has widely metastatic disease which is known and she has pain medication at home to address it. She normally gets her pain medication from her oncologist Dr. Fischer. She is being d ischarged and will follow up with him within 1 week. She has decided that she wants to do aggressive treatment of her cancer. Physical Exam Vital Signs: Temp Pulse Resp BP Pulse Ox 97.7 F 118 H 20 152/89 H 94 01/07/19 11:25 01/07/19 14:39 01/07/19 14:39 01/07/19 11:55 01/07/19 14:39 Intake & Output 01/06/19 01/07/19 01/08/19 06:59 06:59 06:59 Intake Total 225 1200 Output Total 10 Balance 225 1190 Weight 92 kg General appearance: PRESENT: no acute distress, uncooperative, disheveled, obese Respiratory exam: PRESENT: clear to auscultation tolu, symmetrical, unlabored. ABSENT: accessory muscle use, chest wall tenderness, crackles, prolonged expiratory phas, rhonchi, tachypnea, wheezes Cardiovascular exam: PRESENT: tachycardia Pulses: PRESENT: normal carotid pulses Vascular exam: PRESENT: normal capillary refill GI/Abdominal exam: PRESENT: normal bowel sounds, soft. ABSENT: distended, guarding, rebound, tenderness Extremities exam: ABSENT: clubbing, pedal edema Musculoskeletal exam: PRESENT: normal inspection. ABSENT: deformity Neurological exam: PRESENT: alert, awake, oriented to person, oriented to place, oriented to situation Psychiatric exam: PRESENT: flat affect Skin exam: PRESENT: dry, warm Results Laboratory Results: WBC 5.1 10^3/uL (4.0-10.5) 01/06/19 13:40 RBC 4.56 10^6/uL (3.72-5.28) 01/06/19 13:40 Hgb 13.4 g/dL (12.0-15.5) 01/06/19 13:40 Hct 39.6 % (36.0-47.0) 01/06/19 13:40 MCV 87 fl (80-97) 01/06/19 13:40 MCH 29.4 pg (27.0-33.4) 01/06/19 13:40 MCHC 33.9 g/dL (32.0-36.0) 01/06/19 13:40 RDW 14.8 % (11.5-14.0) H 01/06/19 13:40 Plt Count 345 10^3/uL (150-450) 01/06/19 13:40 Lymph % (Auto) 18.0 % (13-45) 01/06/19 13:40 Lea % (Auto) 13.1 % (3-13) H 01/06/19 13:40 Eos % (Auto) 0.3 % (0-6) 01/06/19 13:40 Baso % (Auto) 1.6 % (0-2) 01/06/19 13:40 Absolute Neuts (auto) 3.4 10^3/uL (1.7-8.2) 01/06/19 13:40 Absolute Lymphs (auto) 0.9 10^3/uL (0.5-4.7) 01/06/19 13:40 Absolute Monos (auto) 0.7 10^3/uL (0.1-1.4) 01/06/19 13:40 Absolute Eos (auto) 0.0 10^3/uL (0.0-0.6) 01/06/19 13:40 Absolute Basos (auto) 0.1 10^3/uL (0.0-0.2) 01/06/19 13:40 Seg Neutrophils % 67.0 % (42-78) 01/06/19 13:40 PT 13.6 SEC (11.4-15.4) 01/06/19 13:40 INR 1.03 01/06/19 13:40 APTT 30.2 SEC (23.5-35.8) 01/06/19 13:40 Sodium 140.9 mmol/L (137-145) 01/06/19 13:40 Potassium 4.1 mmol/L (3.6-5.0) 01/06/19 13:40 Chloride 104 mmol/L (98-107) 01/06/19 13:40 Carbon Dioxide 25 mmol/L (22-30) 01/06/19 13:40 Anion Gap 12 (5-19) 01/06/19 13:40 BUN 8 mg/dL (7-20) 01/06/19 13:40 Creatinine 0.63 mg/dL (0.52-1.25) 01/06/19 13:40 Est GFR ( Amer) > 60 (>60) 01/06/19 13:40 Est GFR (MDRD) Non-Af > 60 (>60) 01/06/19 13:40 Glucose 78 mg/dL (75-110) 01/06/19 13:40 Calcium 9.0 mg/dL (8.4-10.2) 01/06/19 13:40 Total Bilirubin 0.3 mg/dL (0.2-1.3) 01/06/19 13:40 Direct Bilirubin 0.2 mg/dL (0.0-0.4) 01/06/19 13:40 Neonat Total Bilirubin Not Reportable 01/06/19 13:40 Neonat Direct Bilirubin Not Reportable 01/06/19 13:40 Neonat Indirect Bili Not Reportable 01/06/19 13:40 AST 26 U/L (14-36) 01/06/19 13:40 ALT 21 U/L (<35) 01/06/19 13:40 Alkaline Phosphatase 105 U/L (38-126) 01/06/19 13:40 Troponin I < 0.012 ng/mL 01/06/19 13:40 Total Protein 6.5 g/dL (6.3-8.2) 01/06/19 13:40 Albumin 3.5 g/dL (3.5-5.0) 01/06/19 13:40 Urine Color YELLOW 01/06/19 12:40 Urine Appearance CLEAR 01/06/19 12:40 Urine pH 7.0 (5.0-9.0) 01/06/19 12:40 Ur Specific [place] 1.024 01/06/19 12:40 Urine Protein 30 mg/dL (NEGATIVE) H 01/06/19 12:40 Urine Glucose (UA) NEGATIVE mg/dL (NEGATIVE) 01/06/19 12:40 Urine Ketones TRACE mg/dL (NEGATIVE) H 01/06/19 12:40 Urine Blood NEGATIVE (NEGATIVE) 01/06/19 12:40 Urine Nitrite (Reflex) NEGATIVE (NEGATIVE) 01/06/19 12:40 Urine Bilirubin NEGATIVE (NEGATIVE) 01/06/19 12:40 Urine Urobilinogen NEGATIVE mg/dL (<2.0) 01/06/19 12:40 Leukocyte Esterase Rfl NEGATIVE (NEGATIVE) 01/06/19 12:40 Urine RBC (Auto) 2 /HPF 01/06/19 12:40 U Hyaline Cast (Auto) 3 /LPF 01/06/19 12:40 Urine Bacteria (Auto) 2+ /HPF 01/06/19 12:40 Urine WBC (Reflex) 2 /HPF 01/06/19 12:40 Squamous Epi Cells Auto 4 /HPF 01/06/19 12:40 Urine Mucus (Auto) MANY /LPF 01/06/19 12:40 Urine Ascorbic Acid NEGATIVE (NEGATIVE) 01/06/19 12:40 01/06/19 13:40 Troponin I < 0.012 Impressions: Chest/Abdomen CTA 01/06/19 12:22 IMPRESSION: 1. Widespread metastatic disease throughout both lung figueroa, mediastinum and hilar regions. Small left effusion. These findings are grossly stable from 12/19/2018. 2. No pulmonary emboli. Chest X-Ray 01/07/19 00:00 IMPRESSION: Good position of port. No pneumothorax. Guidance Fluoroscopy 01/07/19 00:00 IMPRESSION: IMAGE(S) OBTAINED DURING PROCEDURE. Plan Time Spent: Greater than 30 Minutes Stroke Is this a Stroke Patient?: No Acute Heart Failure - Is this a Heart Failure Patient?: No
[2019-01-07 16:45] VITALS: BP 133/82
[2019-01-08] MEDS ORDERED: FENTANYL 100 MCG/HR PATCH.TD72 TD SCH (10:00)
== END 2019-01-07 17:55 | disposition home or self-care (01) ==
LOC: ER 11:56 → UNDOADMIN 15:25 → EH 15:25 → OROUT 15:39 → 4S 17:03 → EH 17:03 → EDSTATUS 01-07 09:30 → UNDODISIN 01-07 17:55 → OROUT 01-07 17:55
PROVIDERS: ATTEND Surgery
DX: C79.81 Secondary malignant neoplasm of breast (principal); C78.02 Secondary malignant neoplasm of left lung; C78.01 Secondary malignant neoplasm of right lung; I48.0 Paroxysmal atrial fibrillation; I10 Essential (primary) hypertension; I25.10 Atherosclerotic heart disease of native coronary artery without angina pectoris
CPT/HCPCS: 36561; 93005; 99285; 36415; 85025; 85610; 85730; 80053; 81001; 84484; 71045; 77001; 71275; 93010; 94640 ×2; 00532; C1788; J2250; J0690; J3010 ×2; J3490 ×2; J1170 ×2; J2550 ×2; J2405; J2704; J7620; J1642; 532

== ENCOUNTER 2019-01-12 09:13 | Inpatient (IN) | payer OTHER ==
[2019-01-12] MEDS ORDERED: ZOLPIDEM TARTRATE 5 MG TABLET PO PRN (09:45)
[2019-01-12] MEDS ORDERED: MAG HYDROX/AL HYDROX/SIMETH SUSP 30 ML UDCUP PO PRN (09:45)
[2019-01-12] MEDS ORDERED: ACETAMINOPHEN 325 MG TABLET PO PRN (09:45)
--- NOTE | 2019-01-12 09:57 | PDOC H&P ---
History of Present Illness Admission Date/PCP: 01/12/19 09:13 MANJINDER RODRIGUEZ MD Patient complains of: Intractable pain, nausea, and just does not feel good History of Present Illness: LINDSAY MELTON is a 48 year old female with metastatic cancer from primary s ource of the lung. Patient is well-known to me. Patient presents as a direct admit with intractable pain, dehydration and overall feeling is not being well. Patient states a lot of weakness at this time. Patient had no treatment prior to arrival all activities been aggravating factor. Patient also states she has not been eating for some time. Past Medical History Cardiac Medical History: Reports: Hypertension Denies: Coronary Artery Disease, Myocardial Infarction Pulmonary Medical History: Denies: Asthma, Bronchitis, Chronic Obstructive Pulmonary Disease (COPD), Pneumonia Neurological Medical History: Denies: Seizures Malignancy Medical History: Reports: Breast Cancer, Lung Cancer Musculoskeltal Medical History: Denies: Arthritis Hematology: Denies: Anemia Past Surgical History Past Surgical History: Reports: Hysterectomy, Other - Bilateral mastectomy Social History Information Source: Patient Lives with: Family Smoking Status: Never Smoker Electronic Cigarette use?: No Frequency of Alcohol Use: None Hx Recreational Drug Use: No Drugs: None Hx Prescription Drug Abuse: No - Advance Directive Resuscitation Status: Full Code Family History Family History: Hypertension Parental Family History Reviewed: Yes Children Family History Reviewed: Yes Sibling(s) Family History Reviewed.: Yes Medication/Allergy Home Medications: Diltiazem HCl [Diltiazem 24Hr ER (Cd)] 180 mg PO Q12 01/06/19 Diphenhydramine HCl [Benadryl 25 mg Capsule] 25 mg PO Q6HP PRN 01/06/19 Docusate Sodium [Colace 100 mg Capsule] 100 mg PO BID 01/06/19 Fentanyl [Duragesic 100 Mcg/Hr Transdermal Patch] 100 mcg TOP Q3D 01/06/19 Hydrochlorothiazide [Hydrodiuril 12.5 mg Tablet] 12.5 mg PO QAM 01/06/19 Losartan Potassium [Cozaar 25 mg Tablet] 25 mg PO DAILY 01/06/19 Oxycodone HCl/Acetaminophen [Percocet 10-325 mg Tablet] 1 tab PO 5XDP PRN 01/06/19 Allergies/Adverse Reactions: No Known Allergies Allergy (Verified 01/06/19 12:15) Review of Systems Constitutional: ABSENT: chills, fever(s), headache(s), weight gain, weight loss Eyes: ABSENT: visual disturbances Ears: ABSENT: hearing changes Breasts: PRESENT: other - Bilateral mastectomy Cardiovascular: ABSENT: chest pain, dyspnea on exertion, edema, orthropnea, palpitations Respiratory: ABSENT: cough, hemoptysis Gastrointestinal: ABSENT: abdominal pain, constipation, diarrhea, hematemesis, hematochezia, nausea, vomiting Genitourinary: ABSENT: dysuria, hematuria Musculoskeletal: PRESENT: other - Chest pain secondary to neoplasm and radiating to the back.. ABSENT: joint swelling Integumentary: ABSENT: rash, wounds Neurological: ABSENT: abnormal gait, abnormal speech, confusion, dizziness, foc al weakness, syncope Psychiatric: ABSENT: anxiety, depression, homidical ideation, suicidal ideation Endocrine: ABSENT: cold intolerance, heat intolerance, polydipsia, polyuria Hematologic/Lymphatic: ABSENT: easy bleeding, easy bruising Physical Exam General appearance: PRESENT: no acute distress, well-developed, well-nourished Head exam: PRESENT: atraumatic, normocephalic Eye exam: PRESENT: conjunctiva pink, EOMI, PERRLA. ABSENT: scleral icterus Ear exam: PRESENT: normal external ear exam Mouth exam: PRESENT: moist, tongue midline Neck exam: ABSENT: carotid bruit, JVD, lymphadenopathy, thyromegaly Respiratory exam: PRESENT: decreased breath sounds, symmetrical, unlabored, wheezes. ABSENT: rales, rhonchi Cardiovascular exam: PRESENT: RRR, tachycardia. ABSENT: diastolic murmur, rubs, systolic murmur Pulses: PRESENT: +1 pedal pulses bilateral Vascular exam: PRESENT: normal capillary refill GI/Abdominal exam: PRESENT: normal bowel sounds, soft. ABSENT: distended, guarding, mass, organolmegaly, rebound, tenderness Rectal exam: PRESENT: deferred Extremities exam: PRESENT: full ROM. ABSENT: calf tenderness, clubbing, pedal edema Neurological exam: PRESENT: alert, awake, oriented to person, oriented to place, oriented to time, oriented to situation, CN II-XII grossly intact. ABSENT: motor sensory deficit Psychiatric exam: PRESENT: appropriate affect, normal mood. ABSENT: homicidal ideation, suicidal ideation Skin exam: PRESENT: dry, intact, warm. ABSENT: cyanosis, rash Adult Front & Back Image: 1 - Port-A-Cath Assessment and Plan - Diagnosis (1) Intractable pain Is this a current diagnosis for this admission?: Yes Plan: 01/12/2019-very unfortunate female with lung breast cancer. Patient has underwent a bilateral mastectomy in the past. Patient has a Port-A-Cath in her right upper chest. Patient presents with intractable pain in her chest radiating to her back. Also complains of nausea and vomiting unable to eat for the last several days. At this time will admit to medical surgical floor we will hydrate with normal saline at 125 mL an hour and give her Dilaudid 2 mg IV every 3 hours as needed pain in addition to home medications. We will continue to follow and titrate to effect (2) Dehydration Is this a current diagnosis for this admission?: Yes Plan: 01/12/2019-normal saline at 125 mL an hour. Continue to follow (3) Metastatic breast cancer Is this a current diagnosis for this admission?: Yes Plan: 01/12/2019-see #1 (4) Nausea & vomiting Qualifiers: Is this a current diagnosis for this admission?: Yes Plan: 01/12/2019-Zofran 4 mill grams IV every 4 hours as needed and Phenergan 12.5 g IV every 4 as needed alternating. Also await diagnostics including CBC, CMP, magnesium, phosphate, troponin and chest x-ray. Will make changes plan of care at that time - Time Time Spent with patient: 35 or more minutes - Inpatient Certification Based on my medical assessment, after consideration of the patient's comorbidities, presenting symptoms, or acuity I expect that the services needed warrant INPATIENT care.: Yes I certify that my determination is in accordance with my understanding of Medicare's requirements for reasonable and necessary INPATIENT services [42 CFR 412.3e].: Yes Medical Necessity: Need For IV Fluids, Need for Pain Control
--- NOTE | 2019-01-12 10:16 | RADIOLOGY REPORT (SQ) ---
EXAM DESCRIPTION: CHEST SINGLE VIEW COMPLETED DATE/TIME: 01/12/2019 10:01 am REASON FOR STUDY: metastic lung cancer COMPARISON: CT of the chest from 01/06/2019. EXAM PARAMETERS: NUMBER OF VIEWS: One view. TECHNIQUE: Single frontal radiographic view of the chest acquired. RADIATION DOSE: NA LIMITATIONS: None. FINDINGS: LUNGS AND PLEURA: The left lateral costophrenic sulcus is blunted and the contour of the l eft hemidiaphragm are obscured. The nodular opacities in the right upper lobe and lingula are unchan ged from 01/06/2019. There is no pneumothorax. MEDIASTINUM AND HILAR STRUCTURES: Unchanged nodular fullness of the stephen. HEART AND VASCULAR STRUCTURES: The cardiac silhouette is enlarged. The pulmonary vasculature is with in normal limits. BONES: No acute findings. HARDWARE: The tip of the right IJ single-lumen port projects at the level of the cavoatrial junction. There are bilateral breast prostheses in place and there are surgical clips that project within the right axilla. OTHER: No other finding. IMPRESSION: Unchanged radiographic appearance of the chest with a left pleural effusion, nodular ful lness of the stephen, and bilateral nodular opacities. TECHNICAL DOCUMENTATION: JOB ID: [id number] [employer]- All Rights Reserved Reading location - IP/workstation name: [email or web address]
[2019-01-12 11:02] LABS: ABSOLUTE MONOCYTES (AUTO) 0.6 10^3/uL (0.1-1.4); ABSOLUTE NEUT (AUTO) 2.7 10^3/uL (1.7-8.2); BASOPHILS % (AUTO) 0.5 % (0-2); EOSINOPHILS % (AUTO) 0.1 % (0-6); HEMATOCRIT 38.4 % (36.0-47.0); LYMPHOCYTES % (AUTO) 23.8 % (13-45); MEAN CORPUSCULAR HEMOGLOBIN 28.7 pg (27.0-33.4); MEAN CORPUSCULAR HGB CONC 33.9 g/dL (32.0-36.0); MEAN CORPUSCULAR VOLUME 85 fl (80-97); MONOCYTES % (AUTO) 13.1 % (3-13); PLATELET COUNT 396 10^3/uL (150-450); RED BLOOD COUNT 4.53 10^6/uL (3.72-5.28); RED CELL DISTRIBUTION WIDTH 14.4 % (11.5-14.0); SEGMENTED NEUTROPHILS % (AUTO) 62.5 % (42-78); TOTAL CELLS COUNTED % (AUTO) 100 %; WHITE BLOOD COUNT 4.4 10^3/uL (4.0-10.5)
[2019-01-12 11:19] LABS: ALBUMIN 3.5 g/dL (3.5-5.0); ALKALINE PHOSPHATASE 110 U/L (38-126); ANION GAP 13 (5-19); ASPARTATE AMINO TRANSFERASE 23 U/L (14-36); BILIRUBIN,DIRECT 0.1 mg/dL (0.0-0.4); BILIRUBIN,TOTAL 0.4 mg/dL (0.2-1.3); BLOOD UREA NITROGEN 6 mg/dL (7-20); CALCIUM 9.2 mg/dL (8.4-10.2); CARBON DIOXIDE 23 mmol/L (22-30); CHLORIDE 104 mmol/L (98-107); CREATINE KINASE 71 U/L (30-135); GLUCOSE 81 mg/dL (75-110); PHOSPHORUS 4.2 mg/dL (2.5-4.5); TOTAL PROTEIN 6.6 g/dL (6.3-8.2)
[2019-01-12] MEDS: DOCUSATE SODIUM 100 MG CAPSULE PO SCH ×2 (11:41→17:53)
[2019-01-12] MEDS: PROMETHAZINE HCL INJ 25 MG/1 ML VIAL IV PRN ×3 (11:48→19:54)
[2019-01-12] MEDS: HYDROMORPHONE HCL INJ/PF 2 MG/ML AMPULE IV PRN ×4 (11:48→23:51)
[2019-01-12] MEDS: PANTOPRAZOLE SODIUM 40 MG VIAL IV SCH (11:49)
[2019-01-12] MEDS ORDERED: ALBUTEROL SULFATE 0.083% NEB 2.5 MG/3 ML AMPUL NEB SCH (12:00)
[2019-01-12] MEDS: OXYCODONE-ACETAMINOPHEN 5-325 MG TABLET PO PRN (13:57)
[2019-01-12] MEDS: HEPARIN SOD (PORCINE) 5,000 UNIT/ML 1 ML VIAL SUBCUT SCH ×2 (15:24→21:26)
[2019-01-12 15:53] LABS: APPEARANCE,URINE SLIGHTLY-CLOUDY; BILIRUBIN,URINE NEGATIVE (NEGATIVE); COLOR,URINE YELLOW; GLUCOSE, URINE NEGATIVE (NEGATIVE); KETONES,URINE 20 mg/dL (NEGATIVE); LEUKOCYTE ESTERASE,URINE NEGATIVE (NEGATIVE); NITRITE,URINE NEGATIVE (NEGATIVE); PROTEIN,URINE NEGATIVE (NEGATIVE); URINE SPECIFIC GRAVITY 1.014; UROBILINOGEN,URINE NEGATIVE mg/dL (<2.0)
[2019-01-12] MEDS: DRONABINOL 2.5 MG CAPSULE PO SCH (17:53)
[2019-01-12] MEDS: DILTIAZEM HCL 180 MG CAPSULE.CR PO SCH (21:37)
[2019-01-12] MEDS: DIPHENHYDRAMINE HCL 50 MG/ML VIAL IV PRN (21:37)
[2019-01-12] MEDS: ALBUTEROL SULFATE 0.083% NEB 2.5 MG/3 ML AMPUL NEB PRN (21:37)
[2019-01-12] MEDS ORDERED: (PENDING PHARMACY ID) (Diltiazem Hcl [Diltiazem 24hr Er] 180 MG) PO SCH (22:00)
[2019-01-13] MEDS: PROMETHAZINE HCL INJ 25 MG/1 ML VIAL IV PRN ×5 (02:23→21:46)
[2019-01-13] MEDS: OXYCODONE-ACETAMINOPHEN 5-325 MG TABLET PO PRN (02:26)
[2019-01-13] MEDS ORDERED: NORMAL SALINE IV PRN (05:00)
[2019-01-13] MEDS ORDERED: DEXAMETHASONE 10 MG in NS 50 ML IV PRN (05:00)
[2019-01-13] MEDS ORDERED: GEMCITABINE HCL IV PRN (05:00)
[2019-01-13] MEDS ORDERED: CARBOPLATIN 625 MG in NORMAL SALINE 500 ML IV PRN (05:00)
[2019-01-13] MEDS ORDERED: NORMAL SALINE 250 ML @ KVO IV PRN (05:00)
[2019-01-13] MEDS ORDERED: PALONOSETRON 0.25 MG/5 ML VIAL IV PRN (05:00)
[2019-01-13] MEDS: HYDROMORPHONE HCL INJ/PF 2 MG/ML AMPULE IV PRN ×6 (06:20→23:34)
[2019-01-13] MEDS: HEPARIN SOD (PORCINE) 5,000 UNIT/ML 1 ML VIAL SUBCUT SCH ×3 (07:21→21:43)
--- NOTE | 2019-01-13 08:26 | PDOC CONSULTATION ---
Consultation Consult Date: 01/13/19 Attending physician:: KIRK MIR Provider Consulted: TODD KELLEY Consult reason:: Uncontrolled pain, nausea and vomiting in setting of widely metastatic breast cancer History of Present Illness Admission Date/PCP: 01/12/19 09:13 MANJINDER RODRIGUEZ MD Patient complains of: Severe pain, poorly controlled, nausea and vomiting History of Present Illness: LINDSAY MELTON is a 48 year old female with known history of stage IV breast cancer, recently diagnosed with stage IV breast cancer with extensive lung metastasis, and small brain metastases. She had port placement and she was supposed to get IV chemotherapy as an outpatient but unfortunately we have been increasing her fentanyl patch is up to 100 mcg now, and increasing her as needed oral oxycodone but pain control has not been achieved as an outpatient. She also had nausea and vomiting we have been giving her hydration as an outpatient but unfortunately this also could not be appropriately managed as an outpatient. Therefore she presented to the ED with continued pain and nausea and vomiting, she was admitted for pain control. We also discussed initiation of chemotherapy because this is needed for pain control, we do believe chemotherapy will shrink the disease that is causing the pain specifically the pain in the lungs. She has signed consent and is ready to start treatment this morning. She still having considerable pain so we discussed going up on her Dilaudid and fentanyl patch. Past Medical History Cardiac Medical History: Reports: Hypertension Denies: Coronary Artery Disease, Myocardial Infarction Pulmonary Medical History: Denies: Asthma, Bronchitis, Chronic Obstructive Pulmonary Disease (COPD), Pneumonia Neurological Medical History: Denies: Seizures Malignancy Medical History: Reports: Breast Cancer, Lung Cancer Musculoskeltal Medical History: Denies: Arthritis Hematology: Denies: Anemia Past Surgical History Past Surgical History: Reports: Hysterectomy, Other - Bilateral mastectomy Social History Information Source: Patient Lives with: Family Smoking Status: Never Smoker Electronic Cigarette use?: No Frequency of Alcohol Use: None Hx Recreational Drug Use: No Drugs: None Hx Prescription Drug Abuse: No - Advance Directive Resuscitation Status: Full Code Family History Family History: Hypertension Parental Family History Reviewed: Yes Children Family History Reviewed: Yes Sibling(s) Family History Reviewed.: Yes Medication/Allergy Home Medications: Diltiazem HCl [Diltiazem ER] 180 mg PO Q12 01/12/19 Diphenhydramine HCl [Benadryl] 25 mg PO Q6HP PRN 01/12/19 Docusate Sodium [Colace] 100 mg PO BID 01/12/19 Fentanyl [Duragesic 100 Mcg/Hr Transdermal Patch] 1 patch TD Q3D 01/12/19 Hydrochlorothiazide [Hydrodiuril 12.5 mg Tablet] 12.5 mg PO QAM 01/12/19 Losartan Potassium [Cozaar 25 mg Tablet] 25 mg PO DAILY 01/12/19 Oxycodone HCl/Acetaminophen [Percocet 10-325 Mg Tablet] 1 each PO 5XDP PRN 01/12/19 Promethazine HCl [Phenergan 25 mg Tablet] 25 mg PO DAILYP PRN 01/12/19 Allergies/Adverse Reactions: No Known Allergies Allergy (Verified 01/06/19 12:15) Review of Systems Constitutional: ABSENT: chills, fever(s), headache(s), weight gain, weight loss Eyes: ABSENT: visual disturbances Ears: ABSENT: hearing changes Cardiovascular: ABSENT: chest pain, dyspnea on exertion, edema, orthropnea, palpitations Respiratory: ABSENT: cough, hemoptysis Gastrointestinal: ABSENT: abdominal pain, constipation, diarrhea, hematemesis, hematochezia, nausea, vomiting Genitourinary: ABSENT: dysuria, hematuria Musculoskeletal: ABSENT: joint swelling Integumentary: ABSENT: rash, wounds Neurological: ABSENT: abnormal gait, abnormal speech, confusion, dizziness, focal weakness, syncope Psychiatric: ABSENT: anxiety, depression, homidical ideation, suicidal ideation Endocrine: ABSENT: cold intolerance, heat intolerance, polydipsia, polyuria Hematologic/Lymphatic: ABSENT: easy bleeding, easy bruising Physical Exam Vital Signs: Temp Pulse Resp BP Pulse Ox 98.5 F 96 20 155/69 H 96 01/13/19 02:00 01/13/19 07:00 01/13/19 02:00 01/13/19 02:00 01/13/19 02:00 Intake & Output 01/12/19 01/13/19 01/14/19 06:59 06:59 06:59 Intake Total 520 Output Total 100 Balance 420 Weight 91.7 kg General appearance: PRESENT: no acute distress, well-developed, well-nourished Head exam: PRESENT: atraumatic, normocephalic Eye exam: PRESENT: conjunctiva pink, EOMI, PERRLA. ABSENT: scleral icterus Ear exam: PRESENT: normal external ear exam Mouth exam: PRESENT: moist, tongue midline Neck exam: ABSENT: carotid bruit, JVD, lymphadenopathy, thyromegaly Respiratory exam: PRESENT: clear to auscultation tolu. ABSENT: rales, rhonchi, wheezes Cardiovascular exam: PRESENT: RRR. ABSENT: diastolic murmur, rubs, systolic murmur Pulses: PRESENT: normal dorsalis pedis pul Vascular exam: PRESENT: normal capillary refill GI/Abdominal exam: PRESENT: normal bowel sounds, soft. ABSENT: distended, guarding, mass, organolmegaly, rebound, tenderness Rectal exam: PRESENT: deferred Extremities exam: PRESENT: full ROM. ABSENT: calf tenderness, clubbing, pedal edema Neurological exam: PRESENT: alert, awake, oriented to person, oriented to place, oriented to time, oriented to situation, CN II-XII grossly intact. ABSENT: motor sensory deficit Psychiatric exam: PRESENT: appropriate affect, normal mood. ABSENT: homicidal ideation, suicidal ideation Skin exam: PRESENT: dry, intact, warm. ABSENT: cyanosis, rash Results Laboratory Results: 01/12/19 10:23 01/12/19 10:23 01/12/19 01/12/19 01/12/19 10:23 10:23 13:30 WBC 4.4 RBC 4.53 Hgb 13.0 Hct 38.4 MCV 85 MCH 28.7 MCHC 33.9 RDW 14.4 H Plt Count 396 Seg Neutrophils % 62.5 Sodium 139.6 Potassium 4.0 Chloride 104 Carbon Dioxide 23 Anion Gap 13 BUN 6 L Creatinine 0.49 L Est GFR ( Amer) > 60 Glucose 81 Calcium 9.2 Phosphorus 4.2 Magnesium 2.0 Total Bilirubin 0.4 AST 23 Alkaline Phosphatase 110 Total Protein 6.6 Albumin 3.5 Urine Color YELLOW Urine Appearance SLIGHTLY-CLOUDY Urine pH 7.0 Ur Specific [place] 1.014 Urine Protein NEGATIVE Urine Glucose (UA) NEGATIVE Urine Ketones 20 H Urine Blood NEGATIVE Urine Nitrite NEGATIVE Ur Leukocyte Esterase NEGATIVE Urine WBC (Auto) 1 01/12/19 10:23 Creatine Kinase 71 Impressions: Chest X-Ray 01/12/19 09:48 IMPRESSION: Unchanged radiographic appearance of the chest with a left pleural effusion, nodular fullness of the stephen, and bilateral nodular opacities. Assessment & Plan - Diagnosis (1) Metastatic breast cancer Is this a current diagnosis for this admission?: Yes Plan: Initiate carboplatin and Gemzar today, she has signed consent and ready to start therapy today. (2) Intractable pain Is this a current diagnosis for this admission?: Yes Plan: Secondary to the cancer related pain in the lung, increase Dilaudid, increase fentanyl. (3) Nausea & vomiting Qualifiers: Vomiting type: unspecified Vomiting Intractability: intractable Qualified Code(s): R11.2 - Nausea with vomiting, unspecified Is this a current diagnosis for this admission?: Yes Plan: Continue with current antiemetics, and aggressive hydration - Time Time Spent: Greater than 70 Minutes - Inpatient Certification Based on my medical assessment, after consideration of the patient's comorbidities, presenting symptoms, or acuity I expect that the services needed warrant INPATIENT care.: Yes I certify that my determination is in accordance with my understanding of Medicare's requirements for reasonable and necessary INPATIENT services [42 CFR 412.3e].: Yes Medical Necessity: Need For IV Fluids, Need for Pain Control, Risk of Complication if Not Cared For in Hospital
[2019-01-13] MEDS: FENTANYL 25 MCG/HR PATCH.TD72 TD SCH (09:31)
--- NOTE | 2019-01-13 09:43 | PDOC PROGRESS REPORT ---
Subjective Progress Note for:: 01/13/19 Subjective:: 01/13/2019-no complaints at this time. In chemotherapy Reason For Visit: RON TRUJILLO/BHASKAR Physical Exam Vital Signs: Temp Pulse Resp BP Pulse Ox 98.0 F 118 H 18 165/108 H 97 01/13/19 08:29 01/13/19 08:29 01/13/19 08:29 01/13/19 08:29 01/13/19 08:29 Intake & Output 01/12/19 01/13/19 01/14/19 06:59 06:59 06:59 Intake Total 520 51 Output Total 100 Balance 420 51 Weight 91.7 kg General appearance: PRESENT: no acute distress, well-developed, well-nourished Neck exam: ABSENT: carotid bruit, JVD, lymphadenopathy, thyromegaly Respiratory exam: PRESENT: clear to auscultation tolu. ABSENT: rales, rhonchi, wheezes Cardiovascular exam: PRESENT: RRR. ABSENT: diastolic murmur, rubs, systolic murmur Pulses: PRESENT: normal dorsalis pedis pul Vascular exam: PRESENT: normal capillary refill Extremities exam: PRESENT: full ROM. ABSENT: calf tenderness, clubbing, pedal edema Neurological exam: PRESENT: alert, awake, oriented to person, oriented to place, oriented to time, oriented to situation, CN II-XII grossly intact. ABSENT: motor sensory deficit Psychiatric exam: PRESENT: appropriate affect, normal mood. ABSENT: homicidal ideation, suicidal ideation Skin exam: PRESENT: dry, intact, warm, other - Bilateral mastectomy. ABSENT: cyanosis, rash Adult Front & Back Image: 1 - Port-A-Cath 2 - Bilateral mastectomy Results Laboratory Results: 01/12/19 10:23 01/12/19 10:23 01/12/19 01/12/19 01/12/19 10:23 10:23 13:30 WBC 4.4 RBC 4.53 Hgb 13.0 Hct 38.4 MCV 85 MCH 28.7 MCHC 33.9 RDW 14.4 H Plt Count 396 Seg Neutrophils % 62.5 Sodium 139.6 Potassium 4.0 Chloride 104 Carbon Dioxide 23 Anion Gap 13 BUN 6 L Creatinine 0.49 L Est GFR ( Amer) > 60 Glucose 81 Calcium 9.2 Phosphorus 4.2 Magnesium 2.0 Total Bilirubin 0.4 AST 23 Alkaline Phosphatase 110 Total Protein 6.6 Albumin 3.5 Urine Color YELLOW Urine Appearance SLIGHTLY-CLOUDY Urine pH 7.0 Ur Specific Labadie 1.014 Urine Protein NEGATIVE Urine Glucose (UA) NEGATIVE Urine Ketones 20 H Urine Blood NEGATIVE Urine Nitrite NEGATIVE Ur Leukocyte Esterase NEGATIVE Urine WBC (Auto) 1 01/12/19 10:23 Creatine Kinase 71 Impressions: Chest X-Ray 01/12/19 09:48 IMPRESSION: Unchanged radiographic appearance of the chest with a left pleural effusion, nodular fullness of the stephen, and bilateral nodular opacities. Assessment and Plan - Diagnosis (1) Intractable pain Is this a current diagnosis for this admission?: Yes Plan: 01/12/2019-very unfortunate female with lung breast cancer. Patient has underwent a bilateral mastectomy in the past. Patient has a Port-A-Cath in her right upper chest. Patient presents with intractable pain in her chest radiati ng to her back. Also complains of nausea and vomiting unable to eat for the last several days. At this time will admit to medical surgical floor we will hydrate with normal saline at 125 mL an hour and give her Dilaudid 2 mg IV every 3 hours as needed pain in addition to home medications. We will continue to follow and titrate to effect 01/13/2019-improved at this time only required 2 doses of Dilaudid overnight. Patient remains with fentanyl patch. Patient in chemotherapy at this time which should help with pain as well. We will continue to follow (2) Dehydration Is this a current diagnosis for this admission?: Yes Plan: 01/12/2019-normal saline at 125 mL an hour. Continue to follow 01/13/2019-improved. Will DC IV fluids at this time continue to encourage p.o. (3) Metastatic breast cancer Is this a current diagnosis for this admission?: Yes Plan: 01/12/2019-see #1 01/13/2019-patient seen by oncology. Initiated on chemotherapy today. (4) Nausea & vomiting Qualifiers: Vomiting type: unspecified Vomiting Intractability: intractable Qualified Code(s): R11.2 - Nausea with vomiting, unspecified Is this a current diagnosis for this admission?: Yes Plan: 01/12/2019-Zofran 4 mill grams IV every 4 hours as needed and Phenergan 12.5 g IV every 4 as needed alternating. Also await diagnostics including CBC, CMP, magnesium, phosphate, troponin and chest x-ray. Will make changes plan of care at that time 01/13/2019-stable at this time. Patient did get 25 mg of Aloxi in chemotherapy (5) Hypertension Qualifiers: Hypertension type: unspecified Qualified Code(s): I10 - Essential (primary) hypertension Is this a current diagnosis for this admission?: Yes Plan: 01/13/2019-remains elevated. I have increased the losartan to 50 mg p.o. daily will follow and titrate as needed - Time Time Spent with patient: 15-24 minutes - Inpatient Certification Based on my medical assessment, after consideration of the patient's comorbidities, presenting symptoms, or acuity I expect that the services needed warrant INPATIENT care.: Yes I certify that my determination is in accordance with my understanding of Medicare's requirements for reasonable and necessary INPATIENT services [42 CFR 412.3e].: Yes Medical Necessity: Need for Pain Control - Chemotherapy
[2019-01-13] MEDS ORDERED: LOSARTAN POTASSIUM 25 MG TABLET PO SCH (10:00)
[2019-01-13] MEDS: DILTIAZEM HCL 180 MG CAPSULE.CR PO SCH ×2 (11:25→21:46)
[2019-01-13] MEDS: LOSARTAN POTASSIUM 50 MG TABLET PO SCH (11:26)
[2019-01-13] MEDS: DRONABINOL 2.5 MG CAPSULE PO SCH ×2 (11:26→17:37)
[2019-01-13] MEDS: DOCUSATE SODIUM 100 MG CAPSULE PO SCH ×2 (11:26→17:37)
[2019-01-13] MEDS: PANTOPRAZOLE SODIUM 40 MG VIAL IV SCH (11:28)
[2019-01-13] MEDS: NORMAL SALINE 1000 ML 1,000 ML IV PRN ×2 (12:41→20:26)
[2019-01-13] MEDS: FENTANYL 100 MCG/HR PATCH.TD72 TD SCH (16:48)
[2019-01-13] MEDS: DIPHENHYDRAMINE HCL 50 MG/ML VIAL IV PRN (20:26)
[2019-01-14] MEDS: PROMETHAZINE HCL INJ 25 MG/1 ML VIAL IV PRN ×5 (02:09→21:18)
[2019-01-14] MEDS: HYDROMORPHONE HCL INJ/PF 2 MG/ML AMPULE IV PRN ×5 (03:49→21:16)
[2019-01-14] MEDS: NORMAL SALINE 1000 ML 1,000 ML IV PRN (03:49)
[2019-01-14] MEDS: HEPARIN SOD (PORCINE) 5,000 UNIT/ML 1 ML VIAL SUBCUT SCH ×3 (05:28→21:18)
[2019-01-14] MEDS: OXYCODONE-ACETAMINOPHEN 5-325 MG TABLET PO PRN ×3 (06:26→18:28)
--- NOTE | 2019-01-14 10:03 | PDOC PROGRESS REPORT ---
Subjective Progress Note for:: 01/14/19 Subjective:: 01/13/2019-no complaints at this time. In chemotherapy 01/14/2019-increase generalized pain this morning. Reason For Visit: RON TRUJILLO/BHASKAR Physical Exam Vital Signs: Temp Pulse Resp BP Pulse Ox 97.7 F 98 16 152/95 H 96 01/14/19 08:02 01/14/19 08:02 01/14/19 08:02 01/14/19 08:02 01/14/19 08:02 Intake & Output 01/13/19 01/14/19 01/15/19 06:59 06:59 06:59 Intake Total 520 5353.65 Output Total 100 Balance 420 5353.65 Weight 91.7 kg 95 kg General appearance: PRESENT: no acute distress, well-developed, well-nourished Neck exam: ABSENT: carotid bruit, JVD, lymphadenopathy, thyromegaly Respiratory exam: PRESENT: clear to auscultation tolu. ABSENT: rales, rhonchi, wheezes Cardiovascular exam: PRESENT: RRR. ABSENT: diastolic murmur, rubs, systolic murmur Pulses: PRESENT: normal dorsalis pedis pul Vascular exam: PRESENT: normal capillary refill GI/Abdominal exam: PRESENT: normal bowel sounds, soft. ABSENT: distended, guarding, mass, organolmegaly, rebound, tenderness Extremities exam: PRESENT: full ROM. ABSENT: calf tenderness, clubbing, pedal edema Neurological exam: PRESENT: alert, awake, oriented to person, oriented to place, oriented to time, oriented to situation, CN II-XII grossly intact. ABSENT: motor sensory deficit Psychiatric exam: PRESENT: appropriate affect, normal mood. ABSENT: homicidal ideation, suicidal ideation Skin exam: PRESENT: dry, intact, warm, other - Bilateral mastectomy. ABSENT: cyanosis, rash Results Laboratory Results: 01/12/19 10:23 01/12/19 10:23 01/12/19 10:23 Creatine Kinase 71 Impressions: Chest X-Ray 01/12/19 09:48 IMPRESSION: Unchanged radiographic appearance of the chest with a left pleural effusion, nodular fullness of the stephen, and bilateral nodular opacities. Assessment and Plan - Diagnosis (1) Intractable pain Is this a current diagnosis for this admission?: Yes Plan: 01/12/2019-very unfortunate female with lung breast cancer. Patient has underwent a bilateral mastectomy in the past. Patient has a Port-A-Cath in her right upper chest. Patient presents with intractable pain in her chest radiating to her back. Also complains of nausea and vomiting unable to eat for the last several days. At this time will admit to medical surgical floor we will hydrate with normal saline at 125 mL an hour and give her Dilaudid 2 mg IV every 3 hours as needed pain in addition to home medications. We will continue to follow and titrate to effect 01/13/2019-improved at this time only required 2 doses of Dilaudid overnight. Patient remains with fentanyl patch. Patient in chemotherapy at this time which should help with pain as well. We will continue to follow -increase this morning. Will give one-time dose of Dilaudid IV 1 mg now. We will continue to follow possibly increase fentanyl patch in the a.m. (2) Dehydration Is this a current diagnosis for this admission?: Yes Plan: 01/12/2019-normal saline at 125 mL an hour. Continue to follow 01/13/2019-improved. Will DC IV fluids at this time continue to encourage p.o. 01/14/2019-improved continue to follow (3) Metastatic breast cancer Is this a current diagnosis for this admission?: Yes Plan: 01/12/2019-see #1 01/13/2019-patient seen by oncology. Initiated on chemotherapy today. -followed by oncology. Chemo initiated yesterday. (4) Nausea & vomiting Qualifiers: Vomiting type: unspecified Vomiting Intractability: intractable Qualified Code(s): R11.2 - Nausea with vomiting, unspecified Is this a current diagnosis for this admission?: Yes Plan: 01/12/2019-Zofran 4 mill grams IV every 4 hours as needed and Phenergan 12.5 g IV every 4 as needed alternating. Also await diagnostics including CBC, CMP, ma gnesium, phosphate, troponin and chest x-ray. Will make changes plan of care at that time 01/13/2019-stable at this time. Patient did get 25 mg of Aloxi in chemotherapy -continue PRN Zofran and Phenergan. (5) Hypertension Qualifiers: Hypertension type: unspecified Qualified Code(s): I10 - Essential (primary) hypertension Is this a current diagnosis for this admission?: Yes Plan: 01/13/2019-remains elevated. I have increased the losartan to 50 mg p.o. daily will follow and titrate as needed 01/04/2019-remains elevated. I increased his losartan 100 mg p.o. daily we will continue to follow - Time Time Spent with patient: 15-24 minutes - Inpatient Certification Based on my medical assessment, after consideration of the patient's comorbidities, presenting symptoms, or acuity I expect that the services needed warrant INPATIENT care.: Yes I certify that my determination is in accordance with my understanding of Medicare's requirements for reasonable and necessary INPATIENT services [42 CFR 412.3e].: Yes Medical Necessity: Need for Pain Control, Other - Chemotherapy
[2019-01-14] MEDS: DOCUSATE SODIUM 100 MG CAPSULE PO SCH ×2 (10:25→17:03)
[2019-01-14] MEDS: DILTIAZEM HCL 180 MG CAPSULE.CR PO SCH ×2 (10:26→21:17)
[2019-01-14] MEDS: DRONABINOL 2.5 MG CAPSULE PO SCH ×2 (10:27→17:03)
[2019-01-14] MEDS: PANTOPRAZOLE SODIUM 40 MG VIAL IV SCH (10:43)
[2019-01-14] MEDS: LOSARTAN POTASSIUM 50 MG TABLET PO SCH (10:49)
[2019-01-14] MEDS ORDERED: LOSARTAN POTASSIUM 50 MG TABLET PO ONE (11:00)
[2019-01-14] MEDS ORDERED: HYDROMORPHONE HCL INJ/PF 2 MG/ML AMPULE IV ONE (11:00)
[2019-01-14] MEDS: DIPHENHYDRAMINE HCL 50 MG/ML VIAL IV PRN ×2 (14:41→21:17)
[2019-01-14] MEDS: ALBUTEROL SULFATE 0.083% NEB 2.5 MG/3 ML AMPUL NEB PRN ×2 (15:41→21:07)
[2019-01-15] MEDS: HYDROMORPHONE HCL INJ/PF 2 MG/ML AMPULE IV PRN ×6 (01:48→23:04)
[2019-01-15] MEDS: PROMETHAZINE HCL INJ 25 MG/1 ML VIAL IV PRN ×6 (01:56→23:04)
[2019-01-15 05:10] LABS: HEMATOCRIT 33.8 % (36.0-47.0); HEMOGLOBIN 11.2 g/dL (12.0-15.5); MEAN CORPUSCULAR HEMOGLOBIN 28.4 pg (27.0-33.4); MEAN CORPUSCULAR HGB CONC 33.1 g/dL (32.0-36.0); MEAN CORPUSCULAR VOLUME 86 fl (80-97); PLATELET COUNT 391 10^3/uL (150-450); RED BLOOD COUNT 3.95 10^6/uL (3.72-5.28); RED CELL DISTRIBUTION WIDTH 14.9 % (11.5-14.0); WHITE BLOOD COUNT 4.2 10^3/uL (4.0-10.5)
[2019-01-15 05:17] LABS: ANION GAP 9 (5-19); BLOOD UREA NITROGEN 8 mg/dL (7-20); CALCIUM 9.1 mg/dL (8.4-10.2); CARBON DIOXIDE 27 mmol/L (22-30); CHLORIDE 109 mmol/L (98-107); GLUCOSE 105 mg/dL (75-110); POTASSIUM 4.1 mmol/L (3.6-5.0)
[2019-01-15] MEDS: HEPARIN SOD (PORCINE) 5,000 UNIT/ML 1 ML VIAL SUBCUT SCH ×3 (05:30→21:21)
[2019-01-15] MEDS: ALBUTEROL SULFATE 0.083% NEB 2.5 MG/3 ML AMPUL NEB PRN ×2 (07:53→15:48)
[2019-01-15] MEDS: DIPHENHYDRAMINE HCL 50 MG/ML VIAL IV PRN ×2 (08:09→15:59)
[2019-01-15] MEDS: OXYCODONE-ACETAMINOPHEN 5-325 MG TABLET PO PRN ×2 (08:09→12:24)
--- NOTE | 2019-01-15 08:39 | PDOC PROGRESS REPORT ---
Subjective Progress Note for:: 01/15/19 Subjective:: Patient having appropriate pain control with continuous IV pain medication, nausea control as well, starting to feel chemo induced side effects Reason For Visit: RON TRUJILLO/BHASKAR Physical Exam Vital Signs: Temp Pulse Resp BP Pulse Ox 97.8 F 94 18 111/66 95 01/14/19 23:27 01/15/19 07:00 01/14/19 23:27 01/14/19 23:27 01/15/19 00:30 Intake & Output 01/14/19 01/15/19 01/16/19 06:59 06:59 06:59 Intake Total 5353.65 3292 Balance 5353.65 3292 Weight 95 kg 96.2 kg General appearance: PRESENT: no acute distress, well-developed, well-nourished Head exam: PRESENT: atraumatic, normocephalic Eye exam: PRESENT: conjunctiva pink, EOMI, PERRLA. ABSENT: scleral icterus Ear exam: PRESENT: normal external ear exam Mouth exam: PRESENT: moist, tongue midline Neck exam: ABSENT: carotid bruit, JVD, lymphadenopathy, thyromegaly Respiratory exam: PRESENT: clear to auscultation tolu. ABSENT: rales, rhonchi, wheezes Cardiovascular exam: PRESENT: RRR. ABSENT: diastolic murmur, rubs, systolic murmur Pulses: PRESENT: normal dorsalis pedis pul Vascular exam: PRESENT: normal capillary refill GI/Abdominal exam: PRESENT: normal bowel sounds, soft. ABSENT: distended, guarding, mass, organolmegaly, rebound, tenderness Rectal exam: PRESENT: deferred Extremities exam: PRESENT: full ROM. ABSENT: calf tenderness, clubbing, pedal edema Neurological exam: PRESENT: alert, awake, oriented to person, oriented to place, oriented to time, oriented to situation, CN II-XII grossly intact. ABSENT: motor sensory deficit Psychiatric exam: PRESENT: appropriate affect, normal mood. ABSENT: homicidal ideation, suicidal ideation Skin exam: PRESENT: dry, intact, warm. ABSENT: cyanosis, rash Results Laboratory Results: 01/15/19 04:10 01/15/19 04:10 01/15/19 01/15/19 04:10 04:10 WBC 4.2 RBC 3.95 Hgb 11.2 L Hct 33.8 L MCV 86 MCH 28.4 MCHC 33.1 RDW 14.9 H Plt Count 391 Sodium 145.3 H Potassium 4.1 Chloride 109 H Carbon Dioxide 27 Anion Gap 9 BUN 8 Creatinine 0.61 Est GFR ( Amer) > 60 Glucose 105 Calcium 9.1 01/12/19 10:23 Creatine Kinase 71 Impressions: Chest X-Ray 01/12/19 09:48 IMPRESSION: Unchanged radiographic appearance of the chest with a left pleural effusion, nodular fullness of the stephen, and bilateral nodular opacities. Assessment & Plan - Diagnosis (1) Metastatic breast cancer Is this a current diagnosis for this admission?: Yes Plan: Status post cycle #1 of chemo, watch over the weekend because of chemo induced side effects, needs to be inpatient because of severe pain (2) Intractable pain Is this a current diagnosis for this admission?: Yes Plan: Continue with IV pain meds (3) Nausea & vomiting Qualifiers: Vomiting type: unspecified Vomiting Intractability: intractable Qualified Code(s): R11.2 - Nausea with vomiting, unspecified Is this a current diagnosis for this admission?: Yes Plan: Tinea with IV antiemetics - Time Time Spent with patient: 25-34 minutes
[2019-01-15] MEDS ORDERED: FENTANYL 100 MCG/HR PATCH.TD72 TD SCH ×2 (10:00)
[2019-01-15] MEDS: LOSARTAN POTASSIUM 50 MG TABLET PO SCH (10:12)
[2019-01-15] MEDS: DOCUSATE SODIUM 100 MG CAPSULE PO SCH ×2 (10:13→18:50)
[2019-01-15] MEDS: DILTIAZEM HCL 180 MG CAPSULE.CR PO SCH ×2 (10:13→21:21)
[2019-01-15] MEDS: DRONABINOL 2.5 MG CAPSULE PO SCH ×2 (10:13→18:50)
[2019-01-15] MEDS: PANTOPRAZOLE SODIUM 40 MG VIAL IV SCH (10:16)
--- NOTE | 2019-01-15 10:17 | PDOC PROGRESS REPORT ---
Subjective Progress Note for:: 01/15/19 Subjective:: 01/13/2019-no complaints at this time. In chemotherapy 01/14/2019-increase generalized pain this morning. 01/15/2019-cough Reason For Visit: RON TRUJILLO/BHASKAR Physical Exam Vital Signs: Temp Pulse Resp BP Pulse Ox 98.2 F 95 16 128/83 H 95 01/15/19 07:00 01/15/19 07:55 01/15/19 07:55 01/15/19 07:00 01/15/19 07:55 Intake & Output 01/14/19 01/15/19 01/16/19 06:59 06:59 06:59 Intake Total 5353.65 3292 Balance 5353.65 3292 Weight 95 kg 96.2 kg General appearance: PRESENT: no acute distress, well-developed, well-nourished Neck exam: ABSENT: carotid bruit, JVD, lymphadenopathy, thyromegaly Respiratory exam: PRESENT: decreased breath sounds, rhonchi, symmetrical, unlabored Cardiovascular exam: PRESENT: RRR. ABSENT: diastolic murmur, rubs, systolic murmur Pulses: PRESENT: normal dorsalis pedis pul Vascular exam: PRESENT: normal capillary refill Extremities exam: PRESENT: full ROM. ABSENT: calf tenderness, clubbing, pedal edema Neurological exam: PRESENT: alert, awake, oriented to person, oriented to place, oriented to time, oriented to situation, CN II-XII grossly intact. ABSENT: motor sensory deficit Psychiatric exam: PRESENT: appropriate affect, normal mood. ABSENT: homicidal ideation, suicidal ideation Skin exam: PRESENT: dry, intact, warm, other - Bilateral mastectomy. ABSENT: cyanosis, rash Results Laboratory Results: 01/15/19 04:10 01/15/19 04:10 01/15/19 01/15/19 04:10 04:10 WBC 4.2 RBC 3.95 Hgb 11.2 L Hct 33.8 L MCV 86 MCH 28.4 MCHC 33.1 RDW 14.9 H Plt Count 391 Sodium 145.3 H Potassium 4.1 Chloride 109 H Carbon Dioxide 27 Anion Gap 9 BUN 8 Creatinine 0.61 Est GFR ( Amer) > 60 Glucose 105 Calcium 9.1 01/12/19 10:23 Creatine Kinase 71 Impressions: Chest X-Ray 11/12/19 09:48 IMPRESSION: Unchanged radiographic appearance of the chest with a left pleural effusion, nodular fullness of the stephen, and bilateral nodular opacities. Assessment and Plan - Diagnosis (1) Intractable pain Is this a current diagnosis for this admission?: Yes Plan: 01/12/2019-very unfortunate female with lung breast cancer. Patient has underwent a bilateral mastectomy in the past. Patient has a Port-A-Cath in her right upper chest. Patient presents with intractable pain in her chest radiating to her back. Also complains of nausea and vomiting unable to eat for the last several days. At this time will admit to medical surgical floor we will hydrate with normal saline at 125 mL an hour and give her Dilaudid 2 mg IV every 3 hours as needed pain in addition to home medications. We will continue to follow and titrate to effect 01/13/2019-improved at this time only required 2 doses of Dilaudid overnight. Patient remains with fentanyl patch. Patient in chemotherapy at this time which should help with pain as well. We will continue to follow -increase this morning. Will give one-time dose of Dilaudid IV 1 mg now. We will continue to follow possibly increase fentanyl patch in the a.m. 01/15/2019-patient saw by Dr. Annie sanon this morning he increase fentanyl patch to 125 mics every 72 hours and Dilaudid 3 mg every 3 hours PRN (2) Dehydration Is this a current diagnosis for this admission?: Yes Plan: 01/12/2019-normal saline at 125 mL an hour. Continue to follow 01/13/2019-improved. Will DC IV fluids at this time continue to encourage p.o. 01/14/2019-improved continue to follow 01/15/2019-stable. Continue to encourage p.o. (3) Metastatic breast cancer Is this a current diagnosis for this admission?: Yes Plan: 01/12/2019-see #1 01/13/2019-patient seen by oncology. Initiated on chemotherapy today. -followed by oncology. Chemo initiated yesterday. 01/15/2019-followed by oncology. Next chemotherapy next Friday (4) Nausea & vomiting Qualifiers: Vomiting type: unspecified Vomiting Intractability: intractable Qualified Code(s): R11.2 - Nausea with vomiting, unspecified Is this a current diagnosis for this admission?: Yes Plan: 01/12/2019-Zofran 4 mill grams IV every 4 hours as needed and Phenergan 12.5 g IV every 4 as needed alternating. Also await diagnostics including CBC, CMP, magnesium, phosphate, troponin and chest x-ray. Will make changes plan of care at that time 01/13/2019-stable at this time. Patient did get 25 mg of Aloxi in chemotherapy -continue PRN Zofran and Phenergan. -continue PRN Zofran and Phenergan (5) Hypertension Qualifiers: Hypertension type: unspecified Qualified Code(s): I10 - Essential (primary) hypertension Is this a current diagnosis for this admission?: Yes Plan: 01/13/2019-remains elevated. I have increased the losartan to 50 mg p.o. daily will follow and titrate as needed 01/04/2019-remains elevated. I increased his losartan 100 mg p.o. daily we will continue to follow 01/15/2019-stable at this time continue to follow - Time Time Spent with patient: 15-24 minutes - Inpatient Certification Based on my medical assessment, after consideration of the patient's comorbidities, presenting symptoms, or acuity I expect that the services needed warrant INPATIENT care.: Yes I certify that my determination is in accordance with my understanding of Medicare's requirements for reasonable and necessary INPATIENT services [42 CFR 412.3e].: Yes Medical Necessity: Significant Comorbidiites Make Outpatient Treatment Too Risky, Need Close Monitoring Due to Risk of Patient Decompensation, Need for Pain Control
[2019-01-15] MEDS: GUAIFENESIN/CODEINE PHOS 100-10 MG/ 5 ML UDC PO PRN (12:25)
[2019-01-16] MEDS: DIPHENHYDRAMINE HCL 50 MG/ML VIAL IV PRN ×4 (00:44→22:47)
[2019-01-16] MEDS: OXYCODONE-ACETAMINOPHEN 5-325 MG TABLET PO PRN ×3 (00:45→20:01)
[2019-01-16] MEDS: HYDROMORPHONE HCL INJ/PF 2 MG/ML AMPULE IV PRN ×6 (03:36→22:46)
[2019-01-16] MEDS: PROMETHAZINE HCL INJ 25 MG/1 ML VIAL IV PRN ×5 (03:36→20:01)
[2019-01-16] MEDS: HEPARIN SOD (PORCINE) 5,000 UNIT/ML 1 ML VIAL SUBCUT SCH ×3 (06:05→22:45)
[2019-01-16] MEDS: PANTOPRAZOLE SODIUM 40 MG TABLET.DR PO SCH (06:05)
[2019-01-16] MEDS: ONDANSETRON HCL INJ/PF 4 MG/2 ML SDV IV PRN ×2 (06:05→19:02)
[2019-01-16] MEDS: ALBUTEROL SULFATE 0.083% NEB 2.5 MG/3 ML AMPUL NEB PRN (07:56)
--- NOTE | 2019-01-16 10:43 | PDOC PROGRESS REPORT ---
Subjective Progress Note for:: 01/16/19 Subjective:: 01/13/2019-no complaints at this time. In chemotherapy 01/14/2019-increase generalized pain this morning. 01/15/2019-cough 01/16/2019-no complaints this a.m. Reason For Visit: RON TRUJILLO/BHASKAR Physical Exam Vital Signs: Temp Pulse Resp BP Pulse Ox 97.8 F 129 H 23 H 155/95 H 91 L 01/16/19 08:00 01/16/19 08:00 01/16/19 08:00 01/16/19 08:00 01/16/19 08:00 Intake & Output 01/15/19 01/16/19 01/17/19 06:59 06:59 06:59 Intake Total 3292 2376 Balance 3292 2376 Weight 96.2 kg 98.8 kg 98.8 kg General appearance: PRESENT: no acute distress, well-developed, well-nourished Neck exam: ABSENT: carotid bruit, JVD, lymphadenopathy, thyromegaly Respiratory exam: PRESENT: decreased breath sounds, rhonchi, symmetrical, unlabored Cardiovascular exam: PRESENT: RRR. ABSENT: diastolic murmur, rubs, systolic murmur Pulses: PRESENT: normal dorsalis pedis pul Vascular exam: PRESENT: normal capillary refill GI/Abdominal exam: PRESENT: normal bowel sounds, soft. ABSENT: distended, guarding, mass, organolmegaly, rebound, tenderness Extremities exam: PRESENT: full ROM. ABSENT: calf tenderness, clubbing, pedal edema Neurological exam: PRESENT: alert, awake, oriented to person, oriented to place, oriented to time, oriented to situation, CN II-XII grossly intact. ABSENT: motor sensory deficit Psychiatric exam: PRESENT: appropriate affect, normal mood. ABSENT: homicidal ideation, suicidal ideation Skin exam: PRESENT: dry, intact, warm, other - Bilateral mastectomies. ABSENT: cyanosis, rash Results Laboratory Results: 01/15/19 04:10 01/15/19 04:10 01/12/19 10:23 Creatine Kinase 71 Impressions: Chest X-Ray 01/12/19 09:48 IMPRESSION: Unchanged radiographic appearance of the chest with a left pleural effusion, nodular fullness of the stephen, and bilateral nodular opacities. Assessment and Plan - Diagnosis (1) Intractable pain Is this a current diagnosis for this admission?: Yes Plan: 01/12/2019-very unfortunate female with lung breast cancer. Patient has underwent a bilateral mastectomy in the past. Patient has a Port-A-Cath in her right upper chest. Patient presents with intractable pain in her chest radiating to her back. Also complains of nausea and vomiting unable to eat for the last several days. At this time will admit to medical surgical floor we will hydrate with normal saline at 125 mL an hour and give her Dilaudid 2 mg IV every 3 hours as needed pain in addition to home medications. We will continue to follow and titrate to effect 01/13/2019-improved at this time only required 2 doses of Dilaudid overnight. Patient remains with fentanyl patch. Patient in chemotherapy at this time which should help with pain as well. We will continue to follow -increase this morning. Will give one-time dose of Dilaudid IV 1 mg now. We will continue to follow possibly increase fentanyl patch in the a.m. 01/15/2019-patient saw by Dr. Annie sanon this morning he increase fentanyl patch to 125 mics every 72 hours and Dilaudid 3 mg every 3 hours PRN -improved at this time after increasing pain medications yesterday. Will follow (2) Dehydration Is this a current diagnosis for this admission?: Yes Plan: 01/12/2019-normal saline at 125 mL an hour. Continue to follow 01/13/2019-improved. Will DC IV fluids at this time continue to encourage p.o. 01/14/2019-improved continue to follow 01/15/2019-stable. Continue to encourage p.o. 01/16/2019-stable (3) Metastatic breast cancer Is this a current diagnosis for this admission?: Yes Plan: 01/12/2019-see #1 01/13/2019-patient seen by oncology. Initiated on chemotherapy today. -followed by oncology. Chemo initiated yesterday. 01/15/2019-followed by oncology. Next chemotherapy next Friday01/16/2019-stable next chemotherapy Friday (4) Nausea & vomiting Qualifiers: Vomiting type: unspecified Vomiting Intractability: intractable Qualified Code(s): R11.2 - Nausea with vomiting, unspecified Is this a current diagnosis for this admission?: Yes Plan: 01/12/2019-Zofran 4 mill grams IV every 4 hours as needed and Phenergan 12.5 g IV every 4 as needed alternating. Also await diagnostics including CBC, CMP, magnesium, phosphate, troponin and chest x-ray. Will make changes plan of care at that time 01/13/2019-stable at this time. Patient did get 25 mg of Aloxi in chemotherapy -continue PRN Zofran and Phenergan. -continue PRN Zofran and Phenergan 01/16/2019-continue PRN antiemetics (5) Hypertension Qualifiers: Hypertension type: unspecified Qualified Code(s): I10 - Essential (primary) hypertension Is this a current diagnosis for this admission?: Yes Plan: 01/13/2019-remains elevated. I have increased the losartan to 50 mg p.o. daily will follow and titrate as needed 01/04/2019-remains elevated. I increased his losartan 100 mg p.o. daily we will continue to follow 01/15/2019-stable at this time continue to follow 01/16/2019-elevated this a.m. I am adding hydralazine 25 mg p.o. 3 times daily will follow - Time Time Spent with patient: 15-24 minutes - Inpatient Certification Based on my medical assessment, after consideration of the patient's comorbidities, presenting symptoms, or acuity I expect that the services needed warrant INPATIENT care.: Yes I certify that my determination is in accordance with my understanding of Medicare's requirements for reasonable and necessary INPATIENT services [42 CFR 412.3e].: Yes Medical Necessity: Significant Comorbidiites Make Outpatient Treatment Too Risky, Need Close Monitoring Due to Risk of Patient Decompensation, Need for Pain Control
[2019-01-16] MEDS: DOCUSATE SODIUM 100 MG CAPSULE PO SCH ×2 (11:46→19:02)
[2019-01-16] MEDS: LOSARTAN POTASSIUM 50 MG TABLET PO SCH (11:46)
[2019-01-16] MEDS: DILTIAZEM HCL 180 MG CAPSULE.CR PO SCH ×2 (11:46→22:44)
[2019-01-16] MEDS: DRONABINOL 2.5 MG CAPSULE PO SCH ×2 (11:47→19:02)
[2019-01-16] MEDS: FENTANYL 25 MCG/HR PATCH.TD72 TD SCH (11:47)
[2019-01-16] MEDS: FENTANYL 100 MCG/HR PATCH.TD72 TD SCH (11:48)
--- NOTE | 2019-01-16 12:19 | PDOC PROGRESS REPORT ---
Subjective Progress Note for:: 01/16/19 Subjective:: No acute events overnight but patient starting to get more nauseous, having more aches and pains, we discussed that this was chemo related, still requiring Dilaudid IV continuously Reason For Visit: RON TRUJILLO/BHASKAR Physical Exam Vital Signs: Temp Pulse Resp BP Pulse Ox 97.8 F 129 H 23 H 155/95 H 91 L 01/16/19 08:00 01/16/19 08:00 01/16/19 08:00 01/16/19 08:00 01/16/19 08:00 Intake & Output 01/15/19 01/16/19 01/17/19 06:59 06:59 06:59 Intake Total 3292 2376 Balance 3292 2376 Weight 96.2 kg 98.8 kg 98.8 kg General appearance: PRESENT: no acute distress, well-developed, well-nourished Head exam: PRESENT: atraumatic, normocephalic Eye exam: PRESENT: conjunctiva pink, EOMI, PERRLA. ABSENT: scleral icterus Ear exam: PRESENT: normal external ear exam Mouth exam: PRESENT: moist, tongue midline Neck exam: ABSENT: carotid bruit, JVD, lymphadenopathy, thyromegaly Respiratory exam: PRESENT: clear to auscultation tolu. ABSENT: rales, rhonchi, wheezes Cardiovascular exam: PRESENT: RRR. ABSENT: diastolic murmur, rubs, systolic mu rmur Pulses: PRESENT: normal dorsalis pedis pul Vascular exam: PRESENT: normal capillary refill GI/Abdominal exam: PRESENT: normal bowel sounds, soft. ABSENT: distended, guarding, mass, organolmegaly, rebound, tenderness Rectal exam: PRESENT: deferred Extremities exam: PRESENT: full ROM. ABSENT: calf tenderness, clubbing, pedal edema Neurological exam: PRESENT: alert, awake, oriented to person, oriented to place, oriented to time, oriented to situation, CN II-XII grossly intact. ABSENT: motor sensory deficit Psychiatric exam: PRESENT: appropriate affect, normal mood. ABSENT: homicidal ideation, suicidal ideation Skin exam: PRESENT: dry, intact, warm. ABSENT: cyanosis, rash Results Laboratory Results: 01/15/19 04:10 01/15/19 04:10 01/12/19 10:23 Creatine Kinase 71 Impressions: Chest X-Ray 01/12/19 09:48 IMPRESSION: Unchanged radiographic appearance of the chest with a left pleural effusion, nodular fullness of the stephen, and bilateral nodular opacities. Assessment & Plan - Diagnosis (1) Metastatic breast cancer Is this a current diagnosis for this admission?: Yes Plan: Status post cycle #1 of chemotherapy, day 8 of cycle 1 will be given next week, continue to monitor in-house (2) Intractable pain Is this a current diagnosis for this admission?: Yes Plan: Still fairly severe, continue with IV Dilaudid over the weekend, as we get further away from chemo induced pain and nausea, we will work on an oral regimen (3) Nausea & vomiting Qualifiers: Vomiting type: unspecified Vomiting Intractability: intractable Qualified Code(s): R11.2 - Nausea with vomiting, unspecified Is this a current diagnosis for this admission?: Yes Plan: Continue with IV antiemetics - Time Time Spent with patient: 35 or more minutes - Inpatient Certification Based on my medical assessment, after consideration of the patient's comorbidities, presenting symptoms, or acuity I expect that the services needed warrant INPATIENT care.: Yes I certify that my determination is in accordance with my understanding of Medicare's requirements for reasonable and necessary INPATIENT services [42 CFR 412.3e].: Yes Medical Necessity: Need For IV Fluids, Need For Continuous Telemetry Monitoring, Need for Pain Control
[2019-01-16] MEDS: HYDRALAZINE HCL 25 MG TABLET PO SCH ×2 (14:38→22:45)
[2019-01-16] MEDS: CEFTRIAXONE 1 GM/D5W RTU 1 GM/50 ML RTUPB IV SCH (19:03)
[2019-01-17] MEDS: HYDROMORPHONE HCL INJ/PF 2 MG/ML AMPULE IV PRN ×7 (01:39→22:39)
[2019-01-17] MEDS: PROMETHAZINE HCL INJ 25 MG/1 ML VIAL IV PRN ×5 (01:39→20:21)
[2019-01-17] MEDS: PANTOPRAZOLE SODIUM 40 MG TABLET.DR PO SCH (05:52)
[2019-01-17] MEDS: HYDRALAZINE HCL 25 MG TABLET PO SCH ×3 (05:52→22:38)
[2019-01-17] MEDS: HEPARIN SOD (PORCINE) 5,000 UNIT/ML 1 ML VIAL SUBCUT SCH ×3 (05:52→22:38)
--- NOTE | 2019-01-17 08:45 | PDOC PROGRESS REPORT ---
Subjective Progress Note for:: 01/17/19 Subjective:: 01/13/2019-no complaints at this time. In chemotherapy 01/14/2019-increase generalized pain this morning. 01/15/2019-cough 01/16/2019-no complaints this a.m. 01/17/2019-just not feeling well this morning. Slight fever Reason For Visit: RON TRUJILLO/PAC Physical Exam Vital Signs: Temp Pulse Resp BP Pulse Ox 98.7 F 110 H 24 H 129/84 H 95 01/17/19 07:35 01/17/19 07:35 01/17/19 07:35 01/17/19 07:35 01/17/19 07:35 Intake & Output 01/16/19 01/17/19 01/18/19 06:59 06:59 06:59 Intake Total 2376 2728 Output Total 200 Balance 2376 2528 Weight 98.8 kg 99.3 kg General appearance: PRESENT: no acute distress, well-developed, well-nourished Neck exam: ABSENT: carotid bruit, JVD, lymphadenopathy, thyromegaly Respiratory exam: PRESENT: clear to auscultation tolu. ABSENT: rales, rhonchi, wheezes Cardiovascular exam: PRESENT: RRR. ABSENT: diastolic murmur, rubs, systolic murmur Pulses: PRESENT: normal dorsalis pedis pul Vascular exam: PRESENT: normal capillary refill GI/Abdominal exam: PRESENT: normal bowel sounds, soft. ABSENT: distended, guarding, mass, organolmegaly, rebound, tenderness Extremities exam: PRESENT: full ROM. ABSENT: calf tenderness, clubbing, pedal edema Neurological exam: PRESENT: alert, awake, oriented to person, oriented to place, oriented to time, oriented to situation, CN II-XII grossly intact. ABSENT: motor sensory deficit Psychiatric exam: PRESENT: appropriate affect, normal mood. ABSENT: homicidal ideation, suicidal ideation Skin exam: PRESENT: dry, intact, warm. ABSENT: cyanosis, rash Results Laboratory Results: 01/15/19 04:10 01/15/19 04:10 01/12/19 10:23 Creatine Kinase 71 Impressions: Chest X-Ray 01/12/19 09:48 IMPRESSION: Unchanged radiographic appearance of the chest with a left pleural effusion, nodular fullness of the stephen, and bilateral nodular opacities. Assessment and Plan - Diagnosis (1) Intractable pain Is this a current diagnosis for this admission?: Yes Plan: 01/12/2019-very unfortunate female with lung breast cancer. Patient has underwent a bilateral mastectomy in the past. Patient has a Port-A-Cath in her right upper chest. Patient presents with intractable pain in her chest radiating to her back. Also complains of nausea and vomiting unable to eat for the last several days. At this time will admit to medical surgical floor we will hydrate with normal saline at 125 mL an hour and give her Dilaudid 2 mg IV every 3 hours as needed pain in addition to home medications. We will continue to follow and titrate to effect 01/13/2019-improved at this time only required 2 doses of Dilaudid overnight. Patient remains with fentanyl patch. Patient in chemotherapy at this time which should help with pain as well. We will continue to follow -increase this morning. Will give one-time dose of Dilaudid IV 1 mg now. We will continue to follow possibly increase fentanyl patch in the a.m. 01/15/2019-patient saw by Dr. Annie sanon this morning he increase fentanyl patch to 125 mics every 72 hours and Dilaudid 3 mg every 3 hours PRN -improved at this time after increasing pain medications yesterday. Will follow 01/17/2019-improved. Continue current therapy with fentanyl and Dilaudid (2) Dehydration Is this a current diagnosis for this admission?: Yes Plan: 01/12/2019-normal saline at 125 mL an hour. Continue to follow 01/13/2019-improved. Will DC IV fluids at this time continue to encourage p.o. 01/14/2019-improved continue to follow 01/15/2019-stable. Continue to encourage p.o. 01/16/2019-stable 01/17/2019 -stable patient taking p.o. well (3) Metastatic breast cancer Is this a current diagnosis for this admission?: Yes Plan: 01/12/2019-see #1 01/13/2019-patient seen by oncology. Initiated on chemotherapy today. -followed by oncology. Chemo initiated yesterday. 01/15/2019-followed by oncology. Next chemotherapy next Friday01/16/2019-stable next chemotherapy Friday01/17/2019-followed by oncology (4) Nausea & vomiting Qualifiers: Vomiting type: unspecified Vomiting Intractability: intractable Qualified Code(s): R11.2 - Nausea with vomiting, unspecified Is this a current diagnosis for this admission?: Yes Plan: 01/12/2019-Zofran 4 mill grams IV every 4 hours as needed and Phenergan 12.5 g IV every 4 as needed alternating. Also await diagnostics including CBC, CMP, magnesium, phosphate, troponin and chest x-ray. Will make changes plan of care at that time 01/13/2019-stable at this time. Patient did get 25 mg of Aloxi in chemotherapy -continue PRN Zofran and Phenergan. -continue PRN Zofran and Phenergan 01/16/2019-continue PRN antiemetics 01/17/2019-continue antiemetics as needed (5) Hypertension Qualifiers: Hypertension type: unspecified Qualified Code(s): I10 - Essential (primary) hypertension Is this a current diagnosis for this admission?: Yes Plan: 01/13/2019-remains elevated. I have increased the losartan to 50 mg p.o. daily will follow and titrate as needed 01/04/2019-remains elevated. I increased his losartan 100 mg p.o. daily we will continue to follow 01/15/2019-stable at this time continue to follow 01/16/2019-elevated this a.m. I am adding hydralazine 25 mg p.o. 3 times daily will follow 01/17/2019-improved stable continue to follow - Time Time Spent with patient: 15-24 minutes - Inpatient Certification Based on my medical assessment, after consideration of the patient's comorbidities, presenting symptoms, or acuity I expect that the services needed warrant INPATIENT care.: Yes I certify that my determination is in accordance with my understanding of Medicare's requirements for reasonable and necessary INPATIENT services [42 CFR 412.3e].: Yes Medical Necessity: Significant Comorbidiites Make Outpatient Treatment Too Risky, Need Close Monitoring Due to Risk of Patient Decompensation, Need for Pain Control, Need for IV Antibiotics
[2019-01-17] MEDS: DOCUSATE SODIUM 100 MG CAPSULE PO SCH ×2 (09:24→18:19)
[2019-01-17] MEDS: DILTIAZEM HCL 180 MG CAPSULE.CR PO SCH ×2 (09:24→22:38)
[2019-01-17] MEDS: LOSARTAN POTASSIUM 50 MG TABLET PO SCH (09:24)
[2019-01-17] MEDS: DRONABINOL 2.5 MG CAPSULE PO SCH ×2 (09:25→18:19)
[2019-01-17] MEDS: ALBUTEROL SULFATE 0.083% NEB 2.5 MG/3 ML AMPUL NEB PRN (14:04)
[2019-01-17] MEDS: CEFTRIAXONE 1 GM/D5W RTU 1 GM/50 ML RTUPB IV SCH (18:19)
[2019-01-17] MEDS: DIPHENHYDRAMINE HCL 50 MG/ML VIAL IV PRN (20:28)
[2019-01-17] MEDS: GUAIFENESIN/CODEINE PHOS 100-10 MG/ 5 ML UDC PO PRN (20:28)
[2019-01-17] MEDS: ONDANSETRON HCL INJ/PF 4 MG/2 ML SDV IV PRN (22:40)
[2019-01-18] MEDS: PROMETHAZINE HCL INJ 25 MG/1 ML VIAL IV PRN ×5 (00:25→22:26)
[2019-01-18] MEDS: OXYCODONE-ACETAMINOPHEN 5-325 MG TABLET PO PRN ×2 (00:26→05:29)
[2019-01-18] MEDS: ALBUTEROL SULFATE 0.083% NEB 2.5 MG/3 ML AMPUL NEB PRN ×2 (02:23→10:40)
[2019-01-18] MEDS: HYDROMORPHONE HCL INJ/PF 2 MG/ML AMPULE IV PRN ×5 (02:32→22:27)
[2019-01-18] MEDS: PANTOPRAZOLE SODIUM 40 MG TABLET.DR PO SCH (05:29)
[2019-01-18] MEDS: HYDRALAZINE HCL 25 MG TABLET PO SCH ×3 (05:30→22:25)
[2019-01-18] MEDS: HEPARIN SOD (PORCINE) 5,000 UNIT/ML 1 ML VIAL SUBCUT SCH ×3 (05:30→22:26)
[2019-01-18 07:11] LABS: HEMATOCRIT 30.2 % (36.0-47.0); HEMOGLOBIN 10.1 g/dL (12.0-15.5); MEAN CORPUSCULAR HEMOGLOBIN 28.4 pg (27.0-33.4); MEAN CORPUSCULAR HGB CONC 33.4 g/dL (32.0-36.0); MEAN CORPUSCULAR VOLUME 85 fl (80-97); PLATELET COUNT 271 10^3/uL (150-450); RED BLOOD COUNT 3.55 10^6/uL (3.72-5.28); RED CELL DISTRIBUTION WIDTH 14.4 % (11.5-14.0); WHITE BLOOD COUNT 2.9 10^3/uL (4.0-10.5)
[2019-01-18 07:18] LABS: ANION GAP 8 (5-19); BLOOD UREA NITROGEN 5 mg/dL (7-20); CALCIUM 8.2 mg/dL (8.4-10.2); CARBON DIOXIDE 30 mmol/L (22-30); CHLORIDE 104 mmol/L (98-107); GLUCOSE 103 mg/dL (75-110); POTASSIUM 3.6 mmol/L (3.6-5.0)
--- NOTE | 2019-01-18 08:02 | PDOC PROGRESS REPORT ---
Subjective Progress Note for:: 01/18/19 Subjective:: Having increased nausea and cough this morning, feeling more short of breath Reason For Visit: RON TRUJILLO/PAC Physical Exam Vital Signs: Temp Pulse Resp BP Pulse Ox 99.2 F 97 18 127/82 H 97 01/18/19 00:28 01/18/19 07:00 01/18/19 02:24 01/18/19 00:28 01/18/19 02:24 Intake & Output 01/17/19 01/18/19 01/19/19 06:59 06:59 06:59 Intake Total 2728 1010 Output Total 200 Balance 2528 1010 Weight 99.3 kg 98.9 kg General appearance: PRESENT: no acute distress, well-developed, well-nourished Head exam: PRESENT: atraumatic, normocephalic Eye exam: PRESENT: conjunctiva pink, EOMI, PERRLA. ABSENT: scleral icterus Ear exam: PRESENT: normal external ear exam Mouth exam: PRESENT: moist, tongue midline Neck exam: ABSENT: carotid bruit, JVD, lymphadenopathy, thyromegaly Respiratory exam: PRESENT: clear to auscultation tolu. ABSENT: rales, rhonchi, wheezes Cardiovascular exam: PRESENT: RRR. ABSENT: diastolic murmur, rubs, systolic murmur Pulses: PRESENT: normal dorsalis pedis pul Vascular exam: PRESENT: normal capillary refill GI/Abdominal exam: PRESENT: normal bowel sounds, soft. ABSENT: distended, guarding, mass, organolmegaly, rebound, tenderness Rectal exam: PRESENT: deferred Extremities exam: PRESENT: full ROM. ABSENT: calf tenderness, clubbing, pedal edema Neurological exam: PRESENT: alert, awake, oriented to person, oriented to place, oriented to time, oriented to situation, CN II-XII grossly intact. ABSENT: motor sensory deficit Psychiatric exam: PRESENT: appropriate affect, normal mood. ABSENT: homicidal ideation, suicidal ideation Skin exam: PRESENT: dry, intact, warm. ABSENT: cyanosis, rash Results Laboratory Results: 01/18/19 06:05 01/18/19 06:05 01/18/19 01/18/19 06:05 06:05 WBC 2.9 L RBC 3.55 L Hgb 10.1 L Hct 30.2 L MCV 85 MCH 28.4 MCHC 33.4 RDW 14.4 H Plt Count 271 Sodium 141.5 Potassium 3.6 Chloride 104 Carbon Dioxide 30 Anion Gap 8 BUN 5 L Creatinine 0.42 L Est GFR ( Amer) > 60 Glucose 103 Calcium 8.2 L 01/12/19 11:45 Blood Blood Culture - Final NO GROWTH IN 5 DAYS 01/12/19 10:23 Blood Blood Culture - Final NO GROWTH IN 5 DAYS 01/12/19 10:23 Creatine Kinase 71 Impressions: Chest X-Ray 01/12/19 09:48 IMPRESSION: Unchanged radiographic appearance of the chest with a left pleural effusion, nodular fullness of the stephen, and bilateral nodular opacities. Assessment & Plan - Diagnosis (1) Metastatic breast cancer Is this a current diagnosis for this admission?: Yes Plan: Continue with monitoring, now in the midst of chemo induced nausea, fairly severe, continue with hydration as well as other supportive medications, day 8 of cycle #1 will be planned for Friday (2) Intractable pain Is this a current diagnosis for this admission?: Yes Plan: Increase oxycodone, continue same dose of Dilaudid (3) Nausea & vomiting Qualifiers: Vomiting type: unspecified Vomiting Intractability: intractable Qualified Code(s): R11.2 - Nausea with vomiting, unspecified Is this a current diagnosis for this admission?: Yes Plan: Continue with current pain regimen as well as antiemetic regimen - Time Time Spent with patient: 25-34 minutes - Inpatient Certification Based on my medical assessment, after consideration of the patient's comorbidities, presenting symptoms, or acuity I expect that the services needed warrant INPATIENT care.: Yes I certify that my determination is in accordance with my understanding of Medicare's requirements for reasonable and necessary INPATIENT services [42 CFR 412.3e].: Yes Medical Necessity: Need For IV Fluids, Need for Pain Control
[2019-01-18] MEDS: DIPHENHYDRAMINE HCL 50 MG/ML VIAL IV PRN (10:24)
--- NOTE | 2019-01-18 10:29 | PDOC PROGRESS REPORT ---
Subjective Progress Note for:: 01/18/19 Subjective:: 01/13/2019-no complaints at this time. In chemotherapy 01/14/2019-increase generalized pain this morning. 01/15/2019-cough 01/16/2019-no complaints this a.m. 01/17/2019-just not feeling well this morning. Slight fever 01/18/2019-chemo induced nausea and vomiting Reason For Visit: LAMONT TRUJILLOO/PAC Physical Exam Vital Signs: Temp Pulse Resp BP Pulse Ox 98.5 F 113 H 19 105/89 H 98 01/18/19 08:09 01/18/19 08:09 01/18/19 08:09 01/18/19 08:09 01/18/19 08:09 Intake & Output 01/17/19 01/18/19 01/19/19 06:59 06:59 06:59 Intake Total 2728 1010 Output Total 200 Balance 2528 1010 Weight 99.3 kg 98.9 kg General appearance: PRESENT: no acute distress, well-developed, well-nourished Neck exam: ABSENT: carotid bruit, JVD, lymphadenopathy, thyromegaly Respiratory exam: PRESENT: clear to auscultation tolu. ABSENT: rales, rhonchi, wheezes Cardiovascular exam: PRESENT: RRR. ABSENT: diastolic murmur, rubs, systolic murmur Pulses: PRESENT: normal dorsalis pedis pul Vascular exam: PRESENT: normal capillary refill GI/Abdominal exam: PRESENT: hyperactive bowel sounds, soft Rectal exam: PRESENT: deferred Extremities exam: PRESENT: full ROM. ABSENT: calf tenderness, clubbing, pedal edema Neurological exam: PRESENT: alert, awake, oriented to person, oriented to place, oriented to time, oriented to situation, CN II-XII grossly intact. ABSENT: motor sensory deficit Psychiatric exam: PRESENT: appropriate affect, normal mood. ABSENT: homicidal ideation, suicidal ideation Skin exam: PRESENT: dry, intact, warm, other - Bilateral mastectomy. ABSENT: cyanosis, rash Results Laboratory Results: 01/18/19 06:05 01/18/19 06:05 01/18/19 01/18/19 06:05 06:05 WBC 2.9 L RBC 3.55 L Hgb 10.1 L Hct 30.2 L MCV 85 MCH 28.4 MCHC 33.4 RDW 14.4 H Plt Count 271 Sodium 141.5 Potassium 3.6 Chloride 104 Carbon Dioxide 30 Anion Gap 8 BUN 5 L Creatinine 0.42 L Est GFR ( Amer) > 60 Glucose 103 Calcium 8.2 L 01/12/19 11:45 Blood Blood Culture - Final NO GROWTH IN 5 DAYS 01/12/19 10:23 Blood Blood Culture - Final NO GROWTH IN 5 DAYS 01/12/19 10:23 Creatine Kinase 71 Impressions: Chest X-Ray 01/12/19 09:48 IMPRESSION: Unchanged radiographic appearance of the chest with a left pleural effusion, nodular fullness of the stephen, and bilateral nodular opacities. Assessment and Plan - Diagnosis (1) Intractable pain Is this a current diagnosis for this admission?: Yes Plan: 01/12/2019-very unfortunate female with lung breast cancer. Patient has underwent a bilateral mastectomy in the past. Patient has a Port-A-Cath in her right upper chest. Patient presents with intractable pain in her chest radiating to her back. Also complains of nausea and vomiting unable to eat for the last several days. At this time will admit to medical surgical floor we will hydrate with normal saline at 125 mL an hour and give her Dilaudid 2 mg IV every 3 hours as needed pain in addition to home medications. We will continue to follow and titrate to effect 01/13/2019-improved at this time only required 2 doses of Dilaudid overnight. Patient remains with fentanyl patch. Patient in chemotherapy at this time which should help with pain as well. We will continue to follow -increase this morning. Will give one-time dose of Dilaudid IV 1 mg now. We will continue to follow possibly increase fentanyl patch in the a.m. 01/15/2019-patient saw by Dr. Annie sanon this morning he increase fentanyl patch to 125 mics every 72 hours and Dilaudid 3 mg every 3 hours PRN -improved at this time after increasing pain medications yesterday. Will follow 01/17/2019-improved. Continue current therapy with fentanyl and Dilaudid 01/18/2019-being covered by Dr. Annie sanon (2) Dehydration Is this a current diagnosis for this admission?: Yes Plan: 01/12/2019-normal saline at 125 mL an hour. Continue to follow 01/13/2019-improved. Will DC IV fluids at this time continue to encourage p.o. 01/14/2019-improved continue to follow 01/15/2019-stable. Continue to encourage p.o. 01/16/2019-stable 01/17/2019 -stable patient taking p.o. well 01/18/2019-with this chemo induced nausea vomiting starting to get hard I will place patient back on normal saline at 100 mL an hour. (3) Metastatic breast cancer Is this a current diagnosis for this admission?: Yes Plan: 01/12/2019-see #1 01/13/2019-patient seen by oncology. Initiated on chemotherapy today. -followed by oncology. Chemo initiated yesterday. 01/15/2019-followed by oncology. Next chemotherapy next Friday01/16/2019-stable next chemotherapy Friday01/17/2019-followed by oncology 01/18/2019-followed by oncology next chemo on Friday (4) Nausea & vomiting Qualifiers: Vomiting type: unspecified Vomiting Intractability: intractable Qualified Code(s): R11.2 - Nausea with vomiting, unspecified Is this a current diagnosis for this admission?: Yes Plan: 01/12/2019-Zofran 4 mill grams IV every 4 hours as needed and Phenergan 12.5 g IV every 4 as needed alternating. Also await diagnostics including CBC, CMP, magnesium, phosphate, troponin and chest x-ray. Will make changes plan of care at that time 01/13/2019-stable at this time. Patient did get 25 mg of Aloxi in chemotherapy -continue PRN Zofran and Phenergan. -continue PRN Zofran and Phenergan 01/16/2019-continue PRN antiemetics 01/17/2019-continue antiemetics as needed 01/18/2019-continue PRN Zofran and Phenergan (5) Hypertension Qualifiers: Hypertension type: unspecified Qualified Code(s): I10 - Essential (primary) hypertension Is this a current diagnosis for this admission?: Yes Plan: 01/13/2019-remains elevated. I have increased the losartan to 50 mg p.o. daily will follow and titrate as needed 01/04/2019-remains elevated. I increased his losartan 100 mg p.o. daily we will continue to follow 01/15/2019-stable at this time continue to follow 01/16/2019-elevated this a.m. I am adding hydralazine 25 mg p.o. 3 times daily will follow 01/17/2019-improved stable continue to follow 09/17/2018-stable - Time Time Spent with patient: 15-24 minutes - Inpatient Certification Based on my medical assessment, after consideration of the patient's comorbidities, presenting symptoms, or acuity I expect that the services needed warrant INPATIENT care.: Yes I certify that my determination is in accordance with my understanding of Medicare's requirements for reasonable and necessary INPATIENT services [42 CFR 412.3e].: Yes Medical Necessity: Need For IV Fluids, Need for Pain Control
[2019-01-18] MEDS: ONDANSETRON HCL INJ/PF 4 MG/2 ML SDV IV PRN (10:31)
[2019-01-18] MEDS: DILTIAZEM HCL 180 MG CAPSULE.CR PO SCH ×2 (10:56→22:25)
[2019-01-18] MEDS: DRONABINOL 2.5 MG CAPSULE PO SCH ×2 (10:56→17:34)
[2019-01-18] MEDS: DOCUSATE SODIUM 100 MG CAPSULE PO SCH ×2 (10:56→17:35)
[2019-01-18] MEDS: LOSARTAN POTASSIUM 50 MG TABLET PO SCH (10:56)
[2019-01-18] MEDS: NORMAL SALINE 1000 ML 1,000 ML IV PRN ×2 (11:12→22:24)
[2019-01-18] MEDS: OXYCODONE HCL IR 5 MG TABLET PO PRN (15:17)
[2019-01-18] MEDS: CEFTRIAXONE 1 GM/D5W RTU 1 GM/50 ML RTUPB IV SCH (17:34)
[2019-01-19] MEDS: ALBUTEROL SULFATE 0.083% NEB 2.5 MG/3 ML AMPUL NEB PRN ×2 (00:20→07:52)
[2019-01-19] MEDS: HYDROMORPHONE HCL INJ/PF 2 MG/ML AMPULE IV PRN ×5 (03:41→22:01)
[2019-01-19] MEDS: PROMETHAZINE HCL INJ 25 MG/1 ML VIAL IV PRN ×5 (03:58→22:02)
[2019-01-19] MEDS: HEPARIN SOD (PORCINE) 5,000 UNIT/ML 1 ML VIAL SUBCUT SCH ×3 (06:14→22:00)
[2019-01-19] MEDS: PANTOPRAZOLE SODIUM 40 MG TABLET.DR PO SCH (06:14)
[2019-01-19] MEDS: HYDRALAZINE HCL 25 MG TABLET PO SCH ×3 (06:14→22:00)
[2019-01-19] MEDS: OXYCODONE HCL IR 5 MG TABLET PO PRN (06:17)
[2019-01-19] MEDS: DIPHENHYDRAMINE HCL 50 MG/ML VIAL IV PRN (06:24)
--- NOTE | 2019-01-19 08:13 | PDOC PROGRESS REPORT ---
Subjective Progress Note for:: 01/19/19 Subjective:: Patient still with fairly severe cough and nausea and pain, got up to the chair but really has not walked out of the bustillos, plan for chemotherapy tomorrow Reason For Visit: RON TRUJILLO/BHASKAR Physical Exam Vital Signs: Temp Pulse Resp BP Pulse Ox 98.9 F 114 H 19 140/94 H 97 01/19/19 03:39 01/19/19 03:39 01/19/19 03:39 01/19/19 03:39 01/19/19 03:39 Intake & Output 01/18/19 01/19/19 01/20/19 06:59 06:59 06:59 Intake Total 1010 2860 Balance 1010 2860 Weight 98.9 kg 99.1 kg General appearance: PRESENT: no acute distress, well-developed, well-nourished Head exam: PRESENT: atraumatic, normocephalic Eye exam: PRESENT: conjunctiva pink, EOMI, PERRLA. ABSENT: scleral icterus Ear exam: PRESENT: normal external ear exam Mouth exam: PRESENT: moist, tongue midline Neck exam: ABSENT: carotid bruit, JVD, lymphadenopathy, thyromegaly Respiratory exam: PRESENT: clear to auscultation tolu. ABSENT: rales, rhonchi, wheezes Cardiovascular exam: PRESENT: RRR. ABSENT: diastolic murmur, rubs, systolic murmur Pulses: PRESENT: normal dorsalis pedis pul Vascular exam: PRESENT: normal capillary refill GI/Abdominal exam: PRESENT: normal bowel sounds, soft. ABSENT: distended, guarding, mass, organolmegaly, rebound, tenderness Rectal exam: PRESENT: deferred Extremities exam: PRESENT: full ROM. ABSENT: calf tenderness, clubbing, pedal edema Neurological exam: PRESENT: alert, awake, oriented to person, oriented to place, oriented to time, oriented to situation, CN II-XII grossly intact. ABSENT: motor sensory deficit Psychiatric exam: PRESENT: appropriate affect, normal mood. ABSENT: homicidal ideation, suicidal ideation Skin exam: PRESENT: dry, intact, warm. ABSENT: cyanosis, rash Results Laboratory Results: 01/18/19 06:05 01/18/19 06:05 01/17/19 01:27 Clean Catch Midstream Urine Culture - Final Pseudomonas Aeruginosa 01/12/19 10:23 Creatine Kinase 71 Impressions: Chest X-Ray 01/12/19 09:48 IMPRESSION: Unchanged radiographic appearance of the chest with a left pleural effusion, nodular fullness of the stephen, and bilateral nodular opacities. Assessment & Plan - Diagnosis (1) Metastatic breast cancer Is this a current diagnosis for this admission?: Yes Plan: Chemotherapy day #8 planned for tomorrow, thereafter we would watch her another 24 hours and then by Friday of patient seems stable she may be ready for discharge. (2) Intractable pain Is this a current diagnosis for this admission?: Yes Plan: Continue with current pain regimen (3) Nausea & vomiting Qualifiers: Vomiting type: unspecified Vomiting Intractability: intractable Qualified Code(s): R11.2 - Nausea with vomiting, unspecified Is this a current diagnosis for this admission?: Yes Plan: Continue with IV antiemetics - Time Time Spent with patient: 25-34 minutes
[2019-01-19] MEDS: NORMAL SALINE 1000 ML 1,000 ML IV PRN ×2 (08:29→22:03)
[2019-01-19] MEDS: GUAIFENESIN/CODEINE PHOS 100-10 MG/ 5 ML UDC PO PRN (08:30)
[2019-01-19] MEDS: DRONABINOL 2.5 MG CAPSULE PO SCH (09:48)
[2019-01-19] MEDS: LOSARTAN POTASSIUM 50 MG TABLET PO SCH (09:48)
[2019-01-19] MEDS: DILTIAZEM HCL 180 MG CAPSULE.CR PO SCH (09:48)
[2019-01-19] MEDS: FENTANYL 25 MCG/HR PATCH.TD72 TD SCH (09:48)
[2019-01-19] MEDS: DOCUSATE SODIUM 100 MG CAPSULE PO SCH ×2 (09:48→17:49)
[2019-01-19] MEDS: FENTANYL 100 MCG/HR PATCH.TD72 TD SCH (09:50)
--- NOTE | 2019-01-19 12:12 | RADIOLOGY REPORT (SQ) ---
EXAM DESCRIPTION: CHEST SINGLE VIEW COMPLETED DATE/TIME: 01/19/2019 11:48 am REASON FOR STUDY: cough, dyspnea COMPARISON: 01/12/2019, 01/06/2019 EXAM PARAMETERS: NUMBER OF VIEWS: One view. TECHNIQUE: Single frontal radiographic view of the chest acquired. RADIATION DOSE: NA LIMITATIONS: None. FINDINGS: LUNGS AND PLEURA: Unchanged opacification of the left hemidiaphragm with likely mild left pleural effusion. Unchanged additional right perihilar and apical opacities prior. No appreciable p neumothorax. MEDIASTINUM AND HILAR STRUCTURES: Stable right perihilar opacities. HEART AND VASCULAR STRUCTURES: Enlarged cardiac silhouette, stable. Aortic atherosclerosis. BONES: No acute findings. HARDWARE: Surgical clips overlie right axilla. Right chest port with catheter tip at SVC atrial junc tion. OTHER: No other significant finding. IMPRESSION: Grossly stable chest with persistent patchy left basilar, right perihilar and apical opa cities. Small left pleural effusion, stable. TECHNICAL DOCUMENTATION: JOB ID: [id number] [employer]- All Rights Reserved Reading location - IP/workstation name: [email or web address]
[2019-01-19] MEDS: GUAIFENESIN SYRP 200 MG/10 ML UDC PO SCH ×4 (12:15→21:59)
[2019-01-19] MEDS: ACETYLCYSTEINE 20% SOLN 800 MG/4 ML VIAL.NEB NEB SCH ×2 (13:11→20:10)
[2019-01-19] MEDS ORDERED: LEVALBUTEROL HCL NEB 1.25 MG/3 ML AMPUL NEB ONE (13:41)
--- NOTE | 2019-01-19 16:55 | PDOC PROGRESS REPORT ---
Subjective Progress Note for:: 01/19/19 Subjective:: The patient is a 48-year-old female, well-known to this service, with a past medical history of hypertension, A. fib, breast cancer with lung and brain metastasis, morbid obesity, chronic pain, and opiate dependence with continuous use who was admitted on 01/12/2019 for intractable pain. Patient was seen on morning rounds. She is found resting in bed comfortably on supplemental oxygen at 2 L/min; she is home O2 dependent. Her primary complaint today is a nonproductive cough and dyspnea while at rest. Otherwise, she denies fever, chills, chest pain, palpitations, orthopnea, abdominal pain, nausea vomiting and diarrhea. She has no other questions or concerns at this time. Nursing has noted patient's heart rate has persistently been 120-130 today; Request medication review. Reason For Visit: CASSANDRA, PAC Physical Exam Vital Signs: Temp Pulse Resp BP Pulse Ox 98.4 F 120 H 21 H 147/90 H 96 01/19/19 15:28 01/19/19 15:28 01/19/19 15:28 01/19/19 15:28 01/19/19 15:28 Intake & Output 01/18/19 01/19/19 01/20/19 06:59 06:59 06:59 Intake Total 1010 2860 1000 Balance 1010 2860 1000 Weight 98.9 kg 99.1 kg General appearance: PRESENT: no acute distress, morbidly obese, well-developed, well-nourished Head exam: PRESENT: atraumatic, normocephalic Eye exam: PRESENT: conjunctiva pink, EOMI, PERRLA. ABSENT: scleral icterus Mouth exam: PRESENT: moist, tongue midline Respiratory exam: PRESENT: clear to auscultation tolu, symmetrical, unlabored. ABSENT: rales, rhonchi, wheezes Cardiovascular exam: PRESENT: RRR, +S1, +S2, tachycardia. ABSENT: diastolic murmur, rubs, systolic murmur Vascular exam: PRESENT: normal capillary refill GI/Abdominal exam: PRESENT: normal bowel sounds, soft. ABSENT: distended, guarding, mass, organolmegaly, rebound, tenderness Rectal exam: PRESENT: deferred Extremities exam: PRESENT: full ROM. ABSENT: calf tenderness, clubbing, pedal edema Neurological exam: PRESENT: alert, awake, oriented to person, oriented to place, oriented to time, oriented to situation, CN II-XII grossly intact. ABSENT: motor sensory deficit Psychiatric exam: PRESENT: anxious, appropriate affect, normal mood. ABSENT: homicidal ideation, suicidal ideation Skin exam: PRESENT: dry, intact, warm. ABSENT: cyanosis, rash Results Laboratory Results: 01/18/19 06:05 01/18/19 06:05 01/17/19 01:27 Clean Catch Midstream Urine Culture - Final Pseudomonas Aeruginosa 01/12/19 10:23 Creatine Kinase 71 Impressions: Chest X-Ray 01/19/19 00:00 IMPRESSION: Grossly stable chest with persistent patchy left basilar, right perihilar and apical opacities. Small left pleural effusion, stable. Assessment and Plan - Diagnosis (1) Atrial fibrillation Qualifiers: Atrial fibrillation type: paroxysmal Qualified Code(s): I48.0 - Paroxysmal atrial fibrillation Is this a current diagnosis for this admission?: Yes Plan: Patient is not a chronic anticoagulant candidate secondary to metastatic lung cancer. Heart rate noted to be increased to 120-130 today. Stop albuterol, start Xopenex nebulizer treatments. Increase Cardizem CD to 240 mg every 12 hours. Continue gentle IV fluids. (2) Hypertension Qualifiers: Hypertension type: unspecified Qualified Code(s): I10 - Essential (primary) hypertension Is this a current diagnosis for this admission?: Yes Plan: Continue losartan 50 mg daily, hydralazine 25 mg every 8 hours. Have increase diltiazem to 240 mg every 12 hours. Cardiac diet. Pain control per oncology. (3) Cough Is this a current diagnosis for this admission?: Yes Plan: Chronic, although patient reports this to be new, she has had a nonproductive cough over the previous 3 admissions that I have cared for her. Likely related to her lung metastasis. However, patient did have a temperature of 101.3 two days ago; therefore will obtain chest x-ray. We will schedule liquid Robitussin; patient states she is unable to swallow Mucinex pills. Continue as needed nebulizer treatments. Codeine as needed for cough. She declines Tessalon Perles. Trial Mucomyst nebulizer treatment; patient feels that she has chest congestion and just is a unable to expectorate. Flutter valve to bedside. (4) Intractable pain Is this a current diagnosis for this admission?: Yes Plan: Pain management per her oncologist. Appreciate Dr. Fischer's assistance. (5) Nausea & vomiting Qualifiers: Vomiting type: unspecified Vomiting Intractability: intractable Qualified Code(s): R11.2 - Nausea with vomiting, unspecified Is this a current diagnosis for this admission?: Yes Plan: Antiemetics per oncology. (6) Metastatic breast cancer Is this a current diagnosis for this admission?: Yes Plan: Primary management per oncology. Dr. Fischer's expertise. Spoke today; plans for chemotherapy tomorrow. (7) Dehydration Is this a current diagnosis for this admission?: Yes Plan: Resolved. Patient is consuming 25 to 75% of each meal. Nursing documents 1800 mL oral fluid intake yesterday. Will decrease IV fluids to 50 mL's per hour - Time Time Spent with patient: 15-24 minutes Medications reviewed and adjusted accordingly: Yes Anticipated discharge: Home Within: within 72 hours
[2019-01-19] MEDS: CEFTRIAXONE 1 GM/D5W RTU 1 GM/50 ML RTUPB IV SCH (17:49)
[2019-01-19] MEDS: DILTIAZEM HCL 240 MG CAPSULE.CR PO SCH (22:00)
[2019-01-20] MEDS: HYDROMORPHONE HCL INJ/PF 2 MG/ML AMPULE IV PRN ×6 (01:36→21:39)
[2019-01-20] MEDS: PROMETHAZINE HCL INJ 25 MG/1 ML VIAL IV PRN ×5 (02:30→21:41)
[2019-01-20] MEDS: DIPHENHYDRAMINE HCL 50 MG/ML VIAL IV PRN ×3 (04:39→23:17)
[2019-01-20] MEDS ORDERED: NORMAL SALINE IV PRN (05:00)
[2019-01-20] MEDS ORDERED: DEXAMETHASONE SOD PHOSPHATE 10 MG in NORMAL SALINE 50 ML IV PRN (05:00)
[2019-01-20] MEDS ORDERED: NORMAL SALINE 250 ML IV PRN (05:00)
[2019-01-20] MEDS ORDERED: GEMCITABINE HCL IV PRN (05:00)
[2019-01-20] MEDS: HYDRALAZINE HCL 25 MG TABLET PO SCH ×3 (05:21→21:50)
[2019-01-20] MEDS: PANTOPRAZOLE SODIUM 40 MG TABLET.DR PO SCH (05:22)
[2019-01-20] MEDS: HEPARIN SOD (PORCINE) 5,000 UNIT/ML 1 ML VIAL SUBCUT SCH ×3 (05:22→21:40)
[2019-01-20] MEDS: LEVALBUTEROL HCL NEB 1.25 MG/3 ML AMPUL NEB PRN ×2 (07:48→21:15)
[2019-01-20] MEDS: ACETYLCYSTEINE 20% SOLN 800 MG/4 ML VIAL.NEB NEB SCH ×2 (07:48→21:15)
--- NOTE | 2019-01-20 07:59 | PDOC PROGRESS REPORT ---
Subjective Progress Note for:: 01/20/19 Subjective:: Still w/ considerable pain, SOB, cough, dry heaves Reason For Visit: BHASKAR TRUJILLO Physical Exam Vital Signs: Temp Pulse Resp BP Pulse Ox 97.9 F 69 21 H 128/83 H 97 01/20/19 03:41 01/20/19 03:41 01/20/19 03:41 01/20/19 03:41 01/20/19 03:41 Intake & Output 01/19/19 01/20/19 01/21/19 06:59 06:59 06:59 Intake Total 2860 2532 Balance 2860 2532 Weight 99.1 kg 98.4 kg General appearance: PRESENT: no acute distress, well-developed, well-nourished Head exam: PRESENT: atraumatic, normocephalic Eye exam: PRESENT: conjunctiva pink, EOMI, PERRLA. ABSENT: scleral icterus Ear exam: PRESENT: normal external ear exam Mouth exam: PRESENT: moist, tongue midline Neck exam: ABSENT: carotid bruit, JVD, lymphadenopathy, thyromegaly Respiratory exam: PRESENT: clear to auscultation tolu. ABSENT: rales, rhonchi, wheezes Cardiovascular exam: PRESENT: RRR. ABSENT: diastolic murmur, rubs, systolic murmur Pulses: PRESENT: normal dorsalis pedis pul Vascular exam: PRESENT: normal capillary refill GI/Abdominal exam: PRESENT: normal bowel sounds, soft. ABSENT: distended, guarding, mass, organolmegaly, rebound, tenderness Rectal exam: PRESENT: deferred Extremities exam: PRESENT: full ROM. ABSENT: calf tenderness, clubbing, pedal edema Neurological exam: PRESENT: alert, awake, oriented to person, oriented to place, oriented to time, oriented to situation, CN II-XII grossly intact. ABSENT: m otor sensory deficit Psychiatric exam: PRESENT: appropriate affect, normal mood. ABSENT: homicidal ideation, suicidal ideation Skin exam: PRESENT: dry, intact, warm. ABSENT: cyanosis, rash Results Laboratory Results: 01/18/19 06:05 01/18/19 06:05 01/17/19 01:27 Clean Catch Midstream Urine Culture - Final Pseudomonas Aeruginosa 01/12/19 10:23 Creatine Kinase 71 Impressions: Chest X-Ray 01/19/19 00:00 IMPRESSION: Grossly stable chest with persistent patchy left basilar, right perihilar and apical opacities. Small left pleural effusion, stable. Assessment & Plan - Diagnosis (1) Metastatic breast cancer Is this a current diagnosis for this admission?: Yes Plan: Cont w/ Day #8 of chemo today, cont to monitor post rx (2) Intractable pain Is this a current diagnosis for this admission?: Yes Plan: Still severe, not able yet to be switched to PO (3) Nausea & vomiting Qualifiers: Vomiting type: unspecified Vomiting Intractability: intractable Qualified Code(s): R11.2 - Nausea with vomiting, unspecified Is this a current diagnosis for this admission?: Yes Plan: Cont IV antiemetics - Time Time Spent with patient: 15-24 minutes
[2019-01-20 08:52] LABS: ABSOLUTE LYMPHOCYTES (AUTO) 0.6 10^3/uL (0.5-4.7); ABSOLUTE MONOCYTES (AUTO) 0.2 10^3/uL (0.1-1.4); ABSOLUTE NEUT (AUTO) 1.4 10^3/uL (1.7-8.2); BASOPHILS % (AUTO) 0.5 % (0-2); EOSINOPHILS % (AUTO) 0.6 % (0-6); HEMATOCRIT 34.2 % (36.0-47.0); HEMOGLOBIN 11.4 g/dL (12.0-15.5); LYMPHOCYTES % (AUTO) 27.4 % (13-45); MEAN CORPUSCULAR HEMOGLOBIN 28.1 pg (27.0-33.4); MEAN CORPUSCULAR HGB CONC 33.4 g/dL (32.0-36.0); MEAN CORPUSCULAR VOLUME 84 fl (80-97); MONOCYTES % (AUTO) 8.2 % (3-13); PLATELET COUNT 246 10^3/uL (150-450); RED BLOOD COUNT 4.06 10^6/uL (3.72-5.28); RED CELL DISTRIBUTION WIDTH 14.4 % (11.5-14.0); SEGMENTED NEUTROPHILS % (AUTO) 63.3 % (42-78); TOTAL CELLS COUNTED % (AUTO) 100 %; WHITE BLOOD COUNT 2.2 10^3/uL (4.0-10.5)
[2019-01-20 08:53] LABS: ANION GAP 8 (5-19); BLOOD UREA NITROGEN 2 mg/dL (7-20); CALCIUM 8.9 mg/dL (8.4-10.2); CARBON DIOXIDE 30 mmol/L (22-30); CHLORIDE 101 mmol/L (98-107); GLUCOSE 88 mg/dL (75-110); POTASSIUM 3.7 mmol/L (3.6-5.0)
[2019-01-20] MEDS: DOCUSATE SODIUM 100 MG CAPSULE PO SCH ×2 (09:38→18:08)
[2019-01-20] MEDS: LOSARTAN POTASSIUM 50 MG TABLET PO SCH (09:38)
[2019-01-20] MEDS: DILTIAZEM HCL 240 MG CAPSULE.CR PO SCH ×2 (09:38→21:40)
[2019-01-20] MEDS: GUAIFENESIN SYRP 200 MG/10 ML UDC PO SCH ×4 (09:43→21:41)
[2019-01-20] MEDS: ONDANSETRON HCL INJ/PF 4 MG/2 ML SDV IV PRN (09:47)
[2019-01-20] MEDS: CEFTRIAXONE 1 GM/D5W RTU 1 GM/50 ML RTUPB IV SCH (18:08)
--- NOTE | 2019-01-20 20:16 | PDOC PROGRESS REPORT ---
Subjective Progress Note for:: 01/20/19 Subjective:: The patient is a 48-year-old female, well-known to this service, with a past medical history of hypertension, A. fib, breast cancer with lung and brain metastasis, morbid obesity, chronic pain, and opiate dependence with continuous use who was admitted on 01/12/2019 for intractable pain. Patient was seen on morning rounds prior to chemo. She is found sitting up to the edge of the bed, comfortably, on supplemental oxygen at 2 L/min; she is home O2 dependent. Her primary complaint today is her cough and dyspnea while at rest. She does not improvement following nebs this morning; states "its breaking up." Otherwise, she denies fever, chills, chest pain, palpitations, orthopnea, abdominal pain, nausea vomiting and diarrhea. She has no other questions or concerns at this time. No concerns per nursing. Reason For Visit: CASSANDRA, BHASKAR Physical Exam Vital Signs: Temp Pulse Resp BP Pulse Ox 98.5 F 115 H 22 H 125/91 H 97 01/20/19 15:41 01/20/19 15:41 01/20/19 15:41 01/20/19 15:41 01/20/19 15:41 Intake & Output 01/19/19 01/20/19 01/21/19 06:59 06:59 06:59 Intake Total 2860 2532 1046.75 Balance 2860 2532 1046.75 Weight 99.1 kg 98.4 kg General appearance: PRESENT: no acute distress, obese, well-developed, well- nourished Head exam: PRESENT: atraumatic, normocephalic Eye exam: PRESENT: conjunctiva pink, EOMI, PERRLA. ABSENT: scleral icterus Ear exam: PRESENT: normal external ear exam Mouth exam: PRESENT: moist, tongue midline Neck exam: ABSENT: carotid bruit, JVD, lymphadenopathy, thyromegaly Respiratory exam: PRESENT: rhonchi - throughout, symmetrical, unlabored, other - Supplemental oxygen via nasal cannula. ABSENT: rales, wheezes Cardiovascular exam: PRESENT: RRR, +S1, +S2, tachycardia. ABSENT: diastolic murmur, rubs, systolic murmur Vascular exam: PRESENT: normal capillary refill Rectal exam: PRESENT: deferred Extremities exam: PRESENT: full ROM. ABSENT: calf tenderness, clubbing, pedal edema Musculoskeletal exam: PRESENT: ambulatory Neurological exam: PRESENT: alert, awake, oriented to person, oriented to place, oriented to time, oriented to situation, CN II-XII grossly intact. ABSENT: motor sensory deficit Psychiatric exam: PRESENT: anxious, appropriate affect, normal mood. ABSENT: homicidal ideation, suicidal ideation Skin exam: PRESENT: dry, intact, warm. ABSENT: cyanosis, rash Results Laboratory Results: 01/20/19 08:06 01/20/19 08:06 01/20/19 01/20/19 08:06 08:06 WBC 2.2 L RBC 4.06 Hgb 11.4 L Hct 34.2 L MCV 84 MCH 28.1 MCHC 33.4 RDW 14.4 H Plt Count 246 Seg Neutrophils % 63.3 Sodium 138.7 Potassium 3.7 Chloride 101 Carbon Dioxide 30 Anion Gap 8 BUN 2 L Creatinine 0.37 L Est GFR ( Amer) > 60 Glucose 88 Calcium 8.9 01/12/19 10:23 Creatine Kinase 71 Impressions: Chest X-Ray 01/19/19 00:00 IMPRESSION: Grossly stable chest with persistent patchy left basilar, right perihilar and apical opacities. Small left pleural effusion, stable. Assessment and Plan - Diagnosis (1) Atrial fibrillation Qualifiers: Atrial fibrillation type: paroxysmal Qualified Code(s): I48.0 - Paroxysmal atrial fibrillation Is this a current diagnosis for this admission?: Yes Plan: Patient is not a chronic anticoagulant candidate secondary to metastatic lung ca ncer. Proved rate control; 70s to 115 today. Continue Cardizem CD to 240 mg every 12 hours. Continue gentle IV fluids. (2) Hypertension Qualifiers: Hypertension type: unspecified Qualified Code(s): I10 - Essential (primary) hypertension Is this a current diagnosis for this admission?: Yes Plan: Continue losartan 50 mg daily, hydralazine 25 mg every 8 hours. Have increase diltiazem to 240 mg every 12 hours. Cardiac diet. Pain control per oncology. (3) Cough Is this a current diagnosis for this admission?: Yes Plan: Chronic, although patient reports this to be new, she has had a nonproductive cough over the previous 3 admissions that I have cared for her. Likely related to her lung metastasis. Chest x-ray demonstrates chronic changes; no acute findings. We will schedule liquid Robitussin; patient states she is unable to swallow Mucinex pills. Continue as needed nebulizer treatments. Codeine as needed for cough. She declines Tessalon Perles. Trial Mucomyst nebulizer treatment; patient feels chest congestion is improved today. Flutter valve to bedside. (4) Intractable pain Is this a current diagnosis for this admission?: Yes Plan: Pain management per her oncologist. Appreciate Dr. Fischer's assistance. (5) Nausea & vomiting Qualifiers: Vomiting type: unspecified Vomiting Intractability: intractable Qualified Code(s): R11.2 - Nausea with vomiting, unspecified Is this a current diagnosis for this admission?: Yes Plan: Antiemetics per oncology. Eating 25 to 100% of meals. (6) Metastatic breast cancer Is this a current diagnosis for this admission?: Yes Plan: Primary management per oncology. Dr. Fischer's expertise. Spoke today; plans for chemotherapy tomorrow. (7) Dehydration Is this a current diagnosis for this admission?: Yes Plan: Resolved. Patient is consuming 25 to 75% of each meal. Adequate p.o. fluid intake. Will decrease IV fluids to 50 mL's per hour - Time Time Spent with patient: 25-34 minutes Medications reviewed and adjusted accordingly: Yes Anticipated discharge: Home Within: within 24 hours - At oncology's discretion.
[2019-01-20] MEDS: OXYCODONE HCL IR 5 MG TABLET PO PRN (21:42)
[2019-01-21] MEDS: HYDROMORPHONE HCL INJ/PF 2 MG/ML AMPULE IV PRN ×7 (00:30→19:38)
[2019-01-21] MEDS: PROMETHAZINE HCL INJ 25 MG/1 ML VIAL IV PRN ×5 (03:12→22:18)
[2019-01-21] MEDS: OXYCODONE HCL IR 5 MG TABLET PO PRN ×2 (03:26→22:35)
[2019-01-21] MEDS: GUAIFENESIN/CODEINE PHOS 100-10 MG/ 5 ML UDC PO PRN (03:27)
[2019-01-21] MEDS: HYDRALAZINE HCL 25 MG TABLET PO SCH ×3 (06:10→22:23)
[2019-01-21] MEDS: PANTOPRAZOLE SODIUM 40 MG TABLET.DR PO SCH (07:30)
[2019-01-21] MEDS: HEPARIN SOD (PORCINE) 5,000 UNIT/ML 1 ML VIAL SUBCUT SCH ×3 (07:30→22:21)
[2019-01-21] MEDS: ONDANSETRON HCL INJ/PF 4 MG/2 ML SDV IV PRN (07:43)
[2019-01-21] MEDS: ACETYLCYSTEINE 20% SOLN 800 MG/4 ML VIAL.NEB NEB SCH ×2 (08:00→20:18)
[2019-01-21] MEDS: LEVALBUTEROL HCL NEB 1.25 MG/3 ML AMPUL NEB PRN ×2 (08:00→20:18)
--- NOTE | 2019-01-21 08:45 | PDOC PROGRESS REPORT ---
Subjective Progress Note for:: 01/21/19 Subjective:: Tolerated chemo well, still w/ fairly severe pain and nausea, we are in the midst of chemo induced SE Reason For Visit: BHASKAR TRUJILLO Physical Exam Vital Signs: Temp Pulse Resp BP Pulse Ox 98.3 F 107 H 20 139/79 H 96 01/20/19 23:42 01/21/19 08:00 01/21/19 08:00 01/20/19 23:42 01/21/19 08:00 Intake & Output 01/20/19 01/21/19 01/22/19 06:59 06:59 06:59 Intake Total 2532 2920.75 Balance 2532 2920.75 Weight 98.4 kg 96.2 kg Results Laboratory Results: 01/20/19 08:06 01/20/19 08:06 01/20/19 01/20/19 08:06 08:06 WBC 2.2 L RBC 4.06 Hgb 11.4 L Hct 34.2 L MCV 84 MCH 28.1 MCHC 33.4 RDW 14.4 H Plt Count 246 Seg Neutrophils % 63.3 Sodium 138.7 Potassium 3.7 Chloride 101 Carbon Dioxide 30 Anion Gap 8 BUN 2 L Creatinine 0.37 L Est GFR ( Amer) > 60 Glucose 88 Calcium 8.9 01/12/19 10:23 Creatine Kinase 71 Impressions: Chest X-Ray 01/19/19 00:00 IMPRESSION: Grossly stable chest with persistent patchy left basilar, right perihilar and apical opacities. Small left pleural effusion, stable. Assessment & Plan - Diagnosis (1) Metastatic breast cancer Is this a current diagnosis for this admission?: Yes Plan: Cont current therapy, will need cont inpt stay for continued chemo induced nausea/pain (2) Intractable pain Is this a current diagnosis for this admission?: Yes Plan: Cont current pain regimen (3) Nausea & vomiting Qualifiers: Vomiting type: unspecified Vomiting Intractability: intractable Qualified Code(s): R11.2 - Nausea with vomiting, unspecified Is this a current diagnosis for this admission?: Yes Plan: Cont current pain regimen - Time Time Spent with patient: 35 or more minutes - Inpatient Certification Based on my medical assessment, after consideration of the patient's comorbidities, presenting symptoms, or acuity I expect that the services needed warrant INPATIENT care.: Yes I certify that my determination is in accordance with my understanding of Medicare's requirements for reasonable and necessary INPATIENT services [42 CFR 412.3e].: Yes Medical Necessity: Risk of Complication if Not Cared For in Hospital
[2019-01-21] MEDS: LOSARTAN POTASSIUM 50 MG TABLET PO SCH (09:55)
[2019-01-21] MEDS: DILTIAZEM HCL 240 MG CAPSULE.CR PO SCH ×2 (09:56→22:22)
[2019-01-21] MEDS: DOCUSATE SODIUM 100 MG CAPSULE PO SCH ×2 (09:56→17:44)
[2019-01-21] MEDS: GUAIFENESIN SYRP 200 MG/10 ML UDC PO SCH ×4 (09:57→22:18)
[2019-01-21] MEDS: DIPHENHYDRAMINE HCL 50 MG/ML VIAL IV PRN ×2 (10:22→22:20)
[2019-01-21] MEDS: NORMAL SALINE 1000 ML 1,000 ML IV PRN (13:11)
[2019-01-21] MEDS: CEFTRIAXONE 1 GM/D5W RTU 1 GM/50 ML RTUPB IV SCH (17:44)
[2019-01-21] MEDS ORDERED: FLUCONAZOLE 100 MG TABLET PO ONE (21:47)
--- NOTE | 2019-01-21 22:05 | PDOC PROGRESS REPORT ---
Subjective Progress Note for:: 01/21/19 Subjective:: The patient is a 48-year-old female, well-known to this service, with a past medical history of hypertension, A. fib, breast cancer with lung and brain metastasis, morbid obesity, chronic pain, and opiate dependence with continuous use who was admitted on 01/12/2019 for intractable pain. Patient was seen on afternoon rounds. She is found sitting up to the edge of the bed, comfortably, on supplemental oxygen at 2 L/min; she is home O2 dependent. She was noted to be talking on the phone and eating her lunch on entering. Her primary complaint today is skin discomfort, erythema, and itching/pain to her skin folds; concerned she has developed a yeast infection. She also reports having noted two skin nodules to her right lateral/posterior chest wall. She reports that the lateral nodule (anterior to the mid axillary line at the fifth intercostal space) has a burning sensation. There is been no surrounding erythema or drainage noted. Otherwise, she denies fever, chills, chest pain, palpitations, orthopnea, abdominal pain, vomiting and diarrhea. She has no other questions or concerns at this time. No concerns per nursing. Reason For Visit: BHASKAR TRUJILLO Physical Exam Vital Signs: Temp Pulse Resp BP Pulse Ox 98.0 F 108 H 20 120/77 98 01/21/19 16:11 01/21/19 20:18 01/21/19 20:18 01/21/19 16:11 01/21/19 20:18 Intake & Output 01/20/19 01/21/19 01/22/19 06:59 06:59 06:59 Intake Total 2532 2920.75 862 Balance 2532 2920.75 862 Weight 98.4 kg 96.2 kg 96.2 kg General appearance: PRESENT: no acute distress, obese, well-developed, well- nourished Head exam: PRESENT: atraumatic, normocephalic Eye exam: PRESENT: conjunctiva pink, EOMI, PERRLA. ABSENT: scleral icterus Ear exam: PRESENT: normal external ear exam Mouth exam: PRESENT: moist, tongue midline Respiratory exam: PRESENT: chest wall tenderness - Right posterior and lateral chest wall nodules; each measuring approximately 6 cm round. Firm and nonmobile without erythema or drainage present., rhonchi - Scattered, symmetrical, unlabored, other - Supplemental oxygen by nasal cannula 2 L/min. ABSENT: rales, wheezes Cardiovascular exam: PRESENT: RRR, +S1, +S2. ABSENT: diastolic murmur, rubs, systolic murmur Vascular exam: PRESENT: normal capillary refill Rectal exam: PRESENT: deferred Extremities exam: PRESENT: full ROM. ABSENT: calf tenderness, clubbing, pedal edema Musculoskeletal exam: PRESENT: ambulatory Neurological exam: PRESENT: alert, awake, oriented to person, oriented to place, oriented to time, oriented to situation, CN II-XII grossly intact. ABSENT: motor sensory deficit Psychiatric exam: PRESENT: appropriate affect, normal mood. ABSENT: homicidal ideation, suicidal ideation Skin exam: PRESENT: dry, intact, warm. ABSENT: cyanosis, rash Results Laboratory Results: 01/20/19 08:06 01/20/19 08:06 01/16/19 20:15 Blood Blood Culture - Final NO GROWTH IN 5 DAYS 01/16/19 18:48 Blood Blood Culture - Final NO GROWTH IN 5 DAYS 01/12/19 10:23 Creatine Kinase 71 Impressions: Chest X-Ray 01/19/19 00:00 IMPRESSION: Grossly stable chest with persistent patchy left basilar, right perihilar and apical opacities. Small left pleural effusion, stable. Assessment and Plan - Diagnosis (1) Atrial fibrillation Qualifiers: Atrial fibrillation type: paroxysmal Qualified Code(s): I48.0 - Paroxysmal atrial fibrillation Is this a current diagnosis for this admission?: Yes Plan: Patient is not candidate for chronic anticoagulation secondary to metastatic lung cancer. Improved rate control; 70s to 115 today. Continue Cardizem CD to 240 mg every 12 hours. Continue gentle IV fluids. (2) Hypertension Qualifiers: Hypertension type: unspecified Qualified Code(s): I10 - Essential (primary) hypertension Is this a current diagnosis for this admission?: Yes Plan: Normotensive today. Continue losartan 50 mg daily, hydralazine 25 mg every 8 hours. Continue diltiazem to 240 mg every 12 hours. Cardiac diet. Pain control per oncology. (3) Cough Is this a current diagnosis for this admission?: Yes Plan: Improved today. Chronic, although patient reports this to be new, she has had a nonproductive cough over the previous 3 admissions that I have cared for her. Likely related to her lung metastasis. Chest x-ray demonstrates chronic changes; no acute findings. We will schedule liquid Robitussin; patient states she is unable to swallow Mucinex pills. Continue as needed nebulizer treatments. Codeine as needed for cough. She declines Tessalon Perles. Trial Mucomyst nebulizer treatment; patient feels chest congestion is improved today, will continue Flutter valve to bedside. (4) Intractable pain Is this a current diagnosis for this admission?: Yes Plan: Pain management per her oncologist. Appreciate Dr. Fischer's assistance. (5) Nausea & vomiting Qualifiers: Vomiting type: unspecified Vomiting Intractability: intractable Qualified Code(s): R11.2 - Nausea with vomiting, unspecified Is this a current diagnosis for this admission?: Yes Plan: Antiemetics per oncology. Eating 25 to 100% of meals. (6) Metastatic breast cancer Is this a current diagnosis for this admission?: Yes Plan: Primary management per oncology. Noted subcutaneous, firm, non-mobile, nodules to her right chest wall toda. Each approximately 6 cm round. Burning sensation to nodule at the right axillary line. No surrounding erythema, no drainage; low suspicion for abscess development. Discussed with Dr. Fsicher; likely metastatic in nature. Oncology is consulted; appreciate Dr. Fischer's assistance. (7) Dehydration Is this a current diagnosis for this admission?: Yes Plan: Resolved. Patient is consuming 25 to 100% of each meal. Adequate p.o. fluid intake. Will decrease IV fluids to 50 mL's per hour (8) UTI (urinary tract infection) Qualifiers: Hematuria presence: without hematuria Is this a current diagnosis for this admission?: Yes Plan: Ruled out. Urinalysis was negative for UTI, however urine culture demonstrated Pseudomonas 20-30,000 colonies. She was placed on ceftriaxone for treatment of UTI and has received a 6-day course which should be more than sufficient as this is ruled out. Likely colonization. We will discontinue IV antibiotics today. (9) Allyson infection Is this a current diagnosis for this admission?: Yes Plan: Patient reports pruritic, erythematous, rash to skin folds. Received chemotherapy agent yesterday. We will discontinue IV antibiotics today. Diflucan p.o. 200 mg x 1. Nystatin cream and powders twice daily. - Plan Summary Summary: The patient is hemodynamically Stable for discharge with baseline leukopenia expected post chemotherapy leukopenia unremarkable laboratory evaluation. However, oncology recommends a postchemotherapy observational period for symptom management. - Time Time Spent with patient: 15-24 minutes Medications reviewed and adjusted accordingly: Yes Anticipated discharge: Home Within: Other - Per oncology's discretion.
[2019-01-22] MEDS: HYDROMORPHONE HCL INJ/PF 2 MG/ML AMPULE IV PRN ×5 (01:32→19:53)
[2019-01-22] MEDS: OXYCODONE HCL IR 5 MG TABLET PO PRN ×2 (01:36→06:21)
[2019-01-22] MEDS: PROMETHAZINE HCL INJ 25 MG/1 ML VIAL IV PRN ×5 (03:03→21:22)
[2019-01-22] MEDS: GUAIFENESIN/CODEINE PHOS 100-10 MG/ 5 ML UDC PO PRN (03:07)
[2019-01-22] MEDS: PANTOPRAZOLE SODIUM 40 MG TABLET.DR PO SCH (06:21)
[2019-01-22] MEDS: HYDRALAZINE HCL 25 MG TABLET PO SCH ×3 (06:21→21:20)
[2019-01-22] MEDS: HEPARIN SOD (PORCINE) 5,000 UNIT/ML 1 ML VIAL SUBCUT SCH ×3 (06:22→21:21)
[2019-01-22] MEDS: FENTANYL 100 MCG/HR PATCH.TD72 TD SCH (08:32)
[2019-01-22] MEDS: FENTANYL 50 MCG/HR PATCH.TD72 TD SCH (08:32)
[2019-01-22] MEDS: NORMAL SALINE 1000 ML 1,000 ML IV PRN (08:37)
[2019-01-22] MEDS: ACETYLCYSTEINE 20% SOLN 800 MG/4 ML VIAL.NEB NEB SCH ×2 (08:43→20:53)
[2019-01-22] MEDS ORDERED: HYDROMORPHONE HCL INJ/PF 2 MG/ML AMPULE IV ONE (09:00)
--- NOTE | 2019-01-22 09:01 | PDOC PROGRESS REPORT ---
Subjective Progress Note for:: 01/22/19 Subjective:: This morning she was still coughing a lot, feeling a lot of pain, I noticed that her fentanyl had fallen off the MAY, so the last patch was placed on the . We will change the patch today to 150 mcg. I will also asked Susan Land to start looking into home health for her, she would benefit from home normal saline infusions Reason For Visit: CASSANDRA, PAC Physical Exam Vital Signs: Temp Pulse Resp BP Pulse Ox 97.5 F 90 18 144/88 H 99 01/22/19 04:00 01/22/19 04:00 01/22/19 04:00 01/22/19 04:00 01/22/19 04:00 Intake & Output 01/21/19 01/22/19 01/23/19 06:59 06:59 06:59 Intake Total 2920.75 2692 972 Balance 2920.75 2692 972 Weight 96.2 kg 99.6 kg General appearance: PRESENT: no acute distress, well-developed, well-nourished Head exam: PRESENT: atraumatic, normocephalic Eye exam: PRESENT: conjunctiva pink, EOMI, PERRLA. ABSENT: scleral icterus Ear exam: PRESENT: normal external ear exam Mouth exam: PRESENT: moist, tongue midline Neck exam: ABSENT: carotid bruit, JVD, lymphadenopathy, thyromegaly Respiratory exam: PRESENT: clear to auscultation tolu. ABSENT: rales, rhonchi, wheezes Cardiovascular exam: PRESENT: RRR. ABSENT: diastolic murmur, rubs, systolic murmur Pulses: PRESENT: normal dorsalis pedis pul Vascular exam: PRESENT: normal capillary refill GI/Abdominal exam: PRESENT: normal bowel sounds, soft. ABSENT: distended, guarding, mass, organolmegaly, rebound, tenderness Rectal exam: PRESENT: deferred Extremities exam: PRESENT: full ROM. ABSENT: calf tenderness, clubbing, pedal edema Neurological exam: PRESENT: alert, awake, oriented to person, oriented to place, oriented to time, oriented to situation, CN II-XII grossly intact. ABSENT: motor sensory deficit Psychiatric exam: PRESENT: appropriate affect, normal mood. ABSENT: homicidal ideation, suicidal ideation Skin exam: PRESENT: dry, intact, warm. ABSENT: cyanosis, rash Results Laboratory Results: 01/20/19 08:06 01/20/19 08:06 01/16/19 20:15 Blood Blood Culture - Final NO GROWTH IN 5 DAYS 01/16/19 18:48 Blood Blood Culture - Final NO GROWTH IN 5 DAYS 01/12/19 10:23 Creatine Kinase 71 Impressions: Chest X-Ray 01/19/19 00:00 IMPRESSION: Grossly stable chest with persistent patchy left basilar, right perihilar and apical opacities. Small left pleural effusion, stable. Assessment & Plan - Diagnosis (1) Metastatic breast cancer Is this a current diagnosis for this admission?: Yes Plan: Continue with monitoring, she is getting chemo induced nausea and pain (2) Intractable pain Is this a current diagnosis for this admission?: Yes Plan: Paola to malignancy, increase fentanyl continue with IV pain medication (3) Nausea & vomiting Qualifiers: Vomiting type: unspecified Vomiting Intractability: intractable Qualified Code(s): R11.2 - Nausea with vomiting, unspecified Is this a current diagnosis for this admission?: Yes Plan: Continue with IV antiemetics - Time Time Spent with patient: 35 or more minutes
[2019-01-22] MEDS: LOSARTAN POTASSIUM 50 MG TABLET PO SCH (10:39)
[2019-01-22] MEDS: DOCUSATE SODIUM 100 MG CAPSULE PO SCH ×2 (10:39→17:05)
[2019-01-22] MEDS: GUAIFENESIN SYRP 200 MG/10 ML UDC PO SCH ×4 (10:39→21:21)
[2019-01-22] MEDS: DILTIAZEM HCL 240 MG CAPSULE.CR PO SCH ×2 (10:40→21:21)
[2019-01-22] MEDS: NYSTATIN TOPICAL POWDER 15 GM TP SCH ×2 (10:40→17:04)
[2019-01-22] MEDS: NYSTATIN CREAM 15 GM TP SCH ×2 (10:41→17:04)
[2019-01-22] MEDS: DIPHENHYDRAMINE HCL 50 MG/ML VIAL IV PRN ×2 (10:47→19:52)
[2019-01-22] MEDS: CEFTRIAXONE 1 GM/D5W RTU 1 GM/50 ML RTUPB IV SCH (17:03)
--- NOTE | 2019-01-22 18:32 | PDOC PROGRESS REPORT ---
Subjective Progress Note for:: 01/22/19 Subjective:: The patient is a 48-year-old female, well-known to this service, with a past medical history of hypertension, A. fib, breast cancer with lung and brain metastasis, morbid obesity, chronic pain, and opiate dependence with continuous use who was admitted on 01/12/2019 for intractable pain. The patient was seen on afternoon rounds. Unfortunately, both times that I at tempted to see the patient she was up to the restroom. She did speak with me briefly through the door. She reports continued pain and nausea. Cough is slightly improved. She has no other questions or concerns. No concerns per nursing. Reason For Visit: CASSANDRA, BHASKAR Physical Exam Vital Signs: Temp Pulse Resp BP Pulse Ox 98.4 F 112 H 20 132/82 H 100 01/22/19 17:16 01/22/19 17:16 01/22/19 17:16 01/22/19 17:16 01/22/19 17:16 Intake & Output 01/21/19 01/22/19 01/23/19 06:59 06:59 06:59 Intake Total 2920.75 2692 1022 Balance 2920.75 2692 1022 Weight 96.2 kg 99.6 kg General appearance: PRESENT: no acute distress, cooperative, obese, well- developed, well-nourished Head exam: PRESENT: atraumatic, normocephalic Eye exam: PRESENT: conjunctiva pink, EOMI, PERRLA. ABSENT: scleral icterus Respiratory exam: PRESENT: symmetrical, unlabored, other - Supplemental oxygen at 2 L/min Rectal exam: PRESENT: deferred Extremities exam: PRESENT: full ROM. ABSENT: calf tenderness, clubbing, pedal edema Musculoskeletal exam: PRESENT: ambulatory Neurological exam: PRESENT: alert, awake, oriented to person, oriented to place, oriented to time, oriented to situation, CN II-XII grossly intact. ABSENT: motor sensory deficit Psychiatric exam: PRESENT: appropriate affect, normal mood. ABSENT: homicidal ideation, suicidal ideation Skin exam: PRESENT: dry, warm. ABSENT: cyanosis, rash Additional comments: Limited exam today. Results Laboratory Results: 01/20/19 08:06 01/20/19 08:06 01/16/19 20:15 Blood Blood Culture - Final NO GROWTH IN 5 DAYS 11/16/19 18:48 Blood Blood Culture - Final NO GROWTH IN 5 DAYS 01/12/19 10:23 Creatine Kinase 71 Impressions: Chest X-Ray 01/19/19 00:00 IMPRESSION: Grossly stable chest with persistent patchy left basilar, right perihilar and apical opacities. Small left pleural effusion, stable. Assessment and Plan - Diagnosis (1) Atrial fibrillation Qualifiers: Atrial fibrillation type: paroxysmal Qualified Code(s): I48.0 - Paroxysmal atrial fibrillation Is this a current diagnosis for this admission?: Yes Plan: Patient is not candidate for chronic anticoagulation secondary to metastatic lung cancer. Rate controlled on current regiment. Continue Cardizem CD to 240 mg every 12 hours. Continue gentle IV fluids. (2) Hypertension Qualifiers: Hypertension type: unspecified Qualified Code(s): I10 - Essential (primary) hypertension Is this a current diagnosis for this admission?: Yes Plan: Normotensive today. Continue losartan 50 mg daily, hydralazine 25 mg every 8 hours. Continue diltiazem to 240 mg every 12 hours. Cardiac diet. Pain control per oncology. (3) Cough Is this a current diagnosis for this admission?: Yes Plan: Improved. Chronic, although patient reports this to be new, she has had a nonproductive cough over the previous 3 admissions that I have cared for her. Likely related to her lung metastasis. Chest x-ray demonstrates chronic changes; no acute findings. Continue liquid Robitussin Continue as needed nebulizer treatments. Robitussin w/ Codeine as needed for cough. She declines Tessalon Perles. Continue Mucomyst nebulizer treatment; patient feels chest congestion is improved today, will continue Flutter valve to bedside. (4) Intractable pain Is this a current diagnosis for this admission?: Yes Plan: Pain management per her oncologist. Appreciate Dr. Fischer's assistance. (5) Nausea & vomiting Qualifiers: Vomiting type: unspecified Vomiting Intractability: intractable Qualified Code(s): R11.2 - Nausea with vomiting, unspecified Is this a current diagnosis for this admission?: Yes Plan: Antiemetics per oncology. Eating 25 to 100% of meals. (6) Metastatic breast cancer Is this a current diagnosis for this admission?: Yes Plan: Primary management per oncology. Noted subcutaneous, firm, non-mobile, nodules to her right chest wall. Each approximately 6 cm round. Burning sensation to nodule at the right axillary line. No surrounding erythema, no drainage; low suspicion for abscess development. Discussed with Dr. Fischer; likely metastatic in nature. Oncology is consulted; appreciate Dr. Fischer's assistance. (7) Dehydration Is this a current diagnosis for this admission?: Yes Plan: Resolved. Patient is consuming 25 to 100% of each meal. Adequate p.o. fluid intake. Will decrease IV fluids to 50 mL's per hour (8) UTI (urinary tract infection) Qualifiers: Hematuria presence: without hematuria Is this a current diagnosis for this admission?: Yes Plan: Ruled out. Urinalysis was negative for UTI, however urine culture demonstrated Pseudomonas 20-30,000 colonies. She was placed on ceftriaxone for treatment of UTI and has received a 6-day course which should be more than sufficient as this is ruled out. Likely colonization. We will discontinue IV antibiotics today. (9) Allyson infection Is this a current diagnosis for this admission?: Yes Plan: Patient reports pruritic, erythematous, rash to skin folds. Recent chemotherapy IV abx discontinued. Diflucan p.o. 200 mg x 1 yesterday. Nystatin cream and powders twice daily. - Plan Summary Summary: The patient is hemodynamically Stable for discharge with baseline leukopenia expected post chemotherapy leukopenia unremarkable laboratory evaluation. However, oncology recommends a postchemotherapy observational period for symptom management. - Time Time Spent with patient: Less than 15 minutes Anticipated discharge: Home with Homehealth Within: within 48 hours
[2019-01-22] MEDS: ONDANSETRON HCL INJ/PF 4 MG/2 ML SDV IV PRN (19:53)
[2019-01-22] MEDS: LEVALBUTEROL HCL NEB 1.25 MG/3 ML AMPUL NEB PRN (20:53)
[2019-01-23] MEDS: HYDROMORPHONE HCL INJ/PF 2 MG/ML AMPULE IV PRN ×5 (00:46→20:09)
[2019-01-23] MEDS: ONDANSETRON HCL INJ/PF 4 MG/2 ML SDV IV PRN ×2 (00:47→10:06)
[2019-01-23] MEDS: PROMETHAZINE HCL INJ 25 MG/1 ML VIAL IV PRN ×5 (01:36→20:14)
[2019-01-23] MEDS: PANTOPRAZOLE SODIUM 40 MG TABLET.DR PO SCH (06:39)
[2019-01-23] MEDS: HEPARIN SOD (PORCINE) 5,000 UNIT/ML 1 ML VIAL SUBCUT SCH ×3 (06:40→22:09)
[2019-01-23] MEDS: HYDRALAZINE HCL 25 MG TABLET PO SCH (06:41)
[2019-01-23] MEDS: NORMAL SALINE 1000 ML 1,000 ML IV PRN (06:54)
[2019-01-23] MEDS: DIPHENHYDRAMINE HCL 50 MG/ML VIAL IV PRN ×3 (08:23→22:07)
[2019-01-23] MEDS: ACETYLCYSTEINE 20% SOLN 800 MG/4 ML VIAL.NEB NEB SCH ×2 (08:55→21:35)
[2019-01-23] MEDS ORDERED: OXYCODONE HCL SR 10 MG TABLET PO PRN (09:53)
[2019-01-23] MEDS: GUAIFENESIN SYRP 200 MG/10 ML UDC PO SCH ×4 (10:14→22:07)
[2019-01-23] MEDS: DILTIAZEM HCL 240 MG CAPSULE.CR PO SCH ×2 (10:15→22:09)
[2019-01-23] MEDS: METOPROLOL TARTRATE 25 MG TABLET PO SCH ×2 (10:15→22:07)
[2019-01-23] MEDS: DOCUSATE SODIUM 100 MG CAPSULE PO SCH ×2 (10:15→17:21)
[2019-01-23] MEDS: LOSARTAN POTASSIUM 50 MG TABLET PO SCH (10:15)
[2019-01-23] MEDS: NYSTATIN CREAM 15 GM TP SCH ×2 (10:52→17:31)
[2019-01-23] MEDS: NYSTATIN TOPICAL POWDER 15 GM TP SCH ×2 (10:52→17:32)
--- NOTE | 2019-01-23 11:04 | PDOC PROGRESS REPORT ---
Subjective Progress Note for:: 01/23/19 Subjective:: Patient doing a little bit better this morning, no acute events overnight Reason For Visit: BHASKAR TRUJILLO Physical Exam Vital Signs: Temp Pulse Resp BP Pulse Ox 98.8 F 121 H 18 128/85 H 96 01/23/19 06:48 01/23/19 07:00 01/23/19 06:48 01/23/19 06:48 01/23/19 06:48 Intake & Output 01/22/19 01/23/19 01/24/19 06:59 06:59 06:59 Intake Total 2692 2376 Balance 2692 2376 Weight 99.6 kg 99.1 kg General appearance: PRESENT: no acute distress, well-developed, well-nourished Head exam: PRESENT: atraumatic, normocephalic Eye exam: PRESENT: conjunctiva pink, EOMI, PERRLA. ABSENT: scleral icterus Ear exam: PRESENT: normal external ear exam Mouth exam: PRESENT: moist, tongue midline Neck exam: ABSENT: carotid bruit, JVD, lymphadenopathy, thyromegaly Respiratory exam: PRESENT: clear to auscultation tolu. ABSENT: rales, rhonchi, wheezes Cardiovascular exam: PRESENT: RRR. ABSENT: diastolic murmur, rubs, systolic murmur Pulses: PRESENT: normal dorsalis pedis pul Vascular exam: PRESENT: normal capillary refill GI/Abdominal exam: PRESENT: normal bowel sounds, soft. ABSENT: distended, guarding, mass, organolmegaly, rebound, tenderness Rectal exam: PRESENT: deferred Extremities exam: PRESENT: full ROM. ABSENT: calf tenderness, clubbing, pedal edema Neurological exam: PRESENT: alert, awake, oriented to person, oriented to place, oriented to time, oriented to situation, CN II-XII grossly intact. ABSENT: motor sensory deficit Psychiatric exam: PRESENT: appropriate affect, normal mood. ABSENT: homicidal ideation, suicidal ideation Skin exam: PRESENT: dry, intact, warm. ABSENT: cyanosis, rash Results Laboratory Results: 01/20/19 08:06 01/20/19 08:06 01/12/19 10:23 Creatine Kinase 71 Impressions: Chest X-Ray 01/19/19 00:00 IMPRESSION: Grossly stable chest with persistent patchy left basilar, right perihilar and apical opacities. Small left pleural effusion, stable. Assessment & Plan - Diagnosis (1) Metastatic breast cancer Is this a current diagnosis for this admission?: Yes Plan: Status post cycle #1 of chemotherapy, continue to monitor for the next 48 hours for side effect profile (2) Intractable pain Is this a current diagnosis for this admission?: Yes Plan: Improving, continue with current pain regimen, increased oxycodone to 20 mg, offering oxycodone first and trying to stretch out IV pain medication. (3) Nausea & vomiting Qualifiers: Vomiting type: unspecified Vomiting Intractability: intractable Qualified Code(s): R11.2 - Nausea with vomiting, unspecified Is this a current diagnosis for this admission?: Yes Plan: Still fairly intractable, we are trying to set up home normal saline infusions. - Time Time Spent with patient: 35 or more minutes - Inpatient Certification Based on my medical assessment, after consideration of the patient's comorbidities, presenting symptoms, or acuity I expect that the services needed warrant INPATIENT care.: Yes I certify that my determination is in accordance with my understanding of Medicare's requirements for reasonable and necessary INPATIENT services [42 CFR 412.3e].: Yes Medical Necessity: Need For IV Fluids, Need for Pain Control, Risk of Complication if Not Cared For in Hospital
[2019-01-23] MEDS: OXYCODONE HCL IR 5 MG TABLET PO PRN (12:22)
[2019-01-23] MEDS: LEVALBUTEROL HCL NEB 1.25 MG/3 ML AMPUL NEB PRN ×2 (13:00→20:39)
--- NOTE | 2019-01-23 17:31 | PDOC PROGRESS REPORT ---
Subjective Progress Note for:: 01/23/19 Subjective:: The patient is a 48-year-old female, well-known to this service, with a past medical history of hypertension, A. fib, breast cancer with lung and brain metastasis, morbid obesity, chronic pain, and opiate dependence with continuous use who was admitted on 01/12/2019 for intractable pain. The patient was seen on morning rounds. She was found resting in bed, comfort ably, on supplemental oxygen via nasal cannula. She reports that she is feeling somewhat better today. Cough is decreased. She denies fever, chills, chest pain, palpitations, orthopnea, abdominal pain, vomiting and diarrhea. She has no new questions or concerns. No concerns per nursing. Reason For Visit: BHASKAR TRUJILLO Physical Exam Vital Signs: Temp Pulse Resp BP Pulse Ox 97.6 F 93 20 129/75 H 98 01/23/19 16:00 01/23/19 16:00 01/23/19 16:00 01/23/19 16:00 01/23/19 16:00 Intake & Output 01/22/19 01/23/19 01/24/19 06:59 06:59 06:59 Intake Total 2692 2376 480 Balance 2692 2376 480 Weight 99.6 kg 99.1 kg General appearance: PRESENT: no acute distress, cooperative, obese, well- developed, well-nourished Head exam: PRESENT: atraumatic, normocephalic Eye exam: PRESENT: conjunctiva pink, EOMI, PERRLA. ABSENT: scleral icterus Ear exam: PRESENT: normal external ear exam Mouth exam: PRESENT: moist, tongue midline Respiratory exam: PRESENT: rhonchi - Improved, symmetrical, unlabored, wheezes - Slight right middle figueroa. ABSENT: rales Cardiovascular exam: PRESENT: RRR, +S1, +S2, tachycardia - HR 130s. ABSENT: diastolic murmur, rubs, systolic murmur Pulses: PRESENT: normal dorsalis pedis pul Vascular exam: PRESENT: normal capillary refill Rectal exam: PRESENT: deferred Extremities exam: PRESENT: full ROM. ABSENT: calf tenderness, clubbing, pedal edema Musculoskeletal exam: PRESENT: ambulatory Neurological exam: PRESENT: alert, awake, oriented to person, oriented to place, oriented to time, oriented to situation, CN II-XII grossly intact. ABSENT: motor sensory deficit Psychiatric exam: PRESENT: appropriate affect, normal mood. ABSENT: homicidal ideation, suicidal ideation Skin exam: PRESENT: dry, intact, warm. ABSENT: cyanosis, rash Results Laboratory Results: 01/20/19 08:06 01/20/19 08:06 01/12/19 10:23 Creatine Kinase 71 Impressions: Chest X-Ray 01/19/19 00:00 IMPRESSION: Grossly stable chest with persistent patchy left basilar, right perihilar and apical opacities. Small left pleural effusion, stable. Assessment and Plan - Diagnosis (1) Atrial fibrillation Qualifiers: Atrial fibrillation type: paroxysmal Qualified Code(s): I48.0 - Paroxysmal atrial fibrillation Is this a current diagnosis for this admission?: Yes Plan: Patient is not candidate for chronic anticoagulation secondary to metastatic lung cancer. Her rate in the 120s to 130s Continue Cardizem CD to 240 mg every 12 hours. Start metoprolol 25 mg p.o. every 12 hours Continue gentle IV fluids. (2) Hypertension Qualifiers: Hypertension type: unspecified Qualified Code(s): I10 - Essential (primary) hypertension Is this a current diagnosis for this admission?: Yes Plan: Normotensive today. Continue losartan 50 mg daily Start metoprolol 25 mg twice daily Continue diltiazem to 240 mg every 12 hours. Discontinue hydralazine 25 mg every 8 hours. Cardiac diet. Pain control per oncology. (3) Cough Is this a current diagnosis for this admission?: Yes Plan: Improved. Chronic, although patient reports this to be new, she has had a nonproductive cough over the previous 3 admissions that I have cared for her. Likely related to her lung metastasis. Chest x-ray demonstrates chronic changes; no acute findings. Continue liquid Robitussin Continue as needed nebulizer treatments. Robitussin w/ Codeine as needed for cough. She declines Tessalon Perles. Continue Mucomyst nebulizer treatment; patient feels chest congestion is improved today, will continue Flutter valve to bedside. (4) Intractable pain Is this a current diagnosis for this admission?: Yes Plan: Pain management per her oncologist. Appreciate Dr. Fischer's assistance. (5) Nausea & vomiting Qualifiers: Vomiting type: unspecified Vomiting Intractability: intractable Qualified Code(s): R11.2 - Nausea with vomiting, unspecified Is this a current diagnosis for this admission?: Yes Plan: Improved. Antiemetics per oncology. Eating 25 to 100% of meals. (6) Metastatic breast cancer Is this a current diagnosis for this admission?: Yes Plan: Primary management per oncology. Noted subcutaneous, firm, non-mobile, nodules to her right chest wall. Each approximately 6 cm round. Burning sensation to nodule at the right axillary line. No surrounding erythema, no drainage; low suspicion for abscess development. Discussed with Dr. Fischer; likely metastatic in nature. Oncology is consulted; appreciate Dr. Fischer's assistance. (7) Dehydration Is this a current diagnosis for this admission?: Yes Plan: Resolved. Patient is consuming 25 to 100% of each meal. Adequate p.o. fluid intake. Will adjust IV fluids to match outpatient plan. Discontinue continuous IV fluids. Start 1 L normal saline daily. (8) UTI (urinary tract infection) Qualifiers: Hematuria presence: without hematuria Is this a current diagnosis for this admission?: Yes Plan: Ruled out. Urinalysis was negative for UTI, however urine culture demonstrated Pseudomonas 20-30,000 colonies. She was placed on ceftriaxone for treatment of UTI and has received a 6-day course which should be more than sufficient as this is ruled out. Likely colonization. We will discontinue IV antibiotics today. (9) Allyson infection Is this a current diagnosis for this admission?: Yes Plan: Improved per patient. Patient reports pruritic, erythematous, rash to skin folds. Recent chemotherapy IV abx discontinued. Diflucan p.o. 200 mg x 1 Nystatin cream and powders twice daily. - Plan Summary Summary: The patient is hemodynamically Stable for discharge with baseline leukopenia expected post chemotherapy leukopenia unremarkable laboratory evaluation. However, oncology recommends a postchemotherapy observational period for symptom management. - Time Time Spent with patient: 25-34 minutes Medications reviewed and adjusted accordingly: Yes Anticipated discharge: Home with Homehealth Within: within 48 hours
[2019-01-24] MEDS: HYDROMORPHONE HCL INJ/PF 2 MG/ML AMPULE IV PRN ×6 (00:41→20:21)
[2019-01-24] MEDS: PROMETHAZINE HCL INJ 25 MG/1 ML VIAL IV PRN ×6 (00:42→22:43)
[2019-01-24] MEDS: DIPHENHYDRAMINE HCL 50 MG/ML VIAL IV PRN ×3 (04:07→20:21)
[2019-01-24] MEDS: HEPARIN SOD (PORCINE) 5,000 UNIT/ML 1 ML VIAL SUBCUT SCH ×3 (05:41→22:00)
[2019-01-24] MEDS: PANTOPRAZOLE SODIUM 40 MG TABLET.DR PO SCH (06:23)
[2019-01-24] MEDS: LEVALBUTEROL HCL NEB 1.25 MG/3 ML AMPUL NEB PRN ×2 (08:06→16:21)
[2019-01-24] MEDS: ACETYLCYSTEINE 20% SOLN 800 MG/4 ML VIAL.NEB NEB SCH ×2 (08:09→19:26)
[2019-01-24] MEDS: METOPROLOL TARTRATE 25 MG TABLET PO SCH ×2 (09:57→22:00)
[2019-01-24] MEDS: GUAIFENESIN SYRP 200 MG/10 ML UDC PO SCH ×4 (09:57→22:00)
[2019-01-24] MEDS: DILTIAZEM HCL 240 MG CAPSULE.CR PO SCH ×2 (09:57→22:00)
[2019-01-24] MEDS: DOCUSATE SODIUM 100 MG CAPSULE PO SCH ×2 (09:57→17:11)
[2019-01-24] MEDS: LOSARTAN POTASSIUM 50 MG TABLET PO SCH (09:57)
[2019-01-24] MEDS: NORMAL SALINE 1000 ML 1,000 ML IV SCH (09:58)
[2019-01-24] MEDS: NYSTATIN TOPICAL POWDER 15 GM TP SCH ×2 (10:02→17:12)
[2019-01-24] MEDS: NYSTATIN CREAM 15 GM TP SCH ×2 (10:02→17:12)
--- NOTE | 2019-01-24 14:10 | PDOC PROGRESS REPORT ---
Subjective Progress Note for:: 01/24/19 Subjective:: The patient is a 48-year-old female, well-known to this service, with a past medical history of hypertension, A. fib, breast cancer with lung and brain metastasis, morbid obesity, chronic pain, and opiate dependence with continuous use who was admitted on 01/12/2019 for intractable pain. The patient was seen on afternoon rounds. She was found sitting up to the edge of the bed, comfortably, on supplemental oxygen via nasal cannula. States she does not feel well; reports nausea, but without vomiting, and increased nonproductive cough. She also reports fatigue today. She denies fever, chills, chest pain, palpitations, orthopnea, abdominal pain, vomiting and diarrhea. She has no new questions or concerns. No concerns per nursing. Reason For Visit: BHASKAR TRUJILLO Physical Exam Vital Signs: Temp Pulse Resp BP Pulse Ox 97.9 F 88 12 108/65 99 01/24/19 11:57 01/24/19 11:57 01/24/19 11:57 01/24/19 11:57 01/24/19 11:57 Intake & Output 01/23/19 01/24/19 01/25/19 06:59 06:59 06:59 Intake Total 2376 1778 1000 Balance 2376 1778 1000 Weight 99.1 kg 100.2 kg General appearance: PRESENT: no acute distress, cooperative, obese, well- developed, well-nourished Head exam: PRESENT: atraumatic, normocephalic Eye exam: PRESENT: conjunctiva pink, EOMI, PERRLA. ABSENT: scleral icterus Mouth exam: PRESENT: moist, tongue midline Respiratory exam: PRESENT: rhonchi, symmetrical, unlabored, other - Supplemental oxygen by nasal cannula. ABSENT: rales, wheezes Cardiovascular exam: PRESENT: RRR. ABSENT: diastolic murmur, rubs, systolic murmur Rectal exam: PRESENT: deferred Extremities exam: PRESENT: full ROM. ABSENT: calf tenderness, clubbing, pedal edema Musculoskeletal exam: PRESENT: ambulatory Neurological exam: PRESENT: alert, awake, oriented to person, oriented to place, oriented to time, oriented to situation, CN II-XII grossly intact. ABSENT: motor sensory deficit Psychiatric exam: PRESENT: appropriate affect, normal mood. ABSENT: homicidal ideation, suicidal ideation Skin exam: PRESENT: dry, intact, warm. ABSENT: cyanosis, rash Results Laboratory Results: 01/20/19 08:06 01/20/19 08:06 01/12/19 10:23 Creatine Kinase 71 Impressions: Chest X-Ray 01/19/19 00:00 IMPRESSION: Grossly stable chest with persistent patchy left basilar, right perihilar and apical opacities. Small left pleural effusion, stable. Assessment and Plan - Diagnosis (1) Atrial fibrillation Qualifiers: Atrial fibrillation type: paroxysmal Qualified Code(s): I48.0 - Paroxysmal atrial fibrillation Is this a current diagnosis for this admission?: Yes Plan: Patient is not candidate for chronic anticoagulation secondary to metastatic lung cancer. Improved rate control; HR now 80-90 Continue Cardizem CD to 240 mg every 12 hours. Continue metoprolol 25 mg p.o. every 12 hours (2) Hypertension Qualifiers: Hypertension type: unspecified Qualified Code(s): I10 - Essential (primary) hypertension Is this a current diagnosis for this admission?: Yes Plan: Normotensive today. Continue losartan 50 mg daily Continue metoprolol 25 mg twice daily Continue diltiazem to 240 mg every 12 hours. Discontinue hydralazine 25 mg every 8 hours. Cardiac diet. Pain control per oncology. (3) Cough Is this a current diagnosis for this admission?: Yes Plan: Improved. Chronic, although patient reports this to be new, she has had a nonproductive cough over the previous 3 admissions that I have cared for her. Likely related to her lung metastasis. Chest x-ray demonstrates chronic changes; no acute findings. Continue liquid Robitussin Continue as needed nebulizer treatments. Robitussin w/ Codeine as needed for cough. She declines Tessalon Perles. Continue Mucomyst nebulizer treatment; patient feels chest congestion is improved today, will continue Flutter valve to bedside. Will wean oxygen; obtain O2 qualification testing. (4) Intractable pain Is this a current diagnosis for this admission?: Yes Plan: Pain management per her oncologist. Appreciate Dr. Fischer's assistance. (5) Nausea & vomiting Qualifiers: Vomiting type: unspecified Vomiting Intractability: intractable Qualified Code(s): R11.2 - Nausea with vomiting, unspecified Is this a current diagnosis for this admission?: Yes Plan: Improved. Antiemetics per oncology. Eating 25 to 100% of meals. (6) Metastatic breast cancer Is this a current diagnosis for this admission?: Yes Plan: Primary management per oncology. Noted subcutaneous, firm, non-mobile, nodules to her right chest wall. Each approximately 6 cm round. Burning sensation to nodule at the right axillary line. No surrounding erythema, no drainage; low suspicion for abscess devel opment. Discussed with Dr. Fischer; likely metastatic in nature. Oncology is consulted; appreciate Dr. Fischer's assistance. Will wean oxygen; obtain O2 qualification testing. (7) Dehydration Is this a current diagnosis for this admission?: Yes Plan: Resolved. Patient is consuming 25 to 100% of each meal. Adequate p.o. fluid intake. Will adjust IV fluids to match outpatient plan. Continue 1 L normal saline daily. (8) UTI (urinary tract infection) Qualifiers: Hematuria presence: without hematuria Is this a current diagnosis for this admission?: Yes Plan: Ruled out. Urinalysis was negative for UTI, however urine culture demonstrated Pseudomonas 20-30,000 colonies. She was placed on ceftriaxone for treatment of UTI and has received a 6-day course which should be more than sufficient as this is ruled out. Likely colonization. We will discontinue IV antibiotics today. (9) Allyson infection Is this a current diagnosis for this admission?: Yes Plan: Improved per patient. Patient reports pruritic, erythematous, rash to skin folds. Recent chemotherapy IV abx discontinued. Diflucan p.o. 200 mg x 1 Nystatin cream and powders twice daily. - Plan Summary Summary: The patient is hemodynamically Stable for discharge with baseline leukopenia expected post chemotherapy leukopenia unremarkable laboratory evaluation. However, oncology recommends a postchemotherapy observational period for symptom management. - Time Time Spent with patient: 15-24 minutes Medications reviewed and adjusted accordingly: Yes Anticipated discharge: Home with Homehealth Within: within 24 hours
[2019-01-24] MEDS: GUAIFENESIN/CODEINE PHOS 100-10 MG/ 5 ML UDC PO PRN (20:35)
[2019-01-25] MEDS: HYDROMORPHONE HCL INJ/PF 2 MG/ML AMPULE IV PRN ×5 (00:33→13:37)
[2019-01-25] MEDS: OXYCODONE HCL IR 5 MG TABLET PO PRN (02:52)
[2019-01-25] MEDS: PROMETHAZINE HCL INJ 25 MG/1 ML VIAL IV PRN ×4 (02:53→18:13)
[2019-01-25] MEDS: DIPHENHYDRAMINE HCL 50 MG/ML VIAL IV PRN ×2 (02:57→11:33)
[2019-01-25] MEDS: GUAIFENESIN/CODEINE PHOS 100-10 MG/ 5 ML UDC PO PRN (03:30)
[2019-01-25] MEDS: HEPARIN SOD (PORCINE) 5,000 UNIT/ML 1 ML VIAL SUBCUT SCH ×2 (06:28→13:13)
[2019-01-25] MEDS: PANTOPRAZOLE SODIUM 40 MG TABLET.DR PO SCH (06:29)
[2019-01-25 07:02] LABS: ANION GAP 7 (5-19); BLOOD UREA NITROGEN 3 mg/dL (7-20); CALCIUM 8.3 mg/dL (8.4-10.2); CARBON DIOXIDE 32 mmol/L (22-30); CHLORIDE 106 mmol/L (98-107); GLUCOSE 83 mg/dL (75-110); POTASSIUM 3.8 mmol/L (3.6-5.0)
--- NOTE | 2019-01-25 08:02 | PDOC PROGRESS REPORT ---
Subjective Progress Note for:: 01/25/19 Subjective:: Doing better, discussed that d/c planning working on home IVF. Will discuss w/ hospitalist team for home 02 eval and will need nebs at home. Reason For Visit: BHASKAR TRUJILLO Physical Exam Vital Signs: Temp Pulse Resp BP Pulse Ox 97.9 F 90 20 130/97 H 96 01/25/19 04:00 01/25/19 07:00 01/25/19 04:00 01/25/19 04:00 01/25/19 04:00 Intake & Output 01/24/19 01/25/19 01/26/19 06:59 06:59 06:59 Intake Total 1778 2904 Balance 1778 2904 Weight 100.2 kg 101.3 kg General appearance: PRESENT: no acute distress, well-developed, well-nourished Head exam: PRESENT: atraumatic, normocephalic Eye exam: PRESENT: conjunctiva pink, EOMI, PERRLA. ABSENT: scleral icterus Ear exam: PRESENT: normal external ear exam Mouth exam: PRESENT: moist, tongue midline Neck exam: ABSENT: carotid bruit, JVD, lymphadenopathy, thyromegaly Respiratory exam: PRESENT: clear to auscultation tolu. ABSENT: rales, rhonchi, wheezes Cardiovascular exam: PRESENT: RRR. ABSENT: diastolic murmur, rubs, systolic murmur Pulses: PRESENT: normal dorsalis pedis pul Vascular exam: PRESENT: normal capillary refill GI/Abdominal exam: PRESENT: normal bowel sounds, soft. ABSENT: distended, guarding, mass, organolmegaly, rebound, tenderness Rectal exam: PRESENT: deferred Extremities exam: PRESENT: full ROM. ABSENT: calf tenderness, clubbing, pedal edema Neurological exam: PRESENT: alert, awake, oriented to person, oriented to place, oriented to time, oriented to situation, CN II-XII grossly intact. ABSENT: motor sensory deficit Psychiatric exam: PRESENT: appropriate affect, normal mood. ABSENT: homicidal ideation, suicidal ideation Skin exam: PRESENT: dry, intact, warm. ABSENT: cyanosis, rash Results Laboratory Results: 01/20/19 08:06 01/25/19 06:10 01/25/19 06:10 Sodium 144.5 Potassium 3.8 Chloride 106 Carbon Dioxide 32 H Anion Gap 7 BUN 3 L Creatinine 0.45 L Est GFR ( Amer) > 60 Glucose 83 Calcium 8.3 L 01/12/19 10:23 Creatine Kinase 71 Impressions: Chest X-Ray 01/19/19 00:00 IMPRESSION: Grossly stable chest with persistent patchy left basilar, right perihilar and apical opacities. Small left pleural effusion, stable. Assessment & Plan - Diagnosis (1) Metastatic breast cancer Is this a current diagnosis for this admission?: Yes Plan: Pt on break week now, will have cycle #2 next week (2) Intractable pain Is this a current diagnosis for this admission?: Yes Plan: Cont on IV pain meds, transitioning to oral meds (3) Nausea & vomiting Qualifiers: Vomiting type: unspecified Vomiting Intractability: intractable Qualified Code(s): R11.2 - Nausea with vomiting, unspecified Is this a current diagnosis for this admission?: Yes Plan: Improving - Time Time Spent with patient: 15-24 minutes
[2019-01-25] MEDS: METOPROLOL TARTRATE 25 MG TABLET PO SCH (09:57)
[2019-01-25] MEDS: DILTIAZEM HCL 240 MG CAPSULE.CR PO SCH (09:57)
[2019-01-25] MEDS: LOSARTAN POTASSIUM 50 MG TABLET PO SCH (09:57)
[2019-01-25] MEDS: FENTANYL 100 MCG/HR PATCH.TD72 TD SCH (09:58)
[2019-01-25] MEDS: DOCUSATE SODIUM 100 MG CAPSULE PO SCH (09:58)
[2019-01-25] MEDS: GUAIFENESIN SYRP 200 MG/10 ML UDC PO SCH ×2 (09:58→13:13)
[2019-01-25] MEDS: NORMAL SALINE 1000 ML 1,000 ML IV SCH (10:00)
[2019-01-25] MEDS: FENTANYL 50 MCG/HR PATCH.TD72 TD SCH (10:00)
[2019-01-25] MEDS: NYSTATIN TOPICAL POWDER 15 GM TP SCH (10:12)
[2019-01-25] MEDS: NYSTATIN CREAM 15 GM TP SCH (10:16)
[2019-01-25] MEDS: ACETYLCYSTEINE 20% SOLN 800 MG/4 ML VIAL.NEB NEB SCH (11:45)
[2019-01-25 17:34] VITALS: BP 123/81
--- NOTE | 2019-01-27 15:44 | PDOC DISCHARGE SUMMARY ---
Impression - Admit/DC Date/PCP Admission Date/Primary Care Provider: 01/12/19 09:13 MANJINDER RODRIGUEZ MD Discharge Date: 02/24/19 - Discharge Diagnosis (1) Atrial fibrillation Is this a current diagnosis for this admission?: Yes (2) Hypertension Is this a current diagnosis for this admission?: Yes (3) Cough Is this a current diagnosis for this admission?: Yes (4) Intractable pain Is this a current diagnosis for this admission?: Yes (5) Nausea & vomiting Is this a current diagnosis for this admission?: Yes (6) Metastatic breast cancer Is this a current diagnosis for this admission?: Yes (7) Dehydration Is this a current diagnosis for this admission?: Yes (8) UTI (urinary tract infection) Is this a current diagnosis for this admission?: Yes (9) Allyson infection Is this a current diagnosis for this admission?: Yes - Assessment Summary: T - Additional Information Resuscitation Status: Full Code Discharge Diet: Regular Discharge Activity: Activity As Tolerated, Balance Activity w/Rest Referrals: MANJINDER RODRIGUEZ MD [Primary Care Provider] - TODD FISCHER MD [ACTIVE STAFF] - 02/03/19 (PROVIDER'S OFFICE TO NOTIFY PATIENT OF EXACT DATE AND TIME OF NEXT TREATMENT DAY.) Prescriptions: Fentanyl [Duragesic 100 Mcg/Hr Transdermal Patch] 1 each TD Q3DAYS #1 patch.td72 Fentanyl [Duragesic 50 Mcg/Hr Transdermal Patch] 1 each TD Q3DAYS #1 patch.td72 Metoprolol Tartrate [Lopressor 25 mg Tablet] 25 mg PO Q12 #60 tablet Acetylcysteine [Mucomist 20% Soln 800 mg/4 mL] 600 mg NEB RTBID #60 vial Nystatin [Mycostatin Cream 15 gm] 1 applic TP BID #1 tube Normal Saline 1000 ml [NaCl 0.9% 1000 ml IV Soln] 1,000 ml IV DAILY #7 iv.soln Nebulizer [Nebulizer Machine] 1 each MC ASDIR PRN #1 kit PRN Reason: Oxycodone HCl/Acetaminophen [Percocet 10-325 mg Tablet] 2 each PO 5XDP PRN #30 PRN Reason: FOR CANCER PAIN Promethazine HCl [Phenergan 25 mg Tablet] 25 mg PO DAILYP PRN #30 PRN Reason: NAUSEA Pantoprazole Sodium [Protonix [address] Tablet] 40 mg PO Q6AM #30 tablet.dr Levalbuterol HCl [Xopenex Neb 1.25 mg/3 ml Ampul] 1.25 mg NEB RTQ4HP PRN #120 vial.neb PRN Reason: Home Medications: Diltiazem HCl [Diltiazem 24Hr ER] 180 mg PO Q12 01/12/19 Diphenhydramine HCl [Benadryl] 25 mg PO Q6HP PRN 01/12/19 Docusate Sodium [Colace] 100 mg PO BID 01/12/19 Fentanyl [Duragesic 100 Mcg/Hr Transdermal Patch] 1 patch TD Q3D 01/12/19 Hydrochlorothiazide [Hydrodiuril 12.5 mg Tablet] 12.5 mg PO QAM 01/12/19 Losartan Potassium [Cozaar 25 mg Tablet] 25 mg PO DAILY 01/12/19 Acetaminophen [Tylenol 325 mg Tablet] 650 mg PO Q4HP PRN tablet 01/25/19 Acetylcysteine [Mucomist 20% Soln 800 mg/4 mL] 600 mg NEB RTBID #60 vial 01/25/19 Docusate Sodium [Colace 100 mg Capsule] 100 mg PO BID capsule 01/25/19 Fentanyl [Duragesic 100 Mcg/Hr Transdermal Patch] 1 each TD Q3DAYS #1 patch.td72 01/25/19 Fentanyl [Duragesic 50 Mcg/Hr Transdermal Patch] 1 each TD Q3DAYS #1 patch.td72 01/25/19 Guaifenesin [Robitussin Syrup 200 mg/10 ml Ud Cup] 200 mg PO QID udc 01/25/19 Levalbuterol HCl [Xopenex Neb 1.25 mg/3 ml Ampul] 1.25 mg NEB RTQ4HP PRN #120 vial.neb 01/25/19 Metoprolol Tartrate [Lopressor 25 mg Tablet] 25 mg PO Q12 #60 tablet 01/25/19 Nebulizer [Nebulizer Machine] 1 each MC ASDIR PRN #1 kit 01/25/19 Normal Saline 1000 ml [NaCl 0.9% 1000 ml IV Soln] 1,000 ml IV DAILY #7 iv.soln 01/25/19 Nystatin [Mycostatin Cream 15 gm] 1 applic TP BID #1 tube 01/25/19 Oxycodone HCl/Acetaminophen [Percocet 10-325 mg Tablet] 2 each PO 5XDP PRN #30 01/25/19 Pantoprazole Sodium [Protonix [address] Tablet] 40 mg PO Q6AM #30 tablet.dr 01/25/19 Promethazine HCl [Phenergan 25 mg Tablet] 25 mg PO DAILYP PRN #30 01/25/19 History of Present Illiness History of Present Illness: Per H&P by Orion Gramajo NP C: LINDSAY MELTON is a 48 year old female with metastatic cancer from primary source of the lung. Patient is well-known to me. Patient presents as a direct admit with intractable pain, dehydration and overall feeling is not being well. Patient states a lot of weakness at this time. Patient had no treatment prior to arrival all activities been aggravating factor. Patient also states she has not been eating for some time. Hospital Course Hospital Course: The patient was admitted to the medical floor on continuous cardiac telemetry secondary to persistent tachycardia likely related to her lung metastasis. She remained in sinus throughout her admission at at time of discharge was in NSR (sinus tachycardia having been corrected). She was provided generous IV fluids and analgesics as needed to maintain adequate pain control. The patient was found to be hypoxic on room air when ambulatory, therefore arrangements have been made for her to receive supplemental oxygen. She does have a chronic, nonproductive, cough which she noted to be improved following nebulizer treatments. The patient notes that she especially had improvement following Mucomyst therapy. She has been prescribed a nebulizer machine with Mucomyst to continue at home. The patient does continue to have nausea, though without vomiting, and an understandably poor appetite. She does easily become dehydrated and therefore arrangements have been made for her to receive home health nursing for daily normal saline 1 L bolus infusion therapy for prevention. The patient was noted to be hypertensive in addition to her persistent tachycardia. She does have a history of PAF. Initially her diltiazem was increased with slight improvement in her vital signs. Excellent rate control and blood pressure control was achieved with the addition of metoprolol tartrate 25 mg twice daily. The patient's oncologist, Dr. Fischer, was consulted. Patient did undergo chemotherapy infusion this admission. She remained in house for postchemotherapy symptom management for an additional 3 days. On day of discharge, the patient was in stable condition, with acceptable vital signs, tolerating greater than 50% of each meal, and ambulatory with supplemental oxygen at 2 L/min. She is discharged to home in stable condition with home health services and oxygen. She is advised to follow-up with her primary care provider as scheduled. She is instructed to follow-up with Dr. Fischer within 1 week. 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 She is instructed to drink plenty of water and eat as tolerated. She is encouraged to return to the emergency department as needed for concerning symptoms. Physical Exam Vital Signs: Temp Pulse Resp BP Pulse Ox 98.8 F 89 22 H 123/81 100 01/25/19 16:00 01/25/19 16:00 01/25/19 16:00 01/25/19 16:00 01/25/19 16:00 Intake & Output 01/26/19 01/27/19 01/28/19 06:59 06:59 06:59 Intake Total 1786 Balance 1786 General appearance: PRESENT: no acute distress, obese, well-developed, well- nourished Head exam: PRESENT: atraumatic, normocephalic Eye exam: PRESENT: conjunctiva pink, EOMI, PERRLA. ABSENT: scleral icterus Ear exam: PRESENT: normal external ear exam Mouth exam: PRESENT: moist, tongue midline Neck exam: ABSENT: carotid bruit, JVD, lymphadenopathy, thyromegaly Respiratory exam: PRESENT: rhonchi - Greater on right; improved slightly followi ng intentional cough, symmetrical, unlabored. ABSENT: accessory muscle use, crackles, rales, retraction, tachypnea, wheezes Cardiovascular exam: PRESENT: RRR, +S1, +S2. ABSENT: diastolic murmur, rubs, systolic murmur, tachycardia Pulses: PRESENT: normal dorsalis pedis pul Vascular exam: PRESENT: normal capillary refill GI/Abdominal exam: PRESENT: normal bowel sounds, soft. ABSENT: distended, guarding, mass, organolmegaly, rebound, tenderness Rectal exam: PRESENT: deferred Extremities exam: PRESENT: full ROM. ABSENT: calf tenderness, clubbing, pedal edema Musculoskeletal exam: PRESENT: ambulatory Neurological exam: PRESENT: alert, awake, oriented to person, oriented to place, oriented to time, oriented to situation, CN II-XII grossly intact. ABSENT: motor sensory deficit Psychiatric exam: PRESENT: anxious, appropriate affect, normal mood. ABSENT: homicidal ideation, suicidal ideation Skin exam: PRESENT: dry, intact, warm. ABSENT: cyanosis, rash Results Laboratory Results: WBC 2.2 10^3/uL (4.0-10.5) L 01/20/19 08:06 RBC 4.06 10^6/uL (3.72-5.28) 01/20/19 08:06 Hgb 11.4 g/dL (12.0-15.5) L 01/20/19 08:06 Hct 34.2 % (36.0-47.0) L 01/20/19 08:06 MCV 84 fl (80-97) 01/20/19 08:06 MCH 28.1 pg (27.0-33.4) 01/20/19 08:06 MCHC 33.4 g/dL (32.0-36.0) 01/20/19 08:06 RDW 14.4 % (11.5-14.0) H 01/20/19 08:06 Plt Count 246 10^3/uL (150-450) 01/20/19 08:06 Lymph % (Auto) 27.4 % (13-45) 01/20/19 08:06 [place] % (Auto) 8.2 % (3-13) 01/20/19 08:06 Eos % (Auto) 0.6 % (0-6) 01/20/19 08:06 Baso % (Auto) 0.5 % (0-2) 01/20/19 08:06 Absolute Neuts (auto) 1.4 10^3/uL (1.7-8.2) L 01/20/19 08:06 Absolute Lymphs (auto) 0.6 10^3/uL (0.5-4.7) 01/20/19 08:06 Absolute Monos (auto) 0.2 10^3/uL (0.1-1.4) 01/20/19 08:06 Absolute Eos (auto) 0.0 10^3/uL (0.0-0.6) 01/20/19 08:06 Absolute Basos (auto) 0.0 10^3/uL (0.0-0.2) 01/20/19 08:06 Seg Neutrophils % 63.3 % (42-78) 01/20/19 08:06 Sodium 144.5 mmol/L (137-145) 01/25/19 06:10 Potassium 3.8 mmol/L (3.6-5.0) 01/25/19 06:10 Chloride 106 mmol/L (98-107) 01/25/19 06:10 Carbon Dioxide 32 mmol/L (22-30) H 01/25/19 06:10 Anion Gap 7 (5-19) 01/25/19 06:10 BUN 3 mg/dL (7-20) L 01/25/19 06:10 Creatinine 0.45 mg/dL (0.52-1.25) L 01/25/19 06:10 Est GFR ( Amer) > 60 (>60) 01/25/19 06:10 Est GFR (MDRD) Non-Af > 60 (>60) 01/25/19 06:10 Glucose 83 mg/dL (75-110) 01/25/19 06:10 Calcium 8.3 mg/dL (8.4-10.2) L 01/25/19 06:10 Phosphorus 4.2 mg/dL (2.5-4.5) 01/12/19 10:23 Magnesium 2.0 mg/dL (1.6-2.3) 01/12/19 10:23 Total Bilirubin 0.4 mg/dL (0.2-1.3) 01/12/19 10:23 Direct Bilirubin 0.1 mg/dL (0.0-0.4) 01/12/19 10:23 Neonat Total Bilirubin Not Reportable 01/12/19 10:23 Neonat Direct Bilirubin Not Reportable 01/12/19 10:23 Neonat Indirect Bili Not Reportable 01/12/19 10:23 AST 23 U/L (14-36) 01/12/19 10:23 ALT 15 U/L (<35) 01/12/19 10:23 Alkaline Phosphatase 110 U/L (38-126) 01/12/19 10:23 Creatine Kinase 71 U/L (30-135) 01/12/19 10:23 Total Protein 6.6 g/dL (6.3-8.2) 01/12/19 10:23 Albumin 3.5 g/dL (3.5-5.0) 01/12/19 10:23 Urine Color YELLOW 01/12/19 13:30 Urine Appearance SLIGHTLY-CLOUDY 01/12/19 13:30 Urine pH 7.0 (5.0-9.0) 01/12/19 13:30 Ur Specific [place] 1.014 01/12/19 13:30 Urine Protein NEGATIVE mg/dL (NEGATIVE) 01/12/19 13:30 Urine Glucose (UA) NEGATIVE mg/dL (NEGATIVE) 01/12/19 13:30 Urine Ketones 20 mg/dL (NEGATIVE) H 01/12/19 13:30 Urine Blood NEGATIVE (NEGATIVE) 01/12/19 13:30 Urine Nitrite NEGATIVE (NEGATIVE) 01/12/19 13:30 Urine Bilirubin NEGATIVE (NEGATIVE) 01/12/19 13:30 Urine Urobilinogen NEGATIVE mg/dL (<2.0) 01/12/19 13:30 Ur Leukocyte Esterase NEGATIVE (NEGATIVE) 01/12/19 13:30 Urine WBC (Auto) 1 /HPF 01/12/19 13:30 Urine Bacteria (Auto) TRACE /HPF 01/12/19 13:30 Squamous Epi Cells Auto 2 /HPF 01/12/19 13:30 Urine Mucus (Auto) FEW /LPF 01/12/19 13:30 Urine Ascorbic Acid NEGATIVE (NEGATIVE) 01/12/19 13:30 Impressions: Chest X-Ray 01/12/19 09:48 IMPRESSION: Unchanged radiographic appearance of the chest with a left pleural effusion, nodular fullness of the stephen, and bilateral nodular opacities. Chest X-Ray 01/19/19 00:00 IMPRESSION: Grossly stable chest with persistent patchy left basilar, right perihilar and apical opacities. Small left pleural effusion, stable. Plan Plan of Treatment: The patient is discharged home in stable condition. Arrangements has been made for her to receive supplemental oxygen at home and understands that Dr. Fischer's recommendations. She is advised to follow-up with her primary care provider as scheduled. She is instructed to follow-up with Dr. Fischer within 1 week. 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 She is instructed to take her medications as prescribed. She is advised to return to the emergency department as needed for concerning symptoms. Time Spent: Greater than 30 Minutes Stroke Is this a Stroke Patient?: No Acute Heart Failure - Is this a Heart Failure Patient?: No
== END 2019-01-25 18:43 | disposition home health service (06) | DRG 948 ==
LOC: 5 09:13
PROVIDERS: ADMIT Hospitalist; ATTEND Hospitalist
DX: G89.3 Neoplasm related pain (acute) (chronic) (principal); N39.0 Urinary tract infection, site not specified; C34.90 Malignant neoplasm of unspecified part of unspecified bronchus or lung; C79.81 Secondary malignant neoplasm of breast; C79.31 Secondary malignant neoplasm of brain; E86.0 Dehydration; I10 Essential (primary) hypertension; B37.9 Candidiasis, unspecified; R11.2 Nausea with vomiting, unspecified; T45.1X5A Adverse effect of antineoplastic and immunosuppressive drugs, initial encounter; B96.5 Pseudomonas (aeruginosa) (mallei) (pseudomallei) as the cause of diseases classified elsewhere; I48.0 Paroxysmal atrial fibrillation; Z79.899 Other long term (current) drug therapy; Z79.891 Long term (current) use of opiate analgesic; Z90.13 Acquired absence of bilateral breasts and nipples; E66.01 Morbid (severe) obesity due to excess calories; Z99.81 Dependence on supplemental oxygen
CPT/HCPCS: 36415; 71045; 80048; 80053; 81001; 82550; 83735; 84100; 85025; 85027; 87040; 87086; 87088; 87186; 94667; 96367; 96375; 96413; 96417; A9270-GY; C9113; J0696; J1100; J1170; J1200; J1644; J2405; J2469; J2550; J3490; J7030; J7040; J7050; J9045; J9201

== ENCOUNTER 2019-01-28 13:32 | Inpatient (IN) | payer OTHER ==
[2019-01-28] MEDS ORDERED: ZOLPIDEM TARTRATE 5 MG TABLET PO PRN (13:41)
[2019-01-28] MEDS ORDERED: MAG HYDROX/AL HYDROX/SIMETH SUSP 30 ML UDCUP PO PRN (13:41)
[2019-01-28] MEDS ORDERED: ONDANSETRON HCL INJ/PF 4 MG/2 ML SDV IV PRN (13:41)
[2019-01-28] MEDS ORDERED: ACETAMINOPHEN 325 MG TABLET PO PRN (13:41)
[2019-01-28] MEDS ORDERED: TEMAZEPAM 15 MG CAPSULE PO PRN (13:41)
--- NOTE | 2019-01-28 13:50 | PDOC H&P ---
History of Present Illness Admission Date/PCP: 01/28/19 13:32 MANJINDER RODRIGUEZ MD Patient complains of: Intractable pain, nausea History of Present Illness: LINDSAY MELTON is a 48 year old female is unfortunate 48-year-old female with long-standing history of breast cancer with mets. Patient has bad bilateral mastectomies. Patient has had multiple readmissions for exacerbations of pain and refuses undergo treatment. At this time I will discuss with patient about possibilities of hospice intervention. She is currently using home medication including fentanyl with no relief all intact aggravating factor. Past Medical History Cardiac Medical History: Reports: Hypertension Denies: Coronary Artery Disease, Myocardial Infarction Pulmonary Medical History: Denies: Asthma, Bronchitis, Chronic Obstructive Pulmonary Disease (COPD), Pneumonia Neurological Medical History: Denies: Seizures Malignancy Medical History: Reports: Breast Cancer, Lung Cancer Musculoskeltal Medical History: Denies: Arthritis Hematology: Denies: Anemia Past Surgical History Past Surgical History: Reports: Hysterectomy, Other - Bilateral mastectomy Social History Information Source: Patient Lives with: Family Smoking Status: Unknown if Ever Smoked Electronic Cigarette use?: No Frequency of Alcohol Use: None Hx Recreational Drug Use: No Drugs: None Hx Prescription Drug Abuse: No - Advance Directive Resuscitation Status: Full Code Family History Family History: Hypertension Parental Family History Reviewed: Yes Children Family History Reviewed: Yes Sibling(s) Family History Reviewed.: Yes Medication/Allergy Home Medications: Diltiazem HCl [Diltiazem 24Hr ER] 180 mg PO Q12 01/12/19 Diphenhydramine HCl [Benadryl] 25 mg PO Q6HP PRN 01/12/19 Docusate Sodium [Colace] 100 mg PO BID 01/12/19 Fentanyl [Duragesic 100 Mcg/Hr Transdermal Patch] 1 patch TD Q3D 01/12/19 Hydrochlorothiazide [Hydrodiuril 12.5 mg Tablet] 12.5 mg PO QAM 01/12/19 Losartan Potassium [Cozaar 25 mg Tablet] 25 mg PO DAILY 01/12/19 Acetaminophen [Tylenol 325 mg Tablet] 650 mg PO Q4HP PRN tablet 01/25/19 Acetylcysteine [Mucomist 20% Soln 800 mg/4 mL] 600 mg NEB RTBID #60 vial 01/25/19 Docusate Sodium [Colace 100 mg Capsule] 100 mg PO BID capsule 01/25/19 Fentanyl [Duragesic 100 Mcg/Hr Transdermal Patch] 1 each TD Q3DAYS #1 patch.td72 01/25/19 Fentanyl [Duragesic 50 Mcg/Hr Transdermal Patch] 1 each TD Q3DAYS #1 patch.td72 01/25/19 Guaifenesin [Robitussin Syrup 200 mg/10 ml Ud Cup] 200 mg PO QID udc 01/25/19 Levalbuterol HCl [Xopenex Neb 1.25 mg/3 ml Ampul] 1.25 mg NEB RTQ4HP PRN #120 vial.neb 01/25/19 Metoprolol Tartrate [Lopressor 25 mg Tablet] 25 mg PO Q12 #60 tablet 01/25/19 Nebulizer [Nebulizer Machine] 1 each MC ASDIR PRN #1 kit 01/25/19 Normal Saline 1000 ml [NaCl 0.9% 1000 ml IV Soln] 1,000 ml IV DAILY #7 iv.soln 01/25/19 Nystatin [Mycostatin Cream 15 gm] 1 applic TP BID #1 tube 01/25/19 Oxycodone HCl/Acetaminophen [Percocet 10-325 mg Tablet] 2 each PO 5XDP PRN #30 01/25/19 Pantoprazole Sodium [Protonix [address] Tablet] 40 mg PO Q6AM #30 tablet.dr 01/25/19 Promethazine HCl [Phenergan 25 mg Tablet] 25 mg PO DAILYP PRN #30 01/25/19 Allergies/Adverse Reactions: No Known Allergies Allergy (Verified 01/06/19 12:15) Review of Systems Constitutional: PRESENT: weakness. ABSENT: chills, fever(s), headache(s), weight gain, weight loss Eyes: ABSENT: visual disturbances Ears: ABSENT: hearing changes Cardiovascular: ABSENT: chest pain, dyspnea on exertion, edema, orthropnea, palpitations Respiratory: ABSENT: cough, hemoptysis Gastrointestinal: PRESENT: nausea, vomiting. ABSENT: abdominal pain, constipation, diarrhea, hematemesis, hematochezia Genitourinary: ABSENT: dysuria, hematuria Musculoskeletal: PRESENT: other - Intractable pain. ABSENT: joint swelling Integumentary: ABSENT: rash, wounds Neurological: ABSENT: abnormal gait, abnormal speech, confusion, dizziness, focal weakness, syncope Psychiatric: ABSENT: anxiety, depression, homidical ideation, suicidal ideation Endocrine: ABSENT: cold intolerance, heat intolerance, polydipsia, polyuria Hematologic/Lymphatic: ABSENT: easy bleeding, easy bruising Physical Exam General appearance: PRESENT: no acute distress, well-developed, well-nourished Head exam: PRESENT: atraumatic, normocephalic Eye exam: PRESENT: conjunctiva pink, EOMI, PERRLA. ABSENT: scleral icterus Ear exam: PRESENT: normal external ear exam Mouth exam: PRESENT: moist, tongue midline Neck exam: ABSENT: carotid bruit, JVD, lymphadenopathy, thyromegaly Respiratory exam: PRESENT: clear to auscultation tolu. ABSENT: rales, rhonchi, wheezes Cardiovascular exam: PRESENT: RRR. ABSENT: diastolic murmur, rubs, systolic murmur Pulses: PRESENT: normal dorsalis pedis pul Vascular exam: PRESENT: normal capillary refill GI/Abdominal exam: PRESENT: normal bowel sounds, soft. ABSENT: distended, guarding, mass, organolmegaly, rebound, tenderness Rectal exam: PRESENT: deferred Extremities exam: PRESENT: full ROM. ABSENT: calf tenderness, clubbing, pedal edema Neurological exam: PRESENT: alert, awake, oriented to person, oriented to place, oriented to time, oriented to situation, CN II-XII grossly intact. ABSENT: motor sensory deficit Psychiatric exam: PRESENT: appropriate affect, normal mood. ABSENT: homicidal ideation, suicidal ideation Skin exam: PRESENT: dry, intact, warm, other - Bilateral mastectomy. ABSENT: cyanosis, rash Adult Front & Back Image: 1 - Port-A-Cath Assessment and Plan - Diagnosis (1) Intractable pain Is this a current diagnosis for this admission?: Yes Plan: 01/28/2019-with obvious MedSurg. Dilaudid 2 mg IV every 3 hours as needed. Continue fentanyl patch. Titrate to effect. Discussed with patient possibility for hospice intervention (2) Intractable nausea and vomiting Is this a current diagnosis for this admission?: Yes Plan: 01/28/2019-Phenergan 25 mg IV every 4 hours. (3) Metastatic breast cancer Is this a current diagnosis for this admission?: Yes Plan: 01/28/2019-discussed with Dr. garay. Will discuss patient for hospice care (4) Dehydration Is this a current diagnosis for this admission?: Yes Plan: 01/28/2019-normal saline at 125 mL/h obtain laboratory database CBC and CMP. Treat as appropriate - Time Time Spent with patient: 35 or more minutes
[2019-01-28] MEDS: DIPHENHYDRAMINE HCL 50 MG/ML VIAL IV PRN ×3 (14:25→22:45)
[2019-01-28] MEDS: HYDROMORPHONE HCL INJ/PF 2 MG/ML AMPULE IV PRN ×4 (14:25→23:54)
[2019-01-28] MEDS: PROMETHAZINE HCL INJ 25 MG/1 ML VIAL IV PRN ×4 (14:31→23:53)
[2019-01-28] MEDS: NORMAL SALINE 1000 ML 1,000 ML IV PRN ×2 (14:32→22:42)
--- NOTE | 2019-01-28 14:57 | ADVANCED CARE ---
- Diagnosis (1) Intractable pain Diagnosis Current: Yes (2) Intractable nausea and vomiting Diagnosis Current: Yes (3) Metastatic breast cancer Diagnosis Current: Yes (4) Dehydration Diagnosis Current: Yes Resuscitation Status: Do Not Resuscitate Discussion: Discussion between myself, patient and her . Discussed patient's outcome with current metastatic cancer. Discussed with patient that this was most likely terminal in nature as discussed this with Dr. Cline previously. I discussed that we can make patient comfortable and have no anxiety or pain throughout her transition to . Patient and her are both in agreement with this plan of care. Time Spent: Total of 25 minutes spent with patient family
[2019-01-28 15:00] LABS: HEMATOCRIT 30.7 % (36.0-47.0); HEMOGLOBIN 10.5 g/dL (12.0-15.5); MEAN CORPUSCULAR HEMOGLOBIN 27.9 pg (27.0-33.4); MEAN CORPUSCULAR HGB CONC 34.1 g/dL (32.0-36.0); MEAN CORPUSCULAR VOLUME 82 fl (80-97); RED BLOOD COUNT 3.75 10^6/uL (3.72-5.28); RED CELL DISTRIBUTION WIDTH 13.3 % (11.5-14.0)
[2019-01-28 15:21] LABS: ALKALINE PHOSPHATASE 178 U/L (38-126); ANION GAP 8 (5-19); ASPARTATE AMINO TRANSFERASE 234 U/L (14-36); BILIRUBIN,DIRECT 0.1 mg/dL (0.0-0.4); BILIRUBIN,TOTAL 0.4 mg/dL (0.2-1.3); BLOOD UREA NITROGEN 3 mg/dL (7-20); CALCIUM 8.6 mg/dL (8.4-10.2); CARBON DIOXIDE 33 mmol/L (22-30); CHLORIDE 98 mmol/L (98-107); GLUCOSE 96 mg/dL (75-110); POTASSIUM 3.3 mmol/L (3.6-5.0)
[2019-01-28 15:27] LABS: PLATELET COUNT 21 10^3/uL (150-450); WHITE BLOOD COUNT 1.1 10^3/uL (4.0-10.5)
[2019-01-28] MEDS: DRONABINOL 2.5 MG CAPSULE PO SCH (17:05)
[2019-01-28] MEDS: FENTANYL 100 MCG/HR PATCH.TD72 TD SCH (17:06)
[2019-01-29] MEDS: PROMETHAZINE HCL INJ 25 MG/1 ML VIAL IV PRN ×7 (03:02→21:18)
[2019-01-29] MEDS: HYDROMORPHONE HCL INJ/PF 2 MG/ML AMPULE IV PRN ×7 (03:02→21:18)
[2019-01-29] MEDS: DIPHENHYDRAMINE HCL 50 MG/ML VIAL IV PRN ×4 (03:08→20:08)
[2019-01-29] MEDS: NORMAL SALINE 1000 ML 1,000 ML IV PRN (06:05)
--- NOTE | 2019-01-29 08:15 | PDOC PROGRESS REPORT ---
Subjective Progress Note for:: 01/29/19 Subjective:: 01/29/2019-no complaints exam Reason For Visit: INTRACTABLE PAIN Physical Exam Vital Signs: Temp Pulse Resp BP Pulse Ox 99.2 F 101 H 18 163/79 H 97 01/28/19 23:00 01/28/19 23:00 01/28/19 23:00 01/28/19 23:00 01/28/19 23:00 Intake & Output 01/28/19 01/29/19 01/30/19 06:59 06:59 06:59 Intake Total 3123 Balance 3123 Weight 92.3 kg General appearance: PRESENT: no acute distress, well-developed, well-nourished Neck exam: ABSENT: carotid bruit, JVD, lymphadenopathy, thyromegaly Respiratory exam: PRESENT: decreased breath sounds, symmetrical, unlabored Cardiovascular exam: PRESENT: RRR, +S1, +S2 Pulses: PRESENT: normal carotid pulses Vascular exam: PRESENT: normal capillary refill GI/Abdominal exam: PRESENT: normal bowel sounds, soft. ABSENT: distended, guarding, mass, organolmegaly, rebound, tenderness Extremities exam: PRESENT: full ROM. ABSENT: calf tenderness, clubbing, pedal edema Neurological exam: PRESENT: alert, awake, oriented to person, oriented to place, oriented to time, oriented to situation, CN II-XII grossly intact. ABSENT: motor sensory deficit Psychiatric exam: PRESENT: appropriate affect, normal mood. ABSENT: homicidal ideation, suicidal ideation Skin exam: PRESENT: other - Bilateral mastectomy Results Laboratory Results: 01/28/19 14:30 01/28/19 14:30 01/28/19 01/28/19 14:30 14:30 WBC 1.1 L* RBC 3.75 Hgb 10.5 L Hct 30.7 L MCV 82 MCH 27.9 MCHC 34.1 RDW 13.3 Plt Count 21 L* Sodium 138.6 Potassium 3.3 L Chloride 98 Carbon Dioxide 33 H Anion Gap 8 BUN 3 L Creatinine 0.44 L Est GFR ( Amer) > 60 Glucose 96 Calcium 8.6 Total Bilirubin 0.4 AST 234 H Alkaline Phosphatase 178 H Total Protein 6.0 L Albumin 3.0 L Assessment and Plan - Diagnosis (1) Intractable pain Is this a current diagnosis for this admission?: Yes Plan: 01/28/2019-with obvious MedSurg. Dilaudid 2 mg IV every 3 hours as needed. Continue fentanyl patch. Titrate to effect. Discussed with patient possibility for hospice intervention 01/29/2019-improved. Patient will see hospice today. (2) Intractable nausea and vomiting Is this a current diagnosis for this admission?: Yes Plan: 01/28/2019-Phenergan 25 mg IV every 4 hours. 01/29/2019-improved continue Phenergan as needed (3) Metastatic breast cancer Is this a current diagnosis for this admission?: Yes Plan: 01/28/2019-discussed with Dr. garay. Will discuss patient for hospice care. 01/29/2019-patient will go to home with hospice (4) Dehydration Is this a current diagnosis for this admission?: Yes Plan: 01/28/2019-normal saline at 125 mL/h obtain laboratory database CBC and CMP. Treat as appropriate 01/29/2018-resolved DC IV fluids - Time Time Spent with patient: 15-24 minutes
[2019-01-29] MEDS: DRONABINOL 2.5 MG CAPSULE PO SCH ×2 (09:20→17:38)
[2019-01-30] MEDS: HYDROMORPHONE HCL INJ/PF 2 MG/ML AMPULE IV PRN ×11 (00:19→22:33)
[2019-01-30] MEDS: PROMETHAZINE HCL INJ 25 MG/1 ML VIAL IV PRN ×7 (00:20→22:38)
[2019-01-30] MEDS: DIPHENHYDRAMINE HCL 50 MG/ML VIAL IV PRN ×3 (02:05→22:33)
--- NOTE | 2019-01-30 08:15 | PDOC PROGRESS REPORT ---
Subjective Progress Note for:: 01/30/19 Subjective:: 01/29/2019-no complaints exam 01/30/2019-no complaints this a.m. Reason For Visit: INTRACTABLE PAIN Physical Exam Vital Signs: Temp Pulse Resp BP Pulse Ox 98.3 F 99 18 174/107 H 98 01/29/19 23:20 01/29/19 23:20 01/29/19 23:20 01/29/19 23:20 01/29/19 23:20 Intake & Output 01/29/19 01/30/19 01/31/19 06:59 06:59 06:59 Intake Total 3123 1646 Balance 3123 1646 Weight 92.3 kg 97.9 kg General appearance: PRESENT: no acute distress, well-developed, well-nourished Neck exam: ABSENT: carotid bruit, JVD, lymphadenopathy, thyromegaly Respiratory exam: PRESENT: clear to auscultation tolu. ABSENT: rales, rhonchi, wheezes Cardiovascular exam: PRESENT: RRR. ABSENT: diastolic murmur, rubs, systolic murmur Pulses: PRESENT: normal dorsalis pedis pul Vascular exam: PRESENT: normal capillary refill GI/Abdominal exam: PRESENT: normal bowel sounds, soft. ABSENT: distended, guarding, mass, organolmegaly, rebound, tenderness Extremities exam: PRESENT: full ROM. ABSENT: calf tenderness, clubbing, pedal edema Neurological exam: PRESENT: alert, awake, oriented to person, oriented to place, oriented to time, oriented to situation, CN II-XII grossly intact. ABSENT: motor sensory deficit Psychiatric exam: PRESENT: appropriate affect, normal mood. ABSENT: homicidal ideation, suicidal ideation Skin exam: PRESENT: dry, intact, warm, other - Bilateral mastectomy. ABSENT: cyanosis, rash Results Laboratory Results: 01/28/19 14:30 01/28/19 14:30 Assessment and Plan - Diagnosis (1) Intractable pain Is this a current diagnosis for this admission?: Yes Plan: 01/28/2019-with obvious MedSurg. Dilaudid 2 mg IV every 3 hours as needed. Continue fentanyl patch. Titrate to effect. Discussed with patient possibility for hospice intervention 01/29/2019-improved. Patient will see hospice today. 01/30/2019-Dilaudid had to be increased overnight secondary to pain. She is getting 2 mg every 2 hours at this time. We did increase fentanyl patch to 200 mics on admission we will continue to follow getting patient set up for home hospice. (2) Intractable nausea and vomiting Is this a current diagnosis for this admission?: Yes Plan: 01/28/2019-Phenergan 25 mg IV every 4 hours. 01/29/2019-improved continue Phenergan as needed 01/30/2019-improved continue and antiemetics as needed (3) Metastatic breast cancer Is this a current diagnosis for this admission?: Yes Plan: 01/28/2019-discussed with Dr. garay. Will discuss patient for hospice care. 01/29/2019-patient will go to home with hospice 01/30/2019-Home with hospice upon discharge (4) Dehydration Is this a current diagnosis for this admission?: Yes Plan: 01/28/2019-normal saline at 125 mL/h obtain laboratory database CBC and CMP. Treat as appropriate 01/29/2018-resolved DC IV fluids 01/30/2019-stable - Time Time Spent with patient: 15-24 minutes - Inpatient Certification Based on my medical assessment, after consideration of the patient's comorbidities, presenting symptoms, or acuity I expect that the services needed warrant INPATIENT care.: Yes I certify that my determination is in accordance with my understanding of Medicare's requirements for reasonable and necessary INPATIENT services [42 CFR 412.3e].: Yes Medical Necessity: Need for Pain Control
[2019-01-30] MEDS: DRONABINOL 2.5 MG CAPSULE PO SCH ×2 (09:24→18:05)
[2019-01-30] MEDS ORDERED: NORMAL SALINE 1000 ML 1,000 ML IV ONE (14:00)
[2019-01-30] MEDS ORDERED: HYDRALAZINE HCL INJ/PF 20 MG/1 ML SDV IV ONE (14:15)
[2019-01-30] MEDS ORDERED: METOPROLOL TARTRATE PF/INJ 5 MG/5 ML SDV IV ONE (18:00)
[2019-01-30] MEDS ORDERED: METOPROLOL TARTRATE PF/INJ 5 MG/5 ML SDV IV PRN (18:03)
[2019-01-30] MEDS: METOPROLOL SUCCINATE 50 MG TAB.SR.24H PO SCH (22:34)
[2019-01-31] MEDS: HYDROMORPHONE HCL INJ/PF 2 MG/ML AMPULE IV PRN ×9 (00:55→21:50)
[2019-01-31] MEDS: PROMETHAZINE HCL INJ 25 MG/1 ML VIAL IV PRN ×6 (03:50→21:50)
[2019-01-31] MEDS: DIPHENHYDRAMINE HCL 50 MG/ML VIAL IV PRN ×5 (04:00→21:50)
--- NOTE | 2019-01-31 08:22 | PDOC PROGRESS REPORT ---
Subjective Progress Note for:: 01/31/19 Subjective:: 01/29/2019-no complaints exam 01/30/2019-no complaints this a.m. 01/31/2019-feeling improved this morning. Reason For Visit: INTRACTABLE PAIN Physical Exam Vital Signs: Temp Pulse Resp BP Pulse Ox 99.0 F 118 H 16 142/87 H 98 01/30/19 23:43 01/30/19 23:43 01/30/19 23:43 01/30/19 23:43 01/30/19 23:43 Intake & Output 01/30/19 01/31/19 02/01/19 06:59 06:59 06:59 Intake Total 1646 2658 Balance 1646 2658 Weight 97.9 kg 98.6 kg General appearance: PRESENT: no acute distress, well-developed, well-nourished Neck exam: ABSENT: carotid bruit, JVD, lymphadenopathy, thyromegaly Respiratory exam: PRESENT: clear to auscultation tolu. ABSENT: rales, rhonchi, wheezes Cardiovascular exam: PRESENT: RRR. ABSENT: diastolic murmur, rubs, systolic murmur Pulses: PRESENT: normal dorsalis pedis pul Vascular exam: PRESENT: normal capillary refill GI/Abdominal exam: PRESENT: normal bowel sounds, soft. ABSENT: distended, guarding, mass, organolmegaly, rebound, tenderness Extremities exam: PRESENT: full ROM. ABSENT: calf tenderness, clubbing, pedal edema Neurological exam: PRESENT: alert, awake, oriented to person, oriented to place, oriented to time, oriented to situation, CN II-XII grossly intact. ABSENT: mo tor sensory deficit Psychiatric exam: PRESENT: appropriate affect, normal mood. ABSENT: homicidal ideation, suicidal ideation Skin exam: PRESENT: dry, intact, warm, other - Bilateral mastectomy. ABSENT: cyanosis, rash Adult Front & Back Image: 1 - Port-A-Cath Results Laboratory Results: 01/28/19 14:30 01/28/19 14:30 Assessment and Plan - Diagnosis (1) Intractable pain Is this a current diagnosis for this admission?: Yes Plan: 01/28/2019-with obvious MedSurg. Dilaudid 2 mg IV every 3 hours as needed. Continue fentanyl patch. Titrate to effect. Discussed with patient possibility for hospice intervention 01/29/2019-improved. Patient will see hospice today. 01/30/2019-Dilaudid had to be increased overnight secondary to pain. She is getting 2 mg every 2 hours at this time. We did increase fentanyl patch to 200 mics on admission we will continue to follow getting patient set up for home hospice. 01/31/2019-much improved. Anticipate discharge home tomorrow with hospice. Continue fentanyl and Dilaudid (2) Intractable nausea and vomiting Is this a current diagnosis for this admission?: Yes Plan: 01/28/2019-Phenergan 25 mg IV every 4 hours. 01/29/2019-improved continue Phenergan as needed 01/30/2019-improved continue and antiemetics as needed 01/31/2019-continue antiemetics as needed (3) Metastatic breast cancer Is this a current diagnosis for this admission?: Yes Plan: 01/28/2019-discussed with Dr. garay. Will discuss patient for hospice care. 01/29/2019-patient will go to home with hospice 01/30/2019-Home with hospice upon discharge 01/31/2019-followed by oncology home with hospice. (4) Dehydration Is this a current diagnosis for this admission?: Yes Plan: 01/28/2019-normal saline at 125 mL/h obtain laboratory database CBC and CMP. Treat as appropriate 01/29/2018-resolved DC IV fluids 01/30/2019-stable 01/31/2019-stable - Time Time Spent with patient: 15-24 minutes - Inpatient Certification Based on my medical assessment, after consideration of the patient's comorbidities, presenting symptoms, or acuity I expect that the services needed warrant INPATIENT care.: Yes I certify that my determination is in accordance with my understanding of Medicare's requirements for reasonable and necessary INPATIENT services [42 CFR 412.3e].: Yes Medical Necessity: Need for Pain Control
[2019-01-31] MEDS: METOPROLOL SUCCINATE 50 MG TAB.SR.24H PO SCH ×2 (10:22→21:47)
[2019-01-31] MEDS: DRONABINOL 2.5 MG CAPSULE PO SCH ×2 (10:22→17:28)
[2019-01-31] MEDS: FENTANYL 100 MCG/HR PATCH.TD72 TD SCH (10:23)
[2019-01-31] MEDS: ALPRAZOLAM 0.5 MG TABLET PO PRN ×2 (14:22→21:48)
[2019-02-01] MEDS: HYDROMORPHONE HCL INJ/PF 2 MG/ML AMPULE IV PRN ×8 (00:08→16:36)
[2019-02-01] MEDS: PROMETHAZINE HCL INJ 25 MG/1 ML VIAL IV PRN ×5 (01:04→16:36)
[2019-02-01] MEDS: DIPHENHYDRAMINE HCL 50 MG/ML VIAL IV PRN ×3 (02:40→13:35)
[2019-02-01] MEDS: ALPRAZOLAM 0.5 MG TABLET PO PRN (06:15)
[2019-02-01 07:14] LABS: ANION GAP 5 (5-19); BLOOD UREA NITROGEN 7 mg/dL (7-20); CALCIUM 8.3 mg/dL (8.4-10.2); CARBON DIOXIDE 33 mmol/L (22-30); CHLORIDE 103 mmol/L (98-107); GLUCOSE 100 mg/dL (75-110); POTASSIUM 3.9 mmol/L (3.6-5.0)
[2019-02-01 07:18] LABS: HEMATOCRIT 27.4 % (36.0-47.0); HEMOGLOBIN 9.2 g/dL (12.0-15.5); MEAN CORPUSCULAR HEMOGLOBIN 28.3 pg (27.0-33.4); MEAN CORPUSCULAR HGB CONC 33.5 g/dL (32.0-36.0); MEAN CORPUSCULAR VOLUME 85 fl (80-97); PLATELET COUNT 248 10^3/uL (150-450); RED BLOOD COUNT 3.24 10^6/uL (3.72-5.28); RED CELL DISTRIBUTION WIDTH 14.3 % (11.5-14.0); WHITE BLOOD COUNT 1.6 10^3/uL (4.0-10.5)
--- NOTE | 2019-02-01 09:20 | PDOC DISCHARGE SUMMARY ---
Impression - Admit/DC Date/PCP Admission Date/Primary Care Provider: 01/28/19 13:41 MANJINDER RODRIGUEZ MD Discharge Date: 02/01/19 - Discharge Diagnosis (1) Intractable pain Is this a current diagnosis for this admission?: Yes (2) Intractable nausea and vomiting Is this a current diagnosis for this admission?: Yes (3) Metastatic breast cancer Is this a current diagnosis for this admission?: Yes (4) Dehydration Is this a current diagnosis for this admission?: Yes - Additional Information Resuscitation Status: Do Not Resuscitate Discharge Diet: As Tolerated Discharge Activity: Activity As Tolerated Referrals: MANJINDER RODRIGUEZ MD [Primary Care Provider] - TODD KELLEY MD [ACTIVE STAFF] - 02/03/19 Prescriptions: Docusate Sodium [Colace 100 mg Capsule] 100 mg PO BID #30 capsule Hydromorphone HCl [Dilaudid 2 mg Tablet] 2 mg PO Q2HP PRN #60 tablet PRN Reason: Fentanyl [Duragesic 100 Mcg/Hr Transdermal Patch] 2 each TD Q3DAYS #10 patch.td72 Dronabinol [Marinol 2.5 mg Capsule] 2.5 mg PO BID #60 capsule Promethazine HCl [Phenergan 25 mg Tablet] 25 mg PO Q4HP PRN #45 PRN Reason: NAUSEA Metoprolol Succinate [Toprol Xl 50 mg Tab.sr] 50 mg PO Q12 #60 tab.sr.24h Alprazolam [Xanax 0.5 mg Tablet] 0.5 mg PO Q8HP PRN #90 tablet PRN Reason: Home Medications: Diltiazem HCl [Diltiazem 24Hr ER] 180 mg PO Q12 01/12/19 Diphenhydramine HCl [Benadryl] 25 mg PO Q6HP PRN 01/12/19 Docusate Sodium [Colace] 100 mg PO BID 01/12/19 Hydrochlorothiazide [Hydrodiuril 12.5 mg Tablet] 12.5 mg PO QAM 01/12/19 Losartan Potassium [Cozaar 25 mg Tablet] 25 mg PO DAILY 01/12/19 Acetaminophen [Tylenol 325 mg Tablet] 650 mg PO Q4HP PRN tablet 01/25/19 Acetylcysteine [Mucomist 20% Soln 800 mg/4 mL] 600 mg NEB RTBID #60 vial 01/25/19 Fentanyl [Duragesic 100 Mcg/Hr Transdermal Patch] 1 each TD Q3DAYS #1 patch.td72 01/25/19 Fentanyl [Duragesic 50 Mcg/Hr Transdermal Patch] 1 each TD Q3DAYS #1 patch.td72 01/25/19 Guaifenesin [Robitussin Syrup 200 mg/10 ml Ud Cup] 200 mg PO QID udc 01/25/19 Levalbuterol HCl [Xopenex Neb 1.25 mg/3 ml Ampul] 1.25 mg NEB RTQ4HP PRN #120 vial.neb 01/25/19 Metoprolol Tartrate [Lopressor 25 mg Tablet] 25 mg PO Q12 #60 tablet 01/25/19 Nystatin [Mycostatin Cream 15 gm] 1 applic TP BID #1 tube 01/25/19 Pantoprazole Sodium [Protonix [address] Tablet] 40 mg PO Q6AM #30 tablet.dr 01/25/19 Alprazolam [Xanax 0.5 mg Tablet] 0.5 mg PO Q8HP PRN #90 tablet 02/01/19 Docusate Sodium [Colace 100 mg Capsule] 100 mg PO BID #30 capsule 02/01/19 Dronabinol [Marinol 2.5 mg Capsule] 2.5 mg PO BID #60 capsule 02/01/19 Fentanyl [Duragesic 100 Mcg/Hr Transdermal Patch] 2 each TD Q3DAYS #10 patch.td72 02/01/19 Hydromorphone HCl [Dilaudid 2 mg Tablet] 2 mg PO Q2HP PRN #60 tablet 02/01/19 Metoprolol Succinate [Toprol Xl 50 mg Tab.sr] 50 mg PO Q12 #60 tab.sr.24h 02/01/19 Promethazine HCl [Phenergan 25 mg Tablet] 25 mg PO Q4HP PRN #45 02/01/19 History of Present Illiness History of Present Illness: LINDSAY MELTON is a 48 year old female is unfortunate 48-year-old female with long-standing history of breast cancer with mets. Patient has bad bilateral mastectomies. Patient has had multiple readmissions for exacerbations of pain and refuses undergo treatment. At this time I will discuss with patient about possibilities of hospice intervention. She is currently using home medication including fentanyl with no relief all intact aggravating factor. Hospital Course Hospital Course: Patient is a very unfortunate 48-year-old female with metastatic breast cancer. Patient has foregone treatment at this time and unfortunately let her cancer go to the point that treatment would probably not be an option at this time for anything other than palliative reasons. I have discussed this case with Dr. Cline from oncology and she agrees with this. Patient has been admitted multiple times over the last couple of weeks for intractable pain, nausea and vomiting. Patient is very emotional and frightened to return home. I have set up hospice for patient I am going to send patient home with fentanyl patch 200 mcg every 3 days #10, Dilaudid 2 mg 1 p.o. every 2 hours as needed #60, Marinol 2.5 mg p.o. twice daily for appetite, and Xanax 0.5 mill grams p.o. every 8 hours as needed #90 for anxiety. I also gave patient Phenergan and Colace 100 mg p.o. twice daily for any constipation related to chronic opioid use. I will have patient follow-up with hospice on outpatient basis. Given these facts patient's prognosis appears to be less than 6 months of sustainable life. Physical Exam Vital Signs: Temp Pulse Resp BP Pulse Ox 98.3 F 99 18 119/80 99 02/01/19 07:18 02/01/19 07:18 02/01/19 07:18 02/01/19 07:18 02/01/19 07:18 Intake & Output 01/31/19 02/01/19 02/02/19 06:59 06:59 06:59 Intake Total 2658 600 Balance 2658 600 Weight 98.6 kg 98.3 kg General appearance: PRESENT: no acute distress, well-developed, well-nourished Head exam: PRESENT: atraumatic, normocephalic Eye exam: PRESENT: conjunctiva pink, EOMI, PERRLA. ABSENT: scleral icterus Ear exam: PRESENT: normal external ear exam Mouth exam: PRESENT: moist, tongue midline Neck exam: ABSENT: carotid bruit, JVD, lymphadenopathy, thyromegaly Respiratory exam: PRESENT: clear to auscultation tolu. ABSENT: rales, rhonchi, wheezes Cardiovascular exam: PRESENT: RRR. ABSENT: diastolic murmur, rubs, systolic murmur Pulses: PRESENT: normal dorsalis pedis pul Vascular exam: PRESENT: normal capillary refill GI/Abdominal exam: PRESENT: normal bowel sounds, soft. ABSENT: distended, guarding, mass, organolmegaly, rebound, tenderness Rectal exam: PRESENT: deferred Extremities exam: PRESENT: full ROM. ABSENT: calf tenderness, clubbing, pedal edema Neurological exam: PRESENT: alert, awake, oriented to person, oriented to place, oriented to time, oriented to situation, CN II-XII grossly intact. ABSENT: motor sensory deficit Psychiatric exam: PRESENT: appropriate affect, normal mood. ABSENT: homicidal ideation, suicidal ideation Skin exam: PRESENT: dry, intact, warm, other - Bilateral mastectomy. ABSENT: cyanosis, rash Results Laboratory Results: WBC 1.6 10^3/uL (4.0-10.5) L 02/01/19 06:40 RBC 3.24 10^6/uL (3.72-5.28) L 02/01/19 06:40 Hgb 9.2 g/dL (12.0-15.5) L 02/01/19 06:40 Hct 27.4 % (36.0-47.0) L 02/01/19 06:40 MCV 85 fl (80-97) 02/01/19 06:40 MCH 28.3 pg (27.0-33.4) 02/01/19 06:40 MCHC 33.5 g/dL (32.0-36.0) 02/01/19 06:40 RDW 14.3 % (11.5-14.0) H 02/01/19 06:40 Plt Count 248 10^3/uL (150-450) 02/01/19 06:40 Sodium 141.4 mmol/L (137-145) 02/01/19 06:40 Potassium 3.9 mmol/L (3.6-5.0) 02/01/19 06:40 Chloride 103 mmol/L (98-107) 02/01/19 06:40 Carbon Dioxide 33 mmol/L (22-30) H 02/01/19 06:40 Anion Gap 5 (5-19) 02/01/19 06:40 BUN 7 mg/dL (7-20) 02/01/19 06:40 Creatinine 0.53 mg/dL (0.52-1.25) 02/01/19 06:40 Est GFR ( Amer) > 60 (>60) 02/01/19 06:40 Est GFR (MDRD) Non-Af > 60 (>60) 02/01/19 06:40 Glucose 100 mg/dL (75-110) 02/01/19 06:40 Calcium 8.3 mg/dL (8.4-10.2) L 02/01/19 06:40 Total Bilirubin 0.4 mg/dL (0.2-1.3) 01/28/19 14:30 Direct Bilirubin 0.1 mg/dL (0.0-0.4) 01/28/19 14:30 Neonat Total Bilirubin Not Reportable 01/28/19 14:30 Neonat Direct Bilirubin Not Reportable 01/28/19 14:30 Neonat Indirect Bili Not Reportable 01/28/19 14:30 AST 234 U/L (14-36) H 01/28/19 14:30 ALT 184 U/L (<35) 01/28/19 14:30 Alkaline Phosphatase 178 U/L (38-126) H 01/28/19 14:30 Total Protein 6.0 g/dL (6.3-8.2) L 01/28/19 14:30 Albumin 3.0 g/dL (3.5-5.0) L 01/28/19 14:30 Plan Time Spent: Greater than 30 Minutes Stroke Is this a Stroke Patient?: No Acute Heart Failure - Is this a Heart Failure Patient?: No
[2019-02-01] MEDS: DRONABINOL 2.5 MG CAPSULE PO SCH ×2 (09:23→17:38)
[2019-02-01] MEDS: METOPROLOL SUCCINATE 50 MG TAB.SR.24H PO SCH (09:23)
[2019-02-01 13:19] LABS: PATH REVIEW PATHOLOGIST REVIEWED
[2019-02-01 18:11] VITALS: BP 138/87
== END 2019-02-01 19:05 | disposition home health service (06) | DRG 948 ==
LOC: INTOOBSV 13:32 → 5 13:32 → OBSVTOIN 13:41
PROVIDERS: ADMIT Internal Medicine; ATTEND Internal Medicine
DX: G89.3 Neoplasm related pain (acute) (chronic) (principal); C79.9 Secondary malignant neoplasm of unspecified site; C50.919 Malignant neoplasm of unspecified site of unspecified female breast; E86.0 Dehydration; I10 Essential (primary) hypertension; R11.2 Nausea with vomiting, unspecified; F41.9 Anxiety disorder, unspecified; Z66 Do not resuscitate; R63.0 Anorexia; Z90.13 Acquired absence of bilateral breasts and nipples; Z90.710 Acquired absence of both cervix and uterus; Z79.899 Other long term (current) drug therapy; Z85.118 Personal history of other malignant neoplasm of bronchus and lung
CPT/HCPCS: 36415; 80048; 80053; 85027; A9270-GY; J0360; J1170; J1200; J1642; J2550; J3490; J7030

== ENCOUNTER 2019-02-21 08:56 | Emergency (ER) | payer OTHER ==
[2019-02-21] MEDS ORDERED: HYDROMORPHONE HCL INJ/PF 2 MG/ML AMPULE IV ONE (09:31)
[2019-02-21] MEDS ORDERED: NORMAL SALINE 500 ML IV ONE ×2 (09:33→10:49)
[2019-02-21] MEDS ORDERED: NORMAL SALINE 1000 ML 1,000 ML IV ONE ×2 (09:33→12:56)
[2019-02-21] MEDS ORDERED: CLONIDINE HCL 0.1 MG TABLET PO ONE (09:35)
--- NOTE | 2019-02-21 09:52 | ER Document Report ---
ED General - General Chief Complaint: Shortness Of Breath Stated Complaint: SHORTNESS OF BREATH/WEAKNESS Time Seen by Provider: 02/21/19 09:08 Primary Care Provider: MANJINDER RODRIGUEZ MD [Primary Care Provider] - Follow up as needed TRAVEL OUTSIDE OF THE [place] IN LAST 30 DAYS: No - Related Data Allergies/Adverse Reactions: No Known Allergies Allergy (Verified 01/06/19 12:15) Past Medical History - Social History Smoking Status: Unknown if Ever Smoked Family History: Hypertension - Past Medical History Cardiac Medical History: Reports: Hx Hypertension Denies: Hx Coronary Artery Disease, Hx Heart Attack Pulmonary Medical History: Denies: Hx Asthma, Hx Bronchitis, Hx COPD, Hx Pneumonia Neurological Medical History: Denies: Hx Cerebrovascular Accident, Hx Seizures Malignancy Medical History: Reports: Hx Breast Cancer, Hx Lung Cancer Musculoskeletal Medical History: Denies Hx Arthritis Psychiatric Medical History: Reports: Hx Depression Past Surgical History: Reports: Hx Hysterectomy, Hx Urinary Tract Surgery, Other - Bilateral mastectomy - Immunizations Hx Diphtheria, Pertussis, Tetanus Vaccination: Yes Physical Exam - Vital signs Vitals: Temp Resp BP Pulse Ox 98.6 F 28 H 147/126 H 96 02/21/19 09:18 02/21/19 09:18 02/21/19 09:18 02/21/19 09:18 Interpretation: Other - Have been reviewed - Notes Notes: Patient presents emergency department multiple complaints. #1 is generalized weakness. Is been going on for the past week. Is her appetite is been decreased has had some nausea but no vomiting. She has had 2 episodes of loose stool during the week. Says she has not been taking most of her meds she denies any abdominal pain or dysuria. Has a mild headache 2 or 3 days ago but resolved. No abnormal vision #2 is shortness of breath. She has chronic shortness of breath and is gotten worse over the past 2 to 3 days. Is a nonproductive cough which is unchanged. She has had no fevers with this. She is currently using her oxygen home with minimal relief #3 is chest pain. She has pain over the left anterior chest. This pain is chronic in nature and related to her underlying lung and breast cancer. She is currently on fentanyl patches and Percocet for breakthrough pain but the Percocet is not working. She reports that when she was in the hospital she was receiving Dilaudid and the chest pain is no different from previous History is significant for stage IV breast cancer with mets to her lung. She has had mastectomy only. Last dose of chemo was in January was as a history of hypertension episode atrial fibrillation in the past but no diabetes or coronary artery disease Social history she does not smoke or drink at all. Family history is noncontributory \Review of systems pertinent positives and negatives in HPI otherwise all the systems were reviewed and acutely negative PHYSICIAN EXAM -vital signs are noted triage note and note from triage reviewed GENERAL: Well-appearing, well-nourished and in __mild distress and pain and tachypnea____ HEAD: Atraumatic, normocephalic. EYES: Pupils equal round and reactive to light, extraocular movements intact, sclera anicteric, conjunctiva are normal. ENT: nares patent, oropharynx clear without exudates. Slightly dry mucous membranes. NECK: supple without lymphadenopathy LUNGS: Breath sounds clear to auscultation bilaterally and equal. No wheezes rales or rhonchi. Old surgical scars in the chest. Previous scar from port is clean and dry HEART: Rapid rate and rhythm without murmurs she does have some JVD at 30 degrees ABDOMEN: Soft, nontender, normoactive bowel sounds. EXTREMITIES: No deformity, no edema. No palpable cords NEUROLOGICAL: Alert and oriented x4. Cranial nerves he has symmetrical smile facies and shoulder shrug. His motor strength is 5/5 bilaterally in the upper and lower extremities. Toes downgoing. Sensation is intact to light touch is a negative Romberg PSYCH: Normal mood, normal affect. SKIN: Warm, Dry, normal turgor, no rashes or lesions noted. BACK-nontender in the midline Differential diagnose includes dehydration abnormal electrolytes pneumonia or CHF sepsis Course - Re-evaluation Re-evalutation: 02/21/19 18:11 ED patient is remained stable she was given initially a 500 cc bolus. Reviewed was given additional 500 and additional 1 L. She has been able to urinate urine is not dehydrated she has remained tachycardic however. Blood culture obtained she was started on antibiotics with both vancomycin and Zosyn CT showed a right upper lobe infiltrate with probably effusion because of the increase in her blood pressure tachycardia did obtain an echo which showed small to moderate effusion. This was discussed with the waterworks chief engineer DR LOPEZ indicated there was no [place] not and that the fusion looked larger on CT. I initially discussed case with the hospitalist. They indicated we do not have cardiology senior billing consultant for the rest of the week and did not feel comfortable admitting the patient with a pericardial effusion and tachycardia despite her underlying pneumonia and possible sepsis discussed this with the family and have consulted the transfer center at [place] patient given a dose of clonidine with improvement of blood pressure. She was given a second dose of clonidine did not feel that she needs IV medicines to acutely lower her blood pressure. There is no evidence of endorgan damage 02/21/19 18:13 02/21/19 18:22 Admitted discussed case with the hospitalist at [facility] they have accepted the patient Dictation was done using voice recognition software. There may be some grammatical errors which are unintentional I discussed results of laboratory findings and diagnostic test with patient/family. The treatment plan was explained and I reviewed the discharge instructions with them. Questions were answered. The patient/family verbalizes understanding - Vital Signs Vital signs: Temp Pulse Resp BP Pulse Ox 98.6 F 27 H 148/108 H 96 02/21/19 09:29 02/21/19 16:01 02/21/19 17:01 02/21/19 17:01 - Laboratory Result Diagrams: 02/21/19 09:57 02/21/19 09:57 Laboratory results interpreted by me: 02/21/19 02/21/19 02/21/19 09:57 09:57 09:57 RDW 20.9 H [place] % (Auto) 17.7 H PT 16.3 H Chloride 97 L BUN 6 L Creatinine 0.47 L Lactic Acid (Sepsis) Alkaline Phosphatase 234 H Albumin 2.7 L 02/21/19 02/21/19 09:57 12:34 RDW [place] % (Auto) PT Chloride BUN Creatinine Lactic Acid (Sepsis) 2.6 H 2.2 H Alkaline Phosphatase Albumin - Diagnostic Test Radiology reviewed: Reports reviewed - EKG Interpretation by Me Additional EKG results interpreted by me: 02/21/19 10:23 EKG read by me shows sinus tachycardia with a rate of 127. Diffuse nonspecific ST wave changes with flattening of the T waves. This is unchanged from previous. Also has have low voltage P EKG was obtained because of persistent tachycardia shows a sinus tachycardia with low voltage nonspecific changes but unchanged from the first but low voltage however this was present in 02/21/19 17:15 Critical Care Note - Critical Care Note Total time excluding time spent on procedures (mins): 75 Comments: Patient presented with weakness shortness of breath and tachycardia with elevated blood pressure found she has a history of metastatic lung cancer. She is had serial exams multiple medical interventions multiple consultations Discharge - Discharge Clinical Impression: Pericardial effusion without cardiac tamponade Pneumonia Qualifiers: Pneumonia type: due to unspecified organism Laterality: right Lung location: upper lobe of lung Qualified Code(s): J18.9 - Pneumonia, unspecified organism Breast cancer Qualifiers: Breast location: unspecified site of breast Estrogen receptor status: unspecified Lung cancer Qualifiers: Laterality: unspecified laterality Lung location: unspecified part of lung Qualified Code(s): C34.90 - Malignant neoplasm of unspecified part of unspecified bronchus or lung Disposition: [facility] Referrals: MANJINDER RODRIGUEZ MD [Primary Care Provider] - Follow up as needed
[2019-02-21 10:23] LABS: ABSOLUTE BASOPHILS # (AUTO) 0.1 10^3/uL (0.0-0.2); ABSOLUTE LYMPHOCYTES (AUTO) 1.4 10^3/uL (0.5-4.7); ABSOLUTE MONOCYTES (AUTO) 1.4 10^3/uL (0.1-1.4); ABSOLUTE NEUT (AUTO) 5.1 10^3/uL (1.7-8.2); BASOPHILS % (AUTO) 0.7 % (0-2); HEMATOCRIT 38.7 % (36.0-47.0); HEMOGLOBIN 12.9 g/dL (12.0-15.5); INTERNATIONAL RATION (INR) 1.31; LYMPHOCYTES % (AUTO) 17.3 % (13-45); MEAN CORPUSCULAR HEMOGLOBIN 29.1 pg (27.0-33.4); MEAN CORPUSCULAR HGB CONC 33.4 g/dL (32.0-36.0); MEAN CORPUSCULAR VOLUME 87 fl (80-97); MONOCYTES % (AUTO) 17.7 % (3-13); PLATELET COUNT 401 10^3/uL (150-450); PROTHROMBIN TIME 16.3 SEC (11.4-15.4); RED BLOOD COUNT 4.45 10^6/uL (3.72-5.28); RED CELL DISTRIBUTION WIDTH 20.9 % (11.5-14.0); SEGMENTED NEUTROPHILS % (AUTO) 64.3 % (42-78); TOTAL CELLS COUNTED % (AUTO) 100 %; WHITE BLOOD COUNT 7.9 10^3/uL (4.0-10.5)
[2019-02-21] MEDS ORDERED: VANCOMYCIN HCL INJ 1000 MG VIAL IV ONE (10:34)
[2019-02-21] MEDS ORDERED: PIPERACILLIN/TAZOBACTAM 3.375 GM VIAL IV ONE (10:37)
[2019-02-21 10:41] LABS: ALBUMIN 2.7 g/dL (3.5-5.0); ALKALINE PHOSPHATASE 234 U/L (38-126); ANION GAP 11 (5-19); ASPARTATE AMINO TRANSFERASE 32 U/L (14-36); BILIRUBIN,DIRECT 0.2 mg/dL (0.0-0.4); BILIRUBIN,TOTAL 0.5 mg/dL (0.2-1.3); BLOOD UREA NITROGEN 6 mg/dL (7-20); CALCIUM 8.7 mg/dL (8.4-10.2); CARBON DIOXIDE 29 mmol/L (22-30); CHLORIDE 97 mmol/L (98-107); GLUCOSE 93 mg/dL (75-110); TOTAL PROTEIN 6.5 g/dL (6.3-8.2)
--- NOTE | 2019-02-21 10:43 | RADIOLOGY REPORT (SQ) ---
EXAM DESCRIPTION: CHEST SINGLE VIEW COMPLETED DATE/TIME: 02/21/2019 10:34 am REASON FOR STUDY: sob COMPARISON: 01/19/2019 EXAM PARAMETERS: NUMBER OF VIEWS: One view. TECHNIQUE: Single frontal radiographic view of the chest acquired. RADIATION DOSE: NA LIMITATIONS: None. FINDINGS: LUNGS AND PLEURA: Increased right apical opacities. No pneumothorax. Improved aeration o f the left base. MEDIASTINUM AND HILAR STRUCTURES: No masses. Contour normal. HEART AND VASCULAR STRUCTURES: Heart enlarged with vascular congestion. BONES: No acute findings. HARDWARE: Venous access catheter. Right axillary clips. OTHER: No other significant finding. IMPRESSION: Increasing right upper lobe opacity and vascular congestion. TECHNICAL DOCUMENTATION: JOB ID: [id number] [employer]- All Rights Reserved Reading location - IP/workstation name: [email or web address]
[2019-02-21] MEDS ORDERED: PROMETHAZINE HCL INJ 25 MG/1 ML VIAL IV ONE ×2 (11:21→18:07)
[2019-02-21] MEDS: HYDROMORPHONE HCL INJ/PF 2 MG/ML AMPULE IV PRN ×2 (13:38→18:23)
--- NOTE | 2019-02-21 14:05 | RADIOLOGY REPORT (SQ) ---
EXAM DESCRIPTION: CTA CHEST COMPLETED DATE/TIME: 02/21/2019 1:26 pm REASON FOR STUDY: Short of breath COMPARISON: 01/06/2019 TECHNIQUE: CT scan of the chest performed using helical scanning technique with dynamic intravenous contrast injection. Images reviewed with lung, soft tissue and bone windows. Reconstructed coronal and sagittal MPR images reviewed. Additional 3 dimensional post-processing performed to develop Maximal Intensity Projection images (UT P). All images stored on PACS. All CT scanners at this facility use dose modulation, iterative reconstruction, and/or weight based d osing when appropriate to reduce radiation dose to as low as reasonably achievable (ALARA). [facility]: Dose Right [facility]: CareDose [facility]: Dose Right [facility]: Teradose 4D [facility]: [employer] CONTRAST TYPE AND DOSE: contrast/concentration: Isovue 350.00 mg/ml; Total Contrast Delivered: 63.0 ml; Total Saline Delivered: 59.0 ml Contrast bolus adequate for pulmonary arteries and aorta. RENAL FUNCTION: GFR > 60. RADIATION DOSE: CT Rad equipment meets quality standard of care and radiation dose reduction techniq ues were employed. CTDIvol: 3.3 - 15.2 mGy. DLP: 533 mGy-cm. . LIMITATIONS: None. FINDINGS: LUNGS AND PLEURA: Extensive pulmonary nodules and masses. Increasing parenchymal opacity in the right upper lobe indicating superimposed pneumonia. Several of the pulmonary nodules are slig htly smaller than seen previously. Left base image 60 measured 14 cm compared to 11 cm currently. I n general however no significant improvement. Large bilateral pleural effusions. AORTA AND GREAT VESSELS: No aneurysm. Contrast bolus not optimized for the aorta. HEART: Pericardial effusion is slightly larger than previous. No significant coronary artery calcific ations. PULMONARY ARTERIES: No emboli visualized in the main pulmonary arteries or the segmental branches. HILAR AND MEDIASTINAL STRUCTURES: Widespread metastatic disease to the mediastinum and hilar regions. HARDWARE: Venous access catheter. UPPER ABDOMEN: Widespread metastatic disease to the liver increased over previous. Large bilateral a drenal masses. Nodes in the jg hepatis. THYROID AND OTHER SOFT TISSUES: No masses. No adenopathy. BONES: Suspect metastatic disease to the bones. 3D MIPS: Confirm above findings. OTHER: No other significant finding. IMPRESSION: No pulmonary emboli. Extensive progressive metastatic disease particularly to the liver in abdomen. Relatively stable met astatic disease to the chest. Pericardial effusion slightly larger than previous. COMMENT: Quality ID # [id number]: Final reports with documentation of one or more dose reduction techniques (e.g., Automated exposure control, adjustment of the mA and/or kV according to patient size, use of iterative reconstruction technique) TECHNICAL DOCUMENTATION: JOB ID: [id number] [email or web address]- All Rights Reserved Reading location - IP/workstation name: [email or web address]
[2019-02-21 14:22] LABS: APPEARANCE,URINE CLEAR; BILIRUBIN,URINE NEGATIVE (NEGATIVE); COLOR,URINE STRAW; GLUCOSE, URINE NEGATIVE (NEGATIVE); KETONES,URINE NEGATIVE (NEGATIVE); PROTEIN,URINE NEGATIVE (NEGATIVE); URINE SPECIFIC GRAVITY 1.009; UROBILINOGEN,URINE NEGATIVE mg/dL (<2.0)
[2019-02-21] MEDS ORDERED: IPRATROPIUM/ALBUTEROL 0.5-2.5 MG/3 ML AMPUL NEB ONE (15:23)
[2019-02-21] MEDS ORDERED: METHYLPREDNISOLONE INJ 125 MG/2 ML SDV IV ONE (15:24)
--- NOTE | 2019-02-21 17:16 | EKG REPORT ---
SEVERITY:- ABNORMAL ECG - SINUS TACHYCARDIA LOW VOLTAGE IN FRONTAL LEADS NONSPECIFIC T ABNORMALITIES, LATERAL LEADS : Confirmed by: Savita Grimm 21-Feb-2019 17:15:21
--- NOTE | 2019-02-21 17:16 | EKG REPORT ---
SEVERITY:- ABNORMAL ECG - SINUS TACHYCARDIA LOW VOLTAGE THROUGHOUT CONSIDER INFERIOR INFARCT PROBABLE ANTEROLATERAL INFARCT, AGE INDETERM : Confirmed by: Savita Grimm 21-Feb-2019 17:14:45
[2019-02-21] MEDS ORDERED: CLONIDINE HCL 0.2 MG TABLET PO ONE (18:05)
[2019-02-21] MEDS ORDERED: HYDROMORPHONE HCL INJ/PF 2 MG/ML AMPULE IV PRN (18:07)
[2019-02-21] MEDS ORDERED: LORAZEPAM INJ 2 MG/1 ML VIAL IV ONE (18:30)
[2019-02-21 20:18] VITALS: BP 109/88
--- NOTE | 2019-02-22 12:36 | XCELERA REPORT ---
[address] [address] Transthoracic Echocardiogram Report Name: LINDSAY MELTON Age: 48 yrs Gender: Female : 1970 Patient Status: Emergency Patient Location: ER Study Date: 02/21/2019 04:52 PM Height: 67 in Weight: 190 lb BSA: 2.0 m2 Procedure: A complete two-dimensional transthoracic echocardiogram was performed (2D, M-mode, spectral and color flow Doppler). The study was technically difficult with many images being suboptimal in quality. Reason For Study: Pericardial effusion Ordering Physician: SHAILA CORDOVA Performed By: Bria Lang Interpretation Summary The left ventricular ejection fraction is normal. LV diastolic function could not be adequately assessed. The left ventricle is grossly normal size. There is mild concentric left ventricular hypertrophy. Wall motion cannot be accurately commented on, but no definite regional wall motion abnormalities noted. The right ventricular systolic function is normal. The left atrial size is normal. The right atrium is normal in size There is a trace amount of mitral regurgitation There is no mitral valve stenosis. No aortic regurgitation is present. There is no aortic valve stenosis There is a trace or physiologic amount of tricuspid regurgitation Tricuspid regurgitation jet envelope not well defined to measure RV systolic pressure accurately. The aortic root is not well visualized. The inferior vena cava was not well visualized MMode/2D Measurements & Calculations RVDd: 2.5 cm LVIDd: 3.0 cm FS: 29.2 % Ao root diam: 2.1 cm IVSd: 1.2 cm LVIDs: 2.1 cm EDV(Teich): 34.7 ml Ao root area: 3.4 cm2 LVPWd: 1.1 cm ESV(Teich): 14.7 ml LA dimension: 2.5 cm EF(Teich): 57.7 % Doppler Measurements & Calculations PA V2 max: 62.1 cm/sec TR max jeanette: 218.5 cm/sec PA max P.5 mmHg TR max P.1 mmHg Left Ventricle The left ventricle is grossly normal size. There is mild concentric left ventricular hypertrophy. The left ventricular ejection fraction is normal. LV diastolic function could not be adequately assessed. Wall motion cannot be accurately commented on, but no definite regional wall motion abnormalities noted. Right Ventricle The right ventricle is grossly normal size. There is normal right ventricular wall thickness. The right ventricular systolic function is normal. Atria The right atrium is normal in size. The left atrial size is normal. Mitral Valve The mitral valve leaflets are sclerotic, but show no functional abnormalities. There is no mitral valve stenosis. There is a trace amount of mitral regurgitation. Aortic Valve The aortic valve is not well visualized secondary to technical limitations. There is no aortic valve stenosis. No aortic regurgitation is present. Tricuspid Valve The tricuspid valve is not well visualized secondary to technical limitations. There is no tricuspid stenosis. There is a trace or physiologic amount of tricuspid regurgitation. Tricuspid regurgitation jet envelope not well defined to measure RV systolic pressure accurately. Pulmonic Valve The pulmonic valve is not well visualized. Great Vessels The aortic root is not well visualized. The inferior vena cava was not well visualized. Effusions Small to moderate pericardial effusion. There are no echocardiographic or Doppler indications for cardiac tamponade. : SHAILA CORDOVA Shyamal
== END 2019-02-21 21:16 | disposition short-term general hospital (02) ==
LOC: ER 08:56
DX: R06.02 Shortness of breath (principal); R07.9 Chest pain, unspecified; R53.1 Weakness; I10 Essential (primary) hypertension; Z90.710 Acquired absence of both cervix and uterus
CPT/HCPCS: 93005 ×2; 36591; 96376; 94640; 99291; 99292; 96361; 96375; 96365; 96367; 36415; 87040; 85025; 85610; 80053; 81001; 83605; 93321; 71045; 71275; 93010; J2930; J1170; J2060; J2550; J7030; J7040; J3370; J7620; J2543